=== PATIENT | female | born 1930 | race Caucasian/White ===

== ENCOUNTER → 2016-08-28 | Outpatient (CLI) | payer BC ==
[~2016-08-28] MED LIST: ALEN70TA2 PO; ASPI325T45 PO; CHOL100010 PO; EZET10TA47 PO; LINA1CAP2 PO; LISI-791 PO; METF-384 PO; NIAC500T11 PO; POLY335019 PO; RALO60TA30 PO; ROSU20TA PO; TRIA0.25 PO
--- NOTE | 2016-08-28 14:25 | MAMMOGRAPHY REPORT ---
BILATERAL DIGITAL SCREENING MAMMOGRAM WITH CAD: 08/28/2016 CLINICAL HISTORY: Routine screening. Patient has no complaints. TECHNIQUE: Current study was also evaluated with a Computer Aided Detection (CAD) system. Bilateral CC and MLO views were obtained. COMPARISON: Comparison is made to exams dated: 11/20/2013 mammogram, 11/17/2012 mammogram, 11/13/2011 m ammogram, 11/10/2010 mammogram, 09/06/2009 mammogram - [facility], and 09/05/2008. BREAST COMPOSITION: There are scattered areas of fibroglandular density in both breasts. FINDINGS: No suspicious masses, calcifications, or areas of architectural distortion are noted in ei ther breast. There has been no significant interval change compared to prior exams. Bilateral benign appearing calcifications, predominantly vascular calcifications, are again noted. IMPRESSION: ACR BI-RADS CATEGORY 2: BENIGN There is no mammographic evidence of malignancy. A 1 year screening mammogram is recommended. The pa tient will receive written notification of the results. Approximately 10% of breast cancers are not detected with mammography. A negative mammographic report should not delay biopsy if a clinically suggestive mass is present. Deepali Looney M.D. /:08/28/2016 12:33:21 Process Technician: Amanda RENAE(Abad)(M), [facility] letter sent: Normal 1/2 BI-RADS Code: ACR BI-RADS Category 2: Benign
== END | disposition home or self-care (01) ==
LOC: C.MAMM 10:01
PROVIDERS: ATTEND Family Medicine
DX: Z12.31 Encounter for screening mammogram for malignant neoplasm of breast (principal)

== ENCOUNTER 2019-11-26 12:20 | Inpatient (IN) ==
[2019-11-26] MEDS ORDERED: SODIUM CHLORIDE 0.9% 500 ML IV ONE (12:43)
[2019-11-26] MEDS ORDERED: OPTIRAY 320 125ml IV ONE (12:45)
--- NOTE | 2019-11-26 12:47 | Emergency Department Note ---
Impression & Plan Pneumonia due to COVID-19 virus, Constipation, Ileus, Elevated troponin, Hypoxia ED Provider Note NAME: SARAHY CARREON AGE: 89 SEX: F : 1930 ARRIVES VIA: Walk-In INFORMANT: Patient ED PROVIDER(S): Henrique Arias DO CHIEF COMPLAINT: Upper respiratory symptoms HPI: Patient is an 89-year-old female who presents the for upper respiratory symptoms. She notes that has been present for several days with cough congestion. It is been a nonproductive cough. She denies any reported fevers. She denies any chest pain. Admits to shortness of breath. No belly pain but admits to nausea and vomiting. No history of DVTs. No exposure to anyone with known COVID. 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 She does live with her daughter and the daughters boyfriend who is a contractor. She denies any dysuria urgency or frequency. ROS: See above HPI for pertinent positives & negatives. A total of 10 systems reviewed and were otherwise negative. PAST MEDICAL HISTORY:See Below PAST SURGICAL HISTORY:See Below FAMILY HISTORY:See Below SOCIAL HISTORY:See Below HOME MEDICATIONS:See Below ALLERGIES:See Below VITALS:See Below PHYSICAL EXAMINATION: GENERAL: Sitting up in bed, alert, slightly ill-appearing, disheveled EYE EXAM: normal conjunctiva. PERRL and EOM's grossly intact. OROPHARYNX: no exudate, no erythema, lips, buccal mucosa, and tongue normal and mucous membranes are moist NECK: supple, no nuchal rigidity, no adenopathy, non-tender LUNGS: Diminished at bilateral bases. Normal chest wall mechanics HEART: no murmurs, S1 normal and S2 normal ABDOMEN: abdomen soft, non-tender, normo-active bowel sounds, no masses, no rebound or guarding. BACK: Back is symmetrical on inspection and there is no deformity, no midline tenderness, no CVA tenderness. SKIN: no rashes and no bruising UPPER EXTREMITIES: upper extremities are grossly normal. LOWER EXTREMITIES: No pitting edema. Calves are equal bilateral NEURO EXAM: Normal sensorium, cranial nerves II-XII grossly intact, normal speech, no gross weakness of arms, no gross weakness of legs. MEDICAL DECISION MAKING: Patient is an 89-year-old female who presents the ER for cough, congestion and shortness of breath. Placed on antibiotics as an outpatient. Upon arrival she is hypoxic with a pulse ox of 60%. She was seen immediately in C7. She was placed on nonrebreather. Pulse ox came up to 99%. IVs were established blood work was attained. Sepsis alert was called. Labs showed no significant leukocytosis or anemia. INR unremarkable. With the significant hypoxia CT Jocy of the chest was performed. This was negative. Did show bilateral interstitial infiltrates. Cover test was sent and came back positive. BMP with slightly elevated BUN. She was given IV cefepime initially upon arrival with a COVID positive was given IV Decadron. Lactate was negative. Heart rate trended down. Bilirubin LFTs were unremarkable. Troponin was +0.183. Bio fire was otherwise negative. Patient remained on nonrebreather nwhile in the ER was fairly comfortable. She was updated and admitted to the hospital for hypoxia secondary to COVID-19. Triage Nursing notes reviewed. Prior medical records reviewed Vital Signs: reviewed and remarkable for hypoxic, tachycardic, febrile Differential diagnosis: Differential diagnosis includes etiologies such as sepsis, UTI, pneumonia, metabolic, electrolyte abnormalities, cardiac sources, intracerebral event, toxicologic, neurological, as well as others were entertained. ER treatment provided: See below Diagnostics interpreted by me: ECG: Sinus rhythm rate 84 T WI in inferior leads No PVCs Normal QTC Cardiac Monitoring: An order was placed for continuous cardiac monitoring. The monitor shows a rate of 85 with sinus rhythm. Laboratory studies: As stated above and show below. Imaging studies: CT Angio of the chest shows bilateral infiltrates CT abdomen pelvis shows no acute pathology with exception of large amount of c onstipation Consultation(s): Discussed with Dr. Scotty Krishnamurthy for admission ED COURSE: Procedures: none PDMP:reviewed and no issues Critical Care: I have personally spent 75 minutes of critical care time in the direct management of this patient. This includes bedside care, interpretation of d iagnostic studies, and testing, discussion with consultants, patient, and family members, and other required patient management activities. This 75 minutes is in excess of all separately billable procedures. Past Med/Surg History Social History Smoking Status: Never smoker Second Hand Exposure: No; Do You Dip or Chew Tobacco: No; Tobacco Cessation Education Requested by Patient: No Hx Alcohol Use: No Hx Substance Use: No Preferred Language: Lao Communication Ability: Effective Podiatrist Required: No Beliefs That Will Affect Care: None Current Living Situation: Family Current Living Situation Comment: With daughter and son in law, states she is planning 2 move 2 [address] Other Information That Helps Us Care for You: No Feels Safe at Home: Yes Safety Concerns: Feels Safe At This Time Allergies Allergies Allergy/AdvReac Type Severity Reaction Status Date / Time Cipro Allergy Mild RASH Verified 03/24/12 22:42 Home Meds Home Medications Medication Instructions Recorded Confirmed Unobtainable 11/26/19 11/26/19 Results & Data (ED) Vital Signs Vital Signs - 24 hr 11/26/19 12:25 11/26/19 12:39 11/26/19 12:40 Temperature 37.7 C H Temperature Source Oral Pulse Rate 100 H Pulse Rate [Apical] Respiratory Rate 20 Respiratory Effort / Characteristics Non-Labored Respiratory Depth Normal Blood Pressure 115/57 L Blood Pressure [Left Arm] Blood Pressure Mean 76 Blood Pressure Mean [Left Arm] Pulse Oximetry 89 L 55 L 97 Oxygen Delivery Method Room Air Room Air Non-rebreather Oxygen Flow Rate 15 Sepsis Recent Fever Within 48 Hours Yes Sepsis New/Unexplained Change in Mental Status N/A Sepsis Action Taken by Nursing No Action Required 11/26/19 13:36 11/26/19 13:38 11/26/19 14:11 Temperature Temperature Source Pulse Rate Pulse Rate [Apical] 77 Respiratory Rate 18 Respiratory Effort / Characteristics Non-Labored Respiratory Depth Blood Pressure Blood Pressure [Left Arm] 113/64 Blood Pressure Mean Blood Pressure Mean [Left Arm] 80 Pulse Oximetry 92 96 94 Oxygen Delivery Method Non-rebreather Non-rebreather Non-rebreather Oxygen Flow Rate Sepsis Recent Fever Within 48 Hours Sepsis New/Unexplained Change in Mental Status Sepsis Action Taken by Nursing 11/26/19 14:50 11/26/19 16:30 Temperature Temperature Source Pulse Rate Pulse Rate [Apical] 72 73 Respiratory Rate 26 H 20 Respiratory Effort / Characteristics Respiratory Depth Blood Pressure Blood Pressure [Left Arm] 100/59 L 132/70 Blood Pressure Mean Blood Pressure Mean [Left Arm] 72 90 Pulse Oximetry 95 94 Oxygen Delivery Method Non-rebreather Non-rebreather Oxygen Flow Rate Sepsis Recent Fever Within 48 Hours Sepsis New/Unexplained Change in Mental Status Sepsis Action Taken by Nursing Laboratory Data Result diagrams: 11/26/19 12:56 11/26/19 12:56 Lab Results 11/26/19 11/26/19 11/26/19 Range/Units 12:56 12:56 12:56 WBC 9.14 (4.8-10.8) K/uL RBC 4.40 (4.2-5.4) M/uL Hgb 13.3 (12.0-16.0) g/dL POC Hgb (12.0-16.0) g/dl Hct 40.0 (37-47) % POC Hct (37-47) % MCV 90.9 (80-100) fL MCH 30.2 (25-34) pg MCHC 33.3 (32-36) g/dL RDW Std Deviation 46.3 (36.4-46.3) fL RDW Coeff of Ange 13.9 (11.5-14.5) % Plt Count 385 (130-400) K/uL MPV 8.9 (7.4-10.4) fL Immature Gran % (Auto) 0.4 % Neut % (Auto) 83.8 % Lymph % (Auto) 5.8 % Jefferson % (Auto) 9.8 % Eos % (Auto) 0.0 % Baso % (Auto) 0.2 % Neut # (Auto) 7.65 H (1.4-6.5) K/uL Lymph # (Auto) 0.53 L (1.2-3.4) K/uL Jefferson # (Auto) 0.90 H (0.11-0.59) K/uL Eos # (Auto) 0.00 (0-0.5) K/uL Baso # (Auto) 0.02 (0-0.2) K/uL Immature Gran # (Auto) 0.04 H (0.00-0.02) K/uL PT 11.6 (9.0-12.0) Seconds INR 1.1 (0.9-1.1) APTT 31.4 H (21.0-31.0) Seconds PTT Ratio 1.1 POC Sodium (135-144) mmol/L Sodium 138 (136-145) mmol/L POC Potassium (3.3-5.0) mmol/L Potassium 3.7 (3.5-5.1) mmol/L POC Chloride (101-112) mmol/L Chloride 104 (98-107) mmol/L Carbon Dioxide 24 (21-32) mmol/L POC Total CO2 (24-31) mmol/L Anion Gap 10.0 (3-11) POC Anion Gap (16-25) mmol/L POC BUN (7-18) mg/dl BUN 32 H (7-18) mg/dl Creatinine 0.84 (0.6-1.2) mg/dl POC Creatinine (0.6-1.3) mg/dl Est Cr Clr Drug Dosing Not Reportable Est GFR ( Amer) 71.4 Est GFR (Non-Af Amer) 61.6 BUN/Creatinine Ratio 38.1 H (10-20) Glucose 149 H (70-99) mg/dl POC Glucose (other) (70-99) mg/dl Lactate (0.4-2.0) mmol/L Calcium 8.5 (8.5-10.1) mg/dl POC Ioniz Calcium Scarlett (1.12-1.32) mmol/l Magnesium 2.4 (1.8-2.4) mg/dl Total Bilirubin 0.5 (0.2-1) mg/dl AST 25 (15-37) U/L ALT 15 (12-78) U/L Alkaline Phosphatase 68 (45-117) U/L Troponin I 0.183 H* (0-0.045) ng/ml Total Protein 7.0 (6.4-8.2) gm/dl Albumin 3.1 L (3.4-5.0) gm/dl Globulin 3.9 (2.5-4.0) gm/dl Albumin/Globulin Ratio 0.8 L (0.9-2) Procalcitonin (0-0.5) ng/ml Adenovirus (PCR) (NotDetected) B. pertussis DNA (PCR) (NotDetected) B.parapertussis DNA PCR (NotDetected) C. pneumoniae DNA (PCR) (NotDetected) Coronavirus OC43 (PCR) (NotDetected) Coronavirus HKU1 (PCR) (NotDetected) Coronavirus 229E (PCR) (NotDetected) COVID-19 Eval Order COVID-19 PCR (Negative) Coronavirus NL63 (PCR) (NotDetected) Human Metapneumovir PCR (NotDetected) Influenza Type A (PCR) (NotDetected) Influenza Type B (PCR) (NotDetected) M. pneumoniae (PCR) (NotDetected) Parainfluenza 1 (PCR) (NotDetected) Parainfluenza 2 (PCR) (NotDetected) Parainfluenza 3 (PCR) (NotDetected) Parainfluenza 4 (PCR) (NotDetected) RSV (PCR) (NotDetected) Entero/Rhino (PCR) (NotDetected) Blood Type Antibody Screen 11/26/19 11/26/19 11/26/19 Range/Units 12:56 13:01 13:01 WBC (4.8-10.8) K/uL RBC (4.2-5.4) M/uL Hgb (12.0-16.0) g/dL POC Hgb (12.0-16.0) g/dl Hct (37-47) % POC Hct (37-47) % MCV (80-100) fL MCH (25-34) pg MCHC (32-36) g/dL RDW Std Deviation (36.4-46.3) fL RDW Coeff of Ange (11.5-14.5) % Plt Count (130-400) K/uL MPV (7.4-10.4) fL Immature Gran % (Auto) % Neut % (Auto) % Lymph % (Auto) % Jefferson % (Auto) % Eos % (Auto) % Baso % (Auto) % Neut # (Auto) (1.4-6.5) K/uL Lymph # (Auto) (1.2-3.4) K/uL Jefferson # (Auto) (0.11-0.59) K/uL Eos # (Auto) (0-0.5) K/uL Baso # (Auto) (0-0.2) K/uL Immature Gran # (Auto) (0.00-0.02) K/uL PT (9.0-12.0) Seconds INR (0.9-1.1) APTT (21.0-31.0) Seconds PTT Ratio POC Sodium (135-144) mmol/L Sodium (136-145) mmol/L POC Potassium (3.3-5.0) mmol/L Potassium (3.5-5.1) mmol/L POC Chloride (101-112) mmol/L Chloride (98-107) mmol/L Carbon Dioxide (21-32) mmol/L POC Total CO2 (24-31) mmol/L Anion Gap (3-11) POC Anion Gap (16-25) mmol/L POC BUN (7-18) mg/dl BUN (7-18) mg/dl Creatinine (0.6-1.2) mg/dl POC Creatinine (0.6-1.3) mg/dl Est Cr Clr Drug Dosing Est GFR ( Amer) Est GFR (Non-Af Amer) BUN/Creatinine Ratio (10-20) Glucose (70-99) mg/dl POC Glucose (other) (70-99) mg/dl Lactate (0.4-2.0) mmol/L Calcium (8.5-10.1) mg/dl POC Ioniz Calcium Scarlett (1.12-1.32) mmol/l Magnesium (1.8-2.4) mg/dl Total Bilirubin (0.2-1) mg/dl AST (15-37) U/L ALT (12-78) U/L Alkaline Phosphatase (45-117) U/L Troponin I (0-0.045) ng/ml Total Protein (6.4-8.2) gm/dl Albumin (3.4-5.0) gm/dl Globulin (2.5-4.0) gm/dl Albumin/Globulin Ratio (0.9-2) Procalcitonin 0.32 (0-0.5) ng/ml Adenovirus (PCR) Not Detected (NotDetected) B. pertussis DNA (PCR) Not Detected (NotDetected) B.parapertussis DNA PCR Not Detected (NotDetected) C. pneumoniae DNA (PCR) Not Detected (NotDetected) Coronavirus OC43 (PCR) Not Detected (NotDetected) Coronavirus HKU1 (PCR) Not Detected (NotDetected) Coronavirus 229E (PCR) Not Detected (NotDetected) COVID-19 Eval Order Covid19 Done at [facility] COVID-19 PCR (Negative) Coronavirus NL63 (PCR) Not Detected (NotDetected) Human Metapneumovir PCR Not Detected (NotDetected) Influenza Type A (PCR) Not Detected (NotDetected) Influenza Type B (PCR) Not Detected (NotDetected) M. pneumoniae (PCR) Not Detected (NotDetected) Parainfluenza 1 (PCR) Not Detected (NotDetected) Parainfluenza 2 (PCR) Not Detected (NotDetected) Parainfluenza 3 (PCR) Not Detected (NotDetected) Parainfluenza 4 (PCR) Not Detected (NotDetected) RSV (PCR) Not Detected (NotDetected) Entero/Rhino (PCR) Not Detected (NotDetected) Blood Type Antibody Screen 11/26/19 11/26/19 11/26/19 Range/Units 13:01 13:02 14:07 WBC (4.8-10.8) K/uL RBC (4.2-5.4) M/uL Hgb (12.0-16.0) g/dL POC Hgb 13.6 (12.0-16.0) g/dl Hct (37-47) % POC Hct 40 (37-47) % MCV (80-100) fL MCH (25-34) pg MCHC (32-36) g/dL RDW Std Deviation (36.4-46.3) fL RDW Coeff of Ange (11.5-14.5) % Plt Count (130-400) K/uL MPV (7.4-10.4) fL Immature Gran % (Auto) % Neut % (Auto) % Lymph % (Auto) % Jefferson % (Auto) % Eos % (Auto) % Baso % (Auto) % Neut # (Auto) (1.4-6.5) K/uL Lymph # (Auto) (1.2-3.4) K/uL Jefferson # (Auto) (0.11-0.59) K/uL Eos # (Auto) (0-0.5) K/uL Baso # (Auto) (0-0.2) K/uL Immature Gran # (Auto) (0.00-0.02) K/uL PT (9.0-12.0) Seconds INR (0.9-1.1) APTT (21.0-31.0) Seconds PTT Ratio POC Sodium 135 (135-144) mmol/L Sodium (136-145) mmol/L POC Potassium 4.0 (3.3-5.0) mmol/L Potassium (3.5-5.1) mmol/L POC Chloride 105 (101-112) mmol/L Chloride (98-107) mmol/L Carbon Dioxide (21-32) mmol/L POC Total CO2 22 L (24-31) mmol/L Anion Gap (3-11) POC Anion Gap 14.0 L (16-25) mmol/L POC BUN 36 H (7-18) mg/dl BUN (7-18) mg/dl Creatinine (0.6-1.2) mg/dl POC Creatinine 0.8 (0.6-1.3) mg/dl Est Cr Clr Drug Dosing Est GFR ( Amer) Est GFR (Non-Af Amer) BUN/Creatinine Ratio (10-20) Glucose (70-99) mg/dl POC Glucose (other) 155 H (70-99) mg/dl Lactate 1.3 (0.4-2.0) mmol/L Calcium (8.5-10.1) mg/dl POC Ioniz Calcium Scarlett 0.90 L (1.12-1.32) mmol/l Magnesium (1.8-2.4) mg/dl Total Bilirubin (0.2-1) mg/dl AST (15-37) U/L ALT (12-78) U/L Alkaline Phosphatase (45-117) U/L Troponin I (0-0.045) ng/ml Total Protein (6.4-8.2) gm/dl Albumin (3.4-5.0) gm/dl Globulin (2.5-4.0) gm/dl Albumin/Globulin Ratio (0.9-2) Procalcitonin (0-0.5) ng/ml Adenovirus (PCR) (NotDetected) B. pertussis DNA (PCR) (NotDetected) B.parapertussis DNA PCR (NotDetected) C. pneumoniae DNA (PCR) (NotDetected) Coronavirus OC43 (PCR) (NotDetected) Coronavirus HKU1 (PCR) (NotDetected) Coronavirus 229E (PCR) (NotDetected) COVID-19 Eval Order COVID-19 PCR POSITIVE A* (Negative) Coronavirus NL63 (PCR) (NotDetected) Human Metapneumovir PCR (NotDetected) Influenza Type A (PCR) (NotDetected) Influenza Type B (PCR) (NotDetected) M. pneumoniae (PCR) (NotDetected) Parainfluenza 1 (PCR) (NotDetected) Parainfluenza 2 (PCR) (NotDetected) Parainfluenza 3 (PCR) (NotDetected) Parainfluenza 4 (PCR) (NotDetected) RSV (PCR) (NotDetected) Entero/Rhino (PCR) (NotDetected) Blood Type Antibody Screen 11/26/19 Range/Units 15:45 WBC (4.8-10.8) K/uL RBC (4.2-5.4) M/uL Hgb (12.0-16.0) g/dL POC Hgb (12.0-16.0) g/dl Hct (37-47) % POC Hct (37-47) % MCV (80-100) fL MCH (25-34) pg MCHC (32-36) g/dL RDW Std Deviation (36.4-46.3) fL RDW Coeff of Ange (11.5-14.5) % Plt Count (130-400) K/uL MPV (7.4-10.4) fL Immature Gran % (Auto) % Neut % (Auto) % Lymph % (Auto) % Jefferson % (Auto) % Eos % (Auto) % Baso % (Auto) % Neut # (Auto) (1.4-6.5) K/uL Lymph # (Auto) (1.2-3.4) K/uL Jefferson # (Auto) (0.11-0.59) K/uL Eos # (Auto) (0-0.5) K/uL Baso # (Auto) (0-0.2) K/uL Immature Gran # (Auto) (0.00-0.02) K/uL PT (9.0-12.0) Seconds INR (0.9-1.1) APTT (21.0-31.0) Seconds PTT Ratio POC Sodium (135-144) mmol/L Sodium (136-145) mmol/L POC Potassium (3.3-5.0) mmol/L Potassium (3.5-5.1) mmol/L POC Chloride (101-112) mmol/L Chloride (98-107) mmol/L Carbon Dioxide (21-32) mmol/L POC Total CO2 (24-31) mmol/L Anion Gap (3-11) POC Anion Gap (16-25) mmol/L POC BUN (7-18) mg/dl BUN (7-18) mg/dl Creatinine (0.6-1.2) mg/dl POC Creatinine (0.6-1.3) mg/dl Est Cr Clr Drug Dosing Est GFR ( Amer) Est GFR (Non-Af Amer) BUN/Creatinine Ratio (10-20) Glucose (70-99) mg/dl POC Glucose (other) (70-99) mg/dl Lactate (0.4-2.0) mmol/L Calcium (8.5-10.1) mg/dl POC Ioniz Calcium Scarlett (1.12-1.32) mmol/l Magnesium (1.8-2.4) mg/dl Total Bilirubin (0.2-1) mg/dl AST (15-37) U/L ALT (12-78) U/L Alkaline Phosphatase (45-117) U/L Troponin I (0-0.045) ng/ml Total Protein (6.4-8.2) gm/dl Albumin (3.4-5.0) gm/dl Globulin (2.5-4.0) gm/dl Albumin/Globulin Ratio (0.9-2) Procalcitonin (0-0.5) ng/ml Adenovirus (PCR) (NotDetected) B. pertussis DNA (PCR) (NotDetected) B.parapertussis DNA PCR (NotDetected) C. pneumoniae DNA (PCR) (NotDetected) Coronavirus OC43 (PCR) (NotDetected) Coronavirus HKU1 (PCR) (NotDetected) Coronavirus 229E (PCR) (NotDetected) COVID-19 Eval Order COVID-19 PCR (Negative) Coronavirus NL63 (PCR) (NotDetected) Human Metapneumovir PCR (NotDetected) Influenza Type A (PCR) (NotDetected) Influenza Type B (PCR) (NotDetected) M. pneumoniae (PCR) (NotDetected) Parainfluenza 1 (PCR) (NotDetected) Parainfluenza 2 (PCR) (NotDetected) Parainfluenza 3 (PCR) (NotDetected) Parainfluenza 4 (PCR) (NotDetected) RSV (PCR) (NotDetected) Entero/Rhino (PCR) (NotDetected) Blood Type O Negative Antibody Screen NEGATIVE Administered Medications Discontinued Medications Dexamethasone (Dexamethasone Sod Inj 10 Mg/Ml Vial) 8 mg IV NOW ONE Stop: 11/26/19 15:09 Last Admin: 11/26/19 15:46 Dose: 8 mg Documented by: [id number] Sodium Chloride (Nss) 500 mls @ 999 mls/hr IV .Q31M ONE Stop: 11/26/19 13:13 Last Infusion: 11/26/19 13:42 Dose: 0 mls/hr Documented by: [id number] Admin: 11/26/19 13:06 Dose: 999 mls/hr Documented by: [id number] Cefepime HCl (Maxipime) 2,000 mg in 20 mls @ 5 mls/min IV NOW STA; Protocol Stop: 11/26/19 14:12 Last Admin: 11/26/19 15:02 Dose: 5 mls/min Documented by: [id number] Ioversol (Optiray 320 125ml) 118 ml IV ONCE ONE Stop: 11/26/19 12:46 Last Admin: 11/26/19 12:46 Dose: 118 ml Documented by: [id number] Discharge Plan Visit Data Chief Complaint: Vomiting Stated Complaint: VOMITING/STARTED MEDS FOR SINUS INFECTION ED Provider: Henrique Arias Discharge Problem: Pneumonia due to COVID-19 virus, Constipation, Ileus, Elevated troponin, Hypoxia Discharge Instructions Interventions: ED Discharge Assessment Last Done: 11/26/19 17:06 Discharge Problem: Constipation Qualifiers: Constipation type: unspecified constipation type Qualified Code(s): K59.00 - Constipation, unspecified
[2019-11-26 13:14] LABS: iSTAT Creatinine 0.8 mg/dl (0.6-1.3); iSTAT Hemoglobin 13.6 g/dl (12.0-16.0); iSTAT Ionized Calcium 0.9 mmol/l (1.12-1.32)
[2019-11-26 13:15] LABS: Basophils # (auto) 0.02 K/uL (0-0.2); Basophils % (auto) 0.2 %; Hemoglobin 13.3 g/dL (12.0-16.0); Immature Granulocytes # (auto) 0.04 K/uL (0.00-0.02); Immature Granulocytes % (auto) 0.4 %; Lymphocytes # (auto) 0.53 K/uL (1.2-3.4); Lymphocytes % (auto) 5.8 %; Mean Corpuscular Hemoglobin 30.2 pg (25-34); Mean Corpuscular Hgb Conc 33.3 g/dL (32-36); Mean Corpuscular Volume 90.9 fL (80-100); Mean Platelet Volume 8.9 fL (7.4-10.4); Monocytes % (auto) 9.8 %; Neutrophils # (auto) 7.65 K/uL (1.4-6.5); Neutrophils % (auto) 83.8 %; Platelet Count 385 K/uL (130-400); RDW Coefficient of Variation 13.9 % (11.5-14.5); RDW Standard Deviation 46.3 fL (36.4-46.3); White Blood Count 9.14 K/uL (4.8-10.8)
[2019-11-26 13:24] LABS: INR 1.1 (0.9-1.1); Partial Thromboplastin Ratio 1.1; Partial Thromboplastin Time 31.4 Seconds (21.0-31.0); Prothrombin Time 11.6 Seconds (9.0-12.0)
[2019-11-26 13:31] LABS: Alanine Aminotransferase 15 U/L (12-78); Albumin Level 3.1 gm/dl (3.4-5.0); Aspartate Aminotransferase 25 U/L (15-37); BUN Creatinine Ratio 38.1 (10-20); Blood Urea Nitrogen 32 mg/dl (7-18); Calcium 8.5 mg/dl (8.5-10.1); Carbon Dioxide 24 mmol/L (21-32); Chloride 104 mmol/L (98-107); Est GFR (African American) 71.4; Est GFR (Non-African American) 61.6; Glucose 149 mg/dl (70-99); Magnesium 2.4 mg/dl (1.8-2.4); Potassium 3.7 mmol/L (3.5-5.1); Sodium 138 mmol/L (136-145)
--- NOTE | 2019-11-26 13:40 | CT Scan Report ---
CT ANGIOGRAM OF THE CHEST CLINICAL HISTORY: Atypical chest pain. Shortness of breath. Possible pulmonary embolism. Sepsis. COMPARISON STUDY: No previous studies for comparison. TECHNIQUE: Following the IV administration of 118 mL of Optiray-320, CT angiogram of the thorax was p erformed from the thoracic inlet to the lung bases utilizing the pulmonary embolus protocol. Images a re reviewed in the axial, sagittal, and coronal planes. IV contrast was administered without complica tion. MIP imaging was performed. A dose lowering technique was utilized adhering to the principles o f ALARA. CT DOSE: 658.48 mGy.cm FINDINGS: There is mild hilar adenopathy, there are borderline enlarged mediastinal lymph nodes. The heart is enlarged. The ascending thoracic aorta measures 29 mm There were no pulmonary artery filling defects to indicate acute pulmonary embolism. No pleural effusions are visualized. There are multifocal groundglass opacities. These have an upper lobe predominance. The lower lobe, th ere is surgical bronchiectasis with associated groundglass opacity. Clinical correlation be necessary to differentiate chronic lung disease from an acute inflammatory process. IMPRESSION: 1. No evidence of acute pulmonary embolism 2. Mild hilar adenopathy. Borderline enlarged mediastinal lymph nodes 3. Multifocal groundglass opacities. Lower lobe bronchiectasis. Clinical correlation will be necessar y to differentiate an acute infectious/inflammatory processes from chronic lung disease. ACT 112: Negative or not required by law. Electronically signed by: Nico Grey M.D. 11/26/2019 1:39 PM
[2019-11-26 13:42] LABS: Albumin Globulin Ratio 0.8 (0.9-2); Alkaline Phosphatase 68 U/L (45-117); Bilirubin,Total 0.5 mg/dl (0.2-1); Globulin 3.9 gm/dl (2.5-4.0); Troponin I 0.183 ng/ml (0-0.045)
--- NOTE | 2019-11-26 13:46 | CT Scan Report ---
CT abd pelvis IV con only CLINICAL HISTORY: Generalized abdominal pain COMPARISON STUDY: February 2012 TECHNIQUE: Patient was scanned in a dynamic helical fashion during intravenous administration of 118 cc of Optiray 320 A dose lowering technique was utilized adhering to the principles of ALARA. CT DOSE: FINDINGS: Lower chest: There are multifocal groundglass opacities. There is lower lobe cylindrical bronchiectas is. The heart is enlarged. There are no significant pleural effusions. Liver: The contrast-enhanced liver is normal in size, contour, and attenuation. There is no intrahepa tic biliary ductal dilatation. The hepatic veins and portal veins are patent. Gallbladder: Unremarkable. Spleen: Normal in size and attenuation. Pancreas: Mildly atrophic. No focal masses identified Adrenal glands: Unremarkable. Kidneys: There is symmetric renal cortical enhancement. The kidneys are normal in size without hydron ephrosis. Bowel: There is borderline rectal wall thickening. There is gaseous distention of the colon down to t he level the sigmoid. No obstructing mass is visualized. There is borderline rectal wall thickening. There are no findings to indicate acute appendicitis. Peritoneum: There is no intraperitoneal free air or abdominal ascites. Vasculature: The abdominal aorta is normal in course and caliber. Adenopathy: None. Pelvic viscera: The uterus appears surgically absent. Skeletal structures: No destructive osseous lesions are seen. IMPRESSION: 1. Moderate right colonic stool, and moderate gaseous distention of the colon down to the level of th e sigmoid. No obstructing mass is visualized on CT scanning. 2. Borderline rectal wall thickening. Clinical correlation regards to a proctocolitis is recommended 3. No evidence of pneumatosis. No evidence of free intraperitoneal air. ACT 112: Negative or not required by law. Electronically signed by: Nico Grey M.D. 11/26/2019 1:44 PM
[2019-11-26 14:06] LABS: Adenovirus PCR Not Detected (NotDetected); Bordetella parapertussis PCR Not Detected (NotDetected); Bordetella pertussis PCR Not Detected (NotDetected); Chlamydia pneumoniae PCR Not Detected (NotDetected); Coronavirus 229E PCR Not Detected (NotDetected); Coronavirus HKU1 PCR Not Detected (NotDetected); Coronavirus NL63 PCR Not Detected (NotDetected); Coronavirus OC43PCR Not Detected (NotDetected); Human Metapneumovirus PCR Not Detected (NotDetected); Influenza A PCR Not Detected (NotDetected); Influenza B PCR Not Detected (NotDetected); Mycoplasma pneumoniae PCR Not Detected (NotDetected); Parainfluenza Virus 1 PCR Not Detected (NotDetected); Parainfluenza Virus 2 PCR Not Detected (NotDetected); Parainfluenza Virus 3 PCR Not Detected (NotDetected); Parainfluenza Virus 4 PCR Not Detected (NotDetected); Respiratory Syncytial VirusPCR Not Detected (NotDetected); Rhinovirus/Enterovirus PCR Not Detected (NotDetected)
[2019-11-26] MEDS ORDERED: CEFEPIME 2,000 MG/20 ML VIAL IV STA (14:09)
--- NOTE | 2019-11-26 14:16 | XRay Report ---
XR chest 1V portable CLINICAL HISTORY: SEPSIS COMPARISON STUDY: 09/20/2014 FINDINGS: The heart is enlarged. There is mild elevation left hemidiaphragm. There is radiographic co ngestive failure/fluid overload. There are basilar airspace opacities, edema versus atelectasis versu s pneumonia.[Right hilum is prominent suggesting underlying adenopathy IMPRESSION: 1. Cardiomegaly and radiographic evidence of congestive failure/fluid overload 2. Nonspecific basilar opacities. These could represent focal edema, pneumonia, or atelectasis. Clini mabel and radiographic follow-up is recommended. 3. Suspected mild right hilar adenopathy ACT 112: Negative or not required by law. Electronically signed by: Nico Grey M.D. 11/26/2019 2:14 PM
[2019-11-26] MEDS ORDERED: DEXAMETHASONE SOD INJ 10 MG/ML VIAL IV ONE (15:08)
--- NOTE | 2019-11-26 15:34 | History & Physical Report ---
Date of Service November 26, 2019 Assessment & Plan (1) Pneumonia due to COVID-19 virus: Patient has profound acute hypoxic respiratory failure clinical scenario consistent with COVID positive COVID testing. Patient was consented for convalescent plasma in the presence of her daughter. FDA fax sheet was given. Patient is typing screen in the emergency department and convalescent plasma will be ordered. Patient also continue 10 days of dexamethasone 6 mg once a day and zinc therapy. Patient is requiring high flow oxygen and is mear the maximum will have a prn bipap order and after conversation with pulmonary national sales trainer,Dr Early, will start REmdesivir theapy this pm patient does wish to be a full code and would permit progressions of ventilation if required Patient denies any ill contacts since there is a family Because consolidation cannot be ruled out by CT scan the patient also be given ceftriaxone and azithromycin for been acquired pneumonia. Should be given an antitussive Robitussin-AC (2) Diabetes: Attempts to reach her pharmacy which is [facility] were met with the pharmacy being closed. To this end we will place the patient on a sliding scale at this point in time without carb coverage until we can determine what her best insulin requirement would be she is on carbohydrate sensitive diet and A1c will be checked in the morning and W pharmacy oversight for her diabetic care (3) Hyperlipidemia: In the distant past patient has been on statins these will be held at this current time (4) Ileus: Senokot 2 in the morning and the declog suppository in the eveningPatient is marked gaseous distention seen on imaging studies. CT scan suggest possible right-sided constipation (5) Elevated troponin: Elevated troponin of unclear significance at this time there is no significant renal failure although she has chronic kidney disease stage II. Troponins will be checked in the morning there is no acute changes on her EKG this could be result of COVID carditis. Patient will be given a baby aspirin (6) DVT prophylaxis: Patient is placed on Lovenox 30 subcu every 12 Patient confirmed she is a full code her outlook is katina at this present time History of Present Illness Primary Care Provider: Marcio Lindsay MD 89-year-old female who presents the for upper respiratory symptoms. She notes that she has been fatigued and tired for a few days with a nonproductive cough. She denies any reported fevers. She denies any chest pain. She says she has felt more short of breath of late no belly pain nausea vomiting or diarrhea. No history of DVTs. No exposure to anyone with known COVID. 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 She does live with her daughter and the daughters boyfriend who is a contractor. She denies any dysuria urgency or frequency. In emergency department she is found be profoundly hypoxemic. She has bilateral groundglass densities seen on CT scan of her chest. She has positive COVID test negative bio fire she is not leukoropenic she is lymphopenic she is mild elevation of her troponin she is requiring nonrebreather oxygen I did discuss this case with Dr. Chandrakant Early Allergies Allergy/AdvReac Type Severity Reaction Status Date / Time Cipro Allergy Mild RASH Verified 03/24/12 22:42 Home Medications Home Medications Medication Instructions Recorded Confirmed Type Unobtainable 11/26/19 11/26/19 History Past Med/Surg History Social History Smoking Status: Never smoker Second Hand Exposure: No; Do You Dip or Chew Tobacco: No; Tobacco Cessation Education Requested by Patient: No Hx Alcohol Use: No Hx Substance Use: No Preferred Language: [place] Communication Ability: Effective Manager Rfid Required: No Beliefs That Will Affect Care: None Current Living Situation: Family Current Living Situation Comment: With daughter and son in law, states she is planning 2 move 2 [facility] [address] Other Information That Helps Us Care for You: No Feels Safe at Home: Yes Safety Concerns: Feels Safe At This Time Review of Systems Review of Systems: Moderate distress and moderate fatigue 2 to 3 days worth of headache, but no blurry or double vision no speech or swallowing issues no chest pain, pressure or palpitations She has felt short of breath specifically dyspneic with exertion has had a nonproductive cough no abdominal pain, nausea or vomiting, diarrhea or constipation no dysuria, hematuria or frequency no focal joint pain or swelling no back pain, CVA tenderness or radicular pain no bruising, bleeding or rashes no focal signs of weakness or numbness or altered sensation no complaints or anxiety or depression. Physical Exam Physical Exam: The patient appeared well nourished and normally developed. She breathes easily with nonrebreather but does not tolerate any lower amount of supplemental oxygen at this time Vital signs as documented. On oxygen mask at 15 L she desaturated to 85% on nonrebreather she remains above 90 Head exam is normocephalic atraumatic no scleral icterus Oropharynx is without erythema or exudates Neck is without JVD, thyromegaly, or carotid bruits. Lungs are coarse rales are heard in all lung cristobal Cardiac exam, Rhythm is regular.. No murmurs, rubs or gallops. Abdominal exam reveals normal bowel sounds, soft non tender, no masses Extremities are nonedematous and both pedal pulses are normal. Neurologic exam is alert and oriented, no focal loss of strength or sensation Skin is without bruises or rashes Results & Data Results & Data ([facility]) Vital Signs (Past 12 Hours) Vital Signs Temp Pulse Pulse Resp BP BP Pulse Ox 11/26/19 14:50 72 26 H 100/59 L 95 11/26/19 14:11 94 11/26/19 13:38 77 18 113/64 96 11/26/19 13:36 92 11/26/19 12:40 97 11/26/19 12:39 55 L 11/26/19 12:25 99.9 F H 100 H 20 115/57 L 89 L chest x-ray 11/26/2019 cardiomegaly evidence of failure bibasilar opacities infectious etiology is not ruled out right hilar adenopathy CT angiogram of the chest 11/26/2019no PE, hilar adenopathy, multifocal groundglass opacities lower lobe bronchiectasis CT abdomen pelvis 11/26/2019moderate colonic stool gaseous distention of the colon down to the level of the sigmoid no obstructing masses borderline rectal wall thickening no free intraperitoneal air EKG shows sinus mechanism no acute coronary syndrome suspected PG Care Time/CCT Total # of Minutes Spent Total Time Spent with Patient: Total time spent is greater than 50% in c oordination of care (as documented) at patient's floor/unit and/or counseling patient: Coding Level of Care Code 21624 Initial Inpt Care Lvl 3 Diagnoses Pneumonia due to COVID-19 virus U07.1; J12.89 Diabetes E11.9 Hyperlipidemia E78.5 Ileus K56.7 Elevated troponin R79.89 DVT prophylaxis Z29.9
[2019-11-26] MEDS ORDERED: bisacodyL 10 MG SUPP PR STA (18:04)
[2019-11-26] MEDS ORDERED: GUAIFENESIN/CODEINE 100MG/10MG 5ML UDC PO PRN (18:04)
[2019-11-26] MEDS ORDERED: AZITHROMYCIN 250 MG TAB PO ONE (18:04)
[2019-11-26] MEDS ORDERED: ONDANSETRON INJ 2 MG/ML 2 ML VIAL IV PRN (18:04)
[2019-11-26] MEDS ORDERED: GLUCOSE 40% GEL 15 GM TUBE PO PRN (18:04)
[2019-11-26] MEDS ORDERED: CARBOHYDRATES FOR HYPOGLYCEMIA PO PRN (18:04)
[2019-11-26] MEDS ORDERED: DEXTROSE 50% 50 ML SYRINGE IV PRN (18:04)
[2019-11-26] MEDS ORDERED: GLUCAGON FOR INJ 1 MG VIAL SQ PRN (18:04)
[2019-11-26] MEDS ORDERED: GLUCOSE 10 TABS/TUBE PO PRN (18:04)
[2019-11-26] MEDS ORDERED: ALUMINUM/MAGNESIUM SUSP 30 ML UDC PO PRN (18:04)
[2019-11-26] MEDS ORDERED: PHARMACY GLYCEMIC MGMT CONSULT PRN (18:39)
[2019-11-26 18:43] LABS: D Dimer 3940 ug/L FEU (0-500)
[2019-11-26] MEDS ORDERED: cefTRIAXone SODIUM 2,000 MG in DEXTROSE 5% 50 ML IV SCH (19:00)
--- NOTE | 2019-11-26 19:11 | Pharmacy Report ---
Pharmacy Glycemic Short Note 2 - Date of Service November 26, 2019 - Glycemic Short BSG Results (Last 24 hours): 11/26/19 11/26/19 12:56 13:02 Glucose 149 H POC Glucose (other) 155 H OUTPATIENT ANTIDIABETIC REGIMEN: * Patient's outpatient med history was unobtainable at admission. ASSESSMENT: * Admitted for pneumonia due to Covid-19 virus. Patient will be receiving Dexamethasone 6mg Daily. * Started on Remdesivir 200mg IV x1 tonight, followed by Remdesivir 100mg IV q24h Days 2-5. PLAN FOR INPATIENT GLYCEMIC CONTROL: * Hold outpatient oral diabetes medications * Basal insulin * Lantus 10 units x1 dose tonight * Bolus insulin * NovoLog per scale ACHS or Q6hrs while NPO * Goal Range: Low 110 mg/dL - High 140 mg/dL * Correction Factor: 35 mg/dL/unit * Nutritional / Prandial insulin per carb ratio of 1 unit per 12 grams CHO consumed PLAN FOR DISCHARGE: *
[2019-11-26] MEDS ORDERED: REMDESIVIR 200 mg: Day 1 IV ONE (19:15)
[2019-11-26] MEDS ORDERED: LANTUS PER UNIT CHARGE SQ SCH (20:00)
[2019-11-26] MEDS: ASPIRIN 81 MG ECTAB PO SCH (20:50)
[2019-11-26] MEDS: ACETAMINOPHEN 325 MG TAB PO SCH (20:50)
[2019-11-26] MEDS: cefTRIAXone SODIUM 2,000 MG in DEXTROSE 5% 50 ML IV SCH (20:51)
[2019-11-26] MEDS: ENOXAPARIN INJ 30 MG/0.3 ML SYR SQ SCH (20:52)
[2019-11-26] MEDS: INSULIN ASPART 100 UNITS/ML 3 ML PEN SC SCH (20:58)
[2019-11-26] MEDS: NSS 30mL Flush, Days 1-5 IV SCH (23:12)
[2019-11-27] MEDS: ACETAMINOPHEN 325 MG TAB PO SCH (00:18)
[2019-11-27 01:35] LABS: Appearance Urine Clear (Clear); Bacteria Urine Automated Negative (Negative); Bilirubin Urine Negative (Negative); Blood Urine Negative (Negative); Color Urine Yellow; Epithelial Cell Urine Auto >30 /lpf (0-5); Glucose Urine UA Negative (Negative); Ketones Urine 1+ (Negative); Leukocyte Esterase Urine Negative (Negative); Nitrite Urine Negative (Negative); Protein Urine 1+ (Negative); Specific Gravity Urine > 1.045 (1.000-1.030); Urobilinogen Urine Negative (Negative); pH Urine 5.5 (4.5-7.5)
[2019-11-27 01:47] LABS: RBC Urine Automated 0-4 /hpf (0-4)
[2019-11-27 08:50] LABS: Estimated Average Glucose 126 mg/dl
[2019-11-27] MEDS ORDERED: dexAMETHasone 6 MG in DEXTROSE 5% 25 ML IV SCH (09:00)
[2019-11-27] MEDS: ZINC SULFATE 220 MG CAPSULE PO SCH (09:02)
[2019-11-27] MEDS: ASPIRIN 81 MG ECTAB PO SCH (09:02)
[2019-11-27] MEDS: DEXAMETHASONE SOD PHOSPHATE 6 MG in SYRINGE 0 ML IV SCH (09:02)
[2019-11-27] MEDS: AZITHROMYCIN 250 MG TAB PO SCH (09:02)
[2019-11-27] MEDS: ENOXAPARIN INJ 30 MG/0.3 ML SYR SQ SCH ×2 (09:02→20:46)
[2019-11-27] MEDS: DOCUSATE SODIUM/SENNA 50/8.6MG TAB PO SCH (09:08)
[2019-11-27] MEDS: INSULIN ASPART 100 UNITS/ML 3 ML PEN SC SCH ×4 (09:22→20:48)
--- NOTE | 2019-11-27 09:33 | Hospitalist Progress Note ---
Date of Service November 27, 2019 Assessment & Plan (1) Acute respiratory failure with hypoxia: due to viral pneumonia with COVID 19 continue HFNC at 25L 100% FiO2, try to wean as tolerated no respiratory distress or labored breathing, hopeful that the high flow will be sufficient to see her through illness (2) Pneumonia due to COVID-19 virus: Patient has profound acute hypoxic respiratory failure clinical scenario consistent with COVID positive COVID testing still requiring 25L 100%FiO2 today, will wean as tolerated but anticipate it could take a few days to improve plan: dexamethasone 6mg IV daily x 10 days, today is day 2 Remdesivir daily x 5 days Rocephin, Zithromax and Zinc, cover for possible superimposed bacterial infection await convalescent plasma, patient signed consent supportive care with high flow nasal canula encouraged patient to stay well nourished and well hydrated, will be important to maintain strength try to take deep breaths every hour discussed that she might deteriorate instead of improving, if that happens she would want intubated check CBC, CMP and D dimer tomorrow (3) Diabetes: Novolog monitor sugars with dexamethasone use (4) Hyperlipidemia: In the distant past patient has been on statins these will be held at this current time (5) Ileus: Senokot 2 in the morning and the declog suppository in the eveningPatient is marked gaseous distention seen on imaging studies. CT scan suggest possible right-sided constipation monitor closely for bowel movement (6) Elevated troponin: Elevated troponin of unclear significance at this time there is no significant renal failure although she has chronic kidney disease stage II troponin down to 0.063 from 0.18 could be due to profound hypoxia at home, as troponin improved with supplemental oxygen no need to follow further, denies chest pain, no EKG changes (7) DVT prophylaxis: Patient is placed on Lovenox 30 subcu every 12 Patient confirmed she is a full code prognosis is guarded but patient remains determined and optimistic Admission and Anticipated Discharge Date Admission Date: November 26, 2019 Subjective patient feels the same as yesterday, just c/o fatigue and weakness denies any dyspnea, cough, fever, chills, sweats she is trying to eat and drink well she is requiring 25L 100% FiO2 on the HFNC which is the same as yesterday she is determined to "fight this" and agrees to intubation if needed spoke with her daughter over the phone, provided update of her clinical status will check into convalescent plasma situation as the patient signed consent and wants the treatment if it can be acquired no labs today, will check tomorrow spoke with RN, updated him about plan reviewed chart from admission yesterday Review of Systems Review of Systems: All systems reviewed & are unremarkable except as noted in Subjective Constitutional: + fatigue and + weakness; no fever Respiratory: no cough, no dyspnea, no dyspnea on exertion and no wheezing Cardiovascular: no chest pain and no edema Gastrointestinal: no abdominal pain, no nausea, no vomiting, no constipation and no diarrhea/loose stools Physical Exam Constitutional: well developed, well nourished and + ill appearing; no acute distress Eyes: PERRL, conjunctivae normal, anicteric sclerae ENMT: external ear and nose normal, oropharynx normal Neck: trachea midline, no thyromegaly Respiratory: normal respiratory effort; no respiratory distress and no cough Auscultation: + crackles (right > left); no rales, no rhonchi and no wheezes Cardiovascular: RRR, no murmur, no edema Gastrointestinal (Abdomen): normal bowel sounds, soft, nontender, no hepatosplenomegaly Musculoskeletal: no cyanosis or clubbing, extremities motor strength 5/5 Skin: no rashes, warm and dry Neurologic: patellar DTR's 2+ bilat, sensation intact and PERRL, EOMI, accommodation nl, no face palsy, no dysarthria Psychiatric: A+Ox3, euthymic affect Lymphatic: no cervical or axillary lymphadenopathy Results & Data Results & Data ([facility]) Vital Signs (Past 12 Hours) Vital Signs Temp Pulse Resp BP Pulse Ox 11/27/19 09:00 23 88 L 11/27/19 08:30 23 88 L 11/27/19 08:29 36.6 C 76 23 106/50 L 88 L 11/27/19 08:00 23 90 11/27/19 07:15 69 22 91 11/27/19 06:00 18 87 L 11/27/19 05:30 18 91 11/27/19 05:00 18 88 L 11/27/19 04:30 18 91 11/27/19 04:26 36.5 C 56 L 21 101/64 92 11/27/19 04:00 16 90 11/27/19 03:30 14 88 L 11/27/19 03:14 80 22 92 11/27/19 03:00 18 90 11/27/19 02:30 21 88 L 11/27/19 02:00 18 92 11/27/19 01:31 16 91 11/27/19 01:00 16 91 11/27/19 00:45 72 16 91 11/27/19 00:33 36.5 C 67 16 135/67 90 11/27/19 00:30 16 89 L 11/27/19 00:00 16 89 L 11/26/19 23:30 16 92 11/26/19 23:00 16 90 11/26/19 21:33 96 H 18 98 Laboratory Results Laboratory Results - last 24 hr 11/26/19 11/26/19 11/26/19 12:56 12:56 12:56 WBC 9.14 RBC 4.40 Hgb 13.3 POC Hgb Hct 40.0 POC Hct MCV 90.9 MCH 30.2 MCHC 33.3 RDW Std Deviation 46.3 RDW Coeff of Ange 13.9 Plt Count 385 MPV 8.9 Immature Gran % (Auto) 0.4 Neut % (Auto) 83.8 Lymph % (Auto) 5.8 Spencer % (Auto) 9.8 Eos % (Auto) 0.0 Baso % (Auto) 0.2 Neut # (Auto) 7.65 H Lymph # (Auto) 0.53 L Spencer # (Auto) 0.90 H Eos # (Auto) 0.00 Baso # (Auto) 0.02 Immature Gran # (Auto) 0.04 H PT 11.6 INR 1.1 APTT 31.4 H PTT Ratio 1.1 D-Dimer POC Sodium Sodium 138 POC Potassium Potassium 3.7 POC Chloride Chloride 104 Carbon Dioxide 24 POC Total CO2 Anion Gap 10.0 POC Anion Gap POC BUN BUN 32 H Creatinine 0.84 POC Creatinine Est Cr Clr Drug Dosing Not Reportable Est GFR ( Amer) 71.4 Est GFR (Non-Af Amer) 61.6 BUN/Creatinine Ratio 38.1 H Glucose 149 H POC Glucose POC Glucose (other) Estimat Average Glucose Hemoglobin A1c Lactate Calcium 8.5 POC Ioniz Calcium Scarlett Magnesium 2.4 Total Bilirubin 0.5 AST 25 ALT 15 Alkaline Phosphatase 68 Troponin I 0.183 H* Total Protein 7.0 Albumin 3.1 L Globulin 3.9 Albumin/Globulin Ratio 0.8 L Procalcitonin Urine Color Urine Appearance Urine pH Ur Specific [place] Urine Protein Urine Glucose (UA) Urine Ketones Urine Blood Urine Nitrite Urine Bilirubin Urine Urobilinogen Ur Leukocyte Esterase Urine WBC (Auto) Urine RBC (Auto) U Hyaline Cast (Auto) U Epithel Cells (Auto) Urine Bacteria (Auto) Urine Yeast Adenovirus (PCR) B. pertussis DNA (PCR) B.parapertussis DNA PCR C. pneumoniae DNA (PCR) Coronavirus OC43 (PCR) Coronavirus HKU1 (PCR) Coronavirus 229E (PCR) COVID-19 Eval Order COVID-19 PCR Coronavirus NL63 (PCR) Human Metapneumovir PCR Influenza Type A (PCR) Influenza Type B (PCR) M. pneumoniae (PCR) Parainfluenza 1 (PCR) Parainfluenza 2 (PCR) Parainfluenza 3 (PCR) Parainfluenza 4 (PCR) RSV (PCR) Entero/Rhino (PCR) Blood Type Antibody Screen 11/26/19 11/26/19 11/26/19 12:56 13:01 13:01 WBC RBC Hgb POC Hgb Hct POC Hct MCV MCH MCHC RDW Std Deviation RDW Coeff of Ange Plt Count MPV Immature Gran % (Auto) Neut % (Auto) Lymph % (Auto) Spencer % (Auto) Eos % (Auto) Baso % (Auto) Neut # (Auto) Lymph # (Auto) Spencer # (Auto) Eos # (Auto) Baso # (Auto) Immature Gran # (Auto) PT INR APTT PTT Ratio D-Dimer POC Sodium Sodium POC Potassium Potassium POC Chloride Chloride Carbon Dioxide POC Total CO2 Anion Gap POC Anion Gap POC BUN BUN Creatinine POC Creatinine Est Cr Clr Drug Dosing Est GFR ( Amer) Est GFR (Non-Af Amer) BUN/Creatinine Ratio Glucose POC Glucose POC Glucose (other) Estimat Average Glucose Hemoglobin A1c Lactate Calcium POC Ioniz Calcium Scarlett Magnesium Total Bilirubin AST ALT Alkaline Phosphatase Troponin I Total Protein Albumin Globulin Albumin/Globulin Ratio Procalcitonin 0.32 Urine Color Urine Appearance Urine pH Ur Specific [place] Urine Protein Urine Glucose (UA) Urine Ketones Urine Blood Urine Nitrite Urine Bilirubin Urine Urobilinogen Ur Leukocyte Esterase Urine WBC (Auto) Urine RBC (Auto) U Hyaline Cast (Auto) U Epithel Cells (Auto) Urine Bacteria (Auto) Urine Yeast Adenovirus (PCR) Not Detected B. pertussis DNA (PCR) Not Detected B.parapertussis DNA PCR Not Detected C. pneumoniae DNA (PCR) Not Detected Coronavirus OC43 (PCR) Not Detected Coronavirus HKU1 (PCR) Not Detected Coronavirus 229E (PCR) Not Detected COVID-19 Eval Order Covid19 Done at [facility] COVID-19 PCR Coronavirus NL63 (PCR) Not Detected Human Metapneumovir PCR Not Detected Influenza Type A (PCR) Not Detected Influenza Type B (PCR) Not Detected M. pneumoniae (PCR) Not Detected Parainfluenza 1 (PCR) Not Detected Parainfluenza 2 (PCR) Not Detected Parainfluenza 3 (PCR) Not Detected Parainfluenza 4 (PCR) Not Detected RSV (PCR) Not Detected Entero/Rhino (PCR) Not Detected Blood Type Antibody Screen 11/26/19 11/26/19 11/26/19 13:01 13:02 14:07 WBC RBC Hgb POC Hgb 13.6 Hct POC Hct 40 MCV MCH MCHC RDW Std Deviation RDW Coeff of Ange Plt Count MPV Immature Gran % (Auto) Neut % (Auto) Lymph % (Auto) Spencer % (Auto) Eos % (Auto) Baso % (Auto) Neut # (Auto) Lymph # (Auto) Spencer # (Auto) Eos # (Auto) Baso # (Auto) Immature Gran # (Auto) PT INR APTT PTT Ratio D-Dimer POC Sodium 135 Sodium POC Potassium 4.0 Potassium POC Chloride 105 Chloride Carbon Dioxide POC Total CO2 22 L Anion Gap POC Anion Gap 14.0 L POC BUN 36 H BUN Creatinine POC Creatinine 0.8 Est Cr Clr Drug Dosing Est GFR ( Amer) Est GFR (Non-Af Amer) BUN/Creatinine Ratio Glucose POC Glucose POC Glucose (other) 155 H Estimat Average Glucose Hemoglobin A1c Lactate 1.3 Calcium POC Ioniz Calcium Scarlett 0.90 L Magnesium Total Bilirubin AST ALT Alkaline Phosphatase Troponin I Total Protein Albumin Globulin Albumin/Globulin Ratio Procalcitonin Urine Color Urine Appearance Urine pH Ur Specific [place] Urine Protein Urine Glucose (UA) Urine Ketones Urine Blood Urine Nitrite Urine Bilirubin Urine Urobilinogen Ur Leukocyte Esterase Urine WBC (Auto) Urine RBC (Auto) U Hyaline Cast (Auto) U Epithel Cells (Auto) Urine Bacteria (Auto) Urine Yeast Adenovirus (PCR) B. pertussis DNA (PCR) B.parapertussis DNA PCR C. pneumoniae DNA (PCR) Coronavirus OC43 (PCR) Coronavirus HKU1 (PCR) Coronavirus 229E (PCR) COVID-19 Eval Order COVID-19 PCR POSITIVE A* Coronavirus NL63 (PCR) Human Metapneumovir PCR Influenza Type A (PCR) Influenza Type B (PCR) M. pneumoniae (PCR) Parainfluenza 1 (PCR) Parainfluenza 2 (PCR) Parainfluenza 3 (PCR) Parainfluenza 4 (PCR) RSV (PCR) Entero/Rhino (PCR) Blood Type Antibody Screen 11/26/19 11/26/19 11/26/19 15:45 18:22 20:56 WBC RBC Hgb POC Hgb Hct POC Hct MCV MCH MCHC RDW Std Deviation RDW Coeff of Ange Plt Count MPV Immature Gran % (Auto) Neut % (Auto) Lymph % (Auto) Spencer % (Auto) Eos % (Auto) Baso % (Auto) Neut # (Auto) Lymph # (Auto) Spencer # (Auto) Eos # (Auto) Baso # (Auto) Immature Gran # (Auto) PT INR APTT PTT Ratio D-Dimer 3940 H* POC Sodium Sodium POC Potassium Potassium POC Chloride Chloride Carbon Dioxide POC Total CO2 Anion Gap POC Anion Gap POC BUN BUN Creatinine POC Creatinine Est Cr Clr Drug Dosing Est GFR ( Amer) Est GFR (Non-Af Amer) BUN/Creatinine Ratio Glucose POC Glucose 153 H POC Glucose (other) Estimat Average Glucose Hemoglobin A1c Lactate Calcium POC Ioniz Calcium Scarlett Magnesium Total Bilirubin AST ALT Alkaline Phosphatase Troponin I Total Protein Albumin Globulin Albumin/Globulin Ratio Procalcitonin Urine Color Urine Appearance Urine pH Ur Specific [place] Urine Protein Urine Glucose (UA) Urine Ketones Urine Blood Urine Nitrite Urine Bilirubin Urine Urobilinogen Ur Leukocyte Esterase Urine WBC (Auto) Urine RBC (Auto) U Hyaline Cast (Auto) U Epithel Cells (Auto) Urine Bacteria (Auto) Urine Yeast Adenovirus (PCR) B. pertussis DNA (PCR) B.parapertussis DNA PCR C. pneumoniae DNA (PCR) Coronavirus OC43 (PCR) Coronavirus HKU1 (PCR) Coronavirus 229E (PCR) COVID-19 Eval Order COVID-19 PCR Coronavirus NL63 (PCR) Human Metapneumovir PCR Influenza Type A (PCR) Influenza Type B (PCR) M. pneumoniae (PCR) Parainfluenza 1 (PCR) Parainfluenza 2 (PCR) Parainfluenza 3 (PCR) Parainfluenza 4 (PCR) RSV (PCR) Entero/Rhino (PCR) Blood Type O Negative Antibody Screen NEGATIVE 11/27/19 11/27/19 11/27/19 06:54 06:54 08:27 WBC RBC Hgb POC Hgb Hct POC Hct MCV MCH MCHC RDW Std Deviation RDW Coeff of Ange Plt Count MPV Immature Gran % (Auto) Neut % (Auto) Lymph % (Auto) Spencer % (Auto) Eos % (Auto) Baso % (Auto) Neut # (Auto) Lymph # (Auto) Spencer # (Auto) Eos # (Auto) Baso # (Auto) Immature Gran # (Auto) PT INR APTT PTT Ratio D-Dimer POC Sodium Sodium POC Potassium Potassium POC Chloride Chloride Carbon Dioxide POC Total CO2 Anion Gap POC Anion Gap POC BUN BUN Creatinine POC Creatinine Est Cr Clr Drug Dosing Est GFR ( Amer) Est GFR (Non-Af Amer) BUN/Creatinine Ratio Glucose POC Glucose 123 H POC Glucose (other) Estimat Average Glucose 126 Hemoglobin A1c 6.0 H Lactate Calcium POC Ioniz Calcium Scarlett Magnesium Total Bilirubin AST ALT Alkaline Phosphatase Troponin I 0.063 H* Total Protein Albumin Globulin Albumin/Globulin Ratio Procalcitonin Urine Color Urine Appearance Urine pH Ur Specific [place] Urine Protein Urine Glucose (UA) Urine Ketones Urine Blood Urine Nitrite Urine Bilirubin Urine Urobilinogen Ur Leukocyte Esterase Urine WBC (Auto) Urine RBC (Auto) U Hyaline Cast (Auto) U Epithel Cells (Auto) Urine Bacteria (Auto) Urine Yeast Adenovirus (PCR) B. pertussis DNA (PCR) B.parapertussis DNA PCR C. pneumoniae DNA (PCR) Coronavirus OC43 (PCR) Coronavirus HKU1 (PCR) Coronavirus 229E (PCR) COVID-19 Eval Order COVID-19 PCR Coronavirus NL63 (PCR) Human Metapneumovir PCR Influenza Type A (PCR) Influenza Type B (PCR) M. pneumoniae (PCR) Parainfluenza 1 (PCR) Parainfluenza 2 (PCR) Parainfluenza 3 (PCR) Parainfluenza 4 (PCR) RSV (PCR) Entero/Rhino (PCR) Blood Type Antibody Screen 11/27/19 Unknown WBC RBC Hgb POC Hgb Hct POC Hct MCV MCH MCHC RDW Std Deviation RDW Coeff of Ange Plt Count MPV Immature Gran % (Auto) Neut % (Auto) Lymph % (Auto) Spencer % (Auto) Eos % (Auto) Baso % (Auto) Neut # (Auto) Lymph # (Auto) Spencer # (Auto) Eos # (Auto) Baso # (Auto) Immature Gran # (Auto) PT INR APTT PTT Ratio D-Dimer POC Sodium Sodium POC Potassium Potassium POC Chloride Chloride Carbon Dioxide POC Total CO2 Anion Gap POC Anion Gap POC BUN BUN Creatinine POC Creatinine Est Cr Clr Drug Dosing Est GFR ( Amer) Est GFR (Non-Af Amer) BUN/Creatinine Ratio Glucose POC Glucose POC Glucose (other) Estimat Average Glucose Hemoglobin A1c Lactate Calcium POC Ioniz Calcium Scarlett Magnesium Total Bilirubin AST ALT Alkaline Phosphatase Troponin I Total Protein Albumin Globulin Albumin/Globulin Ratio Procalcitonin Urine Color Yellow Urine Appearance Clear Urine pH 5.5 Ur Specific [place] > 1.045 H Urine Protein 1+ H Urine Glucose (UA) Negative Urine Ketones 1+ H Urine Blood Negative Urine Nitrite Negative Urine Bilirubin Negative Urine Urobilinogen Negative Ur Leukocyte Esterase Negative Urine WBC (Auto) 1-5 Urine RBC (Auto) 0-4 U Hyaline Cast (Auto) 1-5 U Epithel Cells (Auto) >30 H Urine Bacteria (Auto) Negative Urine Yeast Not Reportable Adenovirus (PCR) B. pertussis DNA (PCR) B.parapertussis DNA PCR C. pneumoniae DNA (PCR) Coronavirus OC43 (PCR) Coronavirus HKU1 (PCR) Coronavirus 229E (PCR) COVID-19 Eval Order COVID-19 PCR Coronavirus NL63 (PCR) Human Metapneumovir PCR Influenza Type A (PCR) Influenza Type B (PCR) M. pneumoniae (PCR) Parainfluenza 1 (PCR) Parainfluenza 2 (PCR) Parainfluenza 3 (PCR) Parainfluenza 4 (PCR) RSV (PCR) Entero/Rhino (PCR) Blood Type Antibody Screen Medications Administered Current Inpatient Medications Acetaminophen (Acetaminophen 325 Mg Tab) 650 mg PO Q4H PRN PRN Reason: Pain or Fever Stop: 12/26/19 18:03 Acetaminophen (Acetaminophen 325 Mg Tab) 650 mg PO PRE-TREAT DARNELL Stop: 11/27/19 18:03 Last Admin: 11/27/19 00:18 Dose: Not Given Documented by: Al Hydrox/Mg Hydrox/Simethicone (Aluminum/Magnesium Susp 30 Ml Udc) 15 ml PO Q4H PRN PRN Reason: Dyspepsia Stop: 12/26/19 18:03 Aspirin (Aspirin 81 Mg Ectab) 81 mg PO DAILY DARNELL Stop: 12/26/19 18:03 Last Admin: 11/27/19 09:02 Dose: 81 mg Documented by: Azithromycin (Azithromycin 250 Mg Tab) 250 mg PO QAM DARNELL Stop: 12/04/19 08:59 Last Admin: 11/27/19 09:02 Dose: 250 mg Documented by: Dextrose (Dextrose 50% 50 Ml Syringe) 25 - 50 ml IV UD PRN; Protocol PRN Reason: Hypoglycemia Protocol Stop: 12/26/19 18:03 Diphenhydramine HCl (Diphenhydramine Hcl 25 Mg Cap) 25 mg PO PRE-TREAT DARNELL Stop: 11/27/19 18:03 Last Admin: 11/27/19 00:18 Dose: Not Given Documented by: Enoxaparin Sodium (Enoxaparin Inj 30 Mg/0.3 Ml Syr) 30 mg SQ Q12H DARNELL Stop: 12/26/19 19:59 Last Admin: 11/27/19 09:02 Dose: 30 mg Documented by: Glucagon (Glucagon For Inj 1 Mg Vial) 1 mg SQ UD PRN; Protocol PRN Reason: Hypoglycemia Protocol Stop: 12/26/19 18:03 Glucose (Glucose 10 Tabs/Tube) 4 - 8 tabs PO UD PRN; Protocol PRN Reason: Hypoglycemia Protocol Stop: 12/26/19 18:03 Glucose (Glucose 40% Gel 15 Gm Tube) 15 - 30 gm PO UD PRN; Protocol PRN Reason: Hypoglycemia Protocol Stop: 12/26/19 18:03 Guaifenesin/Codeine Phosphate (Guaifenesin/Codeine 100mg/10mg 5ml Udc) 5 ml PO Q6H PRN PRN Reason: Cough Stop: 12/26/19 18:03 Ceftriaxone Sodium 2,000 mg/ (Dextrose) 70 mls @ 100 mls/hr IV Q24H DARNELL; Protocol Stop: 12/03/19 18:59 Last Infusion: 11/26/19 21:38 Dose: Infused Documented by: Dexamethasone Sodium Phosphate (6 mg/ Syringe) 1.5 mls @ 1 mls/min IV DAILY COUNTS INCLUDE 234 BEDS AT THE [facility] Stop: 12/06/19 09:02 Last Admin: 11/27/19 09:02 Dose: 1 mls/min Documented by: Remdesivir 100 mg/ Sodium (Chloride) 250 mls @ 250 mls/hr IV Q24H COUNTS INCLUDE 234 BEDS AT THE [facility]; Protocol Stop: 11/30/19 19:59 Insulin Aspart (Insulin Aspart 100 Units/Ml 3 Ml Pen) 0 units SC ACHS DARNELL Stop: 12/26/19 20:59 Last Admin: 11/27/19 09:22 Dose: Not Given Documented by: Miscellaneous (Carbohydrates For Hypoglycemia ) 15 - 30 gm PO UD PRN PRN Reason: Hypoglycemia Protocol Stop: 12/26/19 18:03 Miscellaneous Information (Pharmacy Glycemic Mgmt Consult) 1 ea N/A UD PRN; Protocol PRN Reason: Consult Stop: 12/26/19 18:38 Ondansetron HCl (Ondansetron Inj 2 Mg/Ml 2 Ml Vial) 4 mg IV Q6H PRN PRN Reason: Nausea Stop: 12/26/19 18:03 Senna/Docusate Sodium (Docusate Sodium/Senna 50/8.6mg Tab) 2 tab PO QAM COUNTS INCLUDE 234 BEDS AT THE [facility] Stop: 12/27/19 08:59 Last Admin: 11/27/19 09:08 Dose: 2 tab Documented by: Sodium Chloride (Nss 30ml Flush, Days 1-5) 30 ml IV Q24H COUNTS INCLUDE 234 BEDS AT THE [facility] Stop: 11/30/19 18:46 Last Admin: 11/26/19 23:12 Dose: Not Given Documented by: Zinc Sulfate (Zinc Sulfate 220 Mg Capsule) 220 mg PO QAM COUNTS INCLUDE 234 BEDS AT THE [facility] Stop: 12/27/19 08:59 Last Admin: 11/27/19 09:02 Dose: 220 mg Documented by: PG Care Time/CCT Total # of Minutes Spent Total Time Spent: 32 Total Time Spent with Patient: Total time spent is greater than 50% in coordination of care (as documented) at patient's floor/unit and/or counseling patient: Coding Level of Care Code 67271 Subseq Hosp Care Lvl 3 Diagnoses Acute respiratory failure with hypoxia J96.01 Pneumonia due to COVID-19 virus U07.1; J12.89 Diabetes E11.9 Hyperlipidemia E78.5 Ileus K56.7 Elevated troponin R79.89 DVT prophylaxis Z29.9
--- NOTE | 2019-11-27 14:38 | Pharmacy Report ---
Pharmacy Glycemic Short Note 2 - Date of Service November 27, 2019 - Glycemic Short BSG Results (Last 24 hours): 11/26/19 11/27/19 11/27/19 20:56 08:27 11:02 POC Glucose 153 H 123 H 118 H OUTPATIENT ANTIDIABETIC REGIMEN: * Per outpatient pharmacy, no diabetic agents on record * RN confirmed with patient that she is diet controlled only ASSESSMENT: 11/26: * Patient has been well controlled over the past 24 hours with only 10 units of lantus and 1 unit of novolog on board. * Will withhold additional basal insulin for now given diet controlled A1C of 6% * I did loosen novolog scale as well given excellent BSGs. * Patient has received 2 doses of dexamethasone thus far. Will need to monitor this closely and tighten novolog if postprandial BSG starts to uptrend with increased PO intake 11/25 * Admitted for pneumonia due to Covid-19 virus. Patient will be receiving Dexamethasone 6mg Daily. * Started on Remdesivir 200mg IV x1 tonight, followed by Remdesivir 100mg IV q24h Days 2-5. PLAN FOR INPATIENT GLYCEMIC CONTROL: * Hold outpatient oral diabetes medications * Basal insulin * no additional basal ordered today * Bolus insulin * NovoLog per scale ACHS or Q6hrs while NPO * Goal Range: Low 110 mg/dL - High 140 mg/dL * Correction Factor: 35 mg/dL/unit * Nutritional / Prandial insulin per carb ratio of 1 unit per 20 grams CHO consumed
[2019-11-27] MEDS: cefTRIAXone SODIUM 2,000 MG in DEXTROSE 5% 50 ML IV SCH (18:21)
[2019-11-27] MEDS: REMDESIVIR 100mg: Days 2-5 IV SCH (18:21)
[2019-11-27] MEDS: NSS 30mL Flush, Days 1-5 IV SCH (18:22)
[2019-11-27] MEDS ORDERED: ACETAMINOPHEN 325 MG TAB PO ONE (21:28)
[2019-11-27] MEDS ORDERED: LANTUS PER UNIT CHARGE SQ SCH (21:30)
--- NOTE | 2019-11-28 06:21 | Electrocardiogram Report ---
Test Reason : Blood Pressure : / mmHG Vent. Rate : 084 BPM Atrial Rate : 084 BPM P-R Int : 124 ms QRS Dur : 076 ms QT Int : 378 ms P-R-T Axes : 051 -13 -17 degrees QTc Int : 446 ms Normal sinus rhythm Minimal voltage criteria for LVH, may be normal variant Inferior infarct , age undetermined Abnormal ECG No previous ECGs available Confirmed by Jesus Julien ([id number]) on 11/28/2019 6:21:14 AM Referred By: REFERRED SELF Confirmed By:Jesus Julien
[2019-11-28 07:13] LABS: Hematocrit (blood only) 37.9 % (37-47); Hemoglobin 12.7 g/dL (12.0-16.0); Mean Corpuscular Hgb Conc 33.5 g/dL (32-36); Mean Corpuscular Volume 89.6 fL (80-100); Mean Platelet Volume 9.1 fL (7.4-10.4); Platelet Count 376 K/uL (130-400); RDW Coefficient of Variation 13.6 % (11.5-14.5); RDW Standard Deviation 45.2 fL (36.4-46.3); Red Blood Count 4.23 M/uL (4.2-5.4); White Blood Count 12.97 K/uL (4.8-10.8)
[2019-11-28 07:47] LABS: BUN Creatinine Ratio 64.6 (10-20); Calcium 8.4 mg/dl (8.5-10.1); Creatinine Clr Calc Pharmacy 49.4 ml/min; Est GFR (African American) 94.7; Est GFR (Non-African American) 81.7; Potassium 3.8 mmol/L (3.5-5.1)
[2019-11-28 07:54] LABS: D Dimer 20000 ug/L FEU (0-500)
[2019-11-28] MEDS: ZINC SULFATE 220 MG CAPSULE PO SCH (08:32)
[2019-11-28] MEDS: ASPIRIN 81 MG ECTAB PO SCH (08:32)
[2019-11-28] MEDS: AZITHROMYCIN 250 MG TAB PO SCH (08:32)
[2019-11-28] MEDS: ENOXAPARIN INJ 30 MG/0.3 ML SYR SQ SCH ×2 (08:32→20:25)
[2019-11-28] MEDS: DEXAMETHASONE SOD PHOSPHATE 6 MG in SYRINGE 0 ML IV SCH (08:33)
[2019-11-28] MEDS: INSULIN ASPART 100 UNITS/ML 3 ML PEN SC SCH ×4 (09:38→21:30)
[2019-11-28] MEDS: DOCUSATE SODIUM/SENNA 50/8.6MG TAB PO SCH (12:32)
[2019-11-28] MEDS: cefTRIAXone SODIUM 2,000 MG in DEXTROSE 5% 50 ML IV SCH (18:43)
[2019-11-28] MEDS: REMDESIVIR 100mg: Days 2-5 IV SCH (20:20)
[2019-11-28] MEDS: NSS 30mL Flush, Days 1-5 IV SCH (20:26)
[2019-11-28] MEDS ORDERED: LANTUS PER UNIT CHARGE SQ SCH (21:00)
--- NOTE | 2019-11-28 21:43 | Hospitalist Progress Note ---
Date of Service November 28, 2019 Assessment & Plan (1) Acute respiratory failure with hypoxia: due to viral pneumonia with COVID 19 much improvement today after plasma treatment last night down to 25L at 75% FiO2, continue to wean as tolerated encourage to stay upright, sleep prone if she can tolerate no respiratory distress or labored breathing, hopeful that the high flow will be sufficient to see her through illness (2) Pneumonia due to COVID-19 virus: Patient has profound acute hypoxic respiratory failure clinical scenario consistent with COVID positive COVID testing less oxygen required today which is good sign plan: dexamethasone 6mg IV daily x 10 days, today is day 3 Remdesivir daily x 5 days, today is day 3 Rocephin, Zithromax and Zinc, cover for possible superimposed bacterial infection convalescent plasma given evening of 11/26 supportive care with high flow nasal canula encouraged patient to stay well nourished and well hydrated, will be important to maintain strength try to take deep breaths every hour discussed that she might deteriorate instead of improving, if that happens she would want intubated check CBC, CMP and D dimer every other day (3) Diabetes: Novolog SS monitor sugars with dexamethasone use no hypoglycemia (4) Hyperlipidemia: In the distant past patient has been on statins these will be held at this current time (5) Ileus: Senokot 2 in the morning and the declog suppository in the eveningPatient is marked gaseous distention seen on imaging studies. CT scan suggest possible right-sided constipation monitor closely for bowel movement (6) Elevated troponin: Elevated troponin of unclear significance at this time there is no significant renal failure although she has chronic kidney disease stage II troponin down to 0.063 from 0.18 could be due to profound hypoxia at home, as troponin improved with supplemental oxygen no need to follow further, denies chest pain, no EKG changes (7) DVT prophylaxis: Patient is placed on Lovenox 30 subcu every 12 Patient confirmed she is a full code prognosis is guarded but patient remains determined and optimistic Admission and Anticipated Discharge Date Admission Date: November 26, 2019 Subjective patient doing quite well today, she received convalescent plasma last evening her oxygen requirements are going down, she is down to 25L HF at 75% FiO2, last evening she was 30L at 100% FiO2 she sat up in a chair most of the day, now tired she is trying to eat but admits that food does not taste good, she thinks she can get Boost chocolate down three times a day reviewed labs, D dimer very high at 20k, BMP shows stable renal function and electrolytes she is feeling better overall, she is very optimistic about her recovery Review of Systems Review of Systems: All systems reviewed & are unremarkable except as noted in Subjective Constitutional: + fatigue and + weakness; no fever, no chills and no sweats Respiratory: + dyspnea and + dyspnea on exertion; no cough and no wheezing Cardiovascular: no chest pain and no edema Gastrointestinal: no abdominal pain, no nausea, no vomiting, no constipation and no diarrhea/loose stools Musculoskeletal: + muscle weakness Physical Exam Constitutional: well developed, well nourished and + ill appearing; no acute distress Eyes: PERRL, conjunctivae normal, anicteric sclerae ENMT: external ear and nose normal, oropharynx normal Neck: trachea midline, no thyromegaly Respiratory: normal respiratory effort; no respiratory distress and no cough Auscultation: + crackles (right > left); no rales, no rhonchi and no wheezes Cardiovascular: RRR, no murmur, no edema Gastrointestinal (Abdomen): normal bowel sounds, soft, nontender, no hepatosplenomegaly Musculoskeletal: no cyanosis or clubbing, extremities motor strength 5/5 Skin: no rashes, warm and dry Neurologic: patellar DTR's 2+ bilat, sensation intact and PERRL, EOMI, accommodation nl, no face palsy, no dysarthria Psychiatric: A+Ox3, euthymic affect Lymphatic: no cervical or axillary lymphadenopathy Results & Data Results & Data ([facility]) Vital Signs (Past 12 Hours) Vital Signs Temp Pulse Pulse Resp BP Pulse Ox Pulse Ox 11/28/19 20:00 67 20 92 11/28/19 19:15 73 24 94 11/28/19 18:30 92 11/28/19 18:00 91 11/28/19 17:30 91 11/28/19 17:16 92 11/28/19 16:48 90 11/28/19 16:00 74 94 11/28/19 15:45 94 11/28/19 15:30 20 98 11/28/19 15:24 20 98 11/28/19 15:16 36.6 C 69 20 132/84 96 11/28/19 15:00 94 11/28/19 14:46 77 11/28/19 14:00 94 11/28/19 13:00 94 11/28/19 12:34 96 11/28/19 12:30 95 11/28/19 12:01 36.6 C 79 28 H 144/72 H 11/28/19 12:00 28 H 91 11/28/19 11:24 78 18 91 Laboratory Results Laboratory Results - last 24 hr 11/26/19 11/28/19 11/28/19 15:45 06:36 06:36 WBC 12.97 H RBC 4.23 Hgb 12.7 Hct 37.9 MCV 89.6 MCH 30.0 MCHC 33.5 RDW Std Deviation 45.2 RDW Coeff of Aneg 13.6 Plt Count 376 MPV 9.1 D-Dimer Sodium 143 Potassium 3.8 Chloride 109 H Carbon Dioxide 26 Anion Gap 8.0 BUN 38 H Creatinine 0.58 L Est Cr Clr Drug Dosing 49.4 Est GFR ( Amer) 94.7 Est GFR (Non-Af Amer) 81.7 BUN/Creatinine Ratio 64.6 H Glucose 114 H POC Glucose Calcium 8.4 L Blood Type O Negative Antibody Screen NEGATIVE 11/28/19 11/28/19 11/28/19 06:36 11:59 16:48 WBC RBC Hgb Hct MCV MCH MCHC RDW Std Deviation RDW Coeff of Ange Plt Count MPV D-Dimer 63910 H* Sodium Potassium Chloride Carbon Dioxide Anion Gap BUN Creatinine Est Cr Clr Drug Dosing Est GFR ( Amer) Est GFR (Non-Af Amer) BUN/Creatinine Ratio Glucose POC Glucose 160 H 158 H Calcium Blood Type Antibody Screen 11/28/19 20:18 WBC RBC Hgb Hct MCV MCH MCHC RDW Std Deviation RDW Coeff of Ange Plt Count MPV D-Dimer Sodium Potassium Chloride Carbon Dioxide Anion Gap BUN Creatinine Est Cr Clr Drug Dosing Est GFR ( Amer) Est GFR (Non-Af Amer) BUN/Creatinine Ratio Glucose POC Glucose 231 H Calcium Blood Type Antibody Screen Medications Administered Current Inpatient Medications Acetaminophen (Acetaminophen 325 Mg Tab) 650 mg PO Q4H PRN PRN Reason: Pain or Fever Stop: 12/26/19 18:03 Al Hydrox/Mg Hydrox/Simethicone (Aluminum/Magnesium Susp 30 Ml Udc) 15 ml PO Q4H PRN PRN Reason: Dyspepsia Stop: 12/26/19 18:03 Aspirin (Aspirin 81 Mg Ectab) 81 mg PO DAILY [facility] Stop: 12/26/19 18:03 Last Admin: 11/28/19 08:32 Dose: 81 mg Documented by: Azithromycin (Azithromycin 250 Mg Tab) 250 mg PO QAM [facility] Stop: 12/04/19 08:59 Last Admin: 11/28/19 08:32 Dose: 250 mg Documented by: Dextrose (Dextrose 50% 50 Ml Syringe) 25 - 50 ml IV UD PRN; Protocol PRN Reason: Hypoglycemia Protocol Stop: 12/26/19 18:03 Enoxaparin Sodium (Enoxaparin Inj 30 Mg/0.3 Ml Syr) 30 mg SQ Q12H [facility] Stop: 12/26/19 19:59 Last Admin: 11/28/19 20:25 Dose: 30 mg Documented by: Glucagon (Glucagon For Inj 1 Mg Vial) 1 mg SQ UD PRN; Protocol PRN Reason: Hypoglycemia Protocol Stop: 12/26/19 18:03 Glucose (Glucose 10 Tabs/Tube) 4 - 8 tabs PO UD PRN; Protocol PRN Reason: Hypoglycemia Protocol Stop: 12/26/19 18:03 Glucose (Glucose 40% Gel 15 Gm Tube) 15 - 30 gm PO UD PRN; Protocol PRN Reason: Hypoglycemia Protocol Stop: 12/26/19 18:03 Guaifenesin/Codeine Phosphate (Guaifenesin/Codeine 100mg/10mg 5ml Udc) 5 ml PO Q6H PRN PRN Reason: Cough Stop: 12/26/19 18:03 Ceftriaxone Sodium 2,000 mg/ (Dextrose) 70 mls @ 100 mls/hr IV Q24H [facility]; Protocol Stop: 12/03/19 18:59 Last Infusion: 11/28/19 21:02 Dose: Infused Documented by: Dexamethasone Sodium Phosphate (6 mg/ Syringe) 1.5 mls @ 1 mls/min IV DAILY [facility] Stop: 12/06/19 09:02 Last Admin: 11/28/19 08:33 Dose: 1 mls/min Documented by: Remdesivir 100 mg/ Sodium (Chloride) 250 mls @ 250 mls/hr IV Q24H [facility]; Protocol Stop: 11/30/19 19:59 Last Infusion: 11/28/19 21:31 Dose: Infused Documented by: Insulin Aspart (Insulin Aspart 100 Units/Ml 3 Ml Pen) 0 units SC ACHS [facility] Stop: 12/26/19 20:59 Last Admin: 11/28/19 21:30 Dose: 3 units Documented by: Miscellaneous (Carbohydrates For Hypoglycemia ) 15 - 30 gm PO UD PRN PRN Reason: Hypoglycemia Protocol Stop: 12/26/19 18:03 Miscellaneous Information (Pharmacy Glycemic Mgmt Consult) 1 ea N/A UD PRN; Protocol PRN Reason: Consult Stop: 12/26/19 18:38 Ondansetron HCl (Ondansetron Inj 2 Mg/Ml 2 Ml Vial) 4 mg IV Q6H PRN PRN Reason: Nausea Stop: 12/26/19 18:03 Senna/Docusate Sodium (Docusate Sodium/Senna 50/8.6mg Tab) 2 tab PO QAM [facility] Stop: 12/27/19 08:59 Last Admin: 11/28/19 12:32 Dose: 2 tab Documented by: Sodium Chloride (Nss 30ml Flush, Days 1-5) 30 ml IV Q24H [facility] Stop: 11/30/19 18:46 Last Admin: 11/28/19 20:26 Dose: 30 ml Documented by: Zinc Sulfate (Zinc Sulfate 220 Mg Capsule) 220 mg PO QAM [facility] Stop: 12/27/19 08:59 Last Admin: 11/28/19 08:32 Dose: 220 mg Documented by: PG Care Time/CCT Total # of Minutes Spent Total Time Spent: 36 Total Time Spent with Patient: Total time spent is greater than 50% in coordination of care (as documented) at patient's floor/unit and/or counseling patient: Coding Level of Care Code 14304 Subseq Hosp Care Lvl 3 Diagnoses Acute respiratory failure with hypoxia J96.01 Pneumonia due to COVID-19 virus U07.1; J12.89 Diabetes E11.9 Hyperlipidemia E78.5 Ileus K56.7 Elevated troponin R79.89 DVT prophylaxis Z29.9
[2019-11-29] MEDS: ACETAMINOPHEN 325 MG TAB PO PRN (08:24)
[2019-11-29] MEDS: DOCUSATE SODIUM/SENNA 50/8.6MG TAB PO SCH (08:31)
[2019-11-29] MEDS: ASPIRIN 81 MG ECTAB PO SCH (08:31)
[2019-11-29] MEDS: DEXAMETHASONE SOD PHOSPHATE 6 MG in SYRINGE 0 ML IV SCH (08:31)
[2019-11-29] MEDS: ZINC SULFATE 220 MG CAPSULE PO SCH (08:31)
[2019-11-29] MEDS: AZITHROMYCIN 250 MG TAB PO SCH (08:31)
[2019-11-29] MEDS: ENOXAPARIN INJ 30 MG/0.3 ML SYR SQ SCH ×2 (08:32→21:39)
[2019-11-29] MEDS: INSULIN ASPART 100 UNITS/ML 3 ML PEN SC SCH ×4 (09:00→22:19)
--- NOTE | 2019-11-29 13:24 | Pharmacy Report ---
Pharmacy Glycemic Short Note 2 - Date of Service November 29, 2019 - Glycemic Short BSG Results (Last 24 hours): 11/28/19 11/28/19 11/29/19 16:48 20:18 08:28 POC Glucose 158 H 231 H 87 11/29/19 11:30 POC Glucose 114 H OUTPATIENT ANTIDIABETIC REGIMEN: * Per outpatient pharmacy, no diabetic agents on record * RN confirmed with patient that she is diet controlled only ASSESSMENT: 11/28: * Patient received 18 units of insulin yesterday (10 basal, 8 bolus) * BSGs have been well controlled over the past 24 hours with the exception of HS reading. This was likely do to increased PO intake with dinner and subsequent post prandial, steroid induced hyperglycemia. Novolog scale was tightened accordingly. * Fasting BSG this morning adequate but down trending. Will hold off on basal insulin today and re-assess with AM dosing if needed 11/26: * Patient has been well controlled over the past 24 hours with only 10 units of lantus and 1 unit of novolog on board. * Will withhold additional basal insulin for now given diet controlled A1C of 6% * I did loosen novolog scale as well given excellent BSGs. * Patient has received 2 doses of dexamethasone thus far. Will need to monitor this closely and tighten novolog if postprandial BSG starts to uptrend with increased PO intake 11/25 * Admitted for pneumonia due to Covid-19 virus. Patient will be receiving Dexamethasone 6mg Daily. * Started on Remdesivir 200mg IV x1 tonight, followed by Remdesivir 100mg IV q24h Days 2-5. PLAN FOR INPATIENT GLYCEMIC CONTROL: * Hold outpatient oral diabetes medications * Basal insulin * no basal ordered today * Bolus insulin * NovoLog per scale ACHS or Q6hrs while NPO * Goal Range: Low 110 mg/dL - High 140 mg/dL * Correction Factor: 35 mg/dL/unit * Nutritional / Prandial insulin per carb ratio of 1 unit per 12 grams CHO consumed
[2019-11-29] MEDS: REMDESIVIR 100mg: Days 2-5 IV SCH (18:24)
--- NOTE | 2019-11-29 20:14 | Hospitalist Progress Note ---
Date of Service November 29, 2019 Assessment & Plan (1) Acute respiratory failure with hypoxia: due to viral pneumonia with COVID 19 improving steadily after plasma given evening of 11/26 down to 25L at 55% FiO2, continue to wean as tolerated encourage to stay upright, sleep prone if she can tolerate she may require some increased oxygen at night but that is expected no respiratory distress or labored breathing, hopeful that the high flow will be sufficient to see her through illness she is a little more fatigued today, hoping that she can get better rest tonight (2) Pneumonia due to COVID-19 virus: Patient has profound acute hypoxic respiratory failure clinical scenario consistent with COVID positive COVID testing less oxygen required past two days which is good sign plan: dexamethasone 6mg IV daily x 10 days, today is day 4 Remdesivir daily x 5 days, today is day 4 Rocephin, Zithromax and Zinc, cover for possible superimposed bacterial infection day 4 of each antibiotic, complete 5 days of Zithromax, 7 days of Rocephin convalescent plasma given evening of 11/26 supportive care with high flow nasal canula encouraged patient to stay well nourished and well hydrated, will be important to maintain strength try to take deep breaths every hour discussed that she might deteriorate instead of improving, if that happens she would want intubated check CBC, CMP and D dimer tomorrow morning (3) Diabetes: Novolog SS monitor sugars with dexamethasone use no hypoglycemia, no severe hyperglycemia either (4) Hyperlipidemia: In the distant past patient has been on statins these will be held at this current time (5) Ileus: Senokot 2 in the morning and the declog suppository in the eveningPatient is marked gaseous distention seen on imaging studies. CT scan suggest possible right-sided constipation monitor closely for bowel movement (6) Elevated troponin: Elevated troponin of unclear significance at this time there is no significant renal failure although she has chronic kidney disease stage II troponin down to 0.063 from 0.18 could be due to profound hypoxia at home, as troponin improved with supplemental oxygen no need to follow further, denies chest pain, no EKG changes (7) DVT prophylaxis: Patient is placed on Lovenox 30 subcu every 12 Patient confirmed she is a full code prognosis is guarded but patient remains determined and optimistic, she continues to improve slowly (8) Insomnia: will give Ativan 0.5mg PO x 1 this evening to help her get to sleep Admission and Anticipated Discharge Date Admission Date: November 26, 2019 Subjective patient continues to improve today, oxygen titrated down to 25L and 55% FiO2 at one point in the afternoon last night they did have to increase her oxygen supply she has been sitting up in the chair today but she is very fatigued she said she could not sleep last night, she is asking for a sleep aide this evening no labs today her appetite is poor but she is forcing herself to eat, she is drinking her Boost to keep protein intake up no fever she has a cough and some white phlegm, no blood no chest pain, no nausea Review of Systems Review of Systems: All systems reviewed & are unremarkable except as noted in Subjective Physical Exam Constitutional: well developed and well nourished; no acute distress Eyes: PERRL, conjunctivae normal, anicteric sclerae ENMT: external ear and nose normal, oropharynx normal Neck: trachea midline, no thyromegaly Respiratory: normal respiratory effort; no respiratory distress and no cough Auscultation: no crackles, no rales, no rhonchi and no wheezes Cardiovascular: RRR, no murmur, no edema Gastrointestinal (Abdomen): normal bowel sounds, soft, nontender, no he patosplenomegaly Musculoskeletal: no cyanosis or clubbing, extremities motor strength 5/5 Skin: no rashes, warm and dry Neurologic: patellar DTR's 2+ bilat, sensation intact and PERRL, EOMI, accommodation nl, no face palsy, no dysarthria Psychiatric: A+Ox3, euthymic affect Lymphatic: no cervical or axillary lymphadenopathy Results & Data Results & Data ([facility]) Vital Signs (Past 12 Hours) Vital Signs Temp Pulse Pulse Resp BP BP Pulse Ox 11/29/19 19:25 77 18 91 11/29/19 18:50 92 11/29/19 18:33 28 H 93 11/29/19 18:22 90 11/29/19 17:30 90 11/29/19 17:00 91 11/29/19 16:31 36.6 C 77 24 113/61 91 11/29/19 16:15 87 L 11/29/19 16:00 91 11/29/19 15:30 90 11/29/19 15:00 93 11/29/19 14:49 78 16 93 09/02/20 14:42 73 11/29/19 14:30 94 11/29/19 14:00 94 11/29/19 13:00 92 11/29/19 12:14 124/65 94 11/29/19 11:32 36.3 C L 77 28 H 98/59 L 94/59 L 95 11/29/19 11:00 95 11/29/19 10:52 80 18 97 11/29/19 10:30 97 11/29/19 10:00 96 11/29/19 08:30 94 11/29/19 08:15 36.5 C 88 24 109/64 92 Laboratory Results Laboratory Results - last 24 hr 11/28/19 11/29/19 11/29/19 20:18 08:28 11:30 POC Glucose 231 H 87 114 H 11/29/19 16:36 POC Glucose 215 H Medications Administered Current Inpatient Medications Acetaminophen (Acetaminophen 325 Mg Tab) 650 mg PO Q4H PRN PRN Reason: Pain or Fever Stop: 12/26/19 18:03 Last Admin: 11/29/19 08:24 Dose: 650 mg Documented by: Al Hydrox/Mg Hydrox/Simethicone (Aluminum/Magnesium Susp 30 Ml Udc) 15 ml PO Q4H PRN PRN Reason: Dyspepsia Stop: 12/26/19 18:03 Aspirin (Aspirin 81 Mg Ectab) 81 mg PO DAILY ADRNELL Stop: 12/26/19 18:03 Last Admin: 11/29/19 08:31 Dose: 81 mg Documented by: Azithromycin (Azithromycin 250 Mg Tab) 250 mg PO QAM [facility] Stop: 12/04/19 08:59 Last Admin: 11/29/19 08:31 Dose: 250 mg Documented by: Dextrose (Dextrose 50% 50 Ml Syringe) 25 - 50 ml IV UD PRN; Protocol PRN Reason: Hypoglycemia Protocol Stop: 12/26/19 18:03 Enoxaparin Sodium (Enoxaparin Inj 30 Mg/0.3 Ml Syr) 30 mg SQ Q12H [facility] Stop: 12/26/19 19:59 Last Admin: 11/29/19 08:32 Dose: 30 mg Documented by: Glucagon (Glucagon For Inj 1 Mg Vial) 1 mg SQ UD PRN; Protocol PRN Reason: Hypoglycemia Protocol Stop: 12/26/19 18:03 Glucose (Glucose 10 Tabs/Tube) 4 - 8 tabs PO UD PRN; Protocol PRN Reason: Hypoglycemia Protocol Stop: 12/26/19 18:03 Glucose (Glucose 40% Gel 15 Gm Tube) 15 - 30 gm PO UD PRN; Protocol PRN Reason: Hypoglycemia Protocol Stop: 12/26/19 18:03 Guaifenesin/Codeine Phosphate (Guaifenesin/Codeine 100mg/10mg 5ml Udc) 5 ml PO Q6H PRN PRN Reason: Cough Stop: 12/26/19 18:03 Ceftriaxone Sodium 2,000 mg/ (Dextrose) 70 mls @ 100 mls/hr IV Q24H [facility]; Protocol Stop: 12/03/19 18:59 Last Infusion: 11/28/19 21:02 Dose: Infused Documented by: Dexamethasone Sodium Phosphate (6 mg/ Syringe) 1.5 mls @ 1 mls/min IV DAILY [facility] Stop: 12/06/19 09:02 Last Admin: 11/29/19 08:31 Dose: 1 mls/min Documented by: Remdesivir 100 mg/ Sodium (Chloride) 250 mls @ 250 mls/hr IV Q24H [facility]; Protocol Stop: 11/30/19 19:59 Last Infusion: 11/29/19 19:42 Dose: Infused Documented by: Insulin Aspart (Insulin Aspart 100 Units/Ml 3 Ml Pen) 0 units SC ACHS [facility] Stop: 12/26/19 20:59 Last Admin: 11/29/19 17:30 Dose: 7 units Documented by: Lorazepam (Lorazepam 0.5 Mg Tab) 0.5 mg PO HS PRN PRN Reason: Insomnia Stop: 12/29/19 16:59 Miscellaneous (Carbohydrates For Hypoglycemia ) 15 - 30 gm PO UD PRN PRN Reason: Hypoglycemia Protocol Stop: 12/26/19 18:03 Miscellaneous Information (Pharmacy Glycemic Mgmt Consult) 1 ea N/A UD PRN; Protocol PRN Reason: Consult Stop: 12/26/19 18:38 Ondansetron HCl (Ondansetron Inj 2 Mg/Ml 2 Ml Vial) 4 mg IV Q6H PRN PRN Reason: Nausea Stop: 12/26/19 18:03 Senna/Docusate Sodium (Docusate Sodium/Senna 50/8.6mg Tab) 2 tab PO QAM [facility] Stop: 12/27/19 08:59 Last Admin: 11/29/19 08:31 Dose: Not Given Documented by: Sodium Chloride (Nss 30ml Flush, Days 1-5) 30 ml IV Q24H [facility] Stop: 11/30/19 18:46 Last Admin: 11/28/19 20:26 Dose: 30 ml Documented by: Zinc Sulfate (Zinc Sulfate 220 Mg Capsule) 220 mg PO QAM [facility] Stop: 12/27/19 08:59 Last Admin: 11/29/19 08:31 Dose: 220 mg Documented by: PG Care Time/CCT Total # of Minutes Spent Total Time Spent with Patient: Total time spent is greater than 50% in coordina tion of care (as documented) at patient's floor/unit and/or counseling patient: Coding Level of Care Code 42405 Subseq Hosp Care Lvl 3 Diagnoses Acute respiratory failure with hypoxia J96.01 Pneumonia due to COVID-19 virus U07.1; J12.89 Diabetes E11.9 Hyperlipidemia E78.5 Ileus K56.7 Elevated troponin R79.89 DVT prophylaxis Z29.9 Insomnia G47.00
[2019-11-29] MEDS: cefTRIAXone SODIUM 2,000 MG in DEXTROSE 5% 50 ML IV SCH (21:39)
[2019-11-29] MEDS: NSS 30mL Flush, Days 1-5 IV SCH (22:19)
[2019-11-30] MEDS: LORazepam 0.5 MG TAB PO PRN ×2 (00:23→20:49)
[2019-11-30 06:55] LABS: Hematocrit (blood only) 39.9 % (37-47); Hemoglobin 12.7 g/dL (12.0-16.0); Mean Corpuscular Hemoglobin 29.1 pg (25-34); Mean Corpuscular Hgb Conc 31.8 g/dL (32-36); Mean Corpuscular Volume 91.3 fL (80-100); Mean Platelet Volume 9.1 fL (7.4-10.4); Platelet Count 370 K/uL (130-400); RDW Coefficient of Variation 13.7 % (11.5-14.5); Red Blood Count 4.37 M/uL (4.2-5.4); White Blood Count 13.65 K/uL (4.8-10.8)
[2019-11-30 07:21] LABS: D Dimer 20710 ug/L FEU (0-500)
[2019-11-30 07:32] LABS: BUN Creatinine Ratio 47.6 (10-20); Creatinine Clr Calc Pharmacy 56.1 ml/min; Est GFR (African American) 98.8; Est GFR (Non-African American) 85.3; Potassium 3.1 mmol/L (3.5-5.1)
[2019-11-30] MEDS ORDERED: POTASSIUM CHLORIDE 10 MEQ TABCR PO SCH (09:00)
[2019-11-30] MEDS: INSULIN ASPART 100 UNITS/ML 3 ML PEN SC SCH ×4 (09:38→23:42)
[2019-11-30] MEDS: ASPIRIN 81 MG ECTAB PO SCH (09:44)
[2019-11-30] MEDS: ZINC SULFATE 220 MG CAPSULE PO SCH ×2 (09:44→09:47)
[2019-11-30] MEDS: ENOXAPARIN INJ 30 MG/0.3 ML SYR SQ SCH ×2 (09:46→21:20)
[2019-11-30] MEDS: AZITHROMYCIN 250 MG TAB PO SCH (09:48)
[2019-11-30] MEDS: DEXAMETHASONE SOD PHOSPHATE 6 MG in SYRINGE 0 ML IV SCH (12:58)
[2019-11-30] MEDS: DOCUSATE SODIUM/SENNA 50/8.6MG TAB PO SCH (12:59)
--- NOTE | 2019-11-30 13:56 | Pharmacy Report ---
Pharmacy Glycemic Short Note 2 - Date of Service November 30, 2019 - Glycemic Short BSG Results (Last 24 hours): 11/29/19 11/29/19 11/30/19 16:36 21:31 06:34 Glucose 77 POC Glucose 215 H 214 H 11/30/19 11/30/19 08:48 13:17 Glucose POC Glucose 99 188 H OUTPATIENT ANTIDIABETIC REGIMEN: * Per outpatient pharmacy, no diabetic agents on record * RN confirmed with patient that she is diet controlled only ASSESSMENT: 11/29 * Patient received 13 units of insulin yesterday * Fasting this AM below goal range but not hypoglycemic, will continue to hold basal * Prandial BSGs trended up yesterday into the 200s, will tighten carb ratio this morning * Last day of remdesivir and continues on 6 mg dexamethasone IV 11/28: * Patient received 18 units of insulin yesterday (10 basal, 8 bolus) * BSGs have been well controlled over the past 24 hours with the exception of HS reading. This was likely do to increased PO intake with dinner and subsequent post prandial, steroid induced hyperglycemia. Novolog scale was tightened accordingly. * Fasting BSG this morning adequate but down trending. Will hold off on basal insulin today and re-assess with AM dosing if needed 11/26: * Patient has been well controlled over the past 24 hours with only 10 units of lantus and 1 unit of novolog on board. * Will withhold additional basal insulin for now given diet controlled A1C of 6% * I did loosen novolog scale as well given excellent BSGs. * Patient has received 2 doses of dexamethasone thus far. Will need to monitor this closely and tighten novolog if postprandial BSG starts to uptrend with increased PO intake 11/25 * Admitted for pneumonia due to Covid-19 virus. Patient will be receiving Dexamethasone 6mg Daily. * Started on Remdesivir 200mg IV x1 tonight, followed by Remdesivir 100mg IV q24h Days 2-5. PLAN FOR INPATIENT GLYCEMIC CONTROL: * Hold outpatient oral diabetes medications * Basal insulin * no basal ordered today * Bolus insulin * NovoLog per scale ACHS or Q6hrs while NPO * Goal Range: Low 110 mg/dL - High 140 mg/dL * Correction Factor: 35 mg/dL/unit * Nutritional / Prandial insulin per carb ratio of 1 unit per 10 grams CHO consumed
--- NOTE | 2019-11-30 14:15 | Hospitalist Progress Note ---
Date of Service November 30, 2019 Assessment & Plan (1) Acute respiratory failure with hypoxia: due to viral pneumonia with COVID 19 improved initially after plasma given evening of 11/26 was down to 25L at 55% FiO2 yesterday, now up to 40L and 80% FiO2 today patient is growing fatigued, K is low at 3.1 which is not helping muscle contractions encourage to stay upright, sleep prone if she can tolerate more labored breathing today, hopeful that the high flow will be sufficient to see her through illness she would want intubated if needed as long as she can maintain saturations in the mid to high 80's we can avoid intubation (2) Pneumonia due to COVID-19 virus: Patient has profound acute hypoxic respiratory failure clinical scenario consistent with COVID positive COVID testing now requiring more oxygen after she initially improved plan: dexamethasone 6mg IV daily x 10 days, today is day 5 Remdesivir daily x 5 days, today is day 5 Rocephin, Zithromax and Zinc, cover for possible superimposed bacterial infection day 5 of each antibiotic, complete 5 days of Zithromax, 7 days of Rocephin convalescent plasma given evening of 11/26 supportive care with high flow nasal canula encouraged patient to stay well nourished and well hydrated, will be important to maintain strength try to take deep breaths every hour discussed that she might deteriorate instead of improving, if that happens she still insists she would want intubated check CBC, CMP and D dimer in two days, labs today stable (3) Diabetes: Novolog monitor sugars with dexamethasone use no hypoglycemia, no severe hyperglycemia either not eating great (4) Hyperlipidemia: In the distant past patient has been on statins these will be held at this current time (5) Ileus: Senokot 2 in the morning and the declog suppository in the eveningPatient is marked gaseous distention seen on imaging studies. CT scan suggest possible right-sided constipation monitor closely for bowel movement, none today (6) Elevated troponin: Elevated troponin of unclear significance at this time there is no sign ificant renal failure although she has chronic kidney disease stage II troponin down to 0.063 from 0.18 could be due to profound hypoxia at home, as troponin improved with supplemental oxygen no need to follow further, denies chest pain, no EKG changes (7) DVT prophylaxis: Patient is placed on Lovenox 30 subcu every 12 Patient confirmed she is a full code prognosis is guarded but patient remains determined and optimistic, she is growing more fatigued today updated her daughter over the phone about guarded prognosis (8) Insomnia: will give Ativan 0.5mg PO x 1 this evening to help her get to sleep Admission and Anticipated Discharge Date Admission Date: November 26, 2019 Subjective patient profoundly fatigued today, she has not been sleeping well she is trying to get naps in her chair she feels a little more short of breath today respiratory had to increase her oxygen up to 100% FiO2 and 40L, saturations in the 90's checked labs today, D dimer up at 20k again, WBC 13k, Hb 12, K 3.1, BUN 24 and Cr 0.5 called her daughter with update her daughter says that she is a fighter, give her every chance to pull through this we discussed that intubation is a real possibility since she is requiring more oxygen but as long as her saturations are in the high 80's I would not see a need to intubate Review of Systems Review of Systems: All systems reviewed & are unremarkable except as noted in Subjective Constitutional: + fatigue and + weakness; no fever Respiratory: + cough, + dyspnea, + dyspnea on exertion and + sputum production; no wheezing Cardiovascular: no chest pain and no edema Gastrointestinal: + early satiety; no abdominal pain, no nausea, no vomiting, no constipation and no diarrhea/loose stools Musculoskeletal: + muscle weakness Physical Exam Constitutional: well developed and well nourished; no acute distress Eyes: PERRL, conjunctivae normal, anicteric sclerae ENMT: external ear and nose normal, oropharynx normal Neck: trachea midline, no thyromegaly Respiratory: + labored breathing; no respiratory distress and no cough Auscultation: no crackles, no rales, no rhonchi and no wheezes Cardiovascular: RRR, no murmur, no edema Gastrointestinal (Abdomen): normal bowel sounds, soft, nontender, no hepatosplenomegaly Musculoskeletal: no cyanosis or clubbing, extremities motor strength 5/5 Skin: no rashes, warm and dry Neurologic: patellar DTR's 2+ bilat, sensation intact and PERRL, EOMI, accommodation nl, no face palsy, no dysarthria Psychiatric: A+Ox3, euthymic affect Lymphatic: no cervical or axillary lymphadenopathy Results & Data Results & Data ([facility]) Vital Signs (Past 12 Hours) Vital Signs Temp Pulse Resp BP Pulse Ox 11/30/19 11:14 86 18 97 11/30/19 08:54 36.6 C 87 20 134/63 95 11/30/19 07:41 115 H 22 90 11/30/19 03:41 36.6 C 79 19 107/53 L 90 11/30/19 02:54 81 24 91 Laboratory Results Laboratory Results - last 24 hr 11/29/19 11/29/19 11/30/19 16:36 21:31 06:34 WBC RBC Hgb Hct MCV MCH MCHC RDW Std Deviation RDW Coeff of Ange Plt Count MPV D-Dimer [id number] H* Sodium Potassium Chloride Carbon Dioxide Anion Gap BUN Creatinine Est Cr Clr Drug Dosing Est GFR ( Amer) Est GFR (Non-Af Amer) BUN/Creatinine Ratio Glucose POC Glucose 215 H 214 H Calcium 11/30/19 11/30/19 11/30/19 06:34 06:34 08:48 WBC 13.65 H RBC 4.37 Hgb 12.7 Hct 39.9 MCV 91.3 MCH 29.1 MCHC 31.8 L RDW Std Deviation 46.0 RDW Coeff of Ange 13.7 Plt Count 370 MPV 9.1 D-Dimer Sodium 142 Potassium 3.1 L D Chloride 109 H Carbon Dioxide 27 Anion Gap 6.0 BUN 24 H Creatinine 0.51 L Est Cr Clr Drug Dosing 56.1 Est GFR ( Amer) 98.8 Est GFR (Non-Af Amer) 85.3 BUN/Creatinine Ratio 47.6 H Glucose 77 POC Glucose 99 Calcium 8.0 L 11/30/19 13:17 WBC RBC Hgb Hct MCV MCH MCHC RDW Std Deviation RDW Coeff of Ange Plt Count MPV D-Dimer Sodium Potassium Chloride Carbon Dioxide Anion Gap BUN Creatinine Est Cr Clr Drug Dosing Est GFR ( Amer) Est GFR (Non-Af Amer) BUN/Creatinine Ratio Glucose POC Glucose 188 H Calcium Medications Administered Current Inpatient Medications Acetaminophen (Acetaminophen 325 Mg Tab) 650 mg PO Q4H PRN PRN Reason: Pain or Fever Stop: 12/26/19 18:03 Last Admin: 11/29/19 08:24 Dose: 650 mg Documented by: Al Hydrox/Mg Hydrox/Simethicone (Aluminum/Magnesium Susp 30 Ml Udc) 15 ml PO Q4H PRN PRN Reason: Dyspepsia Stop: 12/26/19 18:03 Aspirin (Aspirin 81 Mg Ectab) 81 mg PO DAILY [facility] Stop: 12/26/19 18:03 Last Admin: 11/30/19 09:44 Dose: 81 mg Documented by: Azithromycin (Azithromycin 250 Mg Tab) 250 mg PO QAM [facility] Stop: 12/04/19 08:59 Last Admin: 11/30/19 09:48 Dose: 250 mg Documented by: Dextrose (Dextrose 50% 50 Ml Syringe) 25 - 50 ml IV UD PRN; Protocol PRN Reason: Hypoglycemia Protocol Stop: 12/26/19 18:03 Enoxaparin Sodium (Enoxaparin Inj 30 Mg/0.3 Ml Syr) 30 mg SQ Q12H [facility] Stop: 12/26/19 19:59 Last Admin: 11/30/19 09:46 Dose: 30 mg Documented by: Glucagon (Glucagon For Inj 1 Mg Vial) 1 mg SQ UD PRN; Protocol PRN Reason: Hypoglycemia Protocol Stop: 12/26/19 18:03 Glucose (Glucose 10 Tabs/Tube) 4 - 8 tabs PO UD PRN; Protocol PRN Reason: Hypoglycemia Protocol Stop: 12/26/19 18:03 Glucose (Glucose 40% Gel 15 Gm Tube) 15 - 30 gm PO UD PRN; Protocol PRN Reason: Hypoglycemia Protocol Stop: 12/26/19 18:03 Guaifenesin/Codeine Phosphate (Guaifenesin/Codeine 100mg/10mg 5ml Udc) 5 ml PO Q6H PRN PRN Reason: Cough Stop: 12/26/19 18:03 Ceftriaxone Sodium 2,000 mg/ (Dextrose) 70 mls @ 100 mls/hr IV Q24H [facility]; Protocol Stop: 12/03/19 18:59 Last Infusion: 11/29/19 22:35 Dose: Infused Documented by: Dexamethasone Sodium Phosphate (6 mg/ Syringe) 1.5 mls @ 1 mls/min IV DAILY [facility] Stop: 12/06/19 09:02 Last Admin: 11/30/19 12:58 Dose: 1 mls/min Documented by: Remdesivir 100 mg/ Sodium (Chloride) 250 mls @ 250 mls/hr IV Q24H [facility]; Protocol Stop: 11/30/19 19:59 Last Infusion: 11/29/19 19:42 Dose: Infused Documented by: Insulin Aspart (Insulin Aspart 100 Units/Ml 3 Ml Pen) 0 units SC ACHS [facility] Stop: 12/26/19 20:59 Last Admin: 11/30/19 13:18 Dose: 6 units Documented by: Lorazepam (Lorazepam 0.5 Mg Tab) 0.5 mg PO HS PRN PRN Reason: Insomnia Stop: 12/29/19 16:59 Last Admin: 11/30/19 00:23 Dose: 0.5 mg Documented by: Miscellaneous (Carbohydrates For Hypoglycemia ) 15 - 30 gm PO UD PRN PRN Reason: Hypoglycemia Protocol Stop: 12/26/19 18:03 Miscellaneous Information (Pharmacy Glycemic Mgmt Consult) 1 ea N/A UD PRN; Protocol PRN Reason: Consult Stop: 12/26/19 18:38 Ondansetron HCl (Ondansetron Inj 2 Mg/Ml 2 Ml Vial) 4 mg IV Q6H PRN PRN Reason: Nausea Stop: 12/26/19 18:03 Potassium Chloride (Potassium Chloride 10 Meq Tabcr) 10 meq PO BID [facility] Stop: 12/30/19 08:59 Last Admin: 11/30/19 12:58 Dose: 10 meq Documented by: Senna/Docusate Sodium (Docusate Sodium/Senna 50/8.6mg Tab) 2 tab PO QAM [facility] Stop: 12/27/19 08:59 Last Admin: 11/30/19 12:59 Dose: 2 tab Documented by: Sodium Chloride (Nss 30ml Flush, Days 1-5) 30 ml IV Q24H [facility] Stop: 11/30/19 18:46 Last Admin: 11/29/19 22:19 Dose: 30 ml Documented by: Zinc Sulfate (Zinc Sulfate 220 Mg Capsule) 220 mg PO QAM [facility] Stop: 12/27/19 08:59 Last Admin: 11/30/19 09:47 Dose: 220 mg Documented by: PG Care Time/CCT Total # of Minutes Spent Total Time Spent with Patient: Total time spent is greater than 50% in coordination of care (as documented) at patient's floor/unit and/or counseling patient: Coding Level of Care Code 43770 Subseq Hosp Care Lvl 3 Diagnoses Acute respiratory failure with hypoxia J96.01 Pneumonia due to COVID-19 virus U07.1; J12.89 Diabetes E11.9 Hyperlipidemia E78.5 Ileus K56.7 Elevated troponin R79.89 DVT prophylaxis Z29.9 Insomnia G47.00
[2019-11-30] MEDS: NSS 30mL Flush, Days 1-5 IV SCH (18:43)
[2019-11-30] MEDS: POTASSIUM CHLORIDE 20 MEQ TABCR PO SCH (21:18)
[2019-11-30] MEDS: cefTRIAXone SODIUM 2,000 MG in DEXTROSE 5% 50 ML IV SCH (21:18)
[2019-11-30] MEDS: REMDESIVIR 100mg: Days 2-5 IV SCH (21:19)
[2019-12-01] MEDS: POTASSIUM CHLORIDE 20 MEQ TABCR PO SCH ×2 (08:22→21:36)
[2019-12-01] MEDS: ASPIRIN 81 MG ECTAB PO SCH (08:22)
[2019-12-01] MEDS: AZITHROMYCIN 250 MG TAB PO SCH (08:22)
[2019-12-01] MEDS: ENOXAPARIN INJ 30 MG/0.3 ML SYR SQ SCH ×2 (08:23→21:35)
[2019-12-01] MEDS: INSULIN ASPART 100 UNITS/ML 3 ML PEN SC SCH ×4 (08:25→22:43)
[2019-12-01] MEDS: DOCUSATE SODIUM/SENNA 50/8.6MG TAB PO SCH (08:35)
[2019-12-01] MEDS: DEXAMETHASONE SOD PHOSPHATE 6 MG in SYRINGE 0 ML IV SCH (08:35)
--- NOTE | 2019-12-01 14:27 | Hospitalist Progress Note ---
Date of Service December 01, 2019 Assessment & Plan (1) Acute respiratory failure with hypoxia: due to viral pneumonia with COVID 19 improved initially after plasma given evening of 11/26 had a difficult day on 11/29 due to fatigue and poor sleep, feeling weak doing better today, FiO2 titrated down to 65% in the evening she is breathing easier encourage to stay upright, sleep prone if she can tolerate she would want intubated if needed as long as she can maintain saturations in the mid to high 80's we can avoid intubation (2) Pneumonia due to COVID-19 virus: Patient has profound acute hypoxic respiratory failure clinical scenario consistent with COVID positive status bilateral infiltrates on CT chest oxygen requirements improving today plan: dexamethasone 6mg IV daily x 10 days, today is day 6 Remdesivir daily x 5 days, completed Rocephin, Zithromax and Zinc, cover for possible superimposed bacterial infection completed 5 days of Zithromax, 6 days of Rocephin today, last day tomorrow convalescent plasma given evening of 11/26 supportive care with high flow nasal canula, down to 65% FiO2, requiring 40L per minute for PEEP encouraged patient to stay well nourished and well hydrated, will be important to maintain strength try to take deep breaths every hour discussed that she might deteriorate instead of improving, if that happens she still insists she would want intubated check CBC, CMP and D dimer tomorrow, if D dimer going down it would be a good prognostic sign (3) Diabetes: Novolog monitor sugars with dexamethasone use no hypoglycemia, no severe hyperglycemia either not eating great (4) Hyperlipidemia: In the distant past patient has been on statins these will be held at this current time (5) Ileus: Senokot 2 in the morning and the declog suppository in the eveningPatient is marked gaseous distention seen on imaging studies. CT scan suggest possible right-sided constipation monitor closely for bowel movement, she had a formed BM today (6) Elevated troponin: Elevated troponin of unclear significance at this time there is no s ignificant renal failure although she has chronic kidney disease stage II troponin down to 0.063 from 0.18 could be due to profound hypoxia at home, as troponin improved with supplemental oxygen no need to follow further, denies chest pain, no EKG changes (7) DVT prophylaxis: Patient is placed on Lovenox 30 subcu every 12 Patient confirmed she is a full code prognosis is guarded but patient remains determined and optimistic, she is growing more fatigued today updated her daughter over the phone about guarded prognosis (8) Insomnia: will give Ativan 0.5mg PO HS PRN (9) Hypokalemia: 3.1 on 11/29 placed on PO replacement check labs tomorrow Admission and Anticipated Discharge Date Admission Date: November 26, 2019 Subjective patient doing a lot better today, she is happy, smiling says she has a lot more energy she is eating and drinking, making urine, she had a BM her FiO2 requirements steadily improved, still on 40L per minute but 65% FiO2 I encouraged her to keep getting OOB, ambulating to the toilet I called her daughter to update her that she is doing better will plan for labs tomorrow Review of Systems Review of Systems: All systems reviewed & are unremarkable except as noted in Subjective Constitutional: + fatigue and + weakness; no fever, no chills and no sweats Respiratory: + cough, + dyspnea, + dyspnea on exertion and + sputum production; no pain on inspiration and no wheezing Cardiovascular: no chest pain and no edema Gastrointestinal: no abdominal pain, no nausea, no vomiting, no constipation and no diarrhea/loose stools Musculoskeletal: + muscle weakness Physical Exam Constitutional: well developed and well nourished; no acute distress Eyes: PERRL, conjunctivae normal, anicteric sclerae ENMT: external ear and nose normal, oropharynx normal Neck: trachea midline, no thyromegaly Respiratory: normal respiratory effort and + tachypneic; no respiratory distress and no cough Auscultation: no crackles, no rales, no rhonchi and no wheezes Cardiovascular: RRR, no murmur, no edema Gastrointestinal (Abdomen): normal bowel sounds, soft, nontender, no hepatosplenomegaly Musculoskeletal: no cyanosis or clubbing, extremities motor strength 5/5 Skin: no rashes, warm and dry Neurologic: patellar DTR's 2+ bilat, sensation intact and PERRL, EOMI, accommodation nl, no face palsy, no dysarthria Psychiatric: A+Ox3, euthymic affect Lymphatic: no cervical or axillary lymphadenopathy Results & Data Results & Data ([facility]) Vital Signs (Past 12 Hours) Vital Signs Temp Pulse Pulse Resp BP BP Pulse Ox 12/01/19 12:08 36.5 C 82 19 119/61 97 12/01/19 11:11 77 32 H 96 12/01/19 09:20 74 12/01/19 08:18 36.7 C 88 18 135/76 97 12/01/19 07:10 83 24 93 12/01/19 04:00 36.2 C L 62 16 109/59 L 92 12/01/19 03:26 69 20 88 L Medications Administered Current Inpatient Medications Acetaminophen (Acetaminophen 325 Mg Tab) 650 mg PO Q4H PRN PRN Reason: Pain or Fever Stop: 12/26/19 18:03 Last Admin: 11/29/19 08:24 Dose: 650 mg Documented by: Al Hydrox/Mg Hydrox/Simethicone (Aluminum/Magnesium Susp 30 Ml Udc) 15 ml PO Q4H PRN PRN Reason: Dyspepsia Stop: 12/26/19 18:03 Aspirin (Aspirin 81 Mg Ectab) 81 mg PO DAILY [facility] Stop: 12/26/19 18:03 Last Admin: 12/01/19 08:22 Dose: 81 mg Documented by: Azithromycin (Azithromycin 250 Mg Tab) 250 mg PO QAM [facility] Stop: 12/04/19 08:59 Last Admin: 12/01/19 08:22 Dose: 250 mg Documented by: Dextrose (Dextrose 50% 50 Ml Syringe) 25 - 50 ml IV UD PRN; Protocol PRN Reason: Hypoglycemia Protocol Stop: 12/26/19 18:03 Enoxaparin Sodium (Enoxaparin Inj 30 Mg/0.3 Ml Syr) 30 mg SQ Q12H [facility] Stop: 12/26/19 19:59 Last Admin: 12/01/19 21:35 Dose: 30 mg Documented by: Glucagon (Glucagon For Inj 1 Mg Vial) 1 mg SQ UD PRN; Protocol PRN Reason: Hypoglycemia Protocol Stop: 12/26/19 18:03 Glucose (Glucose 10 Tabs/Tube) 4 - 8 tabs PO UD PRN; Protocol PRN Reason: Hypoglycemia Protocol Stop: 12/26/19 18:03 Glucose (Glucose 40% Gel 15 Gm Tube) 15 - 30 gm PO UD PRN; Protocol PRN Reason: Hypoglycemia Protocol Stop: 12/26/19 18:03 Guaifenesin/Codeine Phosphate (Guaifenesin/Codeine 100mg/10mg 5ml Udc) 5 ml PO Q6H PRN PRN Reason: Cough Stop: 12/26/19 18:03 Ceftriaxone Sodium 2,000 mg/ (Dextrose) 70 mls @ 100 mls/hr IV Q24H [facility]; Protocol Stop: 12/03/19 18:59 Last Infusion: 12/01/19 22:42 Dose: Infused Documented by: Dexamethasone Sodium Phosphate (6 mg/ Syringe) 1.5 mls @ 1 mls/min IV DAILY [facility] Stop: 12/06/19 09:02 Last Admin: 12/01/19 08:35 Dose: 1 mls/min Documented by: Insulin Aspart (Insulin Aspart 100 Units/Ml 3 Ml Pen) 0 units SC ACHS [facility] Stop: 12/26/19 20:59 Last Admin: 12/01/19 22:43 Dose: 4 units Documented by: Lorazepam (Lorazepam 0.5 Mg Tab) 0.5 mg PO HS PRN PRN Reason: Insomnia Stop: 12/29/19 16:59 Last Admin: 11/30/19 20:49 Dose: 0.5 mg Documented by: Miscellaneous (Carbohydrates For Hypoglycemia ) 15 - 30 gm PO UD PRN PRN Reason: Hypoglycemia Protocol Stop: 12/26/19 18:03 Miscellaneous Information (Pharmacy Glycemic Mgmt Consult) 1 ea N/A UD PRN; Protocol PRN Reason: Consult Stop: 12/26/19 18:38 Ondansetron HCl (Ondansetron Inj 2 Mg/Ml 2 Ml Vial) 4 mg IV Q6H PRN PRN Reason: Nausea Stop: 12/26/19 18:03 Potassium Chloride (Potassium Chloride 20 Meq Tabcr) 20 meq PO BID [facility] Stop: 12/30/19 20:59 Last Admin: 12/01/19 21:36 Dose: 20 meq Documented by: Senna/Docusate Sodium (Docusate Sodium/Senna 50/8.6mg Tab) 2 tab PO QAM [facility] Stop: 12/27/19 08:59 Last Admin: 12/01/19 08:35 Dose: Not Given Documented by: Zinc Sulfate (Zinc Sulfate 220 Mg Capsule) 220 mg PO QAM [facility] Stop: 12/27/19 08:59 Last Admin: 11/30/19 09:47 Dose: 220 mg Documented by: PG Care Time/CCT Total # of Minutes Spent Total Time Spent with Patient: Total time spent is greater than 50% in coordination of care (as documented) at patient's floor/unit and/or counseling patient: Coding Level of Care Code 30701 Subseq Hosp Care Lvl 3 Diagnoses Acute respiratory failure with hypoxia J96.01 Pneumonia due to COVID-19 virus U07.1; J12.89 Diabetes E11.9 Hyperlipidemia E78.5 Ileus K56.7 Elevated troponin R79.89 DVT prophylaxis Z29.9 Insomnia G47.00 Hypokalemia E87.6
[2019-12-01] MEDS: cefTRIAXone SODIUM 2,000 MG in DEXTROSE 5% 50 ML IV SCH (21:35)
[2019-12-02] MEDS: LORazepam 0.5 MG TAB PO PRN ×2 (04:07→21:20)
[2019-12-02 07:22] LABS: Hematocrit (blood only) 38.4 % (37-47); Hemoglobin 12.6 g/dL (12.0-16.0); Mean Corpuscular Hemoglobin 30.1 pg (25-34); Mean Corpuscular Hgb Conc 32.8 g/dL (32-36); Mean Corpuscular Volume 91.6 fL (80-100); Mean Platelet Volume 9.5 fL (7.4-10.4); Platelet Count 369 K/uL (130-400); RDW Standard Deviation 46.8 fL (36.4-46.3); Red Blood Count 4.19 M/uL (4.2-5.4); White Blood Count 19.53 K/uL (4.8-10.8)
[2019-12-02 07:57] LABS: BUN Creatinine Ratio 58.2 (10-20); Calcium 8.4 mg/dl (8.5-10.1); Est GFR (African American) 98.8; Est GFR (Non-African American) 85.3; Potassium 4.5 mmol/L (3.5-5.1)
[2019-12-02] MEDS: DEXAMETHASONE SOD PHOSPHATE 6 MG in SYRINGE 0 ML IV SCH (08:17)
[2019-12-02] MEDS: ENOXAPARIN INJ 30 MG/0.3 ML SYR SQ SCH ×2 (08:18→20:30)
[2019-12-02] MEDS: ASPIRIN 81 MG ECTAB PO SCH (08:21)
[2019-12-02] MEDS: AZITHROMYCIN 250 MG TAB PO SCH (08:22)
[2019-12-02] MEDS: ZINC SULFATE 220 MG CAPSULE PO SCH (08:22)
[2019-12-02] MEDS: DOCUSATE SODIUM/SENNA 50/8.6MG TAB PO SCH (08:22)
[2019-12-02] MEDS: POTASSIUM CHLORIDE 20 MEQ TABCR PO SCH (08:22)
[2019-12-02 08:49] LABS: D Dimer > 35200 ug/L FEU (0-500)
[2019-12-02] MEDS ORDERED: NovoLIN-N (NPH) PER UNIT CHARGE SQ SCH (09:00)
[2019-12-02] MEDS: INSULIN ASPART 100 UNITS/ML 3 ML PEN SC SCH ×4 (09:16→20:31)
--- NOTE | 2019-12-02 09:32 | Pharmacy Report ---
Pharmacy Glycemic Short Note 2 - Date of Service December 02, 2019 - Glycemic Short BSG Results (Last 24 hours): 12/01/19 12/01/19 12/01/19 12:07 16:43 20:31 Glucose POC Glucose 167 H 264 H 245 H 12/02/19 12/02/19 07:08 08:09 Glucose 166 H POC Glucose 151 H OUTPATIENT ANTIDIABETIC REGIMEN: * Per outpatient pharmacy, no diabetic agents on record * RN confirmed with patient that she is diet controlled only ASSESSMENT: 12/01 * Patient received 18 units of insulin yesterday, blood sugars rising throughout the day, remains on 6mg IV Dexamethasone daily (day 09/05 today) * Add NPH daily to cover steroid effects 11/29 * Patient received 13 units of insulin yesterday * Fasting this AM below goal range but not hypoglycemic, will continue to hold basal * Prandial BSGs trended up yesterday into the 200s, will tighten carb ratio this morning * Last day of remdesivir and continues on 6 mg dexamethasone IV 11/28: * Patient received 18 units of insulin yesterday (10 basal, 8 bolus) * BSGs have been well controlled over the past 24 hours with the exception of HS reading. This was likely do to increased PO intake with dinner and subsequent post prandial, steroid induced hyperglycemia. Novolog scale was tightened accordingly. * Fasting BSG this morning adequate but down trending. Will hold off on basal insulin today and re-assess with AM dosing if needed 11/26: * Patient has been well controlled over the past 24 hours with only 10 units of lantus and 1 unit of novolog on board. * Will withhold additional basal insulin for now given diet controlled A1C of 6% * I did loosen novolog scale as well given excellent BSGs. * Patient has received 2 doses of dexamethasone thus far. Will need to monitor this closely and tighten novolog if postprandial BSG starts to uptrend with increased PO intake 11/25 * Admitted for pneumonia due to Covid-19 virus. Patient will be receiving Dexamethasone 6mg Daily. * Started on Remdesivir 200mg IV x1 tonight, followed by Remdesivir 100mg IV q24h Days 2-5. PLAN FOR INPATIENT GLYCEMIC CONTROL: * Basal insulin * NPH 10 units SQ Daily with IV Dexamethasone * Bolus insulin * NovoLog per scale ACHS or Q6hrs while NPO * Goal Range: Low 110 mg/dL - High 140 mg/dL * Correction Factor: 30 mg/dL/unit * Nutritional / Prandial insulin per carb ratio of 1 unit per 10 grams CHO consumed
--- NOTE | 2019-12-02 13:33 | Hospitalist Progress Note ---
Date of Service December 02, 2019 Assessment & Plan (1) Acute respiratory failure with hypoxia: due to viral pneumonia with COVID 19 improved initially after plasma given evening of 11/26 had a difficult day on 11/29 due to fatigue and poor sleep, feeling weak doing better today, FiO2 titrated down to 75% she is breathing easier, feels stronger encourage to stay upright, sleep prone if she can tolerate she would want intubated if needed as long as she can maintain saturations in the mid to high 80's we can avoid intubation (2) Pneumonia due to COVID-19 virus: Patient has profound acute hypoxic respiratory failure clinical scenario consistent with COVID positive status bilateral infiltrates on CT chest oxygen requirements stable today at 75% plan: dexamethasone 6mg IV daily x 10 days, today is day 7 Remdesivir daily x 5 days, completed Rocephin, Zithromax and Zinc, cover for possible superimposed bacterial infection completed 5 days of Zithromax, 7 days of Rocephin today convalescent plasma given evening of 11/26 supportive care with high flow nasal canula, stable at 75% FiO2, requiring 40L per minute for PEEP encouraged patient to stay well nourished and well hydrated, will be important to maintain strength try to take deep breaths every hour discussed that she might deteriorate instead of improving, if that happens she still insists she would want intubated she says "I still have a lot of living to do" D dimer going up today at 35k, it was 20k two days ago CTA chest on admission negative for PE, she has been on Lovenox 30 q12 since admission feel that D dimer is still due to acute inflammation, does not represent thrombosis (3) Diabetes: Novolog monitor sugars with dexamethasone use no hypoglycemia, no severe hyperglycemia either eating better today (4) Hyperlipidemia: In the distant past patient has been on statins these will be held at this current time (5) Ileus: Senokot 2 in the morning and the declog suppository in the eveningPatient is marked gaseous distention seen on imaging studies. CT scan suggest possible right-sided constipation having formed BM (6) Elevated troponin: Elevated troponin of unclear significance at this time there is no significant renal failure although she has chronic kidney disease stage II troponin down to 0.063 from 0.18 could be due to profound hypoxia at home, as troponin improved with supplemental oxygen no need to follow further, denies chest pain, no EKG changes (7) DVT prophylaxis: Patient is placed on Lovenox 30 subcu every 12 Patient confirmed she is a full code prognosis is guarded but patient remains determined and optimistic, she is alert and stronger today updated her daughter over the phone about guarded prognosis (8) Insomnia: will give Ativan 0.5mg PO HS PRN she got it at 4am last night, should not get so late in the shift, made her feel like "a zombie" today (9) Hypokalemia: 3.1 on 11/29 placed on PO replacement K is 4.5 today, hold PO replacement Admission and Anticipated Discharge Date Admission Date: November 26, 2019 Subjective patient tired today, "feels like a zombie" after having Ativan at 4am she says she wants to take it at 10-11pm instead she is eating well, appetite is intact she is urinating, moving her bowels, no nausea reviewed labs, D dimer is up even higher at 35,000 Cr and electrolytes stable, WBC up at 19k (due to dexamethasone) told patient to stay strong, she is holding her own she said "I still have a lot of living to do" called daughter to provide update Review of Systems Review of Systems: All systems reviewed & are unremarkable except as noted in Subjective Constitutional: + fatigue and + weakness; no fever Respiratory: + cough, + dyspnea and + dyspnea on exertion; no pain on inspiration and no wheezing Cardiovascular: no chest pain, no radiating jaw, neck or arm pain and no edema Gastrointestinal: no abdominal pain, no nausea, no vomiting, no constipation and no diarrhea/loose stools Physical Exam Constitutional: well developed and well nourished; no acute distress Eyes: PERRL, conjunctivae normal, anicteric sclerae ENMT: external ear and nose normal, oropharynx normal Neck: trachea midline, no thyromegaly Respiratory: normal respiratory effort and + tachypneic; no respiratory distress and no cough Auscultation: no crackles, no rales, no rhonchi and no wheezes Cardiovascular: RRR, no murmur, no edema Gastrointestinal (Abdomen): normal bowel sounds, soft, nontender, no hepatosplenomegaly Musculoskeletal: no cyanosis or clubbing, extremities motor strength 5/5 Skin: no rashes, warm and dry Neurologic: patellar DTR's 2+ bilat, sensation intact and PERRL, EOMI, accommodation nl, no face palsy, no dysarthria Psychiatric: A+Ox3, euthymic affect Lymphatic: no cervical or axillary lymphadenopathy Results & Data Results & Data ([facility]) Vital Signs (Past 12 Hours) Vital Signs Temp Pulse Resp BP BP Pulse Ox 12/02/19 11:56 36.5 C 92 H 20 132/66 91 12/02/19 11:13 71 20 91 12/02/19 08:00 36.6 C 74 20 117/65 90 12/02/19 07:20 68 22 89 L 12/02/19 04:00 36.6 C 89 20 130/63 90 12/02/19 03:51 79 24 84 L Laboratory Results Laboratory Results - last 24 hr 12/01/19 12/01/19 12/02/19 16:43 20:31 07:08 WBC RBC Hgb Hct MCV MCH MCHC RDW Std Deviation RDW Coeff of Ange Plt Count MPV D-Dimer > 56265 H* Sodium Potassium Chloride Carbon Dioxide Anion Gap BUN Creatinine Est Cr Clr Drug Dosing Est GFR ( Amer) Est GFR (Non-Af Amer) BUN/Creatinine Ratio Glucose POC Glucose 264 H 245 H Calcium 12/02/19 12/02/19 12/02/19 07:08 07:08 08:09 WBC 19.53 H RBC 4.19 L Hgb 12.6 Hct 38.4 MCV 91.6 MCH 30.1 MCHC 32.8 RDW Std Deviation 46.8 H RDW Coeff of Ange 14.0 Plt Count 369 MPV 9.5 D-Dimer Sodium 142 Potassium 4.5 Chloride 110 H Carbon Dioxide 27 Anion Gap 5.0 BUN 30 H Creatinine 0.51 L Est Cr Clr Drug Dosing 56.0 Est GFR ( Amer) 98.8 Est GFR (Non-Af Amer) 85.3 BUN/Creatinine Ratio 58.2 H Glucose 166 H POC Glucose 151 H Calcium 8.4 L 12/02/19 11:33 WBC RBC Hgb Hct MCV MCH MCHC RDW Std Deviation RDW Coeff of Ange Plt Count MPV D-Dimer Sodium Potassium Chloride Carbon Dioxide Anion Gap BUN Creatinine Est Cr Clr Drug Dosing Est GFR ( Amer) Est GFR (Non-Af Amer) BUN/Creatinine Ratio Glucose POC Glucose 183 H Calcium Medications Administered Current Inpatient Medications Acetaminophen (Acetaminophen 325 Mg Tab) 650 mg PO Q4H PRN PRN Reason: Pain or Fever Stop: 12/26/19 18:03 Last Admin: 11/29/19 08:24 Dose: 650 mg Documented by: Al Hydrox/Mg Hydrox/Simethicone (Aluminum/Magnesium Susp 30 Ml Udc) 15 ml PO Q4H PRN PRN Reason: Dyspepsia Stop: 12/26/19 18:03 Aspirin (Aspirin 81 Mg Ectab) 81 mg PO DAILY DARNELL Stop: 12/26/19 18:03 Last Admin: 12/02/19 08:21 Dose: 81 mg Documented by: Azithromycin (Azithromycin 250 Mg Tab) 250 mg PO QAM DARNELL Stop: 12/04/19 08:59 Last Admin: 12/02/19 08:22 Dose: 250 mg Documented by: Dextrose (Dextrose 50% 50 Ml Syringe) 25 - 50 ml IV UD PRN; Protocol PRN Reason: Hypoglycemia Protocol Stop: 12/26/19 18:03 Enoxaparin Sodium (Enoxaparin Inj 30 Mg/0.3 Ml Syr) 30 mg SQ Q12H DARNELL Stop: 12/26/19 19:59 Last Admin: 12/02/19 08:18 Dose: 30 mg Documented by: Glucagon (Glucagon For Inj 1 Mg Vial) 1 mg SQ UD PRN; Protocol PRN Reason: Hypoglycemia Protocol Stop: 12/26/19 18:03 Glucose (Glucose 10 Tabs/Tube) 4 - 8 tabs PO UD PRN; Protocol PRN Reason: Hypoglycemia Protocol Stop: 12/26/19 18:03 Glucose (Glucose 40% Gel 15 Gm Tube) 15 - 30 gm PO UD PRN; Protocol PRN Reason: Hypoglycemia Protocol Stop: 12/26/19 18:03 Guaifenesin/Codeine Phosphate (Guaifenesin/Codeine 100mg/10mg 5ml Udc) 5 ml PO Q6H PRN PRN Reason: Cough Stop: 12/26/19 18:03 Ceftriaxone Sodium 2,000 mg/ (Dextrose) 70 mls @ 100 mls/hr IV Q24H DARNELL; Protocol Stop: 12/03/19 18:59 Last Infusion: 12/01/19 22:42 Dose: Infused Documented by: Dexamethasone Sodium Phosphate (6 mg/ Syringe) 1.5 mls @ 1 mls/min IV DAILY DARNELL Stop: 12/06/19 09:02 Last Admin: 12/02/19 08:17 Dose: 1 mls/min Documented by: Insulin Aspart (Insulin Aspart 100 Units/Ml 3 Ml Pen) 0 units SC ACHS DARNELL Stop: 12/26/19 20:59 Last Admin: 12/02/19 12:03 Dose: 7 units Documented by: Insulin Human NPH (Novolin-N (Nph) Per Unit Charge) 10 units SQ DAILY DARNELL; Protocol Stop: 12/06/19 09:01 Last Admin: 12/02/19 09:16 Dose: 10 units Documented by: Lorazepam (Lorazepam 0.5 Mg Tab) 0.5 mg PO HS PRN PRN Reason: Insomnia Stop: 12/29/19 16:59 Last Admin: 12/02/19 04:07 Dose: 0.5 mg Documented by: Miscellaneous (Carbohydrates For Hypoglycemia ) 15 - 30 gm PO UD PRN PRN Reason: Hypoglycemia Protocol Stop: 12/26/19 18:03 Miscellaneous Information (Pharmacy Glycemic Mgmt Consult) 1 ea N/A UD PRN; Protocol PRN Reason: Consult Stop: 12/26/19 18:38 Ondansetron HCl (Ondansetron Inj 2 Mg/Ml 2 Ml Vial) 4 mg IV Q6H PRN PRN Reason: Nausea Stop: 12/26/19 18:03 Potassium Chloride (Potassium Chloride 20 Meq Tabcr) 20 meq PO BID [facility] Stop: 12/30/19 20:59 Last Admin: 12/02/19 08:22 Dose: 20 meq Documented by: Senna/Docusate Sodium (Docusate Sodium/Senna 50/8.6mg Tab) 2 tab PO QAM DARNELL Stop: 12/27/19 08:59 Last Admin: 12/02/19 08:22 Dose: Not Given Documented by: Zinc Sulfate (Zinc Sulfate 220 Mg Capsule) 220 mg PO QAM [facility] Stop: 12/27/19 08:59 Last Admin: 12/02/19 08:22 Dose: 220 mg Documented by: PG Care Time/CCT Total # of Minutes Spent Total Time Spent with Patient: Total time spent is greater than 50% in coordination of care (as documented) at patient's floor/unit and/or counseling patient: Coding Level of Care Code 06441 Subseq Hosp Care Lvl 3 Diagnoses Acute respiratory failure with hypoxia J96.01 Pneumonia due to COVID-19 virus U07.1; J12.89 Diabetes E11.9 Hyperlipidemia E78.5 Ileus K56.7 Elevated troponin R79.89 DVT prophylaxis Z29.9 Insomnia G47.00 Hypokalemia E87.6
[2019-12-02] MEDS: cefTRIAXone SODIUM 2,000 MG in DEXTROSE 5% 50 ML IV SCH (20:30)
[2019-12-03] MEDS: DEXAMETHASONE SOD PHOSPHATE 6 MG in SYRINGE 0 ML IV SCH (08:17)
[2019-12-03] MEDS: ZINC SULFATE 220 MG CAPSULE PO SCH (08:18)
[2019-12-03] MEDS: ASPIRIN 81 MG ECTAB PO SCH (08:18)
[2019-12-03] MEDS: ENOXAPARIN INJ 30 MG/0.3 ML SYR SQ SCH ×2 (08:19→20:21)
[2019-12-03] MEDS: DOCUSATE SODIUM/SENNA 50/8.6MG TAB PO SCH (08:20)
[2019-12-03 08:32] LABS: D Dimer 22710 ug/L FEU (0-500)
[2019-12-03 08:34] LABS: BUN Creatinine Ratio 56.1 (10-20); Calcium 8.7 mg/dl (8.5-10.1); Creatinine Clr Calc Pharmacy 49.7 ml/min; Est GFR (African American) 94.7; Est GFR (Non-African American) 81.7; Magnesium 2.3 mg/dl (1.8-2.4); Phosphorus 3.7 mg/dl (2.5-4.9); Potassium 4.5 mmol/L (3.5-5.1)
[2019-12-03] MEDS: INSULIN ASPART 100 UNITS/ML 3 ML PEN SC SCH ×4 (08:56→20:56)
[2019-12-03] MEDS ORDERED: NovoLIN-N (NPH) PER UNIT CHARGE SQ SCH (09:00)
--- NOTE | 2019-12-03 09:11 | Pharmacy Report ---
Pharmacy Glycemic Short Note 2 - Date of Service December 03, 2019 - Glycemic Short BSG Results (Last 24 hours): 12/02/19 12/02/19 12/02/19 11:33 16:15 20:27 Glucose POC Glucose 183 H 200 H 189 H 12/03/19 12/03/19 07:59 08:06 Glucose 113 H POC Glucose 124 H OUTPATIENT ANTIDIABETIC REGIMEN: * Per outpatient pharmacy, no diabetic agents on record * RN confirmed with patient that she is diet controlled only ASSESSMENT: 12/02 * Patient received 26 units of insulin yesterday, blood sugars improved with adding NPH with IV Dexamethasone. Increase NPH slightly and tighten CF/CR slightly for better glycemic control. * D dimer up to 35k from 20k, likely still due to acute inflammation, does not represent thrombosis, on lovenox. WBC up d/t IV steroids. 12/01 * Patient received 18 units of insulin yesterday, blood sugars rising throughout the day, remains on 6mg IV Dexamethasone daily (day 09/05 today) * Add NPH daily to cover steroid effects 11/29 * Patient received 13 units of insulin yesterday * Fasting this AM below goal range but not hypoglycemic, will continue to hold basal * Prandial BSGs trended up yesterday into the 200s, will tighten carb ratio this morning * Last day of remdesivir and continues on 6 mg dexamethasone IV 11/28: * Patient received 18 units of insulin yesterday (10 basal, 8 bolus) * BSGs have been well controlled over the past 24 hours with the exception of HS reading. This was likely do to increased PO intake with dinner and subsequent post prandial, steroid induced hyperglycemia. Novolog scale was tightened accordingly. * Fasting BSG this morning adequate but down trending. Will hold off on basal insulin today and re-assess with AM dosing if needed 11/26: * Patient has been well controlled over the past 24 hours with only 10 units of lantus and 1 unit of novolog on board. * Will withhold additional basal insulin for now given diet controlled A1C of 6% * I did loosen novolog scale as well given excellent BSGs. * Patient has received 2 doses of dexamethasone thus far. Will need to monitor this closely and tighten novolog if postprandial BSG starts to uptrend with increased PO intake 11/25 * Admitted for pneumonia due to Covid-19 virus. Patient will be receiving Dexamethasone 6mg Daily. * Started on Remdesivir 200mg IV x1 tonight, followed by Remdesivir 100mg IV q24h Days 2-5. PLAN FOR INPATIENT GLYCEMIC CONTROL: * Basal insulin - increase * NPH 12 units SQ Daily with IV Dexamethasone * Bolus insulin * NovoLog per scale ACHS or Q6hrs while NPO * Goal Range: Low 110 mg/dL - High 140 mg/dL * tighten: Correction Factor: 25 mg/dL/unit * tighten: Nutritional / Prandial insulin per carb ratio of 1 unit per 9 grams CHO consumed
--- NOTE | 2019-12-03 09:31 | XRay Report ---
XR chest 1V portable HISTORY: 89 years-old Female COVID19, hypoxia acute hypoxia COMPARISON: Chest radiograph 11/26/2019, CTA chest 11/26/2019 TECHNIQUE: Portable AP view of the chest FINDINGS: Cardiomegaly with pulmonary vascular congestion and right greater than left interstitial coarsening. Unchanged right hilar fullness. No pneumothorax. Unchanged mild blunting of the costophrenic angles. Generally unchanged bibasilar and diffuse right lung patchy alveolar opacities. Slightly improved aer ation of the right lung base. Degenerative changes of the shoulders and spine. IMPRESSION: 1. Cardiomegaly with unchanged pulmonary vascular congestion. 2. Generally unchanged bibasilar and diffuse right lung patchy opacities suggestive of atypical pneum onia. Asymmetric pulmonary edema could appear similarly. ACT 112: Negative or not required by law. The above report was generated using voice recognition software. It may contain grammatical, syntax o r spelling errors. Electronically signed by: Bill Doyle M.D. 12/03/2019 9:29 AM
--- NOTE | 2019-12-03 15:48 | Hospitalist Progress Note ---
Date of Service December 03, 2019 Assessment & Plan (1) Acute respiratory failure with hypoxia: due to viral pneumonia with COVID 19 improved initially after plasma given evening of 11/26 had a difficult day on 11/29 due to fatigue and poor sleep, feeling weak she has been more stable the past three days she is breathing easier, feels stronger she never appears to be in distress, it is pure hypoxia today she is HFNC 40L and 85% FiO2, could probably decrease further as she is 96% saturations she keeps desaturating when sleeping at night, requiring them to increase back to 100% FiO2 encourage to stay upright, sleep prone if she can tolerate she would want intubated if needed as long as she can maintain saturations in the mid to high 80's we can avoid intubation she is determined to fight through this, overall she has maintained her strength all week anticipate at least another week in the hospital (2) Pneumonia due to COVID-19 virus: Patient has profound acute hypoxic respiratory failure clinical scenario consistent with COVID positive status bilateral infiltrates on CT chest oxygen requirements stable today at 85% FiO2 plan: dexamethasone 6mg IV daily x 10 days, today is day 8 Remdesivir daily x 5 days, completed Rocephin, Zithromax and Zinc, cover for possible superimposed bacterial infection completed 5 days of Zithromax, 7 days of Rocephin today convalescent plasma given evening of 11/26 supportive care with high flow nasal canula, stable at 85% FiO2, requiring 40L per minute for PEEP she is eating and drinking well, moving her bowels, making urine, trying to spend good amount of time in her chair discussed that she might deteriorate instead of improving, if that happens she still insists she would want intubated she says "I still have a lot of living to do" D dimer is going down today for the first [place] [id number], it was > 47590 yesterday CTA chest on admission negative for PE, she has been on Lovenox 30 q12 since admission feel that D dimer is still due to acute inflammation, does not represent thrombosis cautiously optimistic that she will improve over the next week will check BMP and D dimer in the morning (3) Diabetes: Novolog monitor sugars with dexamethasone use no hypoglycemia, no severe hyperglycemia either eating well (4) Hyperlipidemia: In the distant past patient has been on statins these will be held at this current time (5) Ileus: Senokot 2 in the morning and the declog suppository in the eveningPatient is marked gaseous distention seen on imaging studies. CT scan suggest possible right-sided constipation having formed BM, no issues at all with nausea (6) Elevated troponin: Elevated troponin of unclear significance at this time there is no significant renal failure although she has chronic kidney disease stage II troponin down to 0.063 from 0.18 could be due to profound hypoxia at home, as troponin improved with supplemental oxygen no need to follow further, denies chest pain, no EKG changes (7) DVT prophylaxis: Patient is placed on Lovenox 30 subcu every 12 Patient confirmed she is a full code prognosis is guarded but patient remains determined and optimistic, she is alert and stronger each day updated her daughter over the phone each day, her name is Layla (8) Insomnia: will give Ativan 0.5mg PO HS PRN (9) Hypokalemia: 3.1 on 11/29 placed on PO replacement K is 4.5 again today, hold PO replacement Admission and Anticipated Discharge Date Admission Date: November 26, 2019 Subjective patient continues to feel well, no distress her only complaint is that she has been cold all day she doesn't feel like she has fever/chills, no sweats, just says she is cold it is a little chilly in her room her appetite is good, she says it is better today than yesterday reviewed labs, BMP shows stable electrolytes [place] [address] [place] [id number] yesterday, hopeful that this is a good prognostic sign she is on 40L and 85% FiO2 but she could probably be on less she keeps desaturating at night so the gains that she makes during the day are lost and in the morning she is back up to 100% FiO2 called her daughter Layla to provide an update Review of Systems Review of Systems: All systems reviewed & are unremarkable except as noted in Subjective Constitutional: + fatigue, + weakness and + problem reported (feels cold); no fever, no chills and no sweats Respiratory: + dyspnea on exertion; no cough and no dyspnea Cardiovascular: no chest pain and no edema Gastrointestinal: no abdominal pain, no nausea, no vomiting, no constipation and no diarrhea/loose stools Physical Exam Constitutional: well developed and well nourished; no acute distress Eyes: PERRL, conjunctivae normal, anicteric sclerae ENMT: external ear and nose normal, oropharynx normal Neck: trachea midline, no thyromegaly Respiratory: normal respiratory effort; no respiratory distress and no cough Auscultation: no crackles, no rales, no rhonchi and no wheezes Cardiovascular: RRR, no murmur, no edema Gastrointestinal (Abdomen): normal bowel sounds, soft, nontender, no hepatosplenomegaly Musculoskeletal: no cyanosis or clubbing, extremities motor strength 5/5 Skin: no rashes, warm and dry Neurologic: patellar DTR's 2+ bilat, sensation intact and PERRL, EOMI, accommodation nl, no face palsy, no dysarthria Psychiatric: A+Ox3, euthymic affect Lymphatic: no cervical or axillary lymphadenopathy Results & Data Results & Data ([facility]) Vital Signs (Past 12 Hours) Vital Signs Temp Pulse Resp BP BP Pulse Ox 12/03/19 15:25 74 22 98 12/03/19 12:00 36.6 C 77 20 107/62 96 12/03/19 08:08 36.6 C 77 20 128/67 94 12/03/19 07:27 75 16 92 12/03/19 03:56 36.5 C 76 16 130/71 95 Laboratory Results Laboratory Results - last 24 hr 12/02/19 12/02/19 12/03/19 16:15 20:27 07:59 D-Dimer 87145 H* Sodium Potassium Chloride Carbon Dioxide Anion Gap BUN Creatinine Est Cr Clr Drug Dosing Est GFR ( Amer) Est GFR (Non-Af Amer) BUN/Creatinine Ratio Glucose POC Glucose 200 H 189 H Calcium Phosphorus Magnesium 12/03/19 12/03/19 12/03/19 07:59 08:06 11:56 D-Dimer Sodium 142 Potassium 4.5 Chloride 108 H Carbon Dioxide 27 Anion Gap 7.0 BUN 33 H Creatinine 0.58 L Est Cr Clr Drug Dosing 49.7 Est GFR ( Amer) 94.7 Est GFR (Non-Af Amer) 81.7 BUN/Creatinine Ratio 56.1 H Glucose 113 H POC Glucose 124 H 152 H Calcium 8.7 Phosphorus 3.7 Magnesium 2.3 Medications Administered Current Inpatient Medications Acetaminophen (Acetaminophen 325 Mg Tab) 650 mg PO Q4H PRN PRN Reason: Pain or Fever Stop: 12/26/19 18:03 Last Admin: 11/29/19 08:24 Dose: 650 mg Documented by: Al Hydrox/Mg Hydrox/Simethicone (Aluminum/Magnesium Susp 30 Ml Udc) 15 ml PO Q4H PRN PRN Reason: Dyspepsia Stop: 12/26/19 18:03 Aspirin (Aspirin 81 Mg Ectab) 81 mg PO DAILY DARNELL Stop: 12/26/19 18:03 Last Admin: 12/03/19 08:18 Dose: 81 mg Documented by: Dextrose (Dextrose 50% 50 Ml Syringe) 25 - 50 ml IV UD PRN; Protocol PRN Reason: Hypoglycemia Protocol Stop: 12/26/19 18:03 Enoxaparin Sodium (Enoxaparin Inj 30 Mg/0.3 Ml Syr) 30 mg SQ Q12H DARNELL Stop: 12/26/19 19:59 Last Admin: 12/03/19 08:19 Dose: 30 mg Documented by: Glucagon (Glucagon For Inj 1 Mg Vial) 1 mg SQ UD PRN; Protocol PRN Reason: Hypoglycemia Protocol Stop: 12/26/19 18:03 Glucose (Glucose 10 Tabs/Tube) 4 - 8 tabs PO UD PRN; Protocol PRN Reason: Hypoglycemia Protocol Stop: 12/26/19 18:03 Glucose (Glucose 40% Gel 15 Gm Tube) 15 - 30 gm PO UD PRN; Protocol PRN Reason: Hypoglycemia Protocol Stop: 12/26/19 18:03 Guaifenesin/Codeine Phosphate (Guaifenesin/Codeine 100mg/10mg 5ml Udc) 5 ml PO Q6H PRN PRN Reason: Cough Stop: 12/26/19 18:03 Dexamethasone Sodium Phosphate (6 mg/ Syringe) 1.5 mls @ 1 mls/min IV DAILY DARNELL Stop: 12/06/19 09:02 Last Admin: 12/03/19 08:17 Dose: 1 mls/min Documented by: Insulin Aspart (Insulin Aspart 100 Units/Ml 3 Ml Pen) 0 units SC ACHS DARNELL Stop: 12/26/19 20:59 Last Admin: 12/03/19 12:14 Dose: 7 units Documented by: Insulin Human NPH (Novolin-N (Nph) Per Unit Charge) 12 units SQ DAILY DARNELL; Protocol Stop: 12/06/19 09:01 Last Admin: 12/03/19 08:57 Dose: 12 units Documented by: Lorazepam (Lorazepam 0.5 Mg Tab) 0.5 mg PO HS PRN PRN Reason: Insomnia Stop: 12/29/19 16:59 Last Admin: 12/02/19 21:20 Dose: 0.5 mg Documented by: Miscellaneous (Carbohydrates For Hypoglycemia ) 15 - 30 gm PO UD PRN PRN Reason: Hypoglycemia Protocol Stop: 12/26/19 18:03 Miscellaneous Information (Pharmacy Glycemic Mgmt Consult) 1 ea N/A UD PRN; Protocol PRN Reason: Consult Stop: 12/26/19 18:38 Ondansetron HCl (Ondansetron Inj 2 Mg/Ml 2 Ml Vial) 4 mg IV Q6H PRN PRN Reason: Nausea Stop: 12/26/19 18:03 Senna/Docusate Sodium (Docusate Sodium/Senna 50/8.6mg Tab) 2 tab PO QAM DARNELL Stop: 12/27/19 08:59 Last Admin: 12/03/19 08:20 Dose: Not Given Documented by: Zinc Sulfate (Zinc Sulfate 220 Mg Capsule) 220 mg PO QAM DARNELL Stop: 12/27/19 08:59 Last Admin: 12/03/19 08:18 Dose: 220 mg Documented by: PG Care Time/CCT Total # of Minutes Spent Total Time Spent: 33 Total Time Spent with Patient: Total time spent is greater than 50% in coordination of care (as documented) at patient's floor/unit and/or counseling patient: Coding Level of Care Code 69234 Subseq Hosp Care Lvl 3 Diagnoses Acute respiratory failure with hypoxia J96.01 Pneumonia due to COVID-19 virus U07.1; J12.89 Diabetes E11.9 Hyperlipidemia E78.5 Ileus K56.7 Elevated troponin R79.89 DVT prophylaxis Z29.9 Insomnia G47.00 Hypokalemia E87.6
[2019-12-03] MEDS: LORazepam 0.5 MG TAB PO PRN (22:26)
[2019-12-04 07:28] LABS: D Dimer 14160 ug/L FEU (0-500)
[2019-12-04 07:39] LABS: BUN Creatinine Ratio 58.7 (10-20); Calcium 8.3 mg/dl (8.5-10.1); Creatinine Clr Calc Pharmacy 57.7 ml/min; Est GFR (African American) 99.5; Est GFR (Non-African American) 85.8
--- NOTE | 2019-12-04 07:48 | Hospitalist Progress Note ---
Date of Service December 04, 2019 Assessment & Plan (1) Acute respiratory failure with hypoxia: due to viral pneumonia with COVID 19 improved initially after plasma given evening of 11/26 No real clinical respiratory distress, seth with significant hypoxia today she is HFNC 40L and 85% FiO2, could probably decrease further as she is 96% saturations encourage to stay upright, sleep prone if she can tolerate consider incentive spirometry of breathing she would want intubated if needed as long as she can maintain saturations in the mid to high 80's we can avoid intubation she is determined to fight through this, overall she has maintained her strength all week Likely a persistent long hospital stay in the future (2) Pneumonia due to COVID-19 virus: Patient has profound acute hypoxic respiratory failure clinical scenario consistent with COVID positive status bilateral infiltrates on CT chest oxygen requirements 40 L 85% FiO2 high flow oxygen plan: Complete dexamethasone 6mg IV daily x 10 days Remdesivir daily x 5 days, completed Rocephin, Zithromax and Zinc, cover for possible superimposed bacterial infection completed 5 days of Zithromax, 7 days of Rocephin today convalescent plasma given evening of 11/26 supportive care with high flow nasal canula, stable at 85% FiO2, requiring 40L per minute for PEEP she is eating and drinking well, moving her bowels, making urine, trying to spend good amount of time in her chair Dr. Zhao discussed that she might deteriorate instead of improving, if that happens she still insists she would want intubated she says "I still have a lot of living to do" D dimer is going down today in the 14,000 range CTA chest on admission negative for PE, she has been on Lovenox 30 q12 since admission feel that D dimer is still due to acute inflammation, does not represent thrombosis (3) Diabetes: Novolog monitor sugars with dexamethasone use no hypoglycemia, no severe hyperglycemia either eating well (4) Hyperlipidemia: In the distant past patient has been on statins these will be held at this current time (5) Ileus: Senokot 2 in the morning and the Dulcolax suppository in the evening. Patient is marked gaseous distention seen on imaging studies. CT scan suggest possible right-sided constipation having formed BM, no issues at all with nausea (6) Elevated troponin: Elevated troponin of unclear significance at this time there is no significant renal failure although she has chronic kidney disease stage II troponin down to 0.063 from 0.18 could be due to profound hypoxia at home, as troponin improved with supplemental oxygen no need to follow further, denies chest pain, no EKG changes (7) DVT prophylaxis: Patient is placed on Lovenox 30 subcu every 12 Patient confirmed she is a full code prognosis is guarded but patient remains determined and optimistic, she is alert and stronger each day updated her daughter over the phone each day, her name is Layla (8) Insomnia: will give Ativan 0.5mg PO HS PRN (9) Hypokalemia: Replete Admission and Anticipated Discharge Date Admission Date: November 26, 2019 Subjective Patient is no complaints or problems she is tolerant of her high flow oxygen. He is down to 40 L 85% her d-dimer is also responded favorably however she still is markedly elevated 14,000 she continues to have the drive and desire to improve she is been up to a chair for most of the morning turning to bed after lunch Review of Systems Review of Systems: Mild distress and fatigue no headache, blurry or double vision no speech or swallowing issues no chest pain, pressure or palpitations Exertional shortness of breath, no cough or wheezes no abdominal pain, nausea or vomiting, diarrhea or constipation no dysuria, hematuria or frequency no focal joint pain or swelling no back pain, CVA tenderness or radicular pain no bruising, bleeding or rashes no focal signs of weakness or numbness or altered sensation no complaints or anxiety or depression. Physical Exam Physical Exam: The patient appeared well nourished and normally developed. Vital signs as documented. Head exam is normocephalic atraumatic no scleral icterus Neck is without JVD, thyromegaly, or carotid bruits. Lungs continue to be fairly remarkable with coarse crackles bilaterally worse at the bases improving towards the apex Cardiac exam, Rhythm is regular.. No murmurs, rubs or gallops. Abdominal exam reveals normal bowel sounds, soft non tender, no masses Extremities are nonedematous and both pedal pulses are normal. Neurologic exam is alert and oriented, no focal loss of strength or sensation Skin is without bruises or rashes Psychologically is without concerns for anxiety or depression. Results & Data Results & Data ([facility]) Vital Signs (Past 12 Hours) Vital Signs Temp Pulse Resp BP Pulse Ox Pulse Ox 12/04/19 07:10 94 H 20 89 L 12/04/19 04:00 97.3 F L 71 26 H 118/64 92 12/04/19 03:18 75 20 89 L 12/03/19 23:54 97.9 F 68 24 123/81 91 12/03/19 23:32 66 20 86 L 12/03/19 20:00 97.9 F 88 16 135/78 95 90 PG Care Time/CCT Total # of Minutes Spent Total Time Spent with Patient: Total time spent is greater than 50% in coordination of care (as documented) at patient's floor/unit and/or counseling patient: Coding Level of Care Code 09747 Subseq Hosp Care Lvl 3 Diagnoses Acute respiratory failure with hypoxia J96.01 Pneumonia due to COVID-19 virus U07.1; J12.89 Diabetes E11.9 Hyperlipidemia E78.5 Ileus K56.7 Elevated troponin R79.89 DVT prophylaxis Z29.9 Insomnia G47.00 Hypokalemia E87.6
[2019-12-04] MEDS: DEXAMETHASONE SOD PHOSPHATE 6 MG in SYRINGE 0 ML IV SCH (08:37)
[2019-12-04] MEDS: ZINC SULFATE 220 MG CAPSULE PO SCH (08:38)
[2019-12-04] MEDS: ASPIRIN 81 MG ECTAB PO SCH (08:38)
[2019-12-04] MEDS: DOCUSATE SODIUM/SENNA 50/8.6MG TAB PO SCH (08:38)
[2019-12-04] MEDS: ENOXAPARIN INJ 30 MG/0.3 ML SYR SQ SCH ×2 (08:38→20:46)
[2019-12-04] MEDS ORDERED: NovoLIN-N (NPH) PER UNIT CHARGE SQ SCH (09:00)
[2019-12-04] MEDS: INSULIN ASPART 100 UNITS/ML 3 ML PEN SC SCH ×4 (09:13→20:40)
[2019-12-04] MEDS: LORazepam 0.5 MG TAB PO PRN (20:52)
[2019-12-05 07:30] LABS: D Dimer 11370 ug/L FEU (0-500)
[2019-12-05 07:32] LABS: BUN Creatinine Ratio 62.8 (10-20); Calcium 8.2 mg/dl (8.5-10.1); Creatinine Clr Calc Pharmacy 57.7 ml/min; Est GFR (African American) 99.5; Est GFR (Non-African American) 85.8; Potassium 4.4 mmol/L (3.5-5.1)
[2019-12-05] MEDS ORDERED: NovoLIN-N (NPH) PER UNIT CHARGE SQ SCH (09:00)
[2019-12-05] MEDS: ENOXAPARIN INJ 30 MG/0.3 ML SYR SQ SCH ×2 (09:09→20:41)
[2019-12-05] MEDS: ASPIRIN 81 MG ECTAB PO SCH (09:10)
[2019-12-05] MEDS: DEXAMETHASONE SOD PHOSPHATE 6 MG in SYRINGE 0 ML IV SCH (09:10)
[2019-12-05] MEDS: ZINC SULFATE 220 MG CAPSULE PO SCH (09:11)
[2019-12-05] MEDS: INSULIN ASPART 100 UNITS/ML 3 ML PEN SC SCH ×4 (09:59→21:02)
[2019-12-05] MEDS: DOCUSATE SODIUM/SENNA 50/8.6MG TAB PO SCH (10:15)
--- NOTE | 2019-12-05 11:24 | Pharmacy Report ---
Pharmacy Glycemic Short Note 2 - Date of Service December 05, 2019 - Glycemic Short BSG Results (Last 24 hours): 12/04/19 12/04/19 12/04/19 11:40 16:52 20:13 Glucose POC Glucose 121 H 166 H 206 H 12/05/19 12/05/19 06:39 07:45 Glucose 75 POC Glucose 73 OUTPATIENT ANTIDIABETIC REGIMEN: * Per outpatient pharmacy, no diabetic agents on record * RN confirmed with patient that she is diet controlled only ASSESSMENT: 12/04 * Fasting BSG down to 73 this AM. This is following 10 units NPH yesterday AM + 3 units of correctional insulin last evening. * Current BSG trend shows fasting and lunch-time BSGs well controlled with climbing BSGs the 2nd half of the day. * Plan to increase NPH dose with AM dexamethasone as well as carb coverage with meals to address rising BSGs at these times. Will not cover BSG elevations at HS given precipitous fall in BSGs overnight. PLAN FOR INPATIENT GLYCEMIC CONTROL: * Basal insulin - increase * NPH 12 units SQ Daily with IV Dexamethasone * Bolus insulin - change in prandial doses * NovoLog per scale AC only and NOT at bedtime (will still check BSG at HS) * Goal Range: Low 110 mg/dL - High 140 mg/dL * tighten: Correction Factor: 25 mg/dL/unit * tighten: Nutritional / Prandial insulin per carb ratio of 1 unit per 7 grams CHO consumed
--- NOTE | 2019-12-05 18:06 | Hospitalist Progress Note ---
Date of Service December 05, 2019 Assessment & Plan (1) Acute respiratory failure with hypoxia: due to viral pneumonia with COVID 19 improved initially after plasma given evening of 11/26 No real clinical respiratory distress, seth with significant hypoxia today she is HFNC 40L and 80% FiO2, continue to titrate down as able, clinically she has persistent ausculation changes encourage to stay upright, sleep prone if she can tolerate consider incentive spirometry of breathing she would want intubated if needed as long as she can maintain saturations in the mid to high 80's we can avoid intubation she is determined to fight through this, overall she has maintained her strength all week Likely a persistent long hospital stay in the future (2) Pneumonia due to COVID-19 virus: Patient has profound acute hypoxic respiratory failure clinical scenario consistent with COVID positive status bilateral infiltrates on CT chest oxygen requirements 40 L 80% FiO2 high flow oxygen plan: Complete dexamethasone 6mg IV daily x 10 days Remdesivir daily x 5 days, completed Rocephin, Zithromax and Zinc, cover for possible superimposed bacterial infection completed 5 days of Zithromax, 7 days of Rocephin today convalescent plasma given evening of 11/26 supportive care with high flow nasal canula, stable at 85% FiO2, requiring 40L per minute for PEEP she is eating and drinking well, moving her bowels, making urine, trying to spend good amount of time in her chair Dr. Zhao discussed that she might deteriorate instead of improving, if that happens she still insists she would want intubated she says "I still have a lot of living to do" D dimer is going down today in the 11,000 range CTA chest on admission negative for PE, she has been on Lovenox 30 q12 since admission feel that D dimer is still due to acute inflammation, does not represent thrombosis (3) Diabetes: Novolog SS monitor sugars with dexamethasone use no hypoglycemia, no severe hyperglycemia either eating well (4) Hyperlipidemia: In the distant past patient has been on statins these will be held at this current time (5) Ileus: resolved Senokot 2 in the morning and the Dulcolax suppository in the evening. Patient is marked gaseous distention seen on imaging studies. CT scan suggest possible right-sided constipation having formed BM, no issues at all with nausea (6) Elevated troponin: Elevated troponin of unclear significance at this time there is no signi ficant renal failure although she has chronic kidney disease stage II there is also a myocarditis associated with covid troponin down to 0.063 from 0.18 could be due to profound hypoxia at home, as troponin improved with supplemental oxygen no need to follow further, denies chest pain, no EKG changes (7) Insomnia: will give Ativan 0.5mg PO HS PRN (8) Hypokalemia: Replete (9) DVT prophylaxis: Patient is placed on Lovenox 30 subcu every 12 Patient confirmed she is a full code prognosis is guarded but patient remains determined and optimistic, she is alert and stronger each day updated her daughter over the phone each day, her name is Layla Admission and Anticipated Discharge Date Admission Date: November 26, 2019 Subjective Patient remains without complaints or problems. she is tolerant of her high flow oxygen. He is down to 40 L 80% so some slight improvement. her d-dimer continues to respond favorably will encourage ISB Review of Systems Review of Systems: Mild distress and fatigue no headache, blurry or double vision no speech or swallowing issues no chest pain, pressure or palpitations Exertional shortness of breath, no cough or wheezes no abdominal pain, nausea or vomiting, diarrhea or constipation no dysuria, hematuria or frequency no focal joint pain or swelling no back pain, CVA tenderness or radicular pain no bruising, bleeding or rashes no focal signs of weakness or numbness or altered sensation no complaints or anxiety or depression. Constitutional: + problem reported (feels cold) Physical Exam Physical Exam: The patient appeared well nourished and normally developed. Vital signs as documented. Head exam is normocephalic atraumatic no scleral icterus Neck is without JVD, thyromegaly, or carotid bruits. Lungs continue with coarse crackles bilaterally worse at the bases improving towards the apex Cardiac exam, Rhythm is regular.. No murmurs, rubs or gallops. Abdominal exam reveals normal bowel sounds, soft non tender, no masses Extremities are nonedematous and both pedal pulses are normal. Neurologic exam is alert and oriented, no focal loss of strength or sensation Skin is without bruises or rashes Psychologically is without concerns for anxiety or depression. Results & Data Results & Data ([facility]) Vital Signs (Past 12 Hours) Vital Signs Temp Pulse Pulse Resp BP Pulse Ox 12/05/19 17:00 97.9 F 79 19 149/66 H 93 12/05/19 16:00 78 12/05/19 15:08 78 76 18 96 12/05/19 11:47 97.5 F L 82 22 100/55 L 95 12/05/19 11:35 70 20 92 12/05/19 10:55 68 12/05/19 08:00 68 12/05/19 07:47 98.1 F 74 20 120/70 91 12/05/19 07:30 73 20 89 L PG Care Time/CCT Total # of Minutes Spent Total Time Spent with Patient: Total time spent is greater than 50% in coordination of care (as documented) at patient's floor/unit and/or counseling patient: Coding Level of Care Code 69924 Subseq Hosp Care Lvl 3 Diagnoses Acute respiratory failure with hypoxia J96.01 Pneumonia due to COVID-19 virus U07.1; J12.89 Diabetes E11.9 Hyperlipidemia E78.5 Ileus K56.7 Elevated troponin R79.89 Insomnia G47.00 Hypokalemia E87.6 DVT prophylaxis Z29.9
[2019-12-05] MEDS: LORazepam 0.5 MG TAB PO PRN (21:24)
[2019-12-06] MEDS: ZINC SULFATE 220 MG CAPSULE PO SCH (08:34)
[2019-12-06] MEDS: ASPIRIN 81 MG ECTAB PO SCH (08:34)
[2019-12-06] MEDS: ENOXAPARIN INJ 30 MG/0.3 ML SYR SQ SCH ×2 (08:34→20:52)
[2019-12-06] MEDS: DEXAMETHASONE SOD PHOSPHATE 6 MG in SYRINGE 0 ML IV SCH (08:35)
[2019-12-06] MEDS: DOCUSATE SODIUM/SENNA 50/8.6MG TAB PO SCH (08:40)
[2019-12-06] MEDS: INSULIN ASPART 100 UNITS/ML 3 ML PEN SC SCH ×4 (09:43→20:50)
--- NOTE | 2019-12-06 10:52 | Pharmacy Report ---
Pharmacy Glycemic Short Note 2 - Date of Service December 06, 2019 - Glycemic Short BSG Results (Last 24 hours): 12/05/19 12/05/19 12/05/19 11:45 16:53 20:38 POC Glucose 170 H 112 H 126 H 12/06/19 07:48 POC Glucose 81 OUTPATIENT ANTIDIABETIC REGIMEN: * Per outpatient pharmacy, no diabetic agents on record * RN confirmed with patient that she is diet controlled only ASSESSMENT: 12/05 * BSGs well controlled over last 24 hrs * Fasting BSG 81 this AM. Received 12 units NPH yesterday AM and 0 units Novolog last HS. - will repeat same NPH dose today however will d/c after today as dexamethasone will d/c after today's dose * Post-prandial BSGs well controlled yesterday - no changes. Will reduce Novolog doses tomorrow 12/04 * Fasting BSG down to 73 this AM. This is following 10 units NPH yesterday AM + 3 units of correctional insulin last evening. * Current BSG trend shows fasting and lunch-time BSGs well controlled with climbing BSGs the 2nd half of the day. * Plan to increase NPH dose with AM dexamethasone as well as carb coverage with meals to address rising BSGs at these times. Will not cover BSG elevations at HS given precipitous fall in BSGs overnight. PLAN FOR INPATIENT GLYCEMIC CONTROL: * Basal insulin - no change * NPH 12 units SQ this AM x 1 with IV Dexamethasone - then DC * Bolus insulin - no change * NovoLog per scale AC only and NOT at bedtime (will still check BSG at HS) * Goal Range: Low 110 mg/dL - High 140 mg/dL * tighten: Correction Factor: 25 mg/dL/unit * tighten: Nutritional / Prandial insulin per carb ratio of 1 unit per 7 grams CHO consumed * Reduce Novolog doses tomorrow AM due to discontinuation of dexamethasone
[2019-12-06] MEDS ORDERED: NovoLIN-N (NPH) PER UNIT CHARGE SQ ONE (11:00)
--- NOTE | 2019-12-06 13:13 | Hospitalist Progress Note ---
Date of Service December 06, 2019 Assessment & Plan (1) Acute respiratory failure with hypoxia: due to viral pneumonia with COVID 19 improved initially after plasma given evening of 11/26 No real clinical respiratory distress, seth with significant hypoxia today she is HFNC 35L and 65% FiO2, continue to titrate down as able, clinically she has improving ausculation of her lungs today 12/05 encourage oob to chair and incentive sprionetry she would want intubated if needed as long as she can maintain saturations in the mid to high 80's we can avoid intubation she is determined to fight through this, overall she has maintained her strength all week Likely a persistent long hospital stay in the future (2) Pneumonia due to COVID-19 virus: Patient has profound acute hypoxic respiratory failure clinical scenario consistent with COVID positive status bilateral infiltrates on CT chest oxygen requirements 40 L 80% FiO2 high flow oxygen plan: Complete dexamethasone 6mg IV daily x 10 days Remdesivir daily x 5 days, completed Rocephin, Zithromax and Zinc, cover for possible superimposed bacterial infection completed 5 days of Zithromax, 7 days of Rocephin today convalescent plasma given evening of 11/26 supportive care with high flow nasal canula, stable at 85% FiO2, requiring 40L per minute for PEEP she is eating and drinking well, moving her bowels, making urine, trying to spend good amount of time in her chair Dr. Zhao discussed that she might deteriorate instead of improving, if that happens she still insists she would want intubated she says "I still have a lot of living to do" D dimer has trended downward over the last week CTA chest on admission negative for PE, she has been on Lovenox 30 q12 since admission feel that D dimer is still due to acute inflammation, does not represent thrombosis (3) Diabetes: Novolog monitor sugars with dexamethasone use no hypoglycemia, no severe hyperglycemia either eating well (4) Hyperlipidemia: In the distant past patient has been on statins these will be held at this current time (5) Ileus: resolved Senokot 2 in the morning and the Dulcolax suppository in the evening. Patient is marked gaseous distention seen on imaging studies. CT scan suggest possible right-sided constipation having formed BM, no issues at all with nausea (6) Elevated troponin: Elevated troponin of unclear significance at this time there is no significant renal failure although she has chronic kidney disease stage II there is also a myocarditis associated with covid troponin down to 0.063 from 0.18 could be due to profound hypoxia at home, as troponin improved with supplemental oxygen no need to follow further, continues to deny chest pain, no EKG changes (7) Insomnia: will give Ativan 0.5mg PO HS PRN (8) Hypokalemia: Replete (9) DVT prophylaxis: Patient is placed on Lovenox 30 subcu every 12 Patient confirmed she is a full code prognosis is guarded but patient remains determined and optimistic, she is alert and stronger each day updated her daughter over the phone 12/05, her name is Layla Admission and Anticipated Discharge Date Admission Date: November 26, 2019 Subjective Patient remains without complaints or problems. she is tolerant of her high flow oxygen. He is down to 35 L 65% so some slight improvement. her d-dimer continues to respond favorably will encourage ISB Review of Systems Review of Systems: Mild distress and fatigue no headache, blurry or double vision no speech or swallowing issues no chest pain, pressure or palpitations Exertional shortness of breath, no cough or wheezes no abdominal pain, nausea or vomiting, diarrhea or constipation no dysuria, hematuria or frequency no focal joint pain or swelling no back pain, CVA tenderness or radicular pain no bruising, bleeding or rashes no focal signs of weakness or numbness or altered sensation no complaints or anxiety or depression. Physical Exam Physical Exam: The patient appeared well nourished and normally developed. Vital signs as documented. Head exam is normocephalic atraumatic no scleral icterus Neck is without JVD, thyromegaly, or carotid bruits. Lungs continue with clearing of lungs sounds now only abnormal at the bases Cardiac exam, Rhythm is regular.. No murmurs, rubs or gallops. Abdominal exam reveals normal bowel sounds, soft non tender, no masses Extremities are nonedematous and both pedal pulses are normal. Neurologic exam is alert and oriented, no focal loss of strength or sensation Skin is without bruises or rashes Psychologically is without concerns for anxiety or depression. Results & Data Results & Data ([facility]) Vital Signs (Past 12 Hours) Vital Signs Temp Pulse Pulse Pulse Resp BP Pulse Ox 12/06/19 12:00 98.2 F 91 H 32 H 104/64 93 12/06/19 11:07 88 16 94 12/06/19 11:00 12/06/19 10:47 67 12/06/19 07:46 98.1 F 77 20 115/57 L 97 12/06/19 07:06 77 18 90 12/06/19 04:00 97.9 F 74 20 109/67 91 12/06/19 02:41 66 18 89 L Pulse Ox 12/06/19 12:00 12/06/19 11:07 12/06/19 11:00 95 12/06/19 10:47 12/06/19 07:46 12/06/19 07:06 12/06/19 04:00 12/06/19 02:41 PG Care Time/CCT Total # of Minutes Spent Total Time Spent with Patient: Total time spent is greater than 50% in coordination of care (as documented) at patient's floor/unit and/or counseling patient: Coding Level of Care Code 24489 Subseq Hosp Care Lvl 2 Diagnoses Acute respiratory failure with hypoxia J96.01 Pneumonia due to COVID-19 virus U07.1; J12.89 Diabetes E11.9 Hyperlipidemia E78.5 Ileus K56.7 Elevated troponin R79.89 Insomnia G47.00 Hypokalemia E87.6 DVT prophylaxis Z29.9
[2019-12-07] MEDS: DOCUSATE SODIUM/SENNA 50/8.6MG TAB PO SCH (08:45)
[2019-12-07] MEDS: ENOXAPARIN INJ 30 MG/0.3 ML SYR SQ SCH ×2 (08:45→21:13)
[2019-12-07] MEDS: ASPIRIN 81 MG ECTAB PO SCH (08:45)
[2019-12-07] MEDS: ZINC SULFATE 220 MG CAPSULE PO SCH (08:46)
[2019-12-07] MEDS: INSULIN ASPART 100 UNITS/ML 3 ML PEN SC SCH ×4 (10:03→22:30)
--- NOTE | 2019-12-07 12:28 | Pharmacy Report ---
Pharmacy Glycemic Short Note 2 - Date of Service December 07, 2019 - Glycemic Short BSG Results (Last 24 hours): 12/06/19 12/06/19 12/07/19 16:42 21:00 07:57 POC Glucose 215 H 169 H 71 12/07/19 11:44 POC Glucose 117 H OUTPATIENT ANTIDIABETIC REGIMEN: * Per outpatient pharmacy, no diabetic agents on record * RN confirmed with patient that she is diet controlled only ASSESSMENT: 12/06 * BSGs again well controlled * Fasting BSG 71 this AM. Received 12 units NPH yesterday, but mid-day rather than AM. 1 unit Novolog given at bedtime as well. * Dexamethasone has been d/c'd. Will stop NPH administration today. Novolog doses will be titrated down. Suspect patient may not need prandial insulin in the near future, but given low physiologic half-life of dexamethasone will continue a reduced prandial dose today before d/c completely. 12/05 * BSGs well controlled over last 24 hrs * Fasting BSG 81 this AM. Received 12 units NPH yesterday AM and 0 units Novolog last HS. - will repeat same NPH dose today however will d/c after today as dexamethasone will d/c after today's dose * Post-prandial BSGs well controlled yesterday - no changes. Will reduce Novolog doses tomorrow 12/04 * Fasting BSG down to 73 this AM. This is following 10 units NPH yesterday AM + 3 units of correctional insulin last evening. * Current BSG trend shows fasting and lunch-time BSGs well controlled with climbing BSGs the 2nd half of the day. * Plan to increase NPH dose with AM dexamethasone as well as carb coverage with meals to address rising BSGs at these times. Will not cover BSG elevations at HS given precipitous fall in BSGs overnight. PLAN FOR INPATIENT GLYCEMIC CONTROL: * Basal insulin - decrease * None * Bolus insulin - decrease * NovoLog per scale AC only and NOT at bedtime (will still check BSG at HS) * Goal Range: Low 110 mg/dL - High 160 mg/dL * tighten: Correction Factor: 35 mg/dL/unit * tighten: Nutritional / Prandial insulin per carb ratio of 1 unit per 15 grams CHO consumed
--- NOTE | 2019-12-07 17:44 | Hospitalist Progress Note ---
Date of Service December 07, 2019 Assessment & Plan (1) Acute respiratory failure with hypoxia: due to viral pneumonia with COVID 19 improved initially after plasma given evening of 11/26 No real clinical respiratory distress, seth with significant hypoxia today she is HFNC 30L and 60% FiO2, continue to titrate down as able, clinically she has improving she has improving lung sounds daily encourage oob to chair and incentive spirometry (2) Pneumonia due to COVID-19 virus: Patient has profound acute hypoxic respiratory failure clinical scenario consistent with COVID positive status bilateral infiltrates on CT chest oxygen requirements continue to decrease daily with not 30L 60% FiO2 high flow oxygen plan: Complete dexamethasone 6mg IV daily x 10 days Remdesivir daily x 5 days, completed Rocephin, Zithromax and Zinc, cover for possible superimposed bacterial infection completed 5 days of Zithromax, 7 days of Rocephin today convalescent plasma given evening of 11/26 supportive care with high flow nasal canula, she is eating and drinking well, moving her bowels, making urine, trying to spend good amount of time in her chair Dr. Zhao discussed that she might deteriorate instead of improving, if that happens she still insists she would want intubated she says "I still have a lot of living to do" D dimer has trended downward over the last week CTA chest on admission negative for PE, she has been on Lovenox 30 q12 since admission feel that D dimer is still due to acute inflammation, does not represent thrombosis (3) Diabetes: Novolog SS monitor sugars with dexamethasone use no hypoglycemia, no severe hyperglycemia either eating well (4) Hyperlipidemia: In the distant past patient has been on statins these will be held at this current time (5) Ileus: resolved (6) Elevated troponin: Elevated troponin of unclear significance at this time there is also a myocarditis associated with covid troponin down to 0.063 from 0.18 could be due to profound hypoxia at home, as troponin improved with supplemental oxygen no need to follow further, continues to deny chest pain, no EKG changes (7) Insomnia: will give Ativan 0.5mg PO HS PRN (8) Hypokalemia: Replete (9) DVT prophylaxis: Patient is placed on Lovenox 30 subcu every 12 Patient confirmed she is a full code prognosis is guarded but patient remains determined and optimistic, she is alert and stronger each day updated her daughter over the phone 12/06 by leaving message, her name is Layla Admission and Anticipated Discharge Date Admission Date: November 26, 2019 Subjective Patient remains without complaints or problems. she is tolerant of her high flow oxygen. He is down to 30 L 60% so some slight improvement. her d-dimer continues to respond favorably will encourage ISB Review of Systems Review of Systems: Mild distress and fatigue no headache, blurry or double vision no speech or swallowing issues no chest pain, pressure or palpitations Exertional shortness of breath, no cough or wheezes no abdominal pain, nausea or vomiting, diarrhea or constipation no dysuria, hematuria or frequency no focal joint pain or swelling no back pain, CVA tenderness or radicular pain no bruising, bleeding or rashes no focal signs of weakness or numbness or altered sensation no complaints or anxiety or depression. Physical Exam Physical Exam: The patient appeared well nourished and normally developed. Vital signs as documented. Head exam is normocephalic atraumatic no scleral icterus Neck is without JVD, thyromegaly, or carotid bruits. Lungs continue with clearing of lungs sounds now only abnormal at the bases Cardiac exam, Rhythm is regular.. No murmurs, rubs or gallops. Abdominal exam reveals normal bowel sounds, soft non tender, no masses Extremities are nonedematous and both pedal pulses are normal. Neurologic exam is alert and oriented, no focal loss of strength or sensation Skin is without bruises or rashes Psychologically is without concerns for anxiety or depression. Results & Data Results & Data ([facility]) Vital Signs (Past 12 Hours) Vital Signs Temp Pulse Pulse Resp BP Pulse Ox 12/07/19 05:07 73 18 92/52 L 92 12/07/19 04:00 97.9 F 73 20 89/58 L 92 12/07/19 03:36 75 18 92 12/07/19 00:00 97.7 F 73 18 100/46 L 92 12/06/19 23:50 73 18 91 12/06/19 19:36 82 18 92 PG Care Time/CCT Total # of Minutes Spent Total Time Spent with Patient: Total time spent is greater than 50% in coordination of care (as documented) at patient's floor/unit and/or counseling patient: Coding Level of Care Code 67263 Subseq Hosp Care Lvl 2 Diagnoses Acute respiratory failure with hypoxia J96.01 Pneumonia due to COVID-19 virus U07.1; J12.89 Diabetes E11.9 Hyperlipidemia E78.5 Ileus K56.7 Elevated troponin R79.89 Insomnia G47.00 Hypokalemia E87.6 DVT prophylaxis Z29.9
[2019-12-07] MEDS: LORazepam 0.5 MG TAB PO PRN (21:29)
[2019-12-08] MEDS: ENOXAPARIN INJ 30 MG/0.3 ML SYR SQ SCH ×2 (09:06→20:40)
[2019-12-08] MEDS: ZINC SULFATE 220 MG CAPSULE PO SCH (09:07)
[2019-12-08] MEDS: DOCUSATE SODIUM/SENNA 50/8.6MG TAB PO SCH (09:07)
[2019-12-08] MEDS: ASPIRIN 81 MG ECTAB PO SCH (09:07)
[2019-12-08] MEDS: INSULIN ASPART 100 UNITS/ML 3 ML PEN SC SCH ×4 (11:14→20:58)
--- NOTE | 2019-12-08 11:55 | Pharmacy Report ---
Pharmacy Glycemic Short Note 2 - Date of Service December 08, 2019 - Glycemic Short BSG Results (Last 24 hours): 12/07/19 12/07/19 12/08/19 16:01 21:08 07:54 POC Glucose 135 H 150 H 92 OUTPATIENT ANTIDIABETIC REGIMEN: * Per outpatient pharmacy, no diabetic agents on record * RN confirmed with patient that she is diet controlled only ASSESSMENT: 12/07 * BSGs at goal * Fasting BSG 92 this AM with no basal insulin on board * Post-prandial BSGs well controlled yesterday using reduced Novolog doses. Will trial removal of prandial insulin at this time, given pt's A1c 6% and no steroid administration in last 48 hrs. 12/06 * BSGs again well controlled * Fasting BSG 71 this AM. Received 12 units NPH yesterday, but mid-day rather than AM. 1 unit Novolog given at bedtime as well. * Dexamethasone has been d/c'd. Will stop NPH administration today. Novolog doses will be titrated down. Suspect patient may not need prandial insulin in the near future, but given low physiologic half-life of dexamethasone will continue a reduced prandial dose today before d/c completely. 12/05 * BSGs well controlled over last 24 hrs * Fasting BSG 81 this AM. Received 12 units NPH yesterday AM and 0 units Novolog last HS. - will repeat same NPH dose today however will d/c after today as dexamethasone will d/c after today's dose * Post-prandial BSGs well controlled yesterday - no changes. Will reduce Novolog doses tomorrow 12/04 * Fasting BSG down to 73 this AM. This is following 10 units NPH yesterday AM + 3 units of correctional insulin last evening. * Current BSG trend shows fasting and lunch-time BSGs well controlled with climbing BSGs the 2nd half of the day. * Plan to increase NPH dose with AM dexamethasone as well as carb coverage with meals to address rising BSGs at these times. Will not cover BSG elevations at HS given precipitous fall in BSGs overnight. PLAN FOR INPATIENT GLYCEMIC CONTROL: * Basal insulin - * None * Bolus insulin - decrease * NovoLog per scale AC only and NOT at bedtime (will still check BSG at HS) * Goal Range: Low 110 mg/dL - High 140 mg/dL * Correction Factor: 35 mg/dL/unit * Nutritional / Prandial insulin: none at this time
--- NOTE | 2019-12-08 15:47 | Hospitalist Progress Note ---
Date of Service December 08, 2019 Assessment & Plan (1) Acute respiratory failure with hypoxia: due to viral pneumonia with COVID 19 improved initially after plasma given evening of 11/26 No real clinical respiratory distress, seth with significant hypoxia today she is HFNC 30L and 50% FiO2, continue to titrate down as able, clinically she has improving she has improving lung sounds daily encourage oob to chair and incentive spirometry hopeful if she gets to [place] we will be able to discharge, however will need to understand if the covid testing negative prior to discharge rules from the personal retirement she will go to, unless she needs further support and will need to go to a snf will consider PT once she is on less oxygen (2) Pneumonia due to COVID-19 virus: Patient has profound acute hypoxic respiratory failure clinical scenario consistent with COVID positive status bilateral infiltrates on CT chest oxygen requirements continue to decrease daily with not 30L 50% FiO2 high flow oxygen plan: Complete dexamethasone 6mg IV daily x 10 days Remdesivir daily x 5 days, completed Rocephin, Zithromax and Zinc, cover for possible superimposed bacterial infection completed 5 days of Zithromax, 7 days of Rocephin today convalescent plasma given evening of 11/26 supportive care with high flow nasal canula, D dimer has trended downward over the last week CTA chest on admission negative for PE, she has been on Lovenox 30 q12 since admission feel that D dimer is still due to acute inflammation, does not represent thrombosis (3) Diabetes: Novolog monitor sugars with dexamethasone use no hypoglycemia, no severe hyperglycemia either eating well (4) Hyperlipidemia: In the distant past patient has been on statins these will be held at this current time (5) Ileus: resolved (6) Elevated troponin: Elevated troponin of unclear significance at this time there is also a myocarditis associated with covid troponin down to 0.063 from 0.18 could be due to profound hypoxia at home, as troponin improved with supplemental oxygen no need to follow further, continues to deny chest pain, no EKG changes (7) Insomnia: will give Ativan 0.5mg PO HS PRN (8) Hypokalemia: Replete (9) DVT prophylaxis: Patient is placed on Lovenox 30 subcu every 12 Patient confirmed she is a full code prognosis is guarded but patient remains determined and optimistic, she is alert and stronger each day updated her daughter over the phone 12/06 by leaving message, her name is Layla Admission and Anticipated Discharge Date Admission Date: November 26, 2019 Subjective Patient remains without complaints or problems. she is tolerant of her high flow oxygen. He is down to 30 L 50% so some slight improvement. she is in good spirits and continues to say shes going to beat this Review of Systems Review of Systems: Mild respiratory distress and fatigue no headache, blurry or double vision no speech or swallowing issues no chest pain, pressure or palpitations Exertional shortness of breath, no cough or wheezes no abdominal pain, nausea or vomiting, diarrhea or constipation no dysuria, hematuria or frequency no focal joint pain or swelling no back pain, CVA tenderness or radicular pain no bruising, bleeding or rashes no focal signs of weakness or numbness or altered sensation no complaints or anxiety or depression. Physical Exam Physical Exam: The patient appeared well nourished and normally developed. Vital signs as documented. Head exam is normocephalic atraumatic no scleral icterus Neck is without JVD, thyromegaly, or carotid bruits. Lungs continue with clearing of lungs sounds now only abnormal at the bases Cardiac exam, Rhythm is regular.. No murmurs, rubs or gallops. Abdominal exam reveals normal bowel sounds, soft non tender, no masses Extremities are nonedematous and both pedal pulses are normal. Neurologic exam is alert and oriented, no focal loss of strength or sensation Skin is without bruises or rashes Psychologically is without concerns for anxiety or depression. Results & Data Results & Data ([facility]) Vital Signs (Past 12 Hours) Vital Signs Temp Pulse Resp BP Pulse Ox Pulse Ox 12/08/19 15:23 77 18 94 12/08/19 13:38 91 12/08/19 12:08 98.1 F 90 19 116/58 L 94 12/08/19 11:35 90 18 94 12/08/19 09:59 95 12/08/19 09:58 28 H 95 12/08/19 09:48 95 12/08/19 09:46 96 12/08/19 09:02 95 12/08/19 07:55 98.2 F 80 19 100/49 L 91 12/08/19 07:30 86 18 88 L 12/08/19 04:00 98.4 F 83 18 109/51 L PG Care Time/CCT Total # of Minutes Spent Total Time Spent with Patient: Total time spent is greater than 50% in coordination of care (as documented) at patient's floor/unit and/or counseling patient: Coding Level of Care Code 53935 Subseq Hosp Care Lvl 3 Diagnoses Acute respiratory failure with hypoxia J96.01 Pneumonia due to COVID-19 virus U07.1; J12.89 Diabetes E11.9 Hyperlipidemia E78.5 Ileus K56.7 Elevated troponin R79.89 Insomnia G47.00 Hypokalemia E87.6 DVT prophylaxis Z29.9
[2019-12-08 17:06] LABS: D Dimer 1790 ug/L FEU (0-500)
[2019-12-08] MEDS: LORazepam 0.5 MG TAB PO PRN (20:42)
[2019-12-09 07:08] LABS: BUN Creatinine Ratio 52.3 (10-20); Calcium 8.1 mg/dl (8.5-10.1); Est GFR (Non-African American) 88.8; Potassium 3.3 mmol/L (3.5-5.1)
--- NOTE | 2019-12-09 08:11 | Hospitalist Progress Note ---
Date of Service December 09, 2019 Assessment & Plan (1) Acute respiratory failure with hypoxia: due to viral pneumonia with COVID 19 improved initially after plasma given evening of 11/26 No real clinical respiratory distress, seth with significant hypoxia today she is HFNC has gone up to 40 L and 75% FiO2, continue to titrate down as able, clinically she has improving she has improving lung sounds daily We will restart dexamethasone on 12/09/2019 give 1 dose of Lasix 10 mg and if she continues to have increased oxygen requirements repeat imaging of her chest encourage oob to chair and incentive spirometry hopeful if she gets to [place] we will be able to discharge, however will need to understand if the covid testing negative prior to discharge rules from the personal shelter she will go to, unless she needs further support and will need to go to a snf will consider PT once she is on less oxygen (2) Pneumonia due to COVID-19 virus: Patient has profound acute hypoxic respiratory failure clinical scenario consistent with COVID positive status bilateral infiltrates on CT chest oxygen requirements 40 L 75% FiO2 high flow oxygen plan: Complete dexamethasone 6mg IV daily x 10 days Remdesivir daily x 5 days, completed Rocephin, Zithromax and Zinc, cover for possible superimposed bacterial infection completed 5 days of Zithromax, 7 days of Rocephin today convalescent plasma given evening of 11/26 supportive care with high flow nasal canula, D dimer has trended downward over the last week CTA chest on admission negative for PE, she has been on Lovenox 30 q12 since admission feel that D dimer is still due to acute inflammation, does not represent thrombosis (3) Diabetes: Novolog monitor sugars with dexamethasone use no hypoglycemia, no severe hyperglycemia either eating well (4) Hyperlipidemia: In the distant past patient has been on statins these will be held at this current time (5) Ileus: resolved (6) Elevated troponin: Elevated troponin of unclear significance at this time there is also a myocarditis associated with covid troponin down to 0.063 from 0.18 could be due to profound hypoxia at home, as troponin improved with supplemental oxygen no need to follow further, continues to deny chest pain, no EKG changes (7) Insomnia: will give Ativan 0.5mg PO HS PRN (8) Hypokalemia: Replete (9) DVT prophylaxis: Patient is placed on Lovenox 30 subcu every 12 Patient confirmed she is a full code prognosis is guarded but patient remains determined and optimistic, she is alert and stronger each day updated her daughter over the phone 12/08 Admission and Anticipated Discharge Date Admission Date: November 26, 2019 Subjective Patient does not feel like her sounds she feels little more weak she is increased oxygen needs today she is becomes hypoxic with minimal exertion at this point time Review of Systems Review of Systems: Mild respiratory distress and fatigue no headache, blurry or double vision no speech or swallowing issues no chest pain, pressure or palpitations Exertional shortness of breath, no cough or wheezes no abdominal pain, nausea or vomiting, diarrhea or constipation no dysuria, hematuria or frequency no focal joint pain or swelling no back pain, CVA tenderness or radicular pain no bruising, bleeding or rashes no focal signs of weakness or numbness or altered sensation no complaints or anxiety or depression. Physical Exam Physical Exam: The patient appeared well nourished and normally developed. Vital signs as documented. Head exam is normocephalic atraumatic no scleral icterus Neck is without JVD, thyromegaly, or carotid bruits. Lungs continue with clearing of lungs sounds now only abnormal at the bases Cardiac exam, Rhythm is regular.. No murmurs, rubs or gallops. Abdominal exam reveals normal bowel sounds, soft non tender, no masses Extremities are nonedematous and both pedal pulses are normal. Neurologic exam is alert and oriented, no focal loss of strength or sensation Skin is without bruises or rashes Psychologically is without concerns for anxiety or depression. Results & Data Results & Data ([facility]) Vital Signs (Past 12 Hours) Vital Signs Temp Pulse Pulse Pulse Resp BP Pulse Ox 12/09/19 07:54 98.5 F 88 88 24 104/56 L 88 L 12/09/19 07:20 90 90 12/09/19 04:00 99.3 F 83 18 99/53 L 90 12/09/19 03:25 88 20 86 L 12/09/19 00:00 99.1 F 81 18 104/66 88 L 12/08/19 23:47 81 12/08/19 22:43 86 16 91 PG Care Time/CCT Total # of Minutes Spent Total Time Spent with Patient: Total time spent is greater than 50% in coordination of care (as documented) at patient's floor/unit and/or counseling patient: Coding Level of Care Code 27683 Subseq Hosp Care Lvl 2 Diagnoses Acute respiratory failure with hypoxia J96.01 Pneumonia due to COVID-19 virus U07.1; J12.89 Diabetes E11.9 Hyperlipidemia E78.5 Ileus K56.7 Elevated troponin R79.89 Insomnia G47.00 Hypokalemia E87.6 DVT prophylaxis Z29.9
[2019-12-09] MEDS: ENOXAPARIN INJ 30 MG/0.3 ML SYR SQ SCH ×2 (08:17→20:15)
[2019-12-09] MEDS: ZINC SULFATE 220 MG CAPSULE PO SCH (08:18)
[2019-12-09] MEDS: DOCUSATE SODIUM/SENNA 50/8.6MG TAB PO SCH (08:19)
[2019-12-09] MEDS: ASPIRIN 81 MG ECTAB PO SCH (08:19)
[2019-12-09 08:51] LABS: Hematocrit (blood only) 38.1 % (37-47); Hemoglobin 12.5 g/dL (12.0-16.0); Mean Corpuscular Hemoglobin 30.6 pg (25-34); Mean Corpuscular Volume 93.2 fL (80-100); Mean Platelet Volume 9.8 fL (7.4-10.4); Platelet Count 256 K/uL (130-400); RDW Coefficient of Variation 14.4 % (11.5-14.5); RDW Standard Deviation 48.7 fL (36.4-46.3); Red Blood Count 4.09 M/uL (4.2-5.4); White Blood Count 16.63 K/uL (4.8-10.8)
[2019-12-09] MEDS: INSULIN ASPART 100 UNITS/ML 3 ML PEN SC SCH ×4 (08:52→20:35)
[2019-12-09 10:04] LABS: Mean Corpuscular Hgb Conc 32.8 g/dL (32-36)
[2019-12-09] MEDS: POTASSIUM CHLORIDE 20 MEQ TABCR PO SCH ×2 (11:45→20:15)
[2019-12-09] MEDS: ACETAMINOPHEN 325 MG TAB PO PRN (11:55)
[2019-12-09] MEDS ORDERED: FUROSEMIDE 10 MG in SYRINGE 0 ML IV ONE (16:45)
[2019-12-09] MEDS: LORazepam 0.5 MG TAB PO PRN (20:15)
--- NOTE | 2019-12-10 08:15 | XRay Report ---
XR chest 1V portable CLINICAL HISTORY: covid decline in status COMPARISON STUDY: Chest CT November 26, 2019. Chest radiograph December 03, 2019. FINDINGS: Lung volumes are diminished. There are small bilateral pleural effusions. Bilateral multifo mabel airspace opacities have progressed. Cardiomegaly is again noted. There is no pneumothorax. IMPRESSION: 1. Progression of extensive bilateral airspace opacities which favor an infectious process such as pn eumonia. Pulmonary edema could appear similar but is considered less likely. 2. Small bilateral pleural fusions. No pneumothorax. 3. Low lung volumes. ACT 112: Negative or not required by law. Electronically signed by: Carlos Lee M.D. 12/10/2019 8:14 AM
[2019-12-10] MEDS: ZINC SULFATE 220 MG CAPSULE PO SCH (08:29)
[2019-12-10] MEDS: ASPIRIN 81 MG ECTAB PO SCH (08:30)
[2019-12-10] MEDS: ENOXAPARIN INJ 30 MG/0.3 ML SYR SQ SCH ×2 (08:31→21:34)
[2019-12-10] MEDS: DEXAMETHASONE SOD PHOSPHATE 6 MG in SYRINGE 0 ML IV SCH (08:38)
[2019-12-10] MEDS: DOCUSATE SODIUM/SENNA 50/8.6MG TAB PO SCH (08:38)
[2019-12-10] MEDS: POTASSIUM CHLORIDE 20 MEQ TABCR PO SCH (08:38)
[2019-12-10] MEDS ORDERED: ACETAMINOPHEN 325 MG TAB PO ONE (09:09)
[2019-12-10] MEDS: INSULIN ASPART 100 UNITS/ML 3 ML PEN SC SCH ×2 (09:20→13:17)
[2019-12-10] MEDS ORDERED: FUROSEMIDE 20 MG in SYRINGE 0 ML IV ONE (09:30)
[2019-12-10 09:48] LABS: Basophils # (auto) 0.01 K/uL (0-0.2); Basophils % (auto) 0.1 %; Eosinophils # (auto) 0.24 K/uL (0-0.5); Eosinophils % (auto) 1.3 %; Hematocrit (blood only) 39.3 % (37-47); Hemoglobin 12.6 g/dL (12.0-16.0); Immature Granulocytes % (auto) 0.6 %; Lymphocytes # (auto) 1.23 K/uL (1.2-3.4); Lymphocytes % (auto) 6.8 %; Mean Corpuscular Hemoglobin 30.3 pg (25-34); Mean Corpuscular Hgb Conc 32.1 g/dL (32-36); Mean Corpuscular Volume 94.5 fL (80-100); Monocytes # (auto) 0.83 K/uL (0.11-0.59); Monocytes % (auto) 4.6 %; Neutrophils % (auto) 86.6 %; Platelet Count 289 K/uL (130-400); RDW Coefficient of Variation 14.5 % (11.5-14.5); RDW Standard Deviation 49.8 fL (36.4-46.3); Red Blood Count 4.16 M/uL (4.2-5.4); White Blood Count 18.11 K/uL (4.8-10.8)
[2019-12-10 09:59] LABS: D Dimer 1980 ug/L FEU (0-500)
[2019-12-10 10:18] LABS: BUN Creatinine Ratio 47.2 (10-20); Calcium 8.4 mg/dl (8.5-10.1); Est GFR (African American) 99.5; Est GFR (Non-African American) 85.8; Magnesium 2.3 mg/dl (1.8-2.4); Potassium 3.9 mmol/L (3.5-5.1)
[2019-12-10] MEDS ORDERED: NovoLIN-N (NPH) PER UNIT CHARGE SQ ONE (13:30)
--- NOTE | 2019-12-10 13:32 | Hospitalist Progress Note ---
Date of Service December 10, 2019 Assessment & Plan (1) Acute respiratory failure with hypoxia: due to viral pneumonia with COVID 19 improved initially after plasma given evening of 11/26 12/08 has increasing oxygen requirement, cxr looks slightly worse, procalciton is negative, restarted decadron, re ordered convalescent plasma, iv lasix given, support oxygen No real clinical respiratory distress, seth with significant hypoxia will consider PT once she is on less oxygen (2) Pneumonia due to COVID-19 virus: Patient has profound acute hypoxic respiratory failure clinical scenario consistent with COVID positive status bilateral infiltrates on CT chest oxygen requirements slightly increased remains on high flow oxygen restarted decadron 12/09/19 after completing dexamethasone 6mg IV daily x 10 days Remdesivir daily x 5 days, completed convalescent plasma given evening of 11/26. ordered additional unit 12/09 supportive care with high flow nasal canula, D dimer has trended downward over the last week, recheck remains about the same procalcitonin 12/09 also low CTA chest on admission negative for PE, she has been on Lovenox 30 q12 since admission feel that D dimer is still due to acute inflammation, does not represent thrombosis may consider CTA if not improved over the next 24 hours (3) Diabetes: Novolog SS monitor sugars with dexamethasone use no hypoglycemia, no severe hyperglycemia either eating well (4) Hyperlipidemia: In the distant past patient has been on statins these will be held at this current time (5) Ileus: resolved (6) Elevated troponin: Elevated troponin of unclear significance at this time there is also a myocarditis associated with covid troponin down to 0.063 from 0.18 could be due to profound hypoxia at home, as troponin improved with supplemental oxygen no need to follow further, continues to deny chest pain, no EKG changes (7) Insomnia: will give Ativan 0.5mg PO HS PRN (8) Hypokalemia: Replete (9) DVT prophylaxis: Patient is placed on Lovenox 30 subcu every 12 Patient confirmed she is a full code prognosis is guarded but patient remains determined and optimistic, she is alert and stronger each day updated her daughter over the phone 12/08 Admission and Anticipated Discharge Date Admission Date: November 26, 2019 Subjective The pt has a functional decline and requires additional oxygen supplementation, cxr looks to have progressed, still negative procalcitonin and not significant increase in d dimer Review of Systems Review of Systems: Mild respiratory distress and worsened fatigue no headache, blurry or double vision no speech or swallowing issues no chest pain, pressure or palpitations continues with shortness of breath, no cough or wheezes no abdominal pain, nausea or vomiting, diarrhea or constipation no dysuria, hematuria or frequency no focal joint pain or swelling no back pain, CVA tenderness or radicular pain no bruising, bleeding or rashes no focal signs of weakness or numbness or altered sensation no complaints or anxiety or depression. Physical Exam Physical Exam: The patient appeared well nourished and normally developed. Vital signs as documented. Head exam is normocephalic atraumatic no scleral icterus Neck is without JVD, thyromegaly, or carotid bruits. Lungs continue with coarse rhonchi at bases, clear at apex Cardiac exam, Rhythm is regular.. No murmurs, rubs or gallops. Abdominal exam reveals normal bowel sounds, soft non tender, no masses Extremities are nonedematous and both pedal pulses are normal. Neurologic exam is alert and oriented, no focal loss of strength or sensation Skin is without bruises or rashes Psychologically is without concerns for anxiety or depression. Results & Data Results & Data ([facility]) Vital Signs (Past 12 Hours) Vital Signs Temp Pulse Resp BP BP Pulse Ox 12/10/19 12:00 97.7 F 99 H 20 133/79 96 12/10/19 11:13 83 22 94 12/10/19 08:00 97.7 F 105 H 20 116/64 94 12/10/19 06:15 84 28 H 86 L 12/10/19 04:00 98.6 F 87 20 102/53 L 89 L 12/10/19 03:17 81 24 90 PG Care Time/CCT Total # of Minutes Spent Total Time Spent with Patient: Total time spent is greater than 50% in coordination of care (as documented) at patient's floor/unit and/or counseling patient: Coding Level of Care Code 32461 Subseq Hosp Care Lvl 3 Diagnoses Acute respiratory failure with hypoxia J96.01 Pneumonia due to COVID-19 virus U07.1; J12.89 Diabetes E11.9 Hyperlipidemia E78.5 Ileus K56.7 Elevated troponin R79.89 Insomnia G47.00 Hypokalemia E87.6 DVT prophylaxis Z29.9
--- NOTE | 2019-12-10 13:36 | Pharmacy Report ---
Pharmacy Glycemic Short Note 2 - Date of Service December 10, 2019 - Glycemic Short BSG Results (Last 24 hours): 12/09/19 12/09/19 12/10/19 16:41 20:12 09:29 Glucose 142 H POC Glucose 124 H 158 H OUTPATIENT ANTIDIABETIC REGIMEN: * Per outpatient pharmacy, no diabetic agents on record * RN confirmed with patient that she is diet controlled only ASSESSMENT: 12/08: * Excellent BSG control yesterday with only 1 unit of Novolog administered * Dexamethasone 6 mg IV has been restarted due to decline in clinical status. I will resume the previous doses of NPH and Novolog that patient required while on IV steroids. 12/07 * BSGs at goal * Fasting BSG 92 this AM with no basal insulin on board * Post-prandial BSGs well controlled yesterday using reduced Novolog doses. Will trial removal of prandial insulin at this time, given pt's A1c 6% and no steroid administration in last 48 hrs. 12/06 * BSGs again well controlled * Fasting BSG 71 this AM. Received 12 units NPH yesterday, but mid-day rather than AM. 1 unit Novolog given at bedtime as well. * Dexamethasone has been d/c'd. Will stop NPH administration today. Novolog doses will be titrated down. Suspect patient may not need prandial insulin in the near future, but given low physiologic half-life of dexamethasone will continue a reduced prandial dose today before d/c completely. 12/05 * BSGs well controlled over last 24 hrs * Fasting BSG 81 this AM. Received 12 units NPH yesterday AM and 0 units Novolog last HS. - will repeat same NPH dose today however will d/c after today as dexamethasone will d/c after today's dose * Post-prandial BSGs well controlled yesterday - no changes. Will reduce Novolog doses tomorrow 12/04 * Fasting BSG down to 73 this AM. This is following 10 units NPH yesterday AM + 3 units of correctional insulin last evening. * Current BSG trend shows fasting and lunch-time BSGs well controlled with climbing BSGs the 2nd half of the day. * Plan to increase NPH dose with AM dexamethasone as well as carb coverage with meals to address rising BSGs at these times. Will not cover BSG elevations at HS given precipitous fall in BSGs overnight. PLAN FOR INPATIENT GLYCEMIC CONTROL: * Basal insulin -resume * NPH 12 units SQ qAM (to be given with dexamethasone) * Bolus insulin - tighten * NovoLog per scale AC only and NOT at bedtime * Goal Range: Low 110 mg/dL - High 140 mg/dL * Correction Factor: 25 mg/dL/unit * Nutritional / Prandial insulin: 7
[2019-12-10] MEDS ORDERED: INSULIN ASPART 100 UNITS/ML 3 ML PEN SC SCH ×2 (21:00)
[2019-12-10] MEDS: LORazepam 0.5 MG TAB PO PRN (21:37)
[2019-12-11] MEDS ORDERED: NovoLIN-N (NPH) PER UNIT CHARGE SQ SCH (07:30)
[2019-12-11] MEDS: DOCUSATE SODIUM/SENNA 50/8.6MG TAB PO SCH (08:51)
[2019-12-11] MEDS: DEXAMETHASONE SOD PHOSPHATE 6 MG in SYRINGE 0 ML IV SCH (08:51)
[2019-12-11] MEDS: ENOXAPARIN INJ 30 MG/0.3 ML SYR SQ SCH ×2 (08:52→21:50)
[2019-12-11] MEDS: ZINC SULFATE 220 MG CAPSULE PO SCH (08:53)
[2019-12-11] MEDS: ASPIRIN 81 MG ECTAB PO SCH (08:53)
[2019-12-11] MEDS: INSULIN ASPART 100 UNITS/ML 3 ML PEN SC SCH ×4 (09:16→22:26)
[2019-12-11] MEDS: NovoLIN-N (NPH) PER UNIT CHARGE SQ SCH (09:18)
--- NOTE | 2019-12-11 09:31 | Hospitalist Progress Note ---
Date of Service December 11, 2019 Assessment & Plan (1) Acute respiratory failure with hypoxia: due to viral pneumonia with COVID 19 improved initially after plasma given evening of 11/26 12/08 has increasing oxygen requirement, cxr looked slightly worse, procalcitonin was negative, restarted decadron, re ordered convalescent plasma, iv lasix given, support oxygen No real clinical respiratory distress, seth with significant hypoxia at this point she is requiring 30L and 75% FiO2, will try to titrate down as tolerated will keep on Decadron until she is off High Flow study supporting Decadron recommended 10 days but she got a little worse after it was stopped, improved when it was resumed keep potassium > 3.5, it was 3.9 yesterday, will give 20mEq daily, check level in the morning (2) Pneumonia due to COVID-19 virus: Patient has profound acute hypoxic respiratory failure clinical scenario consistent with COVID positive status bilateral infiltrates on CT chest remains on High Flow nasal canula, hopeful to titrate off by the end of this week restarted decadron 12/09/19 after completing dexamethasone 6mg IV daily x 10 days Remdesivir daily x 5 days, completed convalescent plasma given evening of 11/26. ordered additional unit 12/09 supportive care with high flow nasal canula, D dimer has trended downward over the last week, recheck remains about the same procalcitonin 12/09 also low CTA chest on admission negative for PE, she has been on Lovenox 30 q12 since admission feel that D dimer is still due to acute inflammation, does not represent thrombosis will check CBC, CMP, BNP, D dimer in the morning (3) Diabetes: Novolog monitor sugars with dexamethasone use no hypoglycemia, no severe hyperglycemia either eating well continue basal dosing with the decadron (4) Hyperlipidemia: In the distant past patient has been on statins these will be held at this current time (5) Ileus: resolved (6) Elevated troponin: Elevated troponin of unclear significance at this time there is also a myocarditis associated with covid troponin down to 0.063 from 0.18 could be due to profound hypoxia at home, as troponin improved with supplemental oxygen no need to follow further, continues to deny chest pain, no EKG changes (7) Insomnia: will give Ativan 0.5mg PO HS PRN (8) Hypokalemia: Repleted, 3.[address] on 20mEq daily (9) DVT prophylaxis: Patient is placed on Lovenox 30 subcu every 12 Patient confirmed she is a full code prognosis is guarded but patient remains determined and optimistic, she is alert and stronger each day updated her daughter over the phone 12/10 for 5 minute conversation Admission and Anticipated Discharge Date Admission Date: November 26, 2019 Subjective patient sitting up in her chair, she is happy, breathing is slightly labored but no distress at all she said she did not sleep great last night but plans on taking a nap today she ate her entire breakfast, her appetite is intact reviewed the chart from the last week, appears that she got a little worse after decadron stopped, now better with it back on discussed with her that we will continue decadron until she can be tapered off the high flow nasal canula she asked about a flu shot, I told her that we can worry about that once she is recovered from COVID I updated her daughter over the phone this morning no labs this morning, will check tomorrow Review of Systems Review of Systems: All systems reviewed & are unremarkable except as noted in Subjective Respiratory: + cough, + dyspnea and + dyspnea on exertion; no hemoptysis and no wheezing Cardiovascular: no chest pain and no edema Gastrointestinal: no abdominal pain, no nausea, no vomiting, no constipation and no diarrhea/loose stools Physical Exam Constitutional: well developed and well nourished; no acute distress Eyes: PERRL, conjunctivae normal, anicteric sclerae ENMT: external ear and nose normal, oropharynx normal Neck: trachea midline, no thyromegaly Respiratory: normal respiratory effort; no respiratory distress and no cough Auscultation: no crackles, no rales, no rhonchi and no wheezes Cardiovascular: RRR, no murmur, no edema Gastrointestinal (Abdomen): normal bowel sounds, soft, nontender, no hepatosplenomegaly Musculoskeletal: no cyanosis or clubbing, extremities motor strength 5/5 Skin: no rashes, warm and dry Neurologic: patellar DTR's 2+ bilat, sensation intact and PERRL, EOMI, accommodation nl, no face palsy, no dysarthria Psychiatric: A+Ox3, euthymic affect Lymphatic: no cervical or axillary lymphadenopathy Results & Data Results & Data ([facility]) Vital Signs (Past 12 Hours) Vital Signs Temp Pulse Pulse Resp BP Pulse Ox 12/11/19 08:05 36.7 C 81 18 103/55 L 90 12/11/19 07:05 71 28 H 92 12/11/19 03:56 36.6 C 67 18 114/52 L 91 12/11/19 03:10 71 26 H 91 12/11/19 00:00 36.5 C 72 18 88/53 L 92 12/10/19 23:53 70 18 92 12/10/19 23:50 80 Laboratory Results Laboratory Results - last 24 hr 12/10/19 12/10/19 12/10/19 08:24 09:29 09:29 WBC 18.11 H RBC 4.16 L Hgb 12.6 Hct 39.3 MCV 94.5 MCH 30.3 MCHC 32.1 RDW Std Deviation 49.8 H RDW Coeff of Ange 14.5 Plt Count 289 MPV 10.0 Immature Gran % (Auto) 0.6 Neut % (Auto) 86.6 Lymph % (Auto) 6.8 [place] % (Auto) 4.6 Eos % (Auto) 1.3 Baso % (Auto) 0.1 Neut # (Auto) 15.70 H Lymph # (Auto) 1.23 [place] # (Auto) 0.83 H Eos # (Auto) 0.24 Baso # (Auto) 0.01 Immature Gran # (Auto) 0.10 H D-Dimer 1980 H* Sodium Potassium Chloride Carbon Dioxide Anion Gap BUN Creatinine Est Cr Clr Drug Dosing Est GFR ( Amer) Est GFR (Non-Af Amer) BUN/Creatinine Ratio Glucose POC Glucose 97 Calcium Magnesium Procalcitonin Blood Type Antibody Screen 12/10/19 12/10/19 12/10/19 09:29 09:29 09:29 WBC RBC Hgb Hct MCV MCH MCHC RDW Std Deviation RDW Coeff of Ange Plt Count MPV Immature Gran % (Auto) Neut % (Auto) Lymph % (Auto) [place] % (Auto) Eos % (Auto) Baso % (Auto) Neut # (Auto) Lymph # (Auto) [place] # (Auto) Eos # (Auto) Baso # (Auto) Immature Gran # (Auto) D-Dimer Sodium 142 Potassium 3.9 D Chloride 106 Carbon Dioxide 30 Anion Gap 6.0 BUN 23 H Creatinine 0.50 L Est Cr Clr Drug Dosing 58.0 Est GFR ( Amer) 99.5 Est GFR (Non-Af Amer) 85.8 BUN/Creatinine Ratio 47.2 H Glucose 142 H POC Glucose Calcium 8.4 L Magnesium 2.3 Procalcitonin 0.12 Blood Type O Negative Antibody Screen NEGATIVE 12/10/19 21:33 WBC RBC Hgb Hct MCV MCH MCHC RDW Std Deviation RDW Coeff of Ange Plt Count MPV Immature Gran % (Auto) Neut % (Auto) Lymph % (Auto) [place] % (Auto) Eos % (Auto) Baso % (Auto) Neut # (Auto) Lymph # (Auto) [place] # (Auto) Eos # (Auto) Baso # (Auto) Immature Gran # (Auto) D-Dimer Sodium Potassium Chloride Carbon Dioxide Anion Gap BUN Creatinine Est Cr Clr Drug Dosing Est GFR ( Amer) Est GFR (Non-Af Amer) BUN/Creatinine Ratio Glucose POC Glucose 221 H Calcium Magnesium Procalcitonin Blood Type Antibody Screen Medications Administered Current Inpatient Medications Acetaminophen (Acetaminophen 325 Mg Tab) 650 mg PO Q4H PRN PRN Reason: Pain or Fever Stop: 12/26/19 18:03 Last Admin: 12/09/19 11:55 Dose: 650 mg Documented by: Al Hydrox/Mg Hydrox/Simethicone (Aluminum/Magnesium Susp 30 Ml Udc) 15 ml PO Q4H PRN PRN Reason: Dyspepsia Stop: 12/26/19 18:03 Aspirin (Aspirin 81 Mg Ectab) 81 mg PO DAILY DARNELL Stop: 12/26/19 18:03 Last Admin: 12/11/19 08:53 Dose: 81 mg Documented by: Dextrose (Dextrose 50% 50 Ml Syringe) 25 - 50 ml IV UD PRN; Protocol PRN Reason: Hypoglycemia Protocol Stop: 12/26/19 18:03 Enoxaparin Sodium (Enoxaparin Inj 30 Mg/0.3 Ml Syr) 30 mg SQ Q12H DARNELL Stop: 12/26/19 19:59 Last Admin: 12/11/19 08:52 Dose: 30 mg Documented by: Glucagon (Glucagon For Inj 1 Mg Vial) 1 mg SQ UD PRN; Protocol PRN Reason: Hypoglycemia Protocol Stop: 12/26/19 18:03 Glucose (Glucose 10 Tabs/Tube) 4 - 8 tabs PO UD PRN; Protocol PRN Reason: Hypoglycemia Protocol Stop: 12/26/19 18:03 Glucose (Glucose 40% Gel 15 Gm Tube) 15 - 30 gm PO UD PRN; Protocol PRN Reason: Hypoglycemia Protocol Stop: 12/26/19 18:03 Guaifenesin/Codeine Phosphate (Guaifenesin/Codeine 100mg/10mg 5ml Udc) 5 ml PO Q6H PRN PRN Reason: Cough Stop: 12/26/19 18:03 Dexamethasone Sodium Phosphate (6 mg/ Syringe) 1.5 mls @ 1 mls/min IV DAILY@0900 [facility] Stop: 01/09/20 08:59 Last Admin: 12/11/19 08:51 Dose: 1 mls/min Documented by: Insulin Aspart (Insulin Aspart 100 Units/Ml 3 Ml Pen) 0 units SC AC [facility] Stop: 01/10/20 07:29 Last Admin: 12/11/19 09:16 Dose: 9 units Documented by: Insulin Aspart (Insulin Aspart 100 Units/Ml 3 Ml Pen) 0 units SC HS [facility] Stop: 01/10/20 20:59 Insulin Human NPH (Novolin-N (Nph) Per Unit Charge) 12 units SQ QDB [facility]; Protocol Stop: 01/10/20 07:29 Last Admin: 12/11/19 09:16 Dose: 12 units Documented by: Insulin Human NPH (Novolin-N (Nph) Per Unit Charge) 12 units SQ DAILY@0900 [facility]; Protocol Stop: 01/10/20 08:59 Last Admin: 12/11/19 09:18 Dose: Not Given Documented by: Lorazepam (Lorazepam 0.5 Mg Tab) 0.5 mg PO HS PRN PRN Reason: Insomnia Stop: 12/29/19 16:59 Last Admin: 12/10/19 21:37 Dose: 0.5 mg Documented by: Miscellaneous (Carbohydrates For Hypoglycemia ) 15 - 30 gm PO UD PRN PRN Reason: Hypoglycemia Protocol Stop: 12/26/19 18:03 Miscellaneous Information (Pharmacy Glycemic Mgmt Consult) 1 ea N/A UD PRN; Protocol PRN Reason: Consult Stop: 12/26/19 18:38 Ondansetron HCl (Ondansetron Inj 2 Mg/Ml 2 Ml Vial) 4 mg IV Q6H PRN PRN Reason: Nausea Stop: 12/26/19 18:03 Potassium Chloride (Potassium Chloride 20 Meq/15 Ml Udc) 20 meq PO QAM DARNELL Stop: 01/10/20 08:59 Senna/Docusate Sodium (Docusate Sodium/Senna 50/8.6mg Tab) 2 tab PO QAM DARNELL Stop: 12/27/19 08:59 Last Admin: 12/11/19 08:51 Dose: 2 tab Documented by: Zinc Sulfate (Zinc Sulfate 220 Mg Capsule) 220 mg PO QAM DARNELL Stop: 12/27/19 08:59 Last Admin: 12/11/19 08:53 Dose: 220 mg Documented by: PG Care Time/CCT Total # of Minutes Spent Total Time Spent: 32 Total Time Spent with Patient: Total time spent is greater than 50% in coordination of care (as documented) at patient's floor/unit and/or counseling patient: Coding Level of Care Code 01194 Subseq Hosp Care Lvl 3 Diagnoses Acute respiratory failure with hypoxia J96.01 Pneumonia due to COVID-19 virus U07.1; J12.89 Diabetes E11.9 Hyperlipidemia E78.5 Ileus K56.7 Elevated troponin R79.89 Insomnia G47.00 Hypokalemia E87.6 DVT prophylaxis Z29.9
[2019-12-11] MEDS: POTASSIUM CHLORIDE 20 MEQ/15 ML UDC PO SCH (10:42)
--- NOTE | 2019-12-11 12:26 | Pharmacy Report ---
Pharmacy Glycemic Short Note 2 - Date of Service December 11, 2019 - Glycemic Short BSG Results (Last 24 hours): 12/10/19 12/10/19 12/11/19 08:24 21:33 11:52 POC Glucose 97 221 H 106 H OUTPATIENT ANTIDIABETIC REGIMEN: * Per outpatient pharmacy, no diabetic agents on record * RN confirmed with patient that she is diet controlled only ASSESSMENT: 12/09 * Fasting BSG 100 this AM with 12 units NPH given yesterday AM and 4 units correctional insulin at HS - will continue the same as this dose of NPH has performed well in the recent past * Post-prandial BSGs well controlled on current Novolog doses when on same steroid dose in the past - continue the same for now. 12/08 * Excellent BSG control yesterday with only 1 unit of Novolog administered * Dexamethasone 6 mg IV has been restarted due to decline in clinical status. I will resume the previous doses of NPH and Novolog that patient required while on IV steroids. 12/07 * BSGs at goal * Fasting BSG 92 this AM with no basal insulin on board * Post-prandial BSGs well controlled yesterday using reduced Novolog doses. Will trial removal of prandial insulin at this time, given pt's A1c 6% and no steroid administration in last 48 hrs. 12/06 * BSGs again well controlled * Fasting BSG 71 this AM. Received 12 units NPH yesterday, but mid-day rather than AM. 1 unit Novolog given at bedtime as well. * Dexamethasone has been d/c'd. Will stop NPH administration today. Novolog doses will be titrated down. Suspect patient may not need prandial insulin in the near future, but given low physiologic half-life of dexamethasone will continue a reduced prandial dose today before d/c completely. PLAN FOR INPATIENT GLYCEMIC CONTROL: * Basal insulin -continue * NPH 12 units SQ qAM (to be given with dexamethasone) - hold if dexamethasone dose held * Bolus insulin - no change * NovoLog per scale AC only and NOT at bedtime * Goal Range: Low 110 mg/dL - High 140 mg/dL * Correction Factor: 25 mg/dL/unit AC, however 100mg/dL/unit at HS to prevent overnight drop in BSGs observed in past * Nutritional / Prandial insulin: 1 unit per 7gm CHO consumed w/ meals
[2019-12-11] MEDS: ACETAMINOPHEN 325 MG TAB PO PRN (19:00)
[2019-12-11] MEDS ORDERED: ACETAMINOPHEN 325 MG TAB PO SCH (21:30)
[2019-12-12 06:34] LABS: Hematocrit (blood only) 31.6 % (37-47); Hemoglobin 10.1 g/dL (12.0-16.0); Mean Corpuscular Hemoglobin 30.1 pg (25-34); Mean Corpuscular Volume 94.3 fL (80-100); Platelet Count 275 K/uL (130-400); RDW Coefficient of Variation 14.4 % (11.5-14.5); Red Blood Count 3.35 M/uL (4.2-5.4); White Blood Count 14.67 K/uL (4.8-10.8)
[2019-12-12 07:07] LABS: Albumin Level 2.1 gm/dl (3.4-5.0); Calcium 8.6 mg/dl (8.5-10.1); Creatinine Clr Calc Pharmacy 49.1 ml/min; Est GFR (African American) 97.6; Est GFR (Non-African American) 84.2; Potassium 4.3 mmol/L (3.5-5.1)
[2019-12-12 07:11] LABS: Albumin Globulin Ratio 0.6 (0.9-2); Bilirubin,Total 0.4 mg/dl (0.2-1); Globulin 3.5 gm/dl (2.5-4.0); Total Protein 5.6 gm/dl (6.4-8.2)
[2019-12-12 07:21] LABS: D Dimer 1560 ug/L FEU (0-500)
[2019-12-12] MEDS: DEXAMETHASONE SOD PHOSPHATE 6 MG in SYRINGE 0 ML IV SCH (09:16)
[2019-12-12] MEDS: ENOXAPARIN INJ 30 MG/0.3 ML SYR SQ SCH ×2 (09:16→21:42)
[2019-12-12] MEDS: ZINC SULFATE 220 MG CAPSULE PO SCH (09:17)
[2019-12-12] MEDS: ASPIRIN 81 MG ECTAB PO SCH (09:17)
[2019-12-12] MEDS: POTASSIUM CHLORIDE 20 MEQ/15 ML UDC PO SCH (09:26)
[2019-12-12] MEDS: NovoLIN-N (NPH) PER UNIT CHARGE SQ SCH (09:40)
[2019-12-12] MEDS: INSULIN ASPART 100 UNITS/ML 3 ML PEN SC SCH ×4 (09:40→22:24)
[2019-12-12] MEDS: DOCUSATE SODIUM/SENNA 50/8.6MG TAB PO SCH (09:41)
--- NOTE | 2019-12-12 14:20 | Hospitalist Progress Note ---
Date of Service December 12, 2019 Assessment & Plan (1) Acute respiratory failure with hypoxia: due to viral pneumonia with COVID 19 improved initially after plasma given evening of 11/26 12/08 has increasing oxygen requirement, cxr looked slightly worse, procalcitonin was negative, restarted decadron, re ordered convalescent plasma for 12/10 continues to have no respiratory distress, just has hypoxia at this point she is requiring 30L and 80% FiO2, will try to titrate down as tolerated will keep on Decadron until she is off High Flow study supporting Decadron recommended 10 days but she got a little worse after it was stopped, improved when it was resumed keep potassium > 3.5, it is 4.3 today (2) Pneumonia due to COVID-19 virus: Patient has profound acute hypoxic respiratory failure clinical scenario consistent with COVID positive status bilateral infiltrates on CT chest remains on High Flow nasal canula, hopeful to titrate off by the end of this week restarted decadron 12/09/19 after completing dexamethasone 6mg IV daily x 10 days Remdesivir daily x 5 days, completed convalescent plasma given evening of 11/26. ordered additional unit 12/09, given 12/10 supportive care with high flow nasal canula, D dimer has trended downward over the last week, today is is even lower at 1500 procalcitonin 12/09 also low CTA chest on admission negative for PE, she has been on Lovenox 30 q12 since admission feel that D dimer is still due to acute inflammation, does not represent thrombosis BNP is normal today (3) Diabetes: Novolog monitor sugars with dexamethasone use no hypoglycemia, no severe hyperglycemia either eating well continue basal dosing with the decadron (4) Hyperlipidemia: In the distant past patient has been on statins these will be held at this current time (5) Ileus: resolved (6) Elevated troponin: Elevated troponin of unclear significance at this time there is also a myocarditis associated with covid troponin down to 0.063 from 0.18 could be due to profound hypoxia at home, as troponin improved with supplemental oxygen no need to follow further, continues to deny chest pain, no EKG changes (7) Insomnia: will give Ativan 0.5mg PO HS PRN (8) Hypokalemia: 4.3 today (9) DVT prophylaxis: Patient is placed on Lovenox 30 subcu every 12 Patient confirmed she is a full code prognosis is guarded but patient remains determined and optimistic, she is alert and stronger each day updated her daughter over the phone 12/11 Admission and Anticipated Discharge Date Admission Date: November 26, 2019 Subjective patient doing well, sitting up in her chair all morning eating well, grilled cheese and tomato soup for lunch still on 30L and 80% FiO2 but no distress at all BNP normal, D dimer down slightly at 1500 today BMP shows stable electrolytes Review of Systems Review of Systems: All systems reviewed & are unremarkable except as noted in Subjective Respiratory: + dyspnea on exertion; no cough and no dyspnea Cardiovascular: no chest pain and no edema Physical Exam Constitutional: well developed and well nourished; no acute distress Eyes: PERRL, conjunctivae normal, anicteric sclerae ENMT: external ear and nose normal, oropharynx normal Neck: trachea midline, no thyromegaly Respiratory: normal respiratory effort; no respiratory distress and no cough Auscultation: no crackles, no rales, no rhonchi and no wheezes Cardiovascular: RRR, no murmur, no edema Gastrointestinal (Abdomen): normal bowel sounds, soft, nontender, no hepatosplenomegaly Musculoskeletal: no cyanosis or clubbing, extremities motor strength 5/5 Skin: no rashes, warm and dry Neurologic: patellar DTR's 2+ bilat, sensation intact and PERRL, EOMI, accommodation nl, no face palsy, no dysarthria Psychiatric: A+Ox3, euthymic affect Lymphatic: no cervical or axillary lymphadenopathy Results & Data Results & Data ([facility]) Vital Signs (Past 12 Hours) Vital Signs Temp Pulse Pulse Resp BP Pulse Ox 12/12/19 11:42 77 22 96 12/12/19 10:30 36.6 C 91 H 20 109/58 L 93 12/12/19 07:53 70 12/12/19 07:49 36.8 C 75 19 101/57 L 92 12/12/19 06:57 20 94 12/12/19 03:35 20 12/12/19 03:20 36.5 C 70 16 103/52 L 97 12/12/19 02:26 69 18 85 L Laboratory Results Laboratory Results - last 24 hr 12/10/19 12/11/19 12/11/19 09:29 17:23 21:46 WBC RBC Hgb Hct MCV MCH MCHC RDW Std Deviation RDW Coeff of Ange Plt Count MPV D-Dimer Sodium Potassium Chloride Carbon Dioxide Anion Gap BUN Creatinine Est Cr Clr Drug Dosing Est GFR ( Amer) Est GFR (Non-Af Amer) BUN/Creatinine Ratio Glucose POC Glucose 247 H 148 H Calcium Total Bilirubin AST ALT Alkaline Phosphatase NT-Pro-B Natriuret Pep Total Protein Albumin Globulin Albumin/Globulin Ratio Blood Type O Negative Antibody Screen NEGATIVE 12/12/19 12/12/19 12/12/19 05:52 05:52 05:52 WBC 14.67 H RBC 3.35 L Hgb 10.1 L Hct 31.6 L MCV 94.3 MCH 30.1 MCHC 32.0 RDW Std Deviation 49.0 H RDW Coeff of Ange 14.4 Plt Count 275 MPV 10.0 D-Dimer 1560 H* Sodium 142 Potassium 4.3 Chloride 107 Carbon Dioxide 30 Anion Gap 5.0 BUN 34 H Creatinine 0.53 L Est Cr Clr Drug Dosing 49.1 Est GFR ( Amer) 97.6 Est GFR (Non-Af Amer) 84.2 BUN/Creatinine Ratio 64.0 H Glucose 85 POC Glucose Calcium 8.6 Total Bilirubin 0.4 AST 26 ALT 36 Alkaline Phosphatase 64 NT-Pro-B Natriuret Pep 314 Total Protein 5.6 L Albumin 2.1 L Globulin 3.5 Albumin/Globulin Ratio 0.6 L Blood Type Antibody Screen 12/12/19 12/12/19 07:49 11:58 WBC RBC Hgb Hct MCV MCH MCHC RDW Std Deviation RDW Coeff of Ange Plt Count MPV D-Dimer Sodium Potassium Chloride Carbon Dioxide Anion Gap BUN Creatinine Est Cr Clr Drug Dosing Est GFR ( Amer) Est GFR (Non-Af Amer) BUN/Creatinine Ratio Glucose POC Glucose 97 124 H Calcium Total Bilirubin AST ALT Alkaline Phosphatase NT-Pro-B Natriuret Pep Total Protein Albumin Globulin Albumin/Globulin Ratio Blood Type Antibody Screen Medications Administered Current Inpatient Medications Acetaminophen (Acetaminophen 325 Mg Tab) 650 mg PO Q4H PRN PRN Reason: Pain or Fever Stop: 12/26/19 18:03 Last Admin: 12/11/19 19:00 Dose: 650 mg Documented by: Al Hydrox/Mg Hydrox/Simethicone (Aluminum/Magnesium Susp 30 Ml Udc) 15 ml PO Q4H PRN PRN Reason: Dyspepsia Stop: 12/26/19 18:03 Aspirin (Aspirin 81 Mg Ectab) 81 mg PO DAILY [facility] Stop: 12/26/19 18:03 Last Admin: 12/12/19 09:17 Dose: 81 mg Documented by: Dextrose (Dextrose 50% 50 Ml Syringe) 25 - 50 ml IV UD PRN; Protocol PRN Reason: Hypoglycemia Protocol Stop: 12/26/19 18:03 Enoxaparin Sodium (Enoxaparin Inj 30 Mg/0.3 Ml Syr) 30 mg SQ Q12H [facility] Stop: 12/26/19 19:59 Last Admin: 12/12/19 09:16 Dose: 30 mg Documented by: Glucagon (Glucagon For Inj 1 Mg Vial) 1 mg SQ UD PRN; Protocol PRN Reason: Hypoglycemia Protocol Stop: 12/26/19 18:03 Glucose (Glucose 10 Tabs/Tube) 4 - 8 tabs PO UD PRN; Protocol PRN Reason: Hypoglycemia Protocol Stop: 12/26/19 18:03 Glucose (Glucose 40% Gel 15 Gm Tube) 15 - 30 gm PO UD PRN; Protocol PRN Reason: Hypoglycemia Protocol Stop: 12/26/19 18:03 Guaifenesin/Codeine Phosphate (Guaifenesin/Codeine 100mg/10mg 5ml Udc) 5 ml PO Q6H PRN PRN Reason: Cough Stop: 12/26/19 18:03 Dexamethasone Sodium Phosphate (6 mg/ Syringe) 1.5 mls @ 1 mls/min IV DAILY@0900 [facility] Stop: 01/09/20 08:59 Last Admin: 12/12/19 09:16 Dose: 1 mls/min Documented by: Insulin Aspart (Insulin Aspart 100 Units/Ml 3 Ml Pen) 0 units SC AC [facility] Stop: 01/10/20 07:29 Last Admin: 12/12/19 12:55 Dose: 9 units Documented by: Insulin Aspart (Insulin Aspart 100 Units/Ml 3 Ml Pen) 0 units SC [facility] Stop: 01/10/20 20:59 Last Admin: 12/11/19 22:26 Dose: Not Given Documented by: Insulin Human NPH (Novolin-N (Nph) Per Unit Charge) 12 units SQ DAILY@0900 [facility]; Protocol Stop: 01/10/20 08:59 Last Admin: 12/12/19 09:40 Dose: 12 units Documented by: Lorazepam (Lorazepam 0.5 Mg Tab) 0.5 mg PO HS PRN PRN Reason: Insomnia Stop: 12/29/19 16:59 Last Admin: 12/10/19 21:37 Dose: 0.5 mg Documented by: Miscellaneous (Carbohydrates For Hypoglycemia ) 15 - 30 gm PO UD PRN PRN Reason: Hypoglycemia Protocol Stop: 12/26/19 18:03 Miscellaneous Information (Pharmacy Glycemic Mgmt Consult) 1 ea N/A UD PRN; Protocol PRN Reason: Consult Stop: 12/26/19 18:38 Ondansetron HCl (Ondansetron Inj 2 Mg/Ml 2 Ml Vial) 4 mg IV Q6H PRN PRN Reason: Nausea Stop: 12/26/19 18:03 Potassium Chloride (Potassium Chloride 20 Meq/15 Ml Udc) 20 meq PO QAM [facility] Stop: 01/10/20 08:59 Last Admin: 12/12/19 09:26 Dose: 20 meq Documented by: Senna/Docusate Sodium (Docusate Sodium/Senna 50/8.6mg Tab) 2 tab PO QAM [facility] Stop: 12/27/19 08:59 Last Admin: 12/12/19 09:41 Dose: Not Given Documented by: Zinc Sulfate (Zinc Sulfate 220 Mg Capsule) 220 mg PO QAM [facility] Stop: 12/27/19 08:59 Last Admin: 12/12/19 09:17 Dose: 220 mg Documented by: PG Care Time/CCT Total # of Minutes Spent Total Time Spent with Patient: Total time spent is greater than 50% in coordination of care (as documented) at patient's floor/unit and/or counseling patient: Coding Level of Care Code 95828 Subseq Hosp Care Lvl 2 Diagnoses Acute respiratory failure with hypoxia J96.01 Pneumonia due to COVID-19 virus U07.1; J12.89 Diabetes E11.9 Hyperlipidemia E78.5 Ileus K56.7 Elevated troponin R79.89 Insomnia G47.00 Hypokalemia E87.6 DVT prophylaxis Z29.9
[2019-12-12] MEDS: LORazepam 0.5 MG TAB PO PRN (22:01)
[2019-12-13] MEDS: ASPIRIN 81 MG ECTAB PO SCH (08:54)
[2019-12-13] MEDS: ENOXAPARIN INJ 30 MG/0.3 ML SYR SQ SCH ×2 (08:54→21:42)
[2019-12-13] MEDS: DEXAMETHASONE SOD PHOSPHATE 6 MG in SYRINGE 0 ML IV SCH (08:54)
[2019-12-13] MEDS: ZINC SULFATE 220 MG CAPSULE PO SCH (08:55)
[2019-12-13] MEDS: DOCUSATE SODIUM/SENNA 50/8.6MG TAB PO SCH (08:55)
[2019-12-13] MEDS: INSULIN ASPART 100 UNITS/ML 3 ML PEN SC SCH ×4 (09:18→22:02)
[2019-12-13] MEDS: NovoLIN-N (NPH) PER UNIT CHARGE SQ SCH (09:19)
--- NOTE | 2019-12-13 10:43 | Hospitalist Progress Note ---
Date of Service December 13, 2019 Assessment & Plan (1) Acute respiratory failure with hypoxia: due to viral pneumonia with COVID 19 improved initially after plasma given evening of 11/26 12/08 has increasing oxygen requirement, cxr looked slightly worse, procalcitonin was negative, restarted decadron, re ordered convalescent plasma for 12/10 continues to have no respiratory distress, just has hypoxia at this point she is requiring 30L and 60% FiO2, improvement from yesterday, slowly getting better will keep on Decadron until she is off High Flow study supporting Decadron recommended 10 days but she got a little worse after it was stopped, improved when it was resumed keep potassium > 3.5, it was 4.3 on 12/11 (2) Pneumonia due to COVID-19 virus: Patient has profound acute hypoxic respiratory failure clinical scenario consistent with COVID positive status bilateral infiltrates on CT chest remains on High Flow nasal canula, hopeful to titrate off by the end of this week, down to 30L and 60% FiO2 restarted decadron 12/09/19 after completing dexamethasone 6mg IV daily x 10 days Remdesivir daily x 5 days, completed convalescent plasma given evening of 11/26. ordered additional unit 12/09, given 12/10 supportive care with high flow nasal canula, D dimer has trended downward over the last week, 12/11 is is even lower at 1500 procalcitonin 12/09 also low CTA chest on admission negative for PE, she has been on Lovenox 30 q12 since admission feel that D dimer is still due to acute inflammation, does not represent thrombosis BNP is normal when checked (3) Diabetes: Novolog monitor sugars with dexamethasone use no hypoglycemia, no severe hyperglycemia either eating well continue basal dosing with the decadron (4) Hyperlipidemia: In the distant past patient has been on statins these will be held at this current time (5) Ileus: resolved (6) Elevated troponin: Elevated troponin of unclear significance at this time there is also a myocarditis associated with covid troponin down to 0.063 from 0.18 could be due to profound hypoxia at home, as troponin improved with supplemental oxygen no need to follow further, continues to deny chest pain, no EKG changes (7) Insomnia: will give Ativan 0.5mg PO HS PRN (8) Hypokalemia: 4.3 today (9) DVT prophylaxis: Patient is placed on Lovenox 30 subcu every 12 Patient confirmed she is a full code prognosis is guarded but patient remains determined and optimistic, she is alert and stronger each day updated her daughter over the phone 12/11 Admission and Anticipated Discharge Date Admission Date: November 26, 2019 Subjective patient happy today, no complaints except she is feeling tired she is breathing comfortably titrated down to 30L and 60% FiO2 she is eating well, spending time up in her chair all morning, doing some exercises she is making urine, moving her bowels consistently Review of Systems Review of Systems: All systems reviewed & are unremarkable except as noted in Subjective Respiratory: + dyspnea on exertion; no cough and no dyspnea Physical Exam Constitutional: well developed and well nourished; no acute distress Eyes: PERRL, conjunctivae normal, anicteric sclerae ENMT: external ear and nose normal, oropharynx normal Neck: trachea midline, no thyromegaly Respiratory: normal respiratory effort; no respiratory distress and no cough Auscultation: no crackles, no rales, no rhonchi and no wheezes Cardiovascular: RRR, no murmur, no edema Gastrointestinal (Abdomen): normal bowel sounds, soft, nontender, no hepatosplenomegaly Musculoskeletal: no cyanosis or clubbing, extremities motor strength 5/5 Skin: no rashes, warm and dry Neurologic: patellar DTR's 2+ bilat, sensation intact and PERRL, EOMI, accommodation nl, no face palsy, no dysarthria Psychiatric: A+Ox3, euthymic affect Lymphatic: no cervical or axillary lymphadenopathy Results & Data Results & Data ([facility]) Vital Signs (Past 12 Hours) Vital Signs Temp Pulse Pulse Resp BP Pulse Ox 12/13/19 07:41 36.8 C 82 20 94/59 L 90 12/13/19 07:23 83 20 94 12/13/19 03:49 36.8 C 95 H 22 101/50 L 88 L 12/13/19 03:12 74 20 89 L 12/13/19 01:19 74 20 90 12/13/19 00:00 75 12/12/19 23:13 73 22 90 Laboratory Results Laboratory Results - last 24 hr 12/12/19 12/12/19 12/13/19 17:03 21:40 07:39 POC Glucose 173 H 90 76 12/13/19 11:53 POC Glucose 115 H Medications Administered Current Inpatient Medications Acetaminophen (Acetaminophen 325 Mg Tab) 650 mg PO Q4H PRN PRN Reason: Pain or Fever Stop: 12/26/19 18:03 Last Admin: 12/11/19 19:00 Dose: 650 mg Documented by: Al Hydrox/Mg Hydrox/Simethicone (Aluminum/Magnesium Susp 30 Ml Udc) 15 ml PO Q4H PRN PRN Reason: Dyspepsia Stop: 12/26/19 18:03 Aspirin (Aspirin 81 Mg Ectab) 81 mg PO DAILY [facility] Stop: 12/26/19 18:03 Last Admin: 12/13/19 08:54 Dose: 81 mg Documented by: Dextrose (Dextrose 50% 50 Ml Syringe) 25 - 50 ml IV UD PRN; Protocol PRN Reason: Hypoglycemia Protocol Stop: 12/26/19 18:03 Enoxaparin Sodium (Enoxaparin Inj 30 Mg/0.3 Ml Syr) 30 mg SQ Q12H [facility] Stop: 12/26/19 19:59 Last Admin: 12/13/19 08:54 Dose: 30 mg Documented by: Glucagon (Glucagon For Inj 1 Mg Vial) 1 mg SQ UD PRN; Protocol PRN Reason: Hypoglycemia Protocol Stop: 12/26/19 18:03 Glucose (Glucose 10 Tabs/Tube) 4 - 8 tabs PO UD PRN; Protocol PRN Reason: Hypoglycemia Protocol Stop: 12/26/19 18:03 Glucose (Glucose 40% Gel 15 Gm Tube) 15 - 30 gm PO UD PRN; Protocol PRN Reason: Hypoglycemia Protocol Stop: 12/26/19 18:03 Guaifenesin/Codeine Phosphate (Guaifenesin/Codeine 100mg/10mg 5ml Udc) 5 ml PO Q6H PRN PRN Reason: Cough Stop: 12/26/19 18:03 Dexamethasone Sodium Phosphate (6 mg/ Syringe) 1.5 mls @ 1 mls/min IV DAILY@09 00 [facility] Stop: 01/09/20 08:59 Last Admin: 12/13/19 08:54 Dose: 1 mls/min Documented by: Insulin Aspart (Insulin Aspart 100 Units/Ml 3 Ml Pen) 0 units SC AC [facility] Stop: 01/10/20 07:29 Last Admin: 12/13/19 12:10 Dose: 6 units Documented by: Insulin Aspart (Insulin Aspart 100 Units/Ml 3 Ml Pen) 0 units SC HS [facility] Stop: 01/10/20 20:59 Last Admin: 12/12/19 22:24 Dose: Not Given Documented by: Insulin Human NPH (Novolin-N (Nph) Per Unit Charge) 12 units SQ DAILY@0900 [facility]; Protocol Stop: 01/10/20 08:59 Last Admin: 12/13/19 09:19 Dose: 12 units Documented by: Lorazepam (Lorazepam 0.5 Mg Tab) 0.5 mg PO HS PRN PRN Reason: Insomnia Stop: 12/29/19 16:59 Last Admin: 12/12/19 22:01 Dose: 0.5 mg Documented by: Miscellaneous (Carbohydrates For Hypoglycemia ) 15 - 30 gm PO UD PRN PRN Reason: Hypoglycemia Protocol Stop: 12/26/19 18:03 Miscellaneous Information (Pharmacy Glycemic Mgmt Consult) 1 ea N/A UD PRN; Protocol PRN Reason: Consult Stop: 12/26/19 18:38 Ondansetron HCl (Ondansetron Inj 2 Mg/Ml 2 Ml Vial) 4 mg IV Q6H PRN PRN Reason: Nausea Stop: 12/26/19 18:03 Senna/Docusate Sodium (Docusate Sodium/Senna 50/8.6mg Tab) 2 tab PO QAM [facility] Stop: 12/27/19 08:59 Last Admin: 12/13/19 08:55 Dose: Not Given Documented by: Zinc Sulfate (Zinc Sulfate 220 Mg Capsule) 220 mg PO QAM [facility] Stop: 12/27/19 08:59 Last Admin: 12/13/19 08:55 Dose: 220 mg Documented by: PG Care Time/CCT Total # of Minutes Spent Total Time Spent with Patient: Total time spent is greater than 50% in coordination of care (as documented) at patient's floor/unit and/or counseling patient: Coding Level of Care Code 85465 Subseq Hosp Care Lvl 2 Diagnoses Acute respiratory failure with hypoxia J96.01 Pneumonia due to COVID-19 virus U07.1; J12.89 Diabetes E11.9 Hyperlipidemia E78.5 Ileus K56.7 Elevated troponin R79.89 Insomnia G47.00 Hypokalemia E87.6 DVT prophylaxis Z29.9
[2019-12-13] MEDS: LORazepam 0.5 MG TAB PO PRN (21:43)
[2019-12-14] MEDS: ENOXAPARIN INJ 30 MG/0.3 ML SYR SQ SCH ×2 (08:21→23:13)
[2019-12-14] MEDS: DEXAMETHASONE SOD PHOSPHATE 6 MG in SYRINGE 0 ML IV SCH (08:21)
[2019-12-14] MEDS: DOCUSATE SODIUM/SENNA 50/8.6MG TAB PO SCH (08:21)
[2019-12-14 08:22] LABS: Hematocrit (blood only) 34.2 % (37-47); Mean Corpuscular Hemoglobin 30.1 pg (25-34); Mean Corpuscular Hgb Conc 32.2 g/dL (32-36); Mean Corpuscular Volume 93.7 fL (80-100); Mean Platelet Volume 10.1 fL (7.4-10.4); Platelet Count 293 K/uL (130-400); RDW Coefficient of Variation 14.4 % (11.5-14.5); RDW Standard Deviation 49.2 fL (36.4-46.3); Red Blood Count 3.65 M/uL (4.2-5.4); White Blood Count 13.98 K/uL (4.8-10.8)
[2019-12-14] MEDS: ASPIRIN 81 MG ECTAB PO SCH (08:22)
[2019-12-14] MEDS: ZINC SULFATE 220 MG CAPSULE PO SCH (08:22)
[2019-12-14] MEDS: INSULIN ASPART 100 UNITS/ML 3 ML PEN SC SCH ×4 (08:36→23:57)
[2019-12-14] MEDS: NovoLIN-N (NPH) PER UNIT CHARGE SQ SCH (08:36)
[2019-12-14 08:44] LABS: D Dimer 2930 ug/L FEU (0-500)
[2019-12-14 09:31] LABS: BUN Creatinine Ratio 59.2 (10-20); Calcium 8.4 mg/dl (8.5-10.1); Creatinine Clr Calc Pharmacy 57.8 ml/min; Est GFR (Non-African American) 88.8
--- NOTE | 2019-12-14 10:46 | Pharmacy Report ---
Pharmacy Glycemic Short Note 2 - Date of Service December 14, 2019 - Glycemic Short BSG Results (Last 24 hours): 12/13/19 12/13/19 12/13/19 11:53 16:45 21:41 Glucose POC Glucose 115 H 186 H 89 12/14/19 12/14/19 07:40 07:54 Glucose 67 L POC Glucose 85 OUTPATIENT ANTIDIABETIC REGIMEN: * Per outpatient pharmacy, no diabetic agents on record * RN confirmed with patient that she is diet controlled only ASSESSMENT: 12/13 * Mild hypoglycemia noted on PRP (GLU 67) whereas accuchek 85. This was after receiving 12 units NPH yesterday - will decrease dose slightly * Post-prandial BSGs mostly well controlled w/ current Novolog/NPH regimen. PO intake appears good. * Dexamethasone 6mg IV daily continues 12/09 * Fasting BSG 100 this AM with 12 units NPH given yesterday AM and 4 units corre ctional insulin at HS - will continue the same as this dose of NPH has performed well in the recent past * Post-prandial BSGs well controlled on current Novolog doses when on same steroid dose in the past - continue the same for now. 12/08 * Excellent BSG control yesterday with only 1 unit of Novolog administered * Dexamethasone 6 mg IV has been restarted due to decline in clinical status. I will resume the previous doses of NPH and Novolog that patient required while on IV steroids. 12/07 * BSGs at goal * Fasting BSG 92 this AM with no basal insulin on board * Post-prandial BSGs well controlled yesterday using reduced Novolog doses. Will trial removal of prandial insulin at this time, given pt's A1c 6% and no steroid administration in last 48 hrs. 12/06 * BSGs again well controlled * Fasting BSG 71 this AM. Received 12 units NPH yesterday, but mid-day rather than AM. 1 unit Novolog given at bedtime as well. * Dexamethasone has been d/c'd. Will stop NPH administration today. Novolog doses will be titrated down. Suspect patient may not need prandial insulin in the near future, but given low physiologic half-life of dexamethasone will continue a reduced prandial dose today before d/c completely. PLAN FOR INPATIENT GLYCEMIC CONTROL: * Basal insulin -slight decrease * NPH 11 units SQ qAM (to be given with dexamethasone) - hold if dexamethasone dose held * Bolus insulin - no change * NovoLog per scale AC only and NOT at bedtime * Goal Range: Low 110 mg/dL - High 140 mg/dL * Correction Factor: 25 mg/dL/unit AC, however 100mg/dL/unit at HS to prevent overnight drop in BSGs observed in past * Nutritional / Prandial insulin: 1 unit per 7gm CHO consumed w/ meals
--- NOTE | 2019-12-14 14:27 | Hospitalist Progress Note ---
Date of Service December 14, 2019 Assessment & Plan (1) Acute respiratory failure with hypoxia: due to viral pneumonia with COVID 19 improved initially after plasma given evening of 11/26 12/08 has increasing oxygen requirement, cxr looked slightly worse, procalcitonin was negative, restarted decadron, re ordered convalescent plasma for 12/10 continues to have no respiratory distress, just has hypoxia titrated down to oxymask today! hoping to keep off high flow overnight will keep on Decadron for now study supporting Decadron recommended 10 days but she got a little worse after it was stopped, improved when it was resumed keep potassium > 3.5 (2) Pneumonia due to COVID-19 virus: Patient has profound acute hypoxic respiratory failure clinical scenario consistent with COVID positive status bilateral infiltrates on CT chest down to oxymask today, first time in 2 weeks she has not required HFNC restarted decadron 12/09/19 after completing dexamethasone 6mg IV daily x 10 days Remdesivir daily x 5 days, completed convalescent plasma given evening of 11/26. ordered additional unit 12/09, given 12/10 supportive care with high flow nasal canula, D dimer has trended downward over the last week procalcitonin 12/09 also low CTA chest on admission negative for PE, she has been on Lovenox 30 q12 since admission feel that D dimer is still due to acute inflammation, does not represent thrombosis BNP is normal when checked (3) Diabetes: Novolog SS monitor sugars with dexamethasone use no hypoglycemia, no severe hyperglycemia either eating well continue basal dosing with the decadron (4) Hyperlipidemia: In the distant past patient has been on statins these will be held at this current time (5) Ileus: resolved (6) Elevated troponin: Elevated troponin of unclear significance at this time there is also a myocarditis associated with covid troponin down to 0.063 from 0.18 could be due to profound hypoxia at home, as troponin improved with supplemental oxygen no need to follow further, continues to deny chest pain, no EKG changes (7) Insomnia: will give Ativan 0.5mg PO HS PRN (8) Hypokalemia: 4.3 today (9) DVT prophylaxis: Patient is placed on Lovenox 30 subcu every 12 Patient confirmed she is a full code prognosis is guarded but patient remains determined and optimistic, she is alert and stronger each day updated her daughter over the phone 12/11 Admission and Anticipated Discharge Date Admission Date: November 26, 2019 Subjective patient remains happy and optimistic she was titrated down to 13L oxymask, will see how she does this evening he continues to eat well, had a hot dog for lunch reviewed labs, D dimer up a little in the , will stop checking BUN and CBC stable bNP 400's Review of Systems Review of Systems: All systems reviewed & are unremarkable except as noted in Subjective Eyes: + spots in vision Physical Exam Constitutional: well developed and well nourished; no acute distress Eyes: PERRL, conjunctivae normal, anicteric sclerae ENMT: external ear and nose normal, oropharynx normal Neck: trachea midline, no thyromegaly Respiratory: normal respiratory effort; no respiratory distress and no cough Auscultation: no crackles, no rales, no rhonchi and no wheezes Cardiovascular: RRR, no murmur, no edema Gastrointestinal (Abdomen): normal bowel sounds, soft, nontender, no hepatosplenomegaly Musculoskeletal: no cyanosis or clubbing, extremities motor strength 5/5 Skin: no rashes, warm and dry Neurologic: patellar DTR's 2+ bilat, sensation intact and PERRL, EOMI, accommodation nl, no face palsy, no dysarthria Psychiatric: A+Ox3, euthymic affect Lymphatic: no cervical or axillary lymphadenopathy Results & Data Results & Data ([facility]) Vital Signs (Past 12 Hours) Vital Signs Temp Pulse Pulse Resp BP Pulse Ox Pulse Ox 12/14/19 12:02 36.7 C 91 H 18 102/60 96 12/14/19 08:00 90 91 12/14/19 07:57 37.1 C 90 20 118/62 91 12/14/19 07:23 18 91 12/14/19 03:51 36.8 C 95 H 20 123/50 L 88 L 12/14/19 03:10 71 18 90 Laboratory Results Laboratory Results - last 24 hr 12/13/19 12/13/19 12/14/19 16:45 21:41 07:40 WBC 13.98 H RBC 3.65 L Hgb 11.0 L Hct 34.2 L MCV 93.7 MCH 30.1 MCHC 32.2 RDW Std Deviation 49.2 H RDW Coeff of Ange 14.4 Plt Count 293 MPV 10.1 D-Dimer Sodium Potassium Chloride Carbon Dioxide Anion Gap BUN Creatinine Est Cr Clr Drug Dosing Est GFR ( Amer) Est GFR (Non-Af Amer) BUN/Creatinine Ratio Glucose POC Glucose 186 H 89 Calcium NT-Pro-B Natriuret Pep 12/14/19 12/14/19 12/14/19 07:40 07:40 07:54 WBC RBC Hgb Hct MCV MCH MCHC RDW Std Deviation RDW Coeff of Ange Plt Count MPV D-Dimer 2930 H* Sodium 142 Potassium 4.0 Chloride 107 Carbon Dioxide 32 Anion Gap 3.0 BUN 27 H Creatinine 0.45 L Est Cr Clr Drug Dosing 57.8 Est GFR ( Amer) 103.0 Est GFR (Non-Af Amer) 88.8 BUN/Creatinine Ratio 59.2 H Glucose 67 L POC Glucose 85 Calcium 8.4 L NT-Pro-B Natriuret Pep 472 12/14/19 12:01 WBC RBC Hgb Hct MCV MCH MCHC RDW Std Deviation RDW Coeff of Ange Plt Count MPV D-Dimer Sodium Potassium Chloride Carbon Dioxide Anion Gap BUN Creatinine Est Cr Clr Drug Dosing Est GFR ( Amer) Est GFR (Non-Af Amer) BUN/Creatinine Ratio Glucose POC Glucose 129 H Calcium NT-Pro-B Natriuret Pep Medications Administered Current Inpatient Medications Acetaminophen (Acetaminophen 325 Mg Tab) 650 mg PO Q4H PRN PRN Reason: Pain or Fever Stop: 12/26/19 18:03 Last Admin: 12/11/19 19:00 Dose: 650 mg Documented by: Al Hydrox/Mg Hydrox/Simethicone (Aluminum/Magnesium Susp 30 Ml Udc) 15 ml PO Q4H PRN PRN Reason: Dyspepsia Stop: 12/26/19 18:03 Aspirin (Aspirin 81 Mg Ectab) 81 mg PO DAILY [facility] Stop: 12/26/19 18:03 Last Admin: 12/14/19 08:22 Dose: 81 mg Documented by: Dextrose (Dextrose 50% 50 Ml Syringe) 25 - 50 ml IV UD PRN; Protocol PRN Reason: Hypoglycemia Protocol Stop: 12/26/19 18:03 Enoxaparin Sodium (Enoxaparin Inj 30 Mg/0.3 Ml Syr) 30 mg SQ Q12H [facility] Stop: 12/26/19 19:59 Last Admin: 12/14/19 08:21 Dose: 30 mg Documented by: Glucagon (Glucagon For Inj 1 Mg Vial) 1 mg SQ UD PRN; Protocol PRN Reason: Hypoglycemia Protocol Stop: 12/26/19 18:03 Glucose (Glucose 10 Tabs/Tube) 4 - 8 tabs PO UD PRN; Protocol PRN Reason: Hypoglycemia Protocol Stop: 12/26/19 18:03 Glucose (Glucose 40% Gel 15 Gm Tube) 15 - 30 gm PO UD PRN; Protocol PRN Reason: Hypoglycemia Protocol Stop: 12/26/19 18:03 Guaifenesin/Codeine Phosphate (Guaifenesin/Codeine 100mg/10mg 5ml Udc) 5 ml PO Q6H PRN PRN Reason: Cough Stop: 12/26/19 18:03 Dexamethasone Sodium Phosphate (6 mg/ Syringe) 1.5 mls @ 1 mls/min IV DAILY@0900 [facility] Stop: 01/09/20 08:59 Last Admin: 12/14/19 08:21 Dose: 1 mls/min Documented by: Insulin Aspart (Insulin Aspart 100 Units/Ml 3 Ml Pen) 0 units SC AC [facility] Stop: 01/10/20 07:29 Last Admin: 12/14/19 12:59 Dose: 8 units Documented by: Insulin Aspart (Insulin Aspart 100 Units/Ml 3 Ml Pen) 0 units SC [facility] Stop: 01/10/20 20:59 Last Admin: 12/13/19 22:02 Dose: Not Given Documented by: Insulin Human NPH (Novolin-N (Nph) Per Unit Charge) 11 units SQ DAILY@0900 [facility]; Protocol Stop: 01/14/20 08:59 Lorazepam (Lorazepam 0.5 Mg Tab) 0.5 mg PO HS PRN PRN Reason: Insomnia Stop: 12/29/19 16:59 Last Admin: 12/13/19 21:43 Dose: 0.5 mg Documented by: Miscellaneous (Carbohydrates For Hypoglycemia ) 15 - 30 gm PO UD PRN PRN Reason: Hypoglycemia Protocol Stop: 12/26/19 18:03 Miscellaneous Information (Pharmacy Glycemic Mgmt Consult) 1 ea N/A UD PRN; Protocol PRN Reason: Consult Stop: 12/26/19 18:38 Ondansetron HCl (Ondansetron Inj 2 Mg/Ml 2 Ml Vial) 4 mg IV Q6H PRN PRN Reason: Nausea Stop: 12/26/19 18:03 Senna/Docusate Sodium (Docusate Sodium/Senna 50/8.6mg Tab) 2 tab PO QAM [facility] Stop: 12/27/19 08:59 Last Admin: 12/14/19 08:21 Dose: 2 tab Documented by: Zinc Sulfate (Zinc Sulfate 220 Mg Capsule) 220 mg PO QAM [facility] Stop: 12/27/19 08:59 Last Admin: 12/14/19 08:22 Dose: 220 mg Documented by: PG Care Time/CCT Total # of Minutes Spent Total Time Spent with Patient: Total time spent is greater than 50% in coordination of care (as documented) at patient's floor/unit and/or counseling patient: Coding Level of Care Code 78191 Subseq Hosp Care Lvl 2 Diagnoses Acute respiratory failure with hypoxia J96.01 Pneumonia due to COVID-19 virus U07.1; J12.89 Diabetes E11.9 Hyperlipidemia E78.5 Ileus K56.7 Elevated troponin R79.89 Insomnia G47.00 Hypokalemia E87.6 DVT prophylaxis Z29.9
[2019-12-14] MEDS: LORazepam 0.5 MG TAB PO PRN (21:47)
[2019-12-15] MEDS ORDERED: NovoLIN-N (NPH) PER UNIT CHARGE SQ SCH (09:00)
[2019-12-15] MEDS: INSULIN ASPART 100 UNITS/ML 3 ML PEN SC SCH ×4 (09:01→22:00)
[2019-12-15] MEDS: ENOXAPARIN INJ 30 MG/0.3 ML SYR SQ SCH (09:02)
[2019-12-15] MEDS: DEXAMETHASONE SOD PHOSPHATE 6 MG in SYRINGE 0 ML IV SCH (09:02)
[2019-12-15] MEDS: ASPIRIN 81 MG ECTAB PO SCH (09:04)
[2019-12-15] MEDS: ZINC SULFATE 220 MG CAPSULE PO SCH (09:04)
[2019-12-15] MEDS: DOCUSATE SODIUM/SENNA 50/8.6MG TAB PO SCH (09:20)
[2019-12-15] MEDS ORDERED: METOPROLOL TARTRATE 25 MG TAB PO SCH (09:45)
[2019-12-15] MEDS ORDERED: KETOROLAC TROMETHAMINE 15 MG/ML VIAL IV PRN (10:02)
--- NOTE | 2019-12-15 12:06 | Electrocardiogram Report ---
Test Reason : Blood Pressure : / mmHG Vent. Rate : 122 BPM Atrial Rate : 108 BPM P-R Int : 000 ms QRS Dur : 074 ms QT Int : 318 ms P-R-T Axes : 000 -08 -36 degrees QTc Int : 453 ms Multifocal atrial tachycardia Minimal voltage criteria for LVH, may be normal variant Diffuse Minor Nonspecific T wave abnormality Abnormal ECG When compared with ECG of 26-NOV-2019 12:44, Multifocal atrial tachycardia has replaced Sinus rhythm Criteria for Inferior infarct are no longer Present Confirmed by Sesar Abdi ([id number]) on 12/15/2019 12:06:07 PM Referred By: REFERRED SELF Confirmed By:Sesar Abdi
--- NOTE | 2019-12-15 16:07 | Hospitalist Progress Note ---
Date of Service December 15, 2019 Assessment & Plan (1) Acute respiratory failure with hypoxia: due to viral pneumonia with COVID 19 improved initially after plasma given evening of 11/26 12/08 has increasing oxygen requirement, cxr looked slightly worse, procalcitonin was negative, restarted decadron, re ordered convalescent plasma for 12/10 some increased distress, tachypnea on 12/14 after being on Oxymask for 12 hours RR in the 30-40 range, saturations holding but working a lot more to breathe asked respiratory therapy to place back on high flow, tolerated 40L at 40% FiO2 gradually improved her respiratory rate, more comfortable will keep on Decadron for now study supporting Decadron recommended 10 days but she got a little worse after it was stopped, improved when it was resumed keep potassium > 3.5 (2) Pneumonia due to COVID-19 virus: Patient has profound acute hypoxic respiratory failure clinical scenario consistent with COVID positive status bilateral infiltrates on CT chest down to oxymask on 12/13, had increased work of breathing on 12/14 placed back on HFNC but at 40L, only 40% FiO2, seemed to feel better will continue to work towards titrating off High flow restarted decadron 12/09/19 after completing dexamethasone 6mg IV daily x 10 days Remdesivir daily x 5 days, completed convalescent plasma given evening of 11/26. ordered additional unit 12/09, given 12/10 supportive care with high flow nasal canula, D dimer has trended downward over the last week procalcitonin 12/09 also low CTA chest on admission negative for PE, she has been on Lovenox 30 q12 since admission feel that D dimer is still due to acute inflammation, does not represent thrombosis BNP is normal when checked (3) Paroxysmal atrial fibrillation: went into afib on 12/14, intermittent likely the increased stress from working to breathe contributed went back to sinus tachycardia with PAC's will increase Lovenox to 50mg q12 for therapeutic dosing good response to Lopressor 12.5mg x 1 in the afternoon will make Lopressor 12.5mg BID monitor on tele (4) Diabetes: Novolog monitor sugars with dexamethasone use no hypoglycemia, no severe hyperglycemia either eating well continue basal dosing with the decadron (5) Hyperlipidemia: In the distant past patient has been on statins these will be held at this current time (6) Ileus: resolved (7) Elevated troponin: Elevated troponin of unclear significance at this time there is also a myocarditis associated with covid troponin down to 0.063 from 0.18 could be due to profound hypoxia at home, as troponin improved with supplemental oxygen no need to follow further, continues to deny chest pain, no EKG changes (8) Insomnia: will give Ativan 0.5mg PO HS PRN (9) Hypokalemia: resolved check BMP tomorrow (10) DVT prophylaxis: Patient is placed on Lovenox 30 subcu every 12 Patient confirmed she is a full code prognosis is guarded but patient remains determined and optimistic, she is alert and stronger each day updated her daughter over the phone 12/11 Admission and Anticipated Discharge Date Admission Date: November 26, 2019 Subjective patient feels worse this morning, she has a central chest pain, it is tender to touch she noticed it hurt when she was coughing HR was up this morning in 110-120 range, it was irregular EKG showed atrial fibrillation she was on the oxymask but working harder to breath than when she was on high flow nasal canula asked respiratory therapy to place her back on high flow, she tolerated 40L and 40 FiO2, less distress for afib will increase Lovenox to 50 q12 starting this evening will give a dose of metoprolol 12.5mg now patient more comfortable this evening, perhaps titrating down to oxymask put too much strain on her Review of Systems Review of Systems: All systems reviewed & are unremarkable except as noted in Subjective Constitutional: + fatigue and + weakness; no fever Respiratory: + cough, + dyspnea, + dyspnea on exertion and + pain on inspiration Cardiovascular: + chest pain (sternal, tender to palpation, hurts to cough) Physical Exam Constitutional: well developed and well nourished; no acute distress Eyes: PERRL, conjunctivae normal, anicteric sclerae ENMT: external ear and nose normal, oropharynx normal Neck: trachea midline, no thyromegaly Respiratory: + labored breathing, + cough and + tachypneic Auscultation: no crackles, no rales, no rhonchi and no wheezes Cardiovascular: Rate/Rhythm: regular rhythm and + tachycardic Heart Sounds: normal S1 and normal S2; no murmur Vessels: no JVD Extremities: normal capillary refill; no edema Gastrointestinal (Abdomen): normal bowel sounds, soft, nontender, no hepatosplenomegaly Musculoskeletal: no cyanosis or clubbing, extremities motor strength 5/5 Skin: no rashes, warm and dry Neurologic: patellar DTR's 2+ bilat, sensation intact and PERRL, EOMI, accommodation nl, no face palsy, no dysarthria Psychiatric: A+Ox3, euthymic affect Lymphatic: no cervical or axillary lymphadenopathy Results & Data Results & Data ([facility]) Vital Signs (Past 12 Hours) Vital Signs Temp Pulse Resp BP Pulse Ox 12/15/19 15:29 102 H 32 H 94 12/15/19 10:28 36.7 C 107 H 22 128/52 L 89 L 12/15/19 10:12 103 H 20 94 12/15/19 07:48 36.7 C 95 H 20 110/64 91 12/15/19 07:11 20 91 Laboratory Results Laboratory Results - last 24 hr 12/14/19 12/14/19 12/15/19 16:45 21:05 07:46 POC Glucose 120 H 108 H 77 12/15/19 11:51 POC Glucose 72 Medications Administered Current Inpatient Medications Acetaminophen (Acetaminophen 325 Mg Tab) 650 mg PO Q4H PRN PRN Reason: Pain or Fever Stop: 12/26/19 18:03 Last Admin: 12/11/19 19:00 Dose: 650 mg Documented by: Al Hydrox/Mg Hydrox/Simethicone (Aluminum/Magnesium Susp 30 Ml Udc) 15 ml PO Q4H PRN PRN Reason: Dyspepsia Stop: 12/26/19 18:03 Aspirin (Aspirin 81 Mg Ectab) 81 mg PO DAILY [facility]NELL Stop: 12/26/19 18:03 Last Admin: 12/15/19 09:04 Dose: 81 mg Documented by: Dextrose (Dextrose 50% 50 Ml Syringe) 25 - 50 ml IV UD PRN; Protocol PRN Reason: Hypoglycemia Protocol Stop: 12/26/19 18:03 Enoxaparin Sodium (Enoxaparin 1 Mg/Kg) 50 mg 1 mg/kg (50 mg) SC Q12H [facility] Stop: 01/14/20 19:59 Glucagon (Glucagon For Inj 1 Mg Vial) 1 mg SQ UD PRN; Protocol PRN Reason: Hypoglycemia Protocol Stop: 12/26/19 18:03 Glucose (Glucose 10 Tabs/Tube) 4 - 8 tabs PO UD PRN; Protocol PRN Reason: Hypoglycemia Protocol Stop: 12/26/19 18:03 Glucose (Glucose 40% Gel 15 Gm Tube) 15 - 30 gm PO UD PRN; Protocol PRN Reason: Hypoglycemia Protocol Stop: 12/26/19 18:03 Guaifenesin/Codeine Phosphate (Guaifenesin/Codeine 100mg/10mg 5ml Udc) 5 ml PO Q6H PRN PRN Reason: Cough Stop: 12/26/19 18:03 Dexamethasone Sodium Phosphate (6 mg/ Syringe) 1.5 mls @ 1 mls/min IV DAILY@0900 [facility] Stop: 01/09/20 08:59 Last Admin: 12/15/19 09:02 Dose: 1 mls/min Documented by: Insulin Aspart (Insulin Aspart 100 Units/Ml 3 Ml Pen) 0 units SC AC [facility] Stop: 01/10/20 07:29 Last Admin: 12/15/19 12:39 Dose: Not Given Documented by: Insulin Aspart (Insulin Aspart 100 Units/Ml 3 Ml Pen) 0 units SC HS [facility] Stop: 01/10/20 20:59 Last Admin: 12/14/19 23:57 Dose: Not Given Documented by: Insulin Human NPH (Novolin-N (Nph) Per Unit Charge) 11 units SQ DAILY@0900 [facility]; Protocol Stop: 12/15/19 23:59 Last Admin: 12/15/19 09:15 Dose: 11 units Documented by: Insulin Human NPH (Insulin Human Nph) 11 units SQ DAILY@0900 [facility]; Protocol Stop: 01/15/20 08:59 Ketorolac Tromethamine (Ketorolac Tromethamine 15 Mg/Ml Vial) 15 mg IV Q6H PRN PRN Reason: Pain Stop: 12/20/19 10:01 Lorazepam (Lorazepam 0.5 Mg Tab) 0.5 mg PO HS PRN PRN Reason: Insomnia Stop: 12/29/19 16:59 Last Admin: 12/14/19 21:47 Dose: 0.5 mg Documented by: Metoprolol Tartrate (Metoprolol Tartrate 25 Mg Tab) 12.5 mg PO NOW STA Stop: 12/15/19 16:04 Miscellaneous (Carbohydrates For Hypoglycemia ) 15 - 30 gm PO UD PRN PRN Reason: Hypoglycemia Protocol Stop: 12/26/19 18:03 Miscellaneous Information (Pharmacy Glycemic Mgmt Consult) 1 ea N/A UD PRN; Protocol PRN Reason: Consult Stop: 12/26/19 18:38 Ondansetron HCl (Ondansetron Inj 2 Mg/Ml 2 Ml Vial) 4 mg IV Q6H PRN PRN Reason: Nausea Stop: 12/26/19 18:03 Senna/Docusate Sodium (Docusate Sodium/Senna 50/8.6mg Tab) 2 tab PO QAM [facility] Stop: 12/27/19 08:59 Last Admin: 12/15/19 09:20 Dose: 2 tab Documented by: Zinc Sulfate (Zinc Sulfate 220 Mg Capsule) 220 mg PO QAM [facility] Stop: 12/27/19 08:59 Last Admin: 12/15/19 09:04 Dose: 220 mg Documented by: PG Care Time/CCT Total # of Minutes Spent Total Time Spent with Patient: Total time spent is greater than 50% in coordination of care (as documented) at patient's floor/unit and/or counseling patient: Coding Level of Care Code 73939 Subseq Hosp Care Lvl 3 Diagnoses Acute respiratory failure with hypoxia J96.01 Pneumonia due to COVID-19 virus U07.1; J12.89 Paroxysmal atrial fibrillation I48.0 Diabetes E11.9 Hyperlipidemia E78.5 Ileus K56.7 Elevated troponin R79.89 Insomnia G47.00 Hypokalemia E87.6 DVT prophylaxis Z29.9
[2019-12-15] MEDS ORDERED: METOPROLOL TARTRATE 25 MG TAB PO ONE (16:15)
[2019-12-15] MEDS ORDERED: ENOXAPARIN 1 MG/KG SC SCH (20:00)
[2019-12-15] MEDS: ENOXAPARIN INJ 60 MG/0.6 ML SYR SQ SCH (21:31)
[2019-12-15] MEDS: LORazepam 0.5 MG TAB PO PRN (21:33)
[2019-12-16 06:02] LABS: Hematocrit (blood only) 36.8 % (37-47); Hemoglobin 11.6 g/dL (12.0-16.0); Mean Corpuscular Hemoglobin 29.9 pg (25-34); Mean Corpuscular Hgb Conc 31.5 g/dL (32-36); Mean Corpuscular Volume 94.8 fL (80-100); Mean Platelet Volume 9.6 fL (7.4-10.4); Platelet Count 300 K/uL (130-400); RDW Standard Deviation 50.9 fL (36.4-46.3); Red Blood Count 3.88 M/uL (4.2-5.4); White Blood Count 12.53 K/uL (4.8-10.8)
[2019-12-16 06:39] LABS: BUN Creatinine Ratio 61.2 (10-20); Calcium 8.4 mg/dl (8.5-10.1); Creatinine Clr Calc Pharmacy 57.6 ml/min; Est GFR (African American) 100.1; Est GFR (Non-African American) 86.4; Magnesium 2.4 mg/dl (1.8-2.4); Potassium 3.8 mmol/L (3.5-5.1)
[2019-12-16] MEDS: DEXAMETHASONE SOD PHOSPHATE 6 MG in SYRINGE 0 ML IV SCH (08:59)
[2019-12-16] MEDS: ZINC SULFATE 220 MG CAPSULE PO SCH (08:59)
[2019-12-16] MEDS: ASPIRIN 81 MG ECTAB PO SCH (08:59)
[2019-12-16] MEDS: ENOXAPARIN INJ 60 MG/0.6 ML SYR SQ SCH ×2 (09:00→21:40)
[2019-12-16] MEDS ORDERED: INSULIN HUMAN NPH SQ SCH ×2 (09:00)
[2019-12-16] MEDS: METOPROLOL TARTRATE 25 MG TAB PO SCH ×2 (09:01→21:41)
[2019-12-16] MEDS: CEROVITE ADV FORMULA TAB PO SCH (09:02)
[2019-12-16] MEDS: DOCUSATE SODIUM/SENNA 50/8.6MG TAB PO SCH (09:21)
[2019-12-16] MEDS: INSULIN ASPART 100 UNITS/ML 3 ML PEN SC SCH ×4 (09:30→22:56)
--- NOTE | 2019-12-16 10:41 | Pharmacy Report ---
Pharmacy Glycemic Short Note 2 - Date of Service December 16, 2019 - Glycemic Short BSG Results (Last 24 hours): 12/10/19 12/10/19 12/11/19 12:19 17:01 08:03 Glucose POC Glucose 181 H 229 H 100 H 12/15/19 12/16/19 11:51 05:47 Glucose 80 POC Glucose 72 OUTPATIENT ANTIDIABETIC REGIMEN: * Per outpatient pharmacy, no diabetic agents on record * RN confirmed with patient that she is diet controlled only ASSESSMENT: 12/15: * Pt has received 20 units of insulin over the past 24hrs * 11 units of basal with Lantus * 9 units of prandial/correctional with NovoLog (low CHO intake at breakfast and lunch) * BSGs [id number] mg/dl * AM fasting BSG is below goal range for inpatient targets. Will decrease NPH dosing. * Post-prandial BSGs were all in or below goal range with the exception of dinner. Will lower "low" end of goal range to prevent CHO coverage from being subtracted off when BSG is normal but below goal range. 12/13 * Mild hypoglycemia noted on PRP (GLU 67) whereas accuchek 85. This was after receiving 12 units NPH yesterday - will decrease dose slightly * Post-prandial BSGs mostly well controlled w/ current Novolog/NPH regimen. PO intake appears good. * Dexamethasone 6mg IV daily continues 12/09 * Fasting BSG 100 this AM with 12 units NPH given yesterday AM and 4 units correctional insulin at HS - will continue the same as this dose of NPH has performed well in the recent past * Post-prandial BSGs well controlled on current Novolog doses when on same steroid dose in the past - continue the same for now. 12/08 * Excellent BSG control yesterday with only 1 unit of Novolog administered * Dexamethasone 6 mg IV has been restarted due to decline in clinical status. I will resume the previous doses of NPH and Novolog that patient required while on IV steroids. 12/07 * BSGs at goal * Fasting BSG 92 this AM with no basal insulin on board * Post-prandial BSGs well controlled yesterday using reduced Novolog doses. Will trial removal of prandial insulin at this time, given pt's A1c 6% and no steroid administration in last 48 hrs. 9/10 * BSGs again well controlled * Fasting BSG 71 this AM. Received 12 units NPH yesterday, but mid-day rather than AM. 1 unit Novolog given at bedtime as well. * Dexamethasone has been d/c'd. Will stop NPH administration today. Novolog doses will be titrated down. Suspect patient may not need prandial insulin in the near future, but given low physiologic half-life of dexamethasone will continue a reduced prandial dose today before d/c completely. PLAN FOR INPATIENT GLYCEMIC CONTROL: * Basal insulin -slight decrease * NPH 10 units SQ qAM (to be given with dexamethasone) - hold if dexamethasone dose held * Bolus insulin - lower "low" end of goal range from 110 to 100mg/dl * NovoLog per scale AC only and NOT at bedtime * Goal Range: Low 100 mg/dL - High 140 mg/dL * Correction Factor: 25 mg/dL/unit AC, however 100mg/dL/unit at HS to prevent overnight drop in BSGs observed in past * Nutritional / Prandial insulin: 1 unit per 7gm CHO consumed w/ meals
--- NOTE | 2019-12-16 19:21 | Hospitalist Progress Note ---
Date of Service December 16, 2019 Assessment & Plan (1) Acute respiratory failure with hypoxia: due to viral pneumonia with COVID 19 improved initially after plasma given evening of 11/26 12/08 has increasing oxygen requirement, cxr looked slightly worse, procalcitonin was negative, restarted decadron, re ordered convalescent plasma for 12/10 some increased distress, tachypnea on 12/14 after being on Oxymask for 12 hours RR in the 30-40 range, saturations holding but working a lot more to breathe continue hi-flow NC, wean as possible question if nocturnal desaturations might related to undiagnosed JAIME continue decadron (was doing better on decadron, then when initial course was stopped she started to worsen again, resumed) keep potassium > 3.5 (2) Pneumonia due to COVID-19 virus: Patient has profound acute hypoxic respiratory failure clinical scenario consistent with COVID positive status bilateral infiltrates on CT chest down to oxymask on 12/13, had increased work of breathing on 12/14 thus far does better on hiflow than mask, hopefully can wean over coming days to regular NC restarted decadron 12/09/19 after completing dexamethasone 6mg IV daily x 10 days Remdesivir daily x 5 days, completed convalescent plasma given evening of 11/26. ordered additional unit 12/09, given 12/10 supportive care with high flow nasal canula, D dimer has trended downward over the last week procalcitonin 12/09 also low does not appear c/w bacterial overgrowth pneumonia CTA chest on admission negative for PE, she has been on Lovenox 30 q12 since admission feel that D dimer is still due to acute inflammation, does not represent thrombosis BNP is normal when checked (3) Paroxysmal atrial fibrillation: went into afib on 12/14, intermittent likely the increased stress from working to breathe contributed went back to sinus tachycardia with PAC's rate controlled on lopressor anticoagulated w lovenox (4) Diabetes: Novolog SS sugars overall showing acceptable control w insulin in spite of steroids. (5) Hyperlipidemia: In the distant past patient has been on statins these will be held at this current time (6) Ileus: resolved (7) Elevated troponin: Elevated troponin of unclear significance at this time there is also a myocarditis associated with covid troponin down to 0.063 from 0.18 could be due to profound hypoxia at home, as troponin improved with supplemental oxygen no need to follow further, continues to deny chest pain, no EKG changes (8) Insomnia: continue Ativan 0.5mg PO HS PRN (9) Hypokalemia: resolved follow periodic BMP (10) DVT prophylaxis: anticoagulation w lovenox Patient confirmed she is a full code prognosis is guarded but patient remains determined and optimistic, she is alert and stronger each day updated her daughter over the phone 12/11 Admission and Anticipated Discharge Date Admission Date: November 26, 2019 Subjective feeling fairly well today! spent hours out of bed and in the chair breathing feeling better overall no cough no sob on hi flow noted to desat at night prior to covid - doesn't know of JAIME but does note that if she was to watch a TV show it would be highly likely she would fall asleep Review of Systems Review of Systems: All systems reviewed & are unremarkable except as noted in HPI & below Physical Exam Physical Exam: gen aao pleasant nad heent nc at mmm breathing unlabored no accessory muscles good effort on 35L hi flow skin no rashes no palllor or icterus neuro no focal deficits Results & Data Results & Data ([facility]) Vital Signs (Past 12 Hours) Vital Signs Temp Pulse Pulse Resp BP BP Pulse Ox 12/16/19 16:40 98.2 F 91 H 20 91/53 L 12/16/19 15:36 81 30 H 94 12/16/19 11:13 81 20 97 12/16/19 10:45 97.7 F 88 22 119/57 L 94 12/16/19 08:06 98.4 F 86 20 121/58 L 90 12/16/19 08:00 89 12/16/19 07:17 92 H 18 92 PG Care Time/CCT Total # of Minutes Spent Total Time Spent with Patient: Total time spent is greater than 50% in coordination of care (as documented) at patient's floor/unit and/or counseling patient: Coding Level of Care Code 42581 Subseq Hosp Care Lvl 2 Diagnoses Acute respiratory failure with hypoxia J96.01 Pneumonia due to COVID-19 virus U07.1; J12.89 Paroxysmal atrial fibrillation I48.0 Diabetes E11.9 Hyperlipidemia E78.5 Ileus K56.7 Elevated troponin R79.89 Insomnia G47.00 Hypokalemia E87.6 DVT prophylaxis Z29.9
[2019-12-16] MEDS: LORazepam 0.5 MG TAB PO PRN (21:51)
[2019-12-17] MEDS: DEXAMETHASONE SOD PHOSPHATE 6 MG in SYRINGE 0 ML IV SCH (08:45)
[2019-12-17] MEDS: ENOXAPARIN INJ 60 MG/0.6 ML SYR SQ SCH (08:46)
[2019-12-17] MEDS: ZINC SULFATE 220 MG CAPSULE PO SCH (08:48)
[2019-12-17] MEDS: CEROVITE ADV FORMULA TAB PO SCH (08:49)
[2019-12-17] MEDS: DOCUSATE SODIUM/SENNA 50/8.6MG TAB PO SCH (08:57)
[2019-12-17] MEDS ORDERED: INSULIN HUMAN NPH SQ SCH (09:00)
[2019-12-17] MEDS: INSULIN ASPART 100 UNITS/ML 3 ML PEN SC SCH ×4 (09:07→21:13)
[2019-12-17] MEDS: ASPIRIN 81 MG ECTAB PO SCH (09:54)
[2019-12-17] MEDS: METOPROLOL TARTRATE 25 MG TAB PO SCH ×2 (09:54→20:22)
--- NOTE | 2019-12-17 10:33 | Pharmacy Report ---
Pharmacy Glycemic Short Note 2 - Date of Service December 17, 2019 - Glycemic Short BSG Results (Last 24 hours): 12/15/19 12/15/19 12/16/19 17:00 20:36 08:05 POC Glucose 201 H 101 H 82 12/16/19 12/16/19 12/16/19 11:50 16:40 21:37 POC Glucose 93 177 H 144 H 12/17/19 07:50 POC Glucose 88 OUTPATIENT ANTIDIABETIC REGIMEN: * Per outpatient pharmacy, no diabetic agents on record * RN confirmed with patient that she is diet controlled only ASSESSMENT: 12/16: * Pt has received 28 units of insulin over the past 24hrs * 10 units of basal with Lantus * 18 units of prandial/correctional with NovoLog (low CHO intake at breakfast and lunch) * BSGs 59-45-889-144-88 mg/dl * AM fasting BSG is below goal range for inpatient targets. Will decrease NPH dosing. * Post-prandial BSGs are in goal range. No changes needed to CF/CR. Orders adjusted yesterday. 12/15: * Pt has received 20 units of insulin over the past 24hrs * 11 units of basal with Lantus * 9 units of prandial/correctional with NovoLog (low CHO intake at breakfast and lunch) * BSGs 72-80-291-101 mg/dl * AM fasting BSG is below goal range for inpatient targets. Will decrease NPH dosing. * Post-prandial BSGs were all in or below goal range with the exception of dinner. Will lower "low" end of goal range to prevent CHO coverage from being subtracted off when BSG is normal but below goal range. 12/13 * Mild hypoglycemia noted on PRP (GLU 67) whereas accuchek 85. This was after receiving 12 units NPH yesterday - will decrease dose slightly * Post-prandial BSGs mostly well controlled w/ current Novolog/NPH regimen. PO intake appears good. * Dexamethasone 6mg IV daily continues 12/09 * Fasting BSG 100 this AM with 12 units NPH given yesterday AM and 4 units correctional insulin at HS - will continue the same as this dose of NPH has performed well in the recent past * Post-prandial BSGs well controlled on current Novolog doses when on same steroid dose in the past - continue the same for now. 12/08 * Excellent BSG control yesterday with only 1 unit of Novolog administered * Dexamethasone 6 mg IV has been restarted due to decline in clinical status. I will resume the previous doses of NPH and Novolog that patient required while on IV steroids. 12/07 * BSGs at goal * Fasting BSG 92 this AM with no basal insulin on board * Post-prandial BSGs well controlled yesterday using reduced Novolog doses. Will trial removal of prandial insulin at this time, given pt's A1c 6% and no steroid administration in last 48 hrs. 12/06 * BSGs again well controlled * Fasting BSG 71 this AM. Received 12 units NPH yesterday, but mid-day rather than AM. 1 unit Novolog given at bedtime as well. * Dexamethasone has been d/c'd. Will stop NPH administration today. Novolog doses will be titrated down. Suspect patient may not need prandial insulin in the near future, but given low physiologic half-life of dexamethasone will continue a reduced prandial dose today before d/c completely. PLAN FOR INPATIENT GLYCEMIC CONTROL: * Basal insulin -slight decrease * NPH 9 units SQ qAM (to be given with dexamethasone) - hold if dexamethasone dose held * Bolus insulin - no change * NovoLog per scale AC only and NOT at bedtime * Goal Range: Low 100 mg/dL - High 140 mg/dL * Correction Factor: 25 mg/dL/unit AC, however 100mg/dL/unit at HS to p revent overnight drop in BSGs observed in past * Nutritional / Prandial insulin: 1 unit per 8 gm CHO consumed w/ meals
--- NOTE | 2019-12-17 17:18 | Hospitalist Progress Note ---
Date of Service December 17, 2019 Assessment & Plan (1) Acute respiratory failure with hypoxia: due to viral pneumonia with COVID 19 improved initially after plasma given evening of 11/26 12/08 has increasing oxygen requirement, cxr looked slightly worse, procalcitonin was negative, restarted decadron, re ordered convalescent plasma for 12/10 today she is breathing well on HFNC, only 25L at 55% FiO2 will re-try oxymask and see if she tolerates do not want her working too hard to breathe, she knows this is a marathon, not a sprint need to conserve her energy keep potassium > 3.5 (2) Pneumonia due to COVID-19 virus: Patient has profound acute hypoxic respiratory failure clinical scenario consistent with COVID positive status bilateral infiltrates on CT chest down to oxymask on 12/13, had increased work of breathing on 12/14 thus far does better on hiflow than mask today is down to 25L and 55% FiO2, will re-try oxymask today, see how she tolerates restarted decadron 12/09/19 after completing dexamethasone 6mg IV daily x 10 days Remdesivir daily x 5 days, completed convalescent plasma given evening of 11/26. ordered additional unit 12/09, given 12/10 supportive care with high flow nasal canula, D dimer has trended downward over the last week procalcitonin 12/09 also low does not appear c/w bacterial overgrowth pneumonia CTA chest on admission negative for PE, she has been on Lovenox 30 q12 since admission feel that D dimer is still due to acute inflammation, does not represent thrombosis BNP is normal when checked if she can tolerate oxymask the next step would be to titrate off Decadron will order repeat COVID test today to see if we can start process of removing isolation, try to get her more active (3) Paroxysmal atrial fibrillation: went into afib on 12/14, intermittent, appeared to be irregular in the s today likely the increased stress from working to breathe contributed rate controlled on lopressor, only 12.5mg BID anticoagulated w lovenox, change to Eliquis 2.5mg BID so we can stop injecting her (4) Diabetes: Novolog SS sugars overall showing acceptable control w insulin in spite of steroids. no hypoglycemia (5) Hyperlipidemia: In the distant past patient has been on statins these will be held at this current time (6) Ileus: resolved (7) Insomnia: continue Ativan 0.5mg PO HS PRN (8) Hypokalemia: resolved follow periodic BMP (9) DVT prophylaxis: anticoagulation with Eliquis 2.5mg BID, this is for atrial fibrillation anticipate her being here another week to slowly wean off oxygen repeat COVID test ordered today to try to see if we can move off isolation Admission and Anticipated Discharge Date Admission Date: November 26, 2019 Subjective patient doing well, was OOB in her chair for several hours ate entire breakfast and lunch, tolerating HFNC at 25L and 55% FiO2 discussed with respiratory therapy, will try oxymask again discussed with RN, if she has too much work of breathing then we can try HFNC again no labs today HR is stable in 90's on monitor, appears irregular with the afib will change her to Eliquis to stop giving Lovenox injections patient remains strong and determined to beat COVID, very up beat Review of Systems Review of Systems: All systems reviewed & are unremarkable except as noted in Subjective Physical Exam Constitutional: well developed and well nourished; no acute distress Eyes: PERRL, conjunctivae normal, anicteric sclerae ENMT: external ear and nose normal, oropharynx normal Neck: trachea midline, no thyromegaly Respiratory: normal respiratory effort and + cough; no respiratory distress Auscultation: no crackles, no rales, no rhonchi and no wheezes Cardiovascular: Rate/Rhythm: regular rate and + irregularly irregular Heart Sounds: normal S1 and normal S2; no murmur Vessels: no JVD Extremities: normal capillary refill; no edema Gastrointestinal (Abdomen): normal bowel sounds, soft, nontender, no hepato splenomegaly Musculoskeletal: no cyanosis or clubbing, extremities motor strength 5/5 Skin: no rashes, warm and dry Neurologic: patellar DTR's 2+ bilat, sensation intact and PERRL, EOMI, accommodation nl, no face palsy, no dysarthria Psychiatric: A+Ox3, euthymic affect Lymphatic: no cervical or axillary lymphadenopathy Results & Data Results & Data ([facility]) Vital Signs (Past 12 Hours) Vital Signs Temp Pulse Resp BP BP Pulse Ox 12/17/19 15:57 36.8 C 89 25 H 108/60 90 12/17/19 15:19 85 30 H 93 12/17/19 11:47 36.8 C 79 22 93/69 L 89 L 12/17/19 10:58 80 30 H 93 12/17/19 08:00 36.7 C 12/17/19 07:52 83 28 H 117/57 L 89 L 12/17/19 07:23 84 18 92 Medications Administered Current Inpatient Medications Acetaminophen (Acetaminophen 325 Mg Tab) 650 mg PO Q4H PRN PRN Reason: Pain or Fever Stop: 12/26/19 18:03 Last Admin: 12/11/19 19:00 Dose: 650 mg Documented by: Al Hydrox/Mg Hydrox/Simethicone (Aluminum/Magnesium Susp 30 Ml Udc) 15 ml PO Q4H PRN PRN Reason: Dyspepsia Stop: 12/26/19 18:03 Apixaban (Apixaban 2.5 Mg Tab) 5 mg PO BID [facility] Stop: 01/16/20 20:59 Aspirin (Aspirin 81 Mg Ectab) 81 mg PO DAILY DARNELL Stop: 12/26/19 18:03 Last Admin: 12/17/19 09:54 Dose: 81 mg Documented by: Dextrose (Dextrose 50% 50 Ml Syringe) 25 - 50 ml IV UD PRN; Protocol PRN Reason: Hypoglycemia Protocol Stop: 12/26/19 18:03 Glucagon (Glucagon For Inj 1 Mg Vial) 1 mg SQ UD PRN; Protocol PRN Reason: Hypoglycemia Protocol Stop: 12/26/19 18:03 Glucose (Glucose 10 Tabs/Tube) 4 - 8 tabs PO UD PRN; Protocol PRN Reason: Hypoglycemia Protocol Stop: 12/26/19 18:03 Glucose (Glucose 40% Gel 15 Gm Tube) 15 - 30 gm PO UD PRN; Protocol PRN Reason: Hypoglycemia Protocol Stop: 12/26/19 18:03 Guaifenesin/Codeine Phosphate (Guaifenesin/Codeine 100mg/10mg 5ml Udc) 5 ml PO Q6H PRN PRN Reason: Cough Stop: 12/26/19 18:03 Dexamethasone Sodium Phosphate (6 mg/ Syringe) 1.5 mls @ 1 mls/min IV DAILY@0900 DARNELL Stop: 01/09/20 08:59 Last Admin: 12/17/19 08:45 Dose: 1 mls/min Documented by: Insulin Aspart (Insulin Aspart 100 Units/Ml 3 Ml Pen) 0 units SC AC [facility] Stop: 01/10/20 07:29 Last Admin: 12/17/19 11:57 Dose: Not Given Documented by: Insulin Aspart (Insulin Aspart 100 Units/Ml 3 Ml Pen) 0 units SC HS [facility] Stop: 01/10/20 20:59 Last Admin: 12/16/19 22:56 Dose: Not Given Documented by: Insulin Human NPH (Insulin Human Nph) 9 units SQ DAILY@0900 [facility]; Protocol Stop: 01/16/20 08:59 Last Admin: 12/17/19 09:08 Dose: 9 units Documented by: Ketorolac Tromethamine (Ketorolac Tromethamine 15 Mg/Ml Vial) 15 mg IV Q6H PRN PRN Reason: Pain Stop: 12/20/19 10:01 Lorazepam (Lorazepam 0.5 Mg Tab) 0.5 mg PO HS PRN PRN Reason: Insomnia Stop: 12/29/19 16:59 Last Admin: 12/16/19 21:51 Dose: 0.5 mg Documented by: Metoprolol Tartrate (Metoprolol Tartrate 25 Mg Tab) 12.5 mg PO BID [facility] Stop: 01/15/20 08:59 Last Admin: 12/17/19 09:54 Dose: 12.5 mg Documented by: Miscellaneous (Carbohydrates For Hypoglycemia ) 15 - 30 gm PO UD PRN PRN Reason: Hypoglycemia Protocol Stop: 12/26/19 18:03 Miscellaneous Information (Pharmacy Glycemic Mgmt Consult) 1 ea N/A UD PRN; Protocol PRN Reason: Consult Stop: 12/26/19 18:38 Multivitamins/Minerals (Cerovite Adv Formula Tab) 1 tab PO QAM [facility] Stop: 01/15/20 08:59 Last Admin: 12/17/19 08:49 Dose: 1 tab Documented by: Ondansetron HCl (Ondansetron Inj 2 Mg/Ml 2 Ml Vial) 4 mg IV Q6H PRN PRN Reason: Nausea Stop: 12/26/19 18:03 Senna/Docusate Sodium (Docusate Sodium/Senna 50/8.6mg Tab) 2 tab PO QAM [facility] Stop: 12/27/19 08:59 Last Admin: 12/17/19 08:57 Dose: Not Given Documented by: Zinc Sulfate (Zinc Sulfate 220 Mg Capsule) 220 mg PO QAM [facility] Stop: 12/27/19 08:59 Last Admin: 12/17/19 08:48 Dose: 220 mg Documented by: PG Care Time/CCT Total # of Minutes Spent Total Time Spent with Patient: Total time spent is greater than 50% in coordination of care (as documented) at patient's floor/unit and/or counseling patient: Coding Level of Care Code 21429 Subseq Hosp Care Lvl 3 Diagnoses Acute respiratory failure with hypoxia J96.01 Pneumonia due to COVID-19 virus U07.1; J12.89 Paroxysmal atrial fibrillation I48.0 Diabetes E11.9 Hyperlipidemia E78.5 Ileus K56.7 Insomnia G47.00 Hypokalemia E87.6 DVT prophylaxis Z29.9
[2019-12-17] MEDS: APIXABAN 2.5 MG TAB PO SCH (20:22)
[2019-12-17] MEDS: LORazepam 0.5 MG TAB PO PRN (22:06)
[2019-12-18 05:53] LABS: Hematocrit (blood only) 34.8 % (37-47); Hemoglobin 11.2 g/dL (12.0-16.0); Mean Corpuscular Hemoglobin 30.9 pg (25-34); Mean Corpuscular Hgb Conc 32.2 g/dL (32-36); Mean Corpuscular Volume 95.9 fL (80-100); Mean Platelet Volume 9.4 fL (7.4-10.4); Platelet Count 316 K/uL (130-400); RDW Coefficient of Variation 15.3 % (11.5-14.5); RDW Standard Deviation 52.9 fL (36.4-46.3); Red Blood Count 3.63 M/uL (4.2-5.4); White Blood Count 11.37 K/uL (4.8-10.8)
[2019-12-18 06:31] LABS: BUN Creatinine Ratio 62.9 (10-20); Calcium 8.3 mg/dl (8.5-10.1); Creatinine Clr Calc Pharmacy 61.6 ml/min; Est GFR (African American) 102.2; Est GFR (Non-African American) 88.2; Magnesium 2.5 mg/dl (1.8-2.4); Potassium 4.3 mmol/L (3.5-5.1)
--- NOTE | 2019-12-18 08:12 | Hospitalist Progress Note ---
Date of Service December 18, 2019 Assessment & Plan (1) Acute respiratory failure with hypoxia: due to viral pneumonia with COVID 19 improved initially after plasma given evening of 11/26 12/08 has increasing oxygen requirement, cxr looked slightly worse, procalcitonin was negative, restarted decadron, re ordered convalescent plasma for 12/1012/18/2019 she is breathing well on 14 L oxygen mask (2) Pneumonia due to COVID-19 virus: Patient has profound acute hypoxic respiratory failure clinical scenario consistent with COVID positive status bilateral infiltrates on CT chest down to oxymask on 12/13, had increased work of breathing on 12/14 thus far does better on hiflow than mask today is down to 25L and 55% FiO2, will re-try oxymask today, see how she tolerates restarted decadron 12/09/19 after completing dexamethasone 6mg IV daily x 10 days Remdesivir daily x 5 days, completed convalescent plasma given evening of 11/26. ordered additional unit 12/09, given 12/10 D dimer has trended downward procalcitonin 12/09 also low does not appear c/w bacterial overgrowth pneumonia CTA chest on admission negative for PE, she has been on thromboembolic prevention anticoagulation since admission transition to Eliquis for atrial fibrillation thromboembolic prevention Elevated D dimer is still due to acute inflammation, does not represent thrombosis Repeat Covid testing on 12/17/2019 is still positive (3) Paroxysmal atrial fibrillation: went into afib on 12/14, intermittent, appeared to be irregular in the 90's today likely the increased stress from working to breathe contributed rate controlled on lopressor, only 12.5mg BID anticoagulated Eliquis 2.5mg BID (4) Diabetes: Novolog SS sugars overall showing acceptable control w insulin in spite of steroids. no hypoglycemia (5) Hyperlipidemia: In the distant past patient has been on statins these will be held at this current time (6) Ileus: resolved told mild distention and tympany will increase cathartic agents (7) Insomnia: continue Ativan 0.5mg PO HS PRN (8) Hypokalemia: resolved follow periodic BMP (9) DVT prophylaxis: anticoagulation with Eliquis 2.5mg BID, this is for atrial fibrillation anticipate her being here another week to slowly wean off oxygen repeat COVID test remains positive Admission and Anticipated Discharge Date Admission Date: November 26, 2019 Subjective in Patient is slightly fatigued had poor sleep last night is on oxygen mask patient doing well, was OOB in her chair for several hours HR is stable in 90's on monitor, appears irregular with the afib Started Eliquis for A. fib and now able to stop giving Lovenox injections patient remains strong and determined to beat COVID, very up beat Review of Systems Review of Systems: Mild respiratory distress and persistent fatigue no headache, blurry or double vision no speech or swallowing issues no chest pain, pressure or palpitations continues with shortness of breath, no cough or wheezes no abdominal pain, nausea or vomiting, diarrhea or constipation no dysuria, hematuria or frequency no focal joint pain or swelling no back pain, CVA tenderness or radicular pain no bruising, bleeding or rashes no focal signs of weakness or numbness or altered sensation no complaints or anxiety or depression. Physical Exam Physical Exam: The patient appeared well nourished and normally developed. Vital signs as documented. Head exam is normocephalic atraumatic no scleral icterus Neck is without JVD, thyromegaly, or carotid bruits. Lungs continue with coarse rhonchi at bases bilaterally, clear at apex Cardiac exam, Rhythm is regular.. No murmurs, rubs or gallops. Abdominal exam reveals normal bowel sounds, soft non tender, no masses Extremities are nonedematous and both pedal pulses are normal. Neurologic exam is alert and oriented, no focal loss of strength or sensation Skin is without bruises or rashes Psychologically is without concerns for anxiety or depression. Results & Data Results & Data ([facility]) Vital Signs (Past 12 Hours) Vital Signs Temp Pulse Pulse Pulse Resp BP Pulse Ox 12/18/19 07:53 97.7 F 74 33 H 119/60 92 12/18/19 07:21 72 12/18/19 04:00 97.9 F 83 137/67 93 12/18/19 03:29 77 18 93 12/18/19 00:00 97.7 F 75 18 107/84 95 12/17/19 23:30 80 18 93 PG Care Time/CCT Total # of Minutes Spent Total Time Spent with Patient: Total time spent is greater than 50% in coord ination of care (as documented) at patient's floor/unit and/or counseling patient: Coding Level of Care Code 93248 Subseq Hosp Care Lvl 3 Diagnoses Acute respiratory failure with hypoxia J96.01 Pneumonia due to COVID-19 virus U07.1; J12.89 Paroxysmal atrial fibrillation I48.0 Diabetes E11.9 Hyperlipidemia E78.5 Ileus K56.7 Insomnia G47.00 Hypokalemia E87.6 DVT prophylaxis Z29.9
[2019-12-18] MEDS: APIXABAN 2.5 MG TAB PO SCH ×2 (08:44→20:10)
[2019-12-18] MEDS: METOPROLOL TARTRATE 25 MG TAB PO SCH ×2 (08:44→20:10)
[2019-12-18] MEDS: DOCUSATE SODIUM/SENNA 50/8.6MG TAB PO SCH (08:46)
[2019-12-18] MEDS: CEROVITE ADV FORMULA TAB PO SCH (08:46)
[2019-12-18] MEDS: ASPIRIN 81 MG ECTAB PO SCH (08:46)
[2019-12-18] MEDS: ZINC SULFATE 220 MG CAPSULE PO SCH (08:46)
[2019-12-18] MEDS: INSULIN ASPART 100 UNITS/ML 3 ML PEN SC SCH ×4 (09:14→20:44)
--- NOTE | 2019-12-18 10:53 | Pharmacy Report ---
Pharmacy Glycemic Short Note 2 - Date of Service December 18, 2019 - Glycemic Short BSG Results (Last 24 hours): 12/17/19 12/17/19 12/17/19 11:45 15:50 20:12 Glucose POC Glucose 88 199 H 97 12/18/19 12/18/19 05:34 07:51 Glucose 76 POC Glucose 93 OUTPATIENT ANTIDIABETIC REGIMEN: * Per outpatient pharmacy, no diabetic agents on record * RN confirmed with patient that she is diet controlled only ASSESSMENT: 12/17: * Patient received 24 units of insulin over the last 24 hours, 9 of which were basal insulin. * AM fasting BSG again below goal (but not hypoglycemic) despite reduction in basal insulin yesterday. Will reduce further and add scale for BSG. * Dinner BSG yesterday >180 mg/dL and is consistently the highest BSG of the day, likely 2nd effects of dexamethasone administered in AM. Will tighten CHO ratio at lunch * Day 9 of *resumed* dexamethasone therapy. Per provider progress note, plan is to titrate off if/when she can tolerate oxymask 12/16: * Pt has received 28 units of insulin over the past 24hrs * 10 units of basal with Lantus * 18 units of prandial/correctional with NovoLog (low CHO intake at breakfast and lunch) * BSGs 40-45-554-144-88 mg/dl * AM fasting BSG is below goal range for inpatient targets. Will decrease NPH dosing. * Post-prandial BSGs are in goal range. No changes needed to CF/CR. Orders adjusted yesterday. 12/15: * Pt has received 20 units of insulin over the past 24hrs * 11 units of basal with Lantus * 9 units of prandial/correctional with NovoLog (low CHO intake at breakfast and lunch) * BSGs 33-06-672-101 mg/dl * AM fasting BSG is below goal range for inpatient targets. Will decrease NPH dosing. * Post-prandial BSGs were all in or below goal range with the exception of dinner. Will lower "low" end of goal range to prevent CHO coverage from being subtracted off when BSG is normal but below goal range. 12/13 * Mild hypoglycemia noted on PRP (GLU 67) whereas accuchek 85. This was after receiving 12 units NPH yesterday - will decrease dose slightly * Post-prandial BSGs mostly well controlled w/ current Novolog/NPH regimen. PO intake appears good. * Dexamethasone 6mg IV daily continues 12/09 * Fasting BSG 100 this AM with 12 units NPH given yesterday AM and 4 units correctional insulin at HS - will continue the same as this dose of NPH has performed well in the recent past * Post-prandial BSGs well controlled on current Novolog doses when on same steroid dose in the past - continue the same for now. 12/08 * Excellent BSG control yesterday with only 1 unit of Novolog administered * Dexamethasone 6 mg IV has been restarted due to decline in clinical status. I will resume the previous doses of NPH and Novolog that patient required while on IV steroids. 12/07 * BSGs at goal * Fasting BSG 92 this AM with no basal insulin on board * Post-prandial BSGs well controlled yesterday using reduced Novolog doses. Will trial removal of prandial insulin at this time, given pt's A1c 6% and no steroid administration in last 48 hrs. 12/06 * BSGs again well controlled * Fasting BSG 71 this AM. Received 12 units NPH yesterday, but mid-day rather than AM. 1 unit Novolog given at bedtime as well. * Dexamethasone has been d/c'd. Will stop NPH administration today. Novolog doses will be titrated down. Suspect patient may not need prandial insulin in the near future, but given low physiologic half-life of dexamethasone will continue a reduced prandial dose today before d/c completely. PLAN FOR INPATIENT GLYCEMIC CONTROL: * Basal insulin -slight decrease * NPH 5-9 units SQ qAM based on BSG, to be given with dexamethasone - hold if dexamethasone dose held * Bolus insulin - tighten lunch parameters * NovoLog per scale ACHS * Goal Range: Low 100 mg/dL - High 140 mg/dL * Correction Factor: 25 mg/dL/unit AC, however 100mg/dL/unit at HS to prevent overnight drop in BSGs observed in past * Nutritional / Prandial insulin: 8 g CHO/unit w/ breakfast and dinner. 7 g CHO/unit with lunch
[2019-12-18] MEDS: DEXAMETHASONE SOD PHOSPHATE 6 MG in SYRINGE 0 ML IV SCH (12:31)
[2019-12-18] MEDS: INSULIN HUMAN NPH SQ SCH (12:53)
[2019-12-18] MEDS: POLYETHYLENE (MIRALAX) 17 GM PACK PO SCH (20:11)
[2019-12-18] MEDS: LORazepam 0.5 MG TAB PO PRN (22:04)
[2019-12-19] MEDS: DEXAMETHASONE SOD PHOSPHATE 6 MG in SYRINGE 0 ML IV SCH (08:28)
[2019-12-19] MEDS: DOCUSATE SODIUM/SENNA 50/8.6MG TAB PO SCH (08:31)
[2019-12-19] MEDS: ASPIRIN 81 MG ECTAB PO SCH (08:31)
[2019-12-19] MEDS: CEROVITE ADV FORMULA TAB PO SCH (08:31)
[2019-12-19] MEDS: ZINC SULFATE 220 MG CAPSULE PO SCH (08:32)
[2019-12-19] MEDS: METOPROLOL TARTRATE 25 MG TAB PO SCH ×2 (08:32→20:40)
[2019-12-19] MEDS: APIXABAN 2.5 MG TAB PO SCH ×2 (08:32→20:40)
[2019-12-19] MEDS: INSULIN ASPART 100 UNITS/ML 3 ML PEN SC SCH ×4 (08:59→20:25)
[2019-12-19] MEDS: INSULIN HUMAN NPH SQ SCH (10:38)
--- NOTE | 2019-12-19 12:29 | Pharmacy Report ---
Pharmacy Glycemic Short Note 2 - Date of Service December 19, 2019 - Glycemic Short BSG Results (Last 24 hours): 12/18/19 12/18/19 12/18/19 11:56 16:41 20:07 POC Glucose 96 104 H 169 H 12/19/19 12/19/19 08:25 11:35 POC Glucose 84 191 H OUTPATIENT ANTIDIABETIC REGIMEN: * Per outpatient pharmacy, no diabetic agents on record * RN confirmed with patient that she is diet controlled only ASSESSMENT: 12/18: * BSG's ranged 84-169 mg/dL over the last 24 hours, with the exception of a BSG of 191 mg/dL prior to lunch today. However, this may be due to the patient consuming 25% of breakfast but no insulin administered. Uncertain how much CHO was consumed. * Due to steroids tapering from dexamethasone 6 mg IV to prednisone 30 mg po qAM starting tomorrow, will hold ongoing NPH as the doses have been low and the AM fasting BSG's have been persistently below goal despite reduction in NPH doses * Will loosen Novolog parameters starting tomorrow due to steroid taper * Steroid taper plan discussed w Dr. Krishnamurthy - will trial a slight reduction in steroid dose starting tomorrow and see if the patient tolerates clinically. At that point, if the patient tolerates the taper clinically, the taper can proceed. 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 Thus, this patient will require a minimum of 3 weeks of additional steroids, as prednisone 30 mg po daily x7 days, 20 mg po daily x7 days, then 10 mg po daily x7 days. Although a faster taper could be reasonable from a *disease improvement* standpoint, it should not be attempted for this patient due to likely HPA axis suppression and therefore increased risk of glucocorticoid withdrawal/adrenal insufficiency with a more rapid taper. If at any point concern for adrenal insufficiency arises or if disease worsens from the taper, a slower taper should be considered. 12/17: * Patient received 24 units of insulin over the last 24 hours, 9 of which were basal insulin. * AM fasting BSG again below goal (but not hypoglycemic) despite reduction in basal insulin yesterday. Will reduce further and add scale for BSG. * Dinner BSG yesterday >180 mg/dL and is consistently the highest BSG of the day, likely 2nd effects of dexamethasone administered in AM. Will tighten CHO ratio at lunch * Day 9 of *resumed* dexamethasone therapy. Per provider progress note, plan is to titrate off if/when she can tolerate oxymask 12/16: * Pt has received 28 units of insulin over the past 24hrs * 10 units of basal with Lantus * 18 units of prandial/correctional with NovoLog (low CHO intake at breakfast and lunch) * BSGs 52-59-554-144-88 mg/dl * AM fasting BSG is below goal range for inpatient targets. Will decrease NPH dosing. * Post-prandial BSGs are in goal range. No changes needed to CF/CR. Orders adjusted yesterday. 12/15: * Pt has received 20 units of insulin over the past 24hrs * 11 units of basal with Lantus * 9 units of prandial/correctional with NovoLog (low CHO intake at breakfast and lunch) * BSGs 46-24-131-101 mg/dl * AM fasting BSG is below goal range for inpatient targets. Will decrease NPH dosing. * Post-prandial BSGs were all in or below goal range with the exception of dinner. Will lower "low" end of goal range to prevent CHO coverage from being subtracted off when BSG is normal but below goal range. 12/13 * Mild hypoglycemia noted on PRP (GLU 67) whereas accuchek 85. This was after receiving 12 units NPH yesterday - will decrease dose slightly * Post-prandial BSGs mostly well controlled w/ current Novolog/NPH regimen. PO intake appears good. * Dexamethasone 6mg IV daily continues 12/09 * Fasting BSG 100 this AM with 12 units NPH given yesterday AM and 4 units correctional insulin at HS - will continue the same as this dose of NPH has performed well in the recent past * Post-prandial BSGs well controlled on current Novolog doses when on same steroid dose in the past - continue the same for now. 12/08 * Excellent BSG control yesterday with only 1 unit of Novolog administered * Dexamethasone 6 mg IV has been restarted due to decline in clinical status. I will resume the previous doses of NPH and Novolog that patient required while on IV steroids. 12/07 * BSGs at goal * Fasting BSG 92 this AM with no basal insulin on board * Post-prandial BSGs well controlled yesterday using reduced Novolog doses. Will trial removal of prandial insulin at this time, given pt's A1c 6% and no steroid administration in last 48 hrs. 12/06 * BSGs again well controlled * Fasting BSG 71 this AM. Received 12 units NPH yesterday, but mid-day rather than AM. 1 unit Novolog given at bedtime as well. * Dexamethasone has been d/c'd. Will stop NPH administration today. Novolog doses will be titrated down. Suspect patient may not need prandial insulin in the near future, but given low physiologic half-life of dexamethasone will continue a reduced prandial dose today before d/c completely. PLAN FOR INPATIENT GLYCEMIC CONTROL: * Basal insulin - on hold starting tomorrow * Bolus insulin - loosen starting tomorrow, at the start of the steroid taper * NovoLog per scale ACHS * Goal Range: Low 100 mg/dL - High 140 mg/dL On 12/18 * Correction Factor: 25 mg/dL/unit AC, however 100mg/dL/unit at HS to prevent overnight drop in BSGs observed in past * Nutritional / Prandial insulin: 8 g CHO/unit w/ breakfast and dinner. 7 g CHO/unit with lunch Starting 12/19 * Correction Factor: 30 mg/dL/unit AC, however 100mg/dL/unit at HS to prevent overnight drop in BSGs observed in past * Nutritional / Prandial insulin: 9 g CHO/unit AC
--- NOTE | 2019-12-19 17:26 | Hospitalist Progress Note ---
Date of Service December 19, 2019 Assessment & Plan (1) Acute respiratory failure with hypoxia: due to viral pneumonia with COVID 19 improved initially after plasma given evening of 11/26 12/08 had increasing oxygen requirement, cxr looked slightly worse, procalcitonin was negative, restarted decadron, re ordered convalescent plasma for 12/1012/19/2019 she is breathing well on 10 L oxygen mask (2) Pneumonia due to COVID-19 virus: Patient has profound acute hypoxic respiratory failure clinical scenario consistent with COVID positive status bilateral infiltrates on CT chest down to oxymask on 12/13, had increased work of breathing on 12/14 thus far does better on hiflow than mask today is down to 25L and 55% FiO2, will re-try oxymask today, see how she tolerates restarted decadron 12/09/19 after completing dexamethasone 6mg IV daily x 10 days Remdesivir daily x 5 days, completed convalescent plasma given evening of 11/26. ordered additional unit 12/09, given 12/10 D dimer has trended downward procalcitonin 12/09 also low does not appear c/w bacterial overgrowth pneumonia CTA chest on admission negative for PE, she has been on thromboembolic prevention anticoagulation since admission transition to Eliquis for atrial fibrillation thromboembolic prevention Elevated D dimer is still due to acute inflammation, does not represent thrombosis Repeat Covid testing on 12/17/2019 is still positive (3) Paroxysmal atrial fibrillation: went into afib on 12/14, intermittent, appeared to be irregular in the 90's today likely the increased stress from working to breathe contributed rate controlled on lopressor, only 12.5mg BID anticoagulated Eliquis 2.5mg BID (4) Diabetes: Novolog SS sugars overall showing acceptable control w insulin in spite of steroids. no hypoglycemia (5) Hyperlipidemia: In the distant past patient has been on statins these will be held at this current time (6) Ileus: resolved told mild distention and tympany will increase cathartic agents (7) Insomnia: continue Ativan 0.5mg PO HS PRN (8) Hypokalemia: resolved follow periodic BMP (9) DVT prophylaxis: anticoagulation with Eliquis 2.5mg BID, this is for atrial fibrillation anticipate her being here another week to slowly wean off oxygen repeat COVID test remains positive Admission and Anticipated Discharge Date Admission Date: November 26, 2019 Subjective Patient is doing well, was OOB in her chair for several hours able to tolerate lowering oxygen levels HR is stable in 90's on monitor, appears irregular with the afib Started Eliquis for A. fib and now able to stop giving Lovenox injections patient remains strong and determined to beat COVID Review of Systems Review of Systems: Mild respiratory distress and persistent fatigue no headache, blurry or double vision no speech or swallowing issues no chest pain, pressure or palpitations continues with shortness of breath, no cough or wheezes no abdominal pain, nausea or vomiting, diarrhea or constipation no dysuria, hematuria or frequency no focal joint pain or swelling no back pain, CVA tenderness or radicular pain no bruising, bleeding or rashes no focal signs of weakness or numbness or altered sensation no complaints or anxiety or depression. Physical Exam Physical Exam: The patient appeared well nourished and normally developed. Vital signs as documented. Head exam is normocephalic atraumatic no scleral icterus Neck is without JVD, thyromegaly, or carotid bruits. Lungs continue with coarse rhonchi at bases bilaterally, clear at apex Cardiac exam, Rhythm is regular.. No murmurs, rubs or gallops. Abdominal exam reveals normal bowel sounds, soft non tender, no masses Extremities are nonedematous and both pedal pulses are normal. Neurologic exam is alert and oriented, no focal loss of strength or sensation Skin is without bruises or rashes Psychologically is without concerns for anxiety or depression. Results & Data Results & Data ([facility]) Vital Signs (Past 12 Hours) Vital Signs Temp Pulse Pulse Resp BP BP Pulse Ox 12/19/19 16:05 97.9 F 102 H 23 109/68 97 12/19/19 12:00 97.7 F 82 18 124/68 94 12/19/19 07:54 97.5 F L 76 18 122/63 96 PG Care Time/CCT Total # of Minutes Spent Total Time Spent with Patient: Total time spent is greater than 50% in coordination of care (as documented) at patient's floor/unit and/or counseling patient: Coding Level of Care Code 48819 Subseq Hosp Care Lvl 2 Diagnoses Acute respiratory failure with hypoxia J96.01 Pneumonia due to COVID-19 virus U07.1; J12.89 Paroxysmal atrial fibrillation I48.0 Diabetes E11.9 Hyperlipidemia E78.5 Ileus K56.7 Insomnia G47.00 Hypokalemia E87.6 DVT prophylaxis Z29.9
[2019-12-19] MEDS: POLYETHYLENE (MIRALAX) 17 GM PACK PO SCH (20:35)
[2019-12-19] MEDS: LORazepam 0.5 MG TAB PO PRN (21:34)
[2019-12-20] MEDS: CEROVITE ADV FORMULA TAB PO SCH (09:15)
[2019-12-20] MEDS: DOCUSATE SODIUM/SENNA 50/8.6MG TAB PO SCH (09:15)
[2019-12-20] MEDS: predniSONE 10 MG TABLET PO SCH (09:15)
[2019-12-20] MEDS: ZINC SULFATE 220 MG CAPSULE PO SCH (09:15)
[2019-12-20] MEDS: ASPIRIN 81 MG ECTAB PO SCH (09:15)
[2019-12-20] MEDS: METOPROLOL TARTRATE 25 MG TAB PO SCH ×2 (09:15→21:08)
[2019-12-20] MEDS: APIXABAN 2.5 MG TAB PO SCH ×2 (09:16→21:07)
[2019-12-20] MEDS: INSULIN ASPART 100 UNITS/ML 3 ML PEN SC SCH ×4 (09:32→21:31)
--- NOTE | 2019-12-20 16:50 | Hospitalist Progress Note ---
Date of Service December 20, 2019 Assessment & Plan (1) Acute respiratory failure with hypoxia: due to viral pneumonia with COVID 19 improved initially after plasma given evening of 11/26 12/08 had increasing oxygen requirement, cxr looked slightly worse, procalcitonin was negative, restarted decadron, re ordered convalescent plasma for 12/1012/20/2019 she is breathing well on 9 L oxygen mask (2) Pneumonia due to COVID-19 virus: Patient has profound acute hypoxic respiratory failure clinical scenario consistent with COVID positive status bilateral infiltrates on CT chest down to oxymask on 12/13, had increased work of breathing on 12/14 thus far does better on hiflow than mask today is down to 25L and 55% FiO2, will re-try oxymask today, see how she tolerates restarted decadron 12/09/19 completed 10 days, 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 ordered additional unit 12/09, given 12/10 D dimer has trended downward procalcitonin 12/09 also low does not appear c/w bacterial overgrowth pneumonia CTA chest on admission negative for PE, she has been on thromboembolic prevention anticoagulation since admission transition to Eliquis for atrial fibrillation thromboembolic prevention Elevated D dimer is still due to acute inflammation, does not represent thrombosis Repeat Covid testing on 12/17/2019 is still positive (3) Paroxysmal atrial fibrillation: went into afib on 12/14, intermittent, appeared to be irregular in the 90's today likely the increased stress from working to breathe contributed rate controlled on lopressor, only 12.5mg BID anticoagulated Eliquis 2.5mg BID (4) Diabetes: Novolog SS sugars overall showing acceptable control w insulin in spite of steroids. no hypoglycemia (5) Hyperlipidemia: In the distant past patient has been on statins these will be held at this current time (6) Ileus: resolved told mild distention and tympany will increase cathartic agents (7) Insomnia: continue Ativan 0.5mg PO HS PRN (8) Hypokalemia: resolved follow periodic BMP (9) DVT prophylaxis: anticoagulation with Eliquis 2.5mg BID, this is for atrial fibrillation anticipate her being here another week to slowly wean off oxygen repeat COVID test remains positive Admission and Anticipated Discharge Date Admission Date: November 26, 2019 Subjective Patient continues to do well, was OOB in her chair for several hours able to tolerate lowering oxygen levels HR is stable in 90's on monitor, appears irregular with the afib Started Eliquis for A. fib and now able to stop giving Lovenox injections patient remains strong and determined to beat COVID Review of Systems Review of Systems: Mild respiratory distress and persistent fatigue no headache, blurry or double vision no speech or swallowing issues no chest pain, pressure or palpitations continues with shortness of breath, no cough or wheezes no abdominal pain, nausea or vomiting, diarrhea or constipation no dysuria, hematuria or frequency no focal joint pain or swelling no back pain, CVA tenderness or radicular pain no bruising, bleeding or rashes no focal signs of weakness or numbness or altered sensation no complaints or anxiety or depression. Constitutional: + fatigue and + weakness; no fever Eyes: + spots in vision Respiratory: + cough, + dyspnea, + dyspnea on exertion and + pain on inspiration Cardiovascular: + chest pain (sternal, tender to palpation, hurts to cough) Musculoskeletal: + muscle weakness Physical Exam Physical Exam: The patient appeared well nourished and normally developed. Vital signs as documented. Head exam is normocephalic atraumatic no scleral icterus Neck is without JVD, thyromegaly, or carotid bruits. Lungs continue with coarse rhonchi at bases bilaterally, clear at apex Cardiac exam, Rhythm is regular.. No murmurs, rubs or gallops. Abdominal exam reveals normal bowel sounds, soft non tender, no masses Extremities are nonedematous and both pedal pulses are normal. Neurologic exam is alert and oriented, no focal loss of strength or sensation Skin is without bruises or rashes Psychologically is without concerns for anxiety or depression. Results & Data Results & Data ([facility]) Vital Signs (Past 12 Hours) Vital Signs Temp Pulse Pulse Resp BP Pulse Ox 12/20/19 16:00 83 12/20/19 12:00 97.7 F 86 16 114/48 L 90 12/20/19 08:00 97.7 F 103 H 18 106/49 L 91 12/20/19 07:19 74 PG Care Time/CCT Total # of Minutes Spent Total Time Spent with Patient: Total time spent is greater than 50% in coordination of care (as documented) at patient's floor/unit and/or counseling patient: Coding Level of Care Code 60621 Subseq Hosp Care Lvl 2 Diagnoses Acute respiratory failure with hypoxia J96.01 Pneumonia due to COVID-19 virus U07.1; J12.89 Paroxysmal atrial fibrillation I48.0 Diabetes E11.9 Hyperlipidemia E78.5 Ileus K56.7 Insomnia G47.00 Hypokalemia E87.6 DVT prophylaxis Z29.9
[2019-12-20] MEDS: LORazepam 0.5 MG TAB PO PRN (21:08)
[2019-12-20] MEDS: POLYETHYLENE (MIRALAX) 17 GM PACK PO SCH (21:09)
[2019-12-21 06:30] LABS: Hematocrit (blood only) 35.2 % (37-47); Hemoglobin 11.1 g/dL (12.0-16.0); Mean Corpuscular Hemoglobin 30.1 pg (25-34); Mean Corpuscular Hgb Conc 31.5 g/dL (32-36); Mean Corpuscular Volume 95.4 fL (80-100); Mean Platelet Volume 9.4 fL (7.4-10.4); Platelet Count 391 K/uL (130-400); RDW Coefficient of Variation 15.3 % (11.5-14.5); RDW Standard Deviation 52.7 fL (36.4-46.3); Red Blood Count 3.69 M/uL (4.2-5.4); White Blood Count 12.52 K/uL (4.8-10.8)
[2019-12-21 07:07] LABS: Creatinine Clr Calc Pharmacy 67.1 ml/min; Est GFR (African American) 105.3; Est GFR (Non-African American) 90.9
[2019-12-21] MEDS: APIXABAN 2.5 MG TAB PO SCH ×2 (08:51→21:29)
[2019-12-21] MEDS: METOPROLOL TARTRATE 25 MG TAB PO SCH ×2 (08:51→21:29)
[2019-12-21] MEDS: predniSONE 10 MG TABLET PO SCH (08:52)
[2019-12-21] MEDS: ZINC SULFATE 220 MG CAPSULE PO SCH (08:52)
[2019-12-21] MEDS: DOCUSATE SODIUM/SENNA 50/8.6MG TAB PO SCH (08:52)
[2019-12-21] MEDS: ASPIRIN 81 MG ECTAB PO SCH (08:52)
[2019-12-21] MEDS: CEROVITE ADV FORMULA TAB PO SCH (08:52)
[2019-12-21] MEDS ORDERED: INSULIN HUMAN NPH SQ SCH (09:00)
[2019-12-21] MEDS: INSULIN ASPART 100 UNITS/ML 3 ML PEN SC SCH ×3 (09:30→22:39)
[2019-12-21] MEDS ORDERED: INSULIN ASPART 100 UNITS/ML 3 ML PEN SC SCH (11:30)
--- NOTE | 2019-12-21 12:40 | Pharmacy Report ---
Pharmacy Glycemic Short Note 2 - Date of Service December 21, 2019 - Glycemic Short BSG Results (Last 24 hours): 12/20/19 12/20/19 12/20/19 12:12 17:09 21:05 POC Glucose 230 H 230 H 127 H 12/21/19 12/21/19 08:03 12:06 POC Glucose 93 155 H OUTPATIENT ANTIDIABETIC REGIMEN: * Per outpatient pharmacy, no diabetic agents on record * RN confirmed with patient that she is diet controlled only ASSESSMENT: 12/20 * Prednisone 30 mg day 2 of anticipated 7. * Two BSG's >180 mg/dL yesterday - lunch elevation likely due to patient consumption of some CHO with breakfast (per RN) but no insulin admin. Dinner elevation likely 2nd insufficient CHO coverage at lunch when prednisone effect is most prominent. Will tighten lunch parameters today * AM fasting below goal range today, even with no basal insulin administered yesterday. Will continue to hold. 12/18: * BSG's ranged 84-169 mg/dL over the last 24 hours, with the exception of a BSG of 191 mg/dL prior to lunch today. However, this may be due to the patient consuming 25% of breakfast but no insulin administered. Uncertain how much CHO was consumed. * Due to steroids tapering from dexamethasone 6 mg IV to prednisone 30 mg po qAM starting tomorrow, will hold ongoing NPH as the doses have been low and the AM fasting BSG's have been persistently below goal despite reduction in NPH doses * Will loosen Novolog parameters starting tomorrow due to steroid taper * Steroid taper plan discussed w Dr. Krishnamurthy - will trial a slight reduction in steroid dose starting tomorrow and see if the patient tolerates clinically. At that point, if the patient tolerates the taper clinically, the taper can proceed. 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 Thus, this patient will require a minimum of 3 weeks of additional steroids, as prednisone 30 mg po daily x7 days, 20 mg po daily x7 days, then 10 mg po daily x7 days. Although a faster taper could be reasonable from a *disease improvement* standpoint, it should not be attempted for this patient due to likely HPA axis suppression and therefore increased risk of glucocorticoid withdrawal/adrenal insufficiency with a more rapid taper. If at any point concern for adrenal insufficiency arises or if disease worsens from the taper, a slower taper should be considered. 12/17: * Patient received 24 units of insulin over the last 24 hours, 9 of which were basal insulin. * AM fasting BSG again below goal (but not hypoglycemic) despite reduction in basal insulin yesterday. Will reduce further and add scale for BSG. * Dinner BSG yesterday >180 mg/dL and is consistently the highest BSG of the day, likely 2nd effects of dexamethasone administered in AM. Will tighten CHO ratio at lunch * Day 9 of *resumed* dexamethasone therapy. Per provider progress note, plan is to titrate off if/when she can tolerate oxymask 12/16: * Pt has received 28 units of insulin over the past 24hrs * 10 units of basal with Lantus * 18 units of prandial/correctional with NovoLog (low CHO intake at breakfast and lunch) * BSGs 93-40-293-144-88 mg/dl * AM fasting BSG is below goal range for inpatient targets. Will decrease NPH do sing. * Post-prandial BSGs are in goal range. No changes needed to CF/CR. Orders adjusted yesterday. 12/15: * Pt has received 20 units of insulin over the past 24hrs * 11 units of basal with Lantus * 9 units of prandial/correctional with NovoLog (low CHO intake at breakfast and lunch) * BSGs 22-25-027-101 mg/dl * AM fasting BSG is below goal range for inpatient targets. Will decrease NPH dosing. * Post-prandial BSGs were all in or below goal range with the exception of dinner. Will lower "low" end of goal range to prevent CHO coverage from being subtracted off when BSG is normal but below goal range. 12/13 * Mild hypoglycemia noted on PRP (GLU 67) whereas accuchek 85. This was after receiving 12 units NPH yesterday - will decrease dose slightly * Post-prandial BSGs mostly well controlled w/ current Novolog/NPH regimen. PO intake appears good. * Dexamethasone 6mg IV daily continues 12/09 * Fasting BSG 100 this AM with 12 units NPH given yesterday AM and 4 units correctional insulin at HS - will continue the same as this dose of NPH has performed well in the recent past * Post-prandial BSGs well controlled on current Novolog doses when on same steroid dose in the past - continue the same for now. 12/08 * Excellent BSG control yesterday with only 1 unit of Novolog administered * Dexamethasone 6 mg IV has been restarted due to decline in clinical status. I will resume the previous doses of NPH and Novolog that patient required while on IV steroids. 12/07 * BSGs at goal * Fasting BSG 92 this AM with no basal insulin on board * Post-prandial BSGs well controlled yesterday using reduced Novolog doses. Will trial removal of prandial insulin at this time, given pt's A1c 6% and no steroid administration in last 48 hrs. 12/06 * BSGs again well controlled * Fasting BSG 71 this AM. Received 12 units NPH yesterday, but mid-day rather than AM. 1 unit Novolog given at bedtime as well. * Dexamethasone has been d/c'd. Will stop NPH administration today. Novolog doses will be titrated down. Suspect patient may not need prandial insulin in the near future, but given low physiologic half-life of dexamethasone will continue a reduced prandial dose today before d/c completely. PLAN FOR INPATIENT GLYCEMIC CONTROL: * Basal insulin - none * Bolus insulin - tigthen lunch parameters * NovoLog per scale ACHS * Goal Range: Low 100 mg/dL - High 140 mg/dL Breakfast and dinner * Correction Factor: 30 mg/dL/unit * Nutritional / Prandial insulin: 8 g CHO/unit Lunch * Correction Factor: 25 mg/dL/unit * Nutritional / Prandial insulin: 7 g CHO/unit Bedtime * Correction Factor: 100 mg/dL/unit to prevent overnight drop in BSGs observed in past * Nutritional / Prandial insulin: none
--- NOTE | 2019-12-21 16:45 | Hospitalist Progress Note ---
Date of Service December 21, 2019 Assessment & Plan (1) Acute respiratory failure with hypoxia: due to viral pneumonia with COVID 19 improved initially after plasma given evening of 11/26 12/08 had increasing oxygen requirement, cxr looked slightly worse, procalcitonin was negative, now on prednisone long taper over 3 weeks, re ordered convalescent plasma for 12/1012/21/2019 she is breathing well on 9 L oxygen mask (2) Pneumonia due to COVID-19 virus: Patient has profound acute hypoxic respiratory failure clinical scenario consistent with COVID positive status bilateral infiltrates on CT chest today is down to 9 lliters oxymask restarted decadron 12/09/19 completed 10 days, concern for adrenal axis supression will have on 3 week prednisone taper Remdesivir daily x 5 days, completed convalescent plasma given evening of 11/26. ordered additional unit 12/09, given 12/10 D dimer has trended downward procalcitonin 12/09 also low does not appear c/w bacterial overgrowth pneumonia CTA chest on admission negative for PE, she has been on thromboembolic prevention anticoagulation since admission transition to Eliquis for atrial fibrillation thromboembolic prevention Elevated D dimer is still due to acute inflammation, does not represent thrombosis Repeat Covid testing on 12/17/2019 is still positive (3) Paroxysmal atrial fibrillation: went into afib on 12/14, intermittent, appeared to be irregular in the 90's today likely the increased stress from working to breathe contributed rate controlled on lopressor, only 12.5mg BID anticoagulated Eliquis 2.5mg BID (4) Diabetes: Novolog SS sugars overall showing acceptable control w insulin in spite of steroids. no hypoglycemia (5) Hyperlipidemia: In the distant past patient has been on statins these will be held at this current time (6) Ileus: resolved told mild distention and tympany will increase cathartic agents (7) Insomnia: continue Ativan 0.5mg PO HS PRN (8) Hypokalemia: resolved follow periodic BMP (9) DVT prophylaxis: anticoagulation with Eliquis 2.5mg BID, this is for atrial fibrillation anticipate her being here another week to slowly wean off oxygen repeat COVID test remains positive Admission and Anticipated Discharge Date Admission Date: November 26, 2019 Subjective Patient continues to do well, was OOB in her chair for several hours able to tolerate lowering oxygen levels HR is stable in 90's on monitor, appears irregular with the afib Started Eliquis for A. fib and now able to stop giving Lovenox injections patient remains strong and determined to beat COVID Review of Systems Review of Systems: Mild respiratory distress and persistent fatigue no headache, blurry or double vision no speech or swallowing issues no chest pain, pressure or palpitations continues with shortness of breath, no cough or wheezes no abdominal pain, nausea or vomiting, diarrhea or constipation no dysuria, hematuria or frequency no focal joint pain or swelling no back pain, CVA tenderness or radicular pain no bruising, bleeding or rashes no focal signs of weakness or numbness or altered sensation no complaints or anxiety or depression. Cardiovascular: + chest pain (sternal, tender to palpation, hurts to cough) Physical Exam Physical Exam: The patient appeared well nourished and normally developed. Vital signs as documented. Head exam is normocephalic atraumatic no scleral icterus Neck is without JVD, thyromegaly, or carotid bruits. Lungs continue with coarse rhonchi at bases bilaterally, clear at apex Cardiac exam, Rhythm is regular.. No murmurs, rubs or gallops. Abdominal exam reveals normal bowel sounds, soft non tender, no masses Extremities are nonedematous and both pedal pulses are normal. Neurologic exam is alert and oriented, no focal loss of strength or sensation Skin is without bruises or rashes Psychologically is without concerns for anxiety or depression. Results & Data Results & Data ([facility]) Vital Signs (Past 12 Hours) Vital Signs Temp Pulse Resp BP BP Pulse Ox 12/21/19 12:07 97.3 F L 82 16 99/52 L 97 12/21/19 07:58 97.9 F 81 16 108/60 92 PG Care Time/CCT Total # of Minutes Spent Total Time Spent with Patient: Total time spent is greater than 50% in coordination of care (as documented) at patient's floor/unit and/or counseling patient: Coding Level of Care Code 64931 Subseq Hosp Care Lvl 2 Diagnoses Acute respiratory failure with hypoxia J96.01 Pneumonia due to COVID-19 virus U07.1; J12.89 Paroxysmal atrial fibrillation I48.0 Diabetes E11.9 Hyperlipidemia E78.5 Ileus K56.7 Insomnia G47.00 Hypokalemia E87.6 DVT prophylaxis Z29.9
[2019-12-21] MEDS: LORazepam 0.5 MG TAB PO PRN (21:17)
[2019-12-21] MEDS: POLYETHYLENE (MIRALAX) 17 GM PACK PO SCH (21:30)
[2019-12-22] MEDS: INSULIN ASPART 100 UNITS/ML 3 ML PEN SC SCH ×4 (07:47→21:23)
[2019-12-22] MEDS: predniSONE 10 MG TABLET PO SCH (08:27)
[2019-12-22] MEDS: CEROVITE ADV FORMULA TAB PO SCH (08:27)
[2019-12-22] MEDS: DOCUSATE SODIUM/SENNA 50/8.6MG TAB PO SCH (08:28)
[2019-12-22] MEDS: METOPROLOL TARTRATE 25 MG TAB PO SCH ×2 (08:28→20:46)
[2019-12-22] MEDS: ASPIRIN 81 MG ECTAB PO SCH (08:28)
[2019-12-22] MEDS: ZINC SULFATE 220 MG CAPSULE PO SCH (08:28)
[2019-12-22] MEDS: APIXABAN 2.5 MG TAB PO SCH ×2 (08:29→20:46)
--- NOTE | 2019-12-22 09:18 | Pharmacy Report ---
Pharmacy Glycemic Short Note 2 - Date of Service December 22, 2019 - Glycemic Short BSG Results (Last 24 hours): 12/21/19 12/21/19 12/21/19 12:06 16:37 21:15 POC Glucose 155 H 156 H 190 H 12/22/19 08:22 POC Glucose 100 H OUTPATIENT ANTIDIABETIC REGIMEN: * Per outpatient pharmacy, no diabetic agents on record * RN confirmed with patient that she is diet controlled only ASSESSMENT: 12/21 * Prednisone 30 mg day 3 of anticipated 7 * AM fasting BSG in lower end of goal range - continue to hold basal insulin * HS BSG yesterday >180 mg/dL - possibly due to effects of prednisone administered in AM being more prominent at lunch and dinner but looser Novolog parameters at dinner as compared to lunch. Will tighten dinner parameters to be the same as lunch. Will continue to keep looser parameters for breakfast. Will continue very loose parameters at bedtime due to historical significant drop in BSG overnight from correctional insulin 12/20 * Prednisone 30 mg day 2 of anticipated 7. * Two BSG's >180 mg/dL yesterday - lunch elevation likely due to patient consumption of some CHO with breakfast (per RN) but no insulin admin. Dinner elevation likely 2nd insufficient CHO coverage at lunch when prednisone effect is most prominent. Will tighten lunch parameters today * AM fasting below goal range today, even with no basal insulin administered yesterday. Will continue to hold. 12/18: * BSG's ranged 84-169 mg/dL over the last 24 hours, with the exception of a BSG of 191 mg/dL prior to lunch today. However, this may be due to the patient consuming 25% of breakfast but no insulin administered. Uncertain how much CHO was consumed. * Due to steroids tapering from dexamethasone 6 mg IV to prednisone 30 mg po qAM starting tomorrow, will hold ongoing NPH as the doses have been low and the AM fasting BSG's have been persistently below goal despite reduction in NPH doses * Will loosen Novolog parameters starting tomorrow due to steroid taper * Steroid taper plan discussed w Dr. Krishnamurthy - will trial a slight reduction in steroid dose starting tomorrow and see if the patient tolerates clinically. At that point, if the patient tolerates the taper clinically, the taper can proceed. 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 Thus, this patient will require a minimum of 3 weeks of additional steroids, as prednisone 30 mg po daily x7 days, 20 mg po daily x7 days, then 10 mg po daily x7 days. Although a faster taper could be reasonable from a *disease improvement* standpoint, it should not be attempted for this patient due to likely HPA axis suppression and therefore increased risk of glucocorticoid withdrawal/adrenal insufficiency with a more rapid taper. If at any point concern for adrenal insufficiency arises or if disease worsens from the taper, a slower taper should be considered. 12/17: * Patient received 24 units of insulin over the last 24 hours, 9 of which were basal insulin. * AM fasting BSG again below goal (but not hypoglycemic) despite reduction in basal insulin yesterday. Will reduce further and add scale for BSG. * Dinner BSG yesterday >180 mg/dL and is consistently the highest BSG of the day, likely 2nd effects of dexamethasone administered in AM. Will tighten CHO ratio at lunch * Day 9 of *resumed* dexamethasone therapy. Per provider progress note, plan is to titrate off if/when she can tolerate oxymask 12/16: * Pt has received 28 units of insulin over the past 24hrs * 10 units of basal with Lantus * 18 units of prandial/correctional with NovoLog (low CHO intake at breakfast and lunch) * BSGs 50-20-381-144-88 mg/dl * AM fasting BSG is below goal range for inpatient targets. Will decrease NPH dosing. * Post-prandial BSGs are in goal range. No changes needed to CF/CR. Orders adjusted yesterday. 12/15: * Pt has received 20 units of insulin over the past 24hrs * 11 units of basal with Lantus * 9 units of prandial/correctional with NovoLog (low CHO intake at breakfast and lunch) * BSGs 44-49-982-101 mg/dl * AM fasting BSG is below goal range for inpatient targets. Will decrease NPH dosing. * Post-prandial BSGs were all in or below goal range with the exception of dinner. Will lower "low" end of goal range to prevent CHO coverage from being subtracted off when BSG is normal but below goal range. 12/13 * Mild hypoglycemia noted on PRP (GLU 67) whereas accuchek 85. This was after receiving 12 units NPH yesterday - will decrease dose slightly * Post-prandial BSGs mostly well controlled w/ current Novolog/NPH regimen. PO intake appears good. * Dexamethasone 6mg IV daily continues 12/09 * Fasting BSG 100 this AM with 12 units NPH given yesterday AM and 4 units correctional insulin at HS - will continue the same as this dose of NPH has performed well in the recent past * Post-prandial BSGs well controlled on current Novolog doses when on same steroid dose in the past - continue the same for now. 12/08 * Excellent BSG control yesterday with only 1 unit of Novolog administered * Dexamethasone 6 mg IV has been restarted due to decline in clinical status. I will resume the previous doses of NPH and Novolog that patient required while on IV steroids. 12/07 * BSGs at goal * Fasting BSG 92 this AM with no basal insulin on board * Post-prandial BSGs well controlled yesterday using reduced Novolog doses. Will trial removal of prandial insulin at this time, given pt's A1c 6% and no steroid administration in last 48 hrs. 12/06 * BSGs again well controlled * Fasting BSG 71 this AM. Received 12 units NPH yesterday, but mid-day rather than AM. 1 unit Novolog given at bedtime as well. * Dexamethasone has been d/c'd. Will stop NPH administration today. Novolog doses will be titrated down. Suspect patient may not need prandial insulin in the near future, but given low physiologic half-life of dexamethasone will continue a reduced prandial dose today before d/c completely. PLAN FOR INPATIENT GLYCEMIC CONTROL: * Basal insulin - continue to hold * Bolus insulin - tigthen dinner parameters * NovoLog per scale ACHS * Goal Range: Low 100 mg/dL - High 140 mg/dL Breakfast * Correction Factor: 30 mg/dL/unit * Nutritional / Prandial insulin: 8 g CHO/unit Lunch and Dinner * Correction Factor: 25 mg/dL/unit * Nutritional / Prandial insulin: 7 g CHO/unit Bedtime * Correction Factor: 100 mg/dL/unit to prevent overnight drop in BSGs observed in past * Nutritional / Prandial insulin: none
[2019-12-22] MEDS ORDERED: Nursing to Pharmacy Communication SCH (10:15)
[2019-12-22] MEDS: POLYETHYLENE (MIRALAX) 17 GM PACK PO SCH (11:58)
--- NOTE | 2019-12-22 15:16 | Hospitalist Progress Note ---
Date of Service December 22, 2019 Assessment & Plan (1) Acute respiratory failure with hypoxia: due to viral pneumonia with COVID 19 improved initially after plasma given evening of 11/26 Patient received convalescent plasma 11/26 and 12/10 She remains on long taper of steroids due to concern for adrenal suppression 12/21/2019 she is breathing well on 4L nc (2) Pneumonia due to COVID-19 virus: Patient has profound acute hypoxic respiratory failure clinical scenario consistent with COVID positive status bilateral infiltrates on CT chest today is down to 9 lliters oxymask restarted decadron 12/09/19 completed 10 days, concern for adrenal axis supression will have on 3 week prednisone taper Remdesivir daily x 5 days, completed convalescent plasma given evening of 11/26. ordered additional unit 12/09, given 12/10 D dimer has trended downward procalcitonin 12/09 also low does not appear c/w bacterial overgrowth pneumonia CTA chest on admission negative for PE, she has been on thromboembolic prevention anticoagulation since admission transition to Eliquis for atrial fibrillation thromboembolic prevention Elevated D dimer is still due to acute inflammation, does not represent thrombosis Repeat Covid testing on 12/17/2019 positive, testing on 12/21 is pending (3) Paroxysmal atrial fibrillation: went into afib on 12/14, intermittent, appeared to be irregular in the s today likely the increased stress from working to breathe contributed rate controlled on lopressor, only 12.5mg BID anticoagulated Eliquis 2.5mg BID (4) Diabetes: Novolog SS sugars overall showing acceptable control w insulin in spite of steroids. no hypoglycemia hopeful to reduce insulin need as patient comes off steroids (5) Hyperlipidemia: In the distant past patient has been on statins these will be held at this current time (6) Ileus: resolved with increased cathartic agents (7) Insomnia: continue Ativan 0.5mg PO HS PRN (8) Hypokalemia: resolved (9) DVT prophylaxis: anticoagulation with Eliquis 2.5mg BID, this is for atrial fibrillation anticipate her being here another week to slowly wean off oxygen repeat COVID test 12/21 patient was slated to go to a personal halfway prior to her illness she will likely need negative testing prior to transfer. Also once she is negative we will have more formal PT OT evaluations Admission and Anticipated Discharge Date Admission Date: November 26, 2019 Subjective Patient is a dramatic reduction in oxygen requirements now down to 4 L nasal cannula she is weak and deconditioned but overall in good spirits HR is stable in 90's on monitor, appears irregular with the afib Started Eliquis for A. fib patient remains strong and determined to beat COVID Review of Systems Review of Systems: Mild respiratory distress and persistent fatigue no headache, blurry or double vision no speech or swallowing issues no chest pain, pressure or palpitations Shortness of breath seems to be lessening, no cough or wheezes no abdominal pain, nausea or vomiting, diarrhea or constipation no dysuria, hematuria or frequency no focal joint pain or swelling no back pain, CVA tenderness or radicular pain no bruising, bleeding or rashes no focal signs of weakness or numbness or altered sensation no complaints or anxiety or depression. Musculoskeletal: + muscle weakness Physical Exam Physical Exam: The patient appeared well nourished and normally developed. Vital signs as documented. Head exam is normocephalic atraumatic no scleral icterus Neck is without JVD, thyromegaly, or carotid bruits. Lungs with reducing coarse rhonchi at bases bilaterally, remaining clear at apex Cardiac exam, Rhythm is regular.. No murmurs, rubs or gallops. Abdominal exam reveals normal bowel sounds, soft non tender, no masses Extremities are nonedematous and both pedal pulses are normal. Neurologic exam is alert and oriented, no focal loss of strength or sensation Skin is without bruises or rashes Psychologically is without concerns for anxiety or depression. Results & Data Results & Data ([facility]) Vital Signs (Past 12 Hours) Vital Signs Temp Pulse Resp BP Pulse Ox 12/22/19 12:00 97.9 F 79 18 103/61 96 12/22/19 08:25 97.9 F 90 18 99/49 L PG Care Time/CCT Total # of Minutes Spent Total Time Spent with Patient: Total time spent is greater than 50% in coordination of care (as documented) at patient's floor/unit and/or counseling patient: Coding Level of Care Code 44459 Subseq Hosp Care Lvl 2 Diagnoses Acute respiratory failure with hypoxia J96.01 Pneumonia due to COVID-19 virus U07.1; J12.89 Paroxysmal atrial fibrillation I48.0 Diabetes E11.9 Hyperlipidemia E78.5 Ileus K56.7 Insomnia G47.00 Hypokalemia E87.6 DVT prophylaxis Z29.9
[2019-12-22] MEDS: LORazepam 0.5 MG TAB PO PRN (20:44)
[2019-12-23] MEDS: INSULIN ASPART 100 UNITS/ML 3 ML PEN SC SCH ×4 (08:13→21:46)
[2019-12-23] MEDS: METOPROLOL TARTRATE 25 MG TAB PO SCH ×2 (09:19→20:14)
[2019-12-23] MEDS: CEROVITE ADV FORMULA TAB PO SCH (09:19)
[2019-12-23] MEDS: predniSONE 10 MG TABLET PO SCH (09:20)
[2019-12-23] MEDS: ZINC SULFATE 220 MG CAPSULE PO SCH (09:20)
[2019-12-23] MEDS: ASPIRIN 81 MG ECTAB PO SCH (09:20)
[2019-12-23] MEDS: DOCUSATE SODIUM/SENNA 50/8.6MG TAB PO SCH (09:20)
[2019-12-23] MEDS: APIXABAN 2.5 MG TAB PO SCH ×2 (09:21→20:14)
[2019-12-23] MEDS: POLYETHYLENE (MIRALAX) 17 GM PACK PO SCH (09:21)
--- NOTE | 2019-12-23 14:32 | Hospitalist Progress Note ---
Date of Service December 23, 2019 Assessment & Plan (1) Acute respiratory failure with hypoxia: due to viral pneumonia with COVID 19 improved initially after plasma given evening of 11/26 Patient received convalescent plasma 11/26 and 12/10 She remains on long taper of steroids due to concern for adrenal suppression she remains on 4 l nc covid test again positive 12/22/19 (2) Pneumonia due to COVID-19 virus: Patient has profound acute hypoxic respiratory failure clinical scenario consistent with COVID positive status bilateral infiltrates on CT chest now on 4 liters nc restarted decadron 12/09/19 completed 10 days, concern for adrenal axis supression will have on 3 week prednisone taper Remdesivir daily x 5 days, completed convalescent plasma given evening of 11/26. ordered additional unit 12/09, given 12/10 D dimer has trended downward procalcitonin 12/09 also low does not appear c/w bacterial overgrowth pneumonia CTA chest on admission negative for PE, she has been on thromboembolic prevention anticoagulation since admission transition to Eliquis for atrial fibrillation thromboembolic prevention Elevated D dimer is still due to acute inflammation, does not represent thrombosis Repeat Covid testing on 12/17/2019 positive, testing on 12/21 is pending (3) Paroxysmal atrial fibrillation: went into afib on 12/14, intermittent, appeared to be irregular in the s today likely the increased stress from working to breathe contributed rate controlled on lopressor, only 12.5mg BID anticoagulated Eliquis 2.5mg BID (4) Diabetes: Novolog SS sugars overall showing acceptable control w insulin in spite of steroids. no hypoglycemia hopeful to reduce insulin need as patient comes off steroids (5) Hyperlipidemia: In the distant past patient has been on statins these will be held at this current time (6) Ileus: resolved with increased cathartic agents (7) Insomnia: continue Ativan 0.5mg PO HS PRN (8) Hypokalemia: resolved (9) DVT prophylaxis: anticoagulation with Eliquis 2.5mg BID, this is for atrial fibrillation anticipate her being here another week to slowly wean off oxygen repeat COVID test 12/21 was positive for presence of covid 19, thepatient was slated to go to a personal detention prior to her illness she will likely need negative testing prior to transfer. PT OT evaluations daughter was updated on 12/22 and states she is fearful if her mom comes home while positive as she has a chronic pulmonary condition herself Admission and Anticipated Discharge Date Admission Date: November 26, 2019 Subjective Patient is a dramatic reduction in oxygen requirements now down to 4 L nasal cannula she is weak and deconditioned but overall in good spirits unfortunately her covid test was still positive on 12/21 HR is stable in 90's on monitor, appears irregular with the afib Started Eliquis for A. fib patient remains strong and determined to beat COVID Review of Systems Review of Systems: Mild respiratory distress and persistent fatigue no headache, blurry or double vision no speech or swallowing issues no chest pain, pressure or palpitations Shortness of breath seems to be lessening, no cough or wheezes no abdominal pain, nausea or vomiting, diarrhea or constipation no dysuria, hematuria or frequency no focal joint pain or swelling no back pain, CVA tenderness or radicular pain no bruising, bleeding or rashes no focal signs of weakness or numbness or altered sensation no complaints or anxiety or depression. Physical Exam Physical Exam: The patient appeared well nourished and normally developed. Vital signs as documented. Head exam is normocephalic atraumatic no scleral icterus Neck is without JVD, thyromegaly, or carotid bruits. Lungs with reducing coarse rhonchi at bases bilaterally, remaining clear at apex Cardiac exam, Rhythm is regular.. No murmurs, rubs or gallops. Abdominal exam reveals normal bowel sounds, soft non tender, no masses Extremities are nonedematous and both pedal pulses are normal. Neurologic exam is alert and oriented, no focal loss of strength or sensation Skin is without bruises or rashes Psychologically is without concerns for anxiety or depression. Results & Data Results & Data ([facility]) Vital Signs (Past 12 Hours) Vital Signs Temp Pulse Resp BP Pulse Ox 12/23/19 12:28 97.9 F 77 23 107/59 L 95 12/23/19 08:06 98.2 F 89 24 117/53 L 90 12/23/19 04:00 98.2 F 100 H 19 122/79 90 PG Care Time/CCT Total # of Minutes Spent Total Time Spent with Patient: Total time spent is greater than 50% in coordination of care (as documented) at patient's floor/unit and/or counseling patient: Coding Level of Care Code 03836 Subseq Hosp Care Lvl 2 Diagnoses Acute respiratory failure with hypoxia J96.01 Pneumonia due to COVID-19 virus U07.1; J12.89 Paroxysmal atrial fibrillation I48.0 Diabetes E11.9 Hyperlipidemia E78.5 Ileus K56.7 Insomnia G47.00 Hypokalemia E87.6 DVT prophylaxis Z29.9
[2019-12-23] MEDS: LORazepam 0.5 MG TAB PO PRN (20:14)
[2019-12-24 06:57] LABS: Basophils # (auto) 0.02 K/uL (0-0.2); Basophils % (auto) 0.2 %; Eosinophils % (auto) 3.3 %; Hematocrit (blood only) 37.4 % (37-47); Hemoglobin 11.8 g/dL (12.0-16.0); Immature Granulocytes # (auto) 0.14 K/uL (0.00-0.02); Immature Granulocytes % (auto) 1.1 %; Lymphocytes # (auto) 2.01 K/uL (1.2-3.4); Lymphocytes % (auto) 16.5 %; Mean Corpuscular Hemoglobin 30.3 pg (25-34); Mean Corpuscular Hgb Conc 31.6 g/dL (32-36); Mean Corpuscular Volume 95.9 fL (80-100); Mean Platelet Volume 9.2 fL (7.4-10.4); Monocytes # (auto) 1.12 K/uL (0.11-0.59); Monocytes % (auto) 9.2 %; Neutrophils # (auto) 8.51 K/uL (1.4-6.5); Neutrophils % (auto) 69.7 %; Platelet Count 428 K/uL (130-400); RDW Coefficient of Variation 15.4 % (11.5-14.5); RDW Standard Deviation 53.6 fL (36.4-46.3)
[2019-12-24 07:21] LABS: BUN Creatinine Ratio 54.9 (10-20); Calcium 8.7 mg/dl (8.5-10.1); Creatinine Clr Calc Pharmacy 56.6 ml/min; Est GFR (African American) 99.5; Est GFR (Non-African American) 85.8; Potassium 3.9 mmol/L (3.5-5.1)
[2019-12-24] MEDS: CEROVITE ADV FORMULA TAB PO SCH (09:40)
[2019-12-24] MEDS: ASPIRIN 81 MG ECTAB PO SCH (09:41)
[2019-12-24] MEDS: DOCUSATE SODIUM/SENNA 50/8.6MG TAB PO SCH (09:41)
[2019-12-24] MEDS: predniSONE 10 MG TABLET PO SCH (09:41)
[2019-12-24] MEDS: ZINC SULFATE 220 MG CAPSULE PO SCH (09:41)
[2019-12-24] MEDS: APIXABAN 2.5 MG TAB PO SCH ×2 (09:42→21:29)
[2019-12-24] MEDS: METOPROLOL TARTRATE 25 MG TAB PO SCH ×2 (09:42→21:30)
[2019-12-24] MEDS: POLYETHYLENE (MIRALAX) 17 GM PACK PO SCH (09:43)
--- NOTE | 2019-12-24 09:45 | Pharmacy Report ---
Glycemic Control Progress Note - Date of Service December 24, 2019 - Scope Glycemic Pharmacist consulted for glycemic control to write orders per [facility] inpatient glycemic control protocol. - Objective Accuchecks BSG(last 24 hours):: 12/23/19 12/23/19 12/23/19 12:26 16:48 20:06 Glucose POC Glucose 117 H 209 H 160 H 12/24/19 12/24/19 06:25 08:16 Glucose 84 POC Glucose 86 HbA1c:: Hemoglobin A1c 6.0 % (4.5-5.6) H 11/27/19 06:54 - Recent Pertinent Medications The patient is currently receiving: * Basal insulin: Lantus 0 units every 12 hours * Correctional Insulin: Novolog Correction per scale ACHS Goal Range: Low 100 mg/dL - High 140 mg/dL Correction Factor: 30 mg/dL/unit with breakfast and 25 mg/dL/unit with lunch and dinner * Prandial insulin: Per carb ratio of 1 unit per 8 grams CHO consumed with breakfast and 1 unit per 7 grams of CHO consumed with lunch and dinner - Outpatient Anti-Diabetic Meds diet-controlled - Assessment & Plan ASSESSMENT: * See progress note from 11/26/19 for more background info, in short: * Pt receiving SQ basal bolus insulin regimen for hyperglycemia secondary to baseline DM (outpatient regimen on hold) and steroids (currently on prednisone 30 mg daily) * Patient is currently receiving an average of 16 units of insulin per day * 0 units of basal insulin * 16 units of prandial/correctional insulin * BSGs ranging 89 - 209 mg/dl over the past 24hrs * Changes needed to insulin regimen: * AM Fasting BSG = 86 mg/dl. This is in goal range for patient based on inpatient targets and co-morbidities. Therefore Basal insulin will continue to be held. * Post-prandial BSGs are reasonable except for dinner BSG. Tighten carbohydrate ratio for lunch and dinner. * Total daily dose = ~20 units. Tightened Novolog. PLAN FOR INPATIENT GLYCEMIC CONTROL: * Continuing correction factor of 25 mg/dl/unit * Changing carb ratio to 1 unit per 6 grams CHO consumed * Continuing goal range of Low 100 mg/dL - High 140 mg/dL * Please note that the plan above was derived based on current level of insulin resistance and hospital stress. These recommendations are appropriate for inpatient admission only. Plan of care upon discharge will need to be reassessed to avoid potential outpatient hypo/hyperglycemia. Thank you.
[2019-12-24] MEDS: INSULIN ASPART 100 UNITS/ML 3 ML PEN SC SCH ×4 (10:05→22:11)
--- NOTE | 2019-12-24 14:19 | Hospitalist Progress Note ---
Date of Service December 24, 2019 Assessment & Plan (1) Acute respiratory failure with hypoxia: due to viral pneumonia with COVID 19 improved initially after plasma given evening of 11/26 Patient received convalescent plasma 11/26 and 12/10 She remains on long taper of steroids due to concern for adrenal suppression Pt has oxygen requirements reduced to 2 L, occasional desaturations with exertion pt has negative covid test 12/23, will need another before removing restrictions (2) Pneumonia due to COVID-19 virus: Patient had profound acute hypoxic respiratory failure clinical scenario consistent with COVID positive status bilateral infiltrates on initial CT chest now on 2 liters nc restarted decadron 12/09/19 completed 10 days, concern for adrenal axis supression will have on 3 week prednisone taper( 30 mg/d x 1 week, 20/day x 1 week, 10 a day) Remdesivir daily x 5 days, completed convalescent plasma given evening of 11/26. ordered additional unit 12/09, given 12/10 D dimer has trended downward procalcitonin 12/09 also low does not appear c/w bacterial overgrowth pneumonia CTA chest on admission negative for PE, she has been on thromboembolic prevention anticoagulation since admission transition to Eliquis for atrial fibrillation thromboembolic prevention Elevated D dimer is still due to acute inflammation, does not represent thrombosis (3) Paroxysmal atrial fibrillation: went into afib on 12/14, intermittent, appeared to be irregular in the s today likely the increased stress from working to breathe contributed rate controlled on lopressor, only 12.5mg BID anticoagulated Eliquis 2.5mg BID (4) Diabetes: Novolog SS sugars overall showing acceptable control w insulin in spite of steroids. no hypoglycemia hopeful to reduce insulin need as patient comes off steroids (5) Hyperlipidemia: In the distant past patient has been on statins these will be held at this current time (6) Ileus: resolved with increased cathartic agents (7) Insomnia: continue Ativan 0.5mg PO HS PRN (8) Hypokalemia: resolved (9) DVT prophylaxis: anticoagulation with Eliquis 2.5mg BID, this is for atrial fibrillation anticipate her being here another week to slowly wean off oxygen repeat COVID test 12/23 was negative PT OT evaluations Admission and Anticipated Discharge Date Admission Date: November 26, 2019 Subjective Patient continues with reduction in oxygen requirements now down to 2 L nasal cannula 12/24/19 pt has had her first negative covid test!!! she is weak and deconditioned but overall in good spirits will need PT/Ot for further evaluation HR is stable in 90's on monitor, appears irregular with the afib Started Eliquis for A. fib Review of Systems Review of Systems: Mild respiratory distress and persistent fatigue no headache, blurry or double vision no speech or swallowing issues no chest pain, pressure or palpitations Shortness of breath seems to be lessening, no cough or wheezes no abdominal pain, nausea or vomiting, diarrhea or constipation no dysuria, hematuria or frequency no focal joint pain or swelling no back pain, CVA tenderness or radicular pain no bruising, bleeding or rashes no focal signs of weakness or numbness or altered sensation no complaints or anxiety or depression. Physical Exam Physical Exam: The patient appeared well nourished and normally developed. Vital signs as documented. Head exam is normocephalic atraumatic no scleral icterus Neck is without JVD, thyromegaly, or carotid bruits. Lungs with reducing coarse rhonchi at bases bilaterally, remaining clear at apex Cardiac exam, Rhythm is regular.. No murmurs, rubs or gallops. Abdominal exam reveals normal bowel sounds, soft non tender, no masses Extremities are nonedematous and both pedal pulses are normal. Neurologic exam is alert and oriented, no focal loss of strength or sensation Skin is without bruises or rashes Psychologically is without concerns for anxiety or depression. Results & Data Results & Data ([facility]) Vital Signs (Past 12 Hours) Vital Signs Temp Pulse Pulse Pulse Resp BP BP 12/24/19 11:50 97.9 F 88 23 95/60 L 12/24/19 08:18 97.9 F 88 23 124/55 L 12/24/19 08:00 78 12/24/19 04:22 98.1 F 94 H 24 149/72 H Pulse Ox 12/24/19 11:50 94 12/24/19 08:18 93 12/24/19 08:00 12/24/19 04:22 94 PG Care Time/CCT Total # of Minutes Spent Total Time Spent with Patient: Total time spent is greater than 50% in coordination of care (as documented) at patient's floor/unit and/or counseling patient: Coding Level of Care Code 22813 Subseq Hosp Care Lvl 2 Diagnoses Acute respiratory failure with hypoxia J96.01 Pneumonia due to COVID-19 virus U07.1; J12.89 Paroxysmal atrial fibrillation I48.0 Diabetes E11.9 Hyperlipidemia E78.5 Ileus K56.7 Insomnia G47.00 Hypokalemia E87.6 DVT prophylaxis Z29.9
[2019-12-24] MEDS: LORazepam 0.5 MG TAB PO PRN (21:23)
[2019-12-25] MEDS: METOPROLOL TARTRATE 25 MG TAB PO SCH ×2 (08:18→20:52)
[2019-12-25] MEDS: APIXABAN 2.5 MG TAB PO SCH ×2 (08:20→20:52)
[2019-12-25] MEDS: DOCUSATE SODIUM/SENNA 50/8.6MG TAB PO SCH (08:21)
[2019-12-25] MEDS: CEROVITE ADV FORMULA TAB PO SCH (08:23)
[2019-12-25] MEDS: predniSONE 10 MG TABLET PO SCH (08:24)
[2019-12-25] MEDS: ZINC SULFATE 220 MG CAPSULE PO SCH (08:24)
[2019-12-25] MEDS: POLYETHYLENE (MIRALAX) 17 GM PACK PO SCH (08:24)
[2019-12-25] MEDS: ASPIRIN 81 MG ECTAB PO SCH (08:25)
--- NOTE | 2019-12-25 09:25 | Hospitalist Progress Note ---
Date of Service December 25, 2019 Assessment & Plan (1) Acute respiratory failure with hypoxia: due to viral pneumonia with COVID 19 improved initially after plasma given evening of 11/26 Patient received convalescent plasma 11/26 and 12/10 She remains on long taper of steroids due to concern for adrenal suppression Pt has oxygen requirements reduced to 2 L, occasional desaturations with exertion pt has negative covid test 12/23 and another negative covid on 12/24 will discontinue isolation precautions transfer off telemetry consult PT/OT might be ready for discharge as early as tomorrow will need a two step prior to discharge (2) Pneumonia due to COVID-19 virus: Patient had profound acute hypoxic respiratory failure clinical scenario consistent with COVID positive status bilateral infiltrates on initial CT chest now on 2 liters nc, desaturates with movement restarted decadron 12/09/19 completed 10 days, concern for adrenal axis supression will have on 3 week prednisone taper( 30 mg/d x 1 week, 20/day x 1 week, 10 a day) Remdesivir daily x 5 days, completed convalescent plasma given evening of 11/26. ordered additional unit 12/09, given 12/10 D dimer trended downward, peaked at 35,000 procalcitonin 12/09 also low does not appear c/w bacterial overgrowth pneumonia CTA chest on admission negative for PE, she has been on thromboembolic prevention anticoagulation since admission transition to Eliquis for atrial fibrillation thromboembolic prevention Elevated D dimer is still due to acute inflammation, does not represent thrombosis (3) Paroxysmal atrial fibrillation: went into afib on 12/14, intermittent, appeared to be irregular in the s today likely the increased stress from working to breathe contributed rate controlled on lopressor, only 12.5mg BID anticoagulated Eliquis 2.5mg BID rates stable, can downgrade to medical floor (4) Diabetes: Novolog SS sugars overall showing acceptable control w insulin in spite of steroids. no hypoglycemia hopeful to reduce insulin need as patient comes off steroids (5) Hyperlipidemia: In the distant past patient has been on statins these will be held at this current time (6) Ileus: resolved with increased cathartic agents (7) Insomnia: continue Ativan 0.5mg PO HS PRN (8) Hypokalemia: resolved (9) DVT prophylaxis: anticoagulation with Eliquis 2.5mg BID, this is for atrial fibrillation anticipate her being here 1-2 more days now with two negative COVID tests, can stop isolation PT OT evaluations pending, she lives independently with her daughter Admission and Anticipated Discharge Date Admission Date: November 26, 2019 Subjective patient doing well, sitting up in her chair, no distress with 2L NC eating well discussed therapy, she will do her best, assess her strength, prior to being hospitalized she was living independently at home with her daughter will get a two step tomorrow spoke with daughter, may be ready for discharge as early as tomorrow COVID 19 repeat test was negative this morning, this gives her two negative tests, will d/c isolation, patient very pleased about this Review of Systems Review of Systems: All systems reviewed & are unremarkable except as noted in Subjective Constitutional: + weakness; no fever and no fatigue Respiratory: + dyspnea on exertion; no cough and no dyspnea Cardiovascular: no chest pain Gastrointestinal: no abdominal pain, no nausea, no vomiting, no constipation and no diarrhea/loose stools Physical Exam Constitutional: well developed and well nourished; no acute distress Eyes: PERRL, conjunctivae normal, anicteric sclerae ENMT: external ear and nose normal, oropharynx normal Neck: trachea midline, no thyromegaly Respiratory: normal respiratory effort; no respiratory distress Auscultation: no crackles, no rales, no rhonchi and no wheezes Cardiovascular: Rate/Rhythm: + tachycardic and + irregularly irregular Heart Sounds: normal S1 and normal S2; no murmur Vessels: no JVD Extremities: normal capillary refill; no edema Gastrointestinal (Abdomen): normal bowel sounds, soft, nontender, no hepatosplenomegaly Musculoskeletal: no cyanosis or clubbing, extremities motor strength 5/5 Skin: no rashes, warm and dry Neurologic: patellar DTR's 2+ bilat, sensation intact and PERRL, EOMI, accommodation nl, no face palsy, no dysarthria Psychiatric: A+Ox3, euthymic affect Lymphatic: no cervical or axillary lymphadenopathy Results & Data Results & Data ([facility]) Vital Signs (Past 12 Hours) Vital Signs Temp Pulse Pulse Resp BP BP Pulse Ox 12/25/19 07:38 36.7 C 77 29 H 129/58 L 91 12/25/19 04:00 36.6 C 76 24 114/64 93 12/24/19 23:45 36.5 C 68 18 104/51 L 98 Laboratory Results Laboratory Results - last 24 hr 12/24/19 12/24/19 12/24/19 11:49 16:43 20:56 POC Glucose 139 H 203 H 197 H COVID-19 Eval Order SARS-CoV-2, RNA, NAAT 12/24/19 12/24/19 12/25/19 Unknown Unknown 07:36 POC Glucose 88 COVID-19 Eval Order Covid19 [facility] SARS-CoV-2, RNA, NAAT NEGATIVE 12/25/19 12/25/19 08:20 08:20 POC Glucose COVID-19 Eval Order Covid19 [facility] SARS-CoV-2, RNA, NAAT NEGATIVE Medications Administered Current Inpatient Medications Acetaminophen (Acetaminophen 325 Mg Tab) 650 mg PO Q4H PRN PRN Reason: Pain or Fever Stop: 12/26/19 18:03 Last Admin: 12/11/19 19:00 Dose: 650 mg Documented by: Al Hydrox/Mg Hydrox/Simethicone (Aluminum/Magnesium Susp 30 Ml Udc) 15 ml PO Q4H PRN PRN Reason: Dyspepsia Stop: 12/26/19 18:03 Apixaban (Apixaban 2.5 Mg Tab) 2.5 mg PO BID [facility] Stop: 01/16/20 20:59 Last Admin: 12/25/19 08:20 Dose: 2.5 mg Documented by: Aspirin (Aspirin 81 Mg Ectab) 81 mg PO DAILY [facility] Stop: 12/26/19 18:03 Last Admin: 12/25/19 08:25 Dose: 81 mg Documented by: Dextrose (Dextrose 50% 50 Ml Syringe) 25 - 50 ml IV UD PRN; Protocol PRN Reason: Hypoglycemia Protocol Stop: 12/26/19 18:03 Glucagon (Glucagon For Inj 1 Mg Vial) 1 mg SQ UD PRN; Protocol PRN Reason: Hypoglycemia Protocol Stop: 12/26/19 18:03 Glucose (Glucose 10 Tabs/Tube) 4 - 8 tabs PO UD PRN; Protocol PRN Reason: Hypoglycemia Protocol Stop: 12/26/19 18:03 Glucose (Glucose 40% Gel 15 Gm Tube) 15 - 30 gm PO UD PRN; Protocol PRN Reason: Hypoglycemia Protocol Stop: 12/26/19 18:03 Guaifenesin/Codeine Phosphate (Guaifenesin/Codeine 100mg/10mg 5ml Udc) 5 ml PO Q6H PRN PRN Reason: Cough Stop: 12/26/19 18:03 Insulin Aspart (Insulin Aspart 100 Units/Ml 3 Ml Pen) 0 units SC HS [facility] Stop: 01/10/20 20:59 Last Admin: 12/24/19 22:11 Dose: 1 units Documented by: Insulin Aspart (Insulin Aspart 100 Units/Ml 3 Ml Pen) 0 units SC DAILY@0730 [facility]; Protocol Stop: 01/22/20 07:29 Last Admin: 12/24/19 10:05 Dose: 6 units Documented by: Insulin Aspart (Insulin Aspart 100 Units/Ml 3 Ml Pen) 0 units SC BID@1130,1630 [facility] Stop: 01/21/20 11:29 Last Admin: 12/24/19 17:55 Dose: 10 units Documented by: Lorazepam (Lorazepam 0.5 Mg Tab) 0.5 mg PO HS PRN PRN Reason: Insomnia Stop: 12/29/19 16:59 Last Admin: 12/24/19 21:23 Dose: 0.5 mg Documented by: Metoprolol Tartrate (Metoprolol Tartrate 25 Mg Tab) 12.5 mg PO BID [facility] Stop: 01/15/20 08:59 Last Admin: 12/25/19 08:18 Dose: 12.5 mg Documented by: Miscellaneous (Carbohydrates For Hypoglycemia ) 15 - 30 gm PO UD PRN PRN Reason: Hypoglycemia Protocol Stop: 12/26/19 18:03 Miscellaneous Information (Pharmacy Glycemic Mgmt Consult) 1 ea N/A UD PRN; Protocol PRN Reason: Consult Stop: 12/26/19 18:38 Multivitamins/Minerals (Cerovite Adv Formula Tab) 1 tab PO QAM [facility] Stop: 01/15/20 08:59 Last Admin: 12/25/19 08:23 Dose: 1 tab Documented by: Ondansetron HCl (Ondansetron Inj 2 Mg/Ml 2 Ml Vial) 4 mg IV Q6H PRN PRN Reason: Nausea Stop: 12/26/19 18:03 Polyethylene Glycol (Polyethylene (Miralax) 17 Gm Pack) 17 gm PO DAILY@0800 [facility] Stop: 01/21/20 11:59 Last Admin: 12/25/19 08:24 Dose: 17 gm Documented by: Prednisone (Pred[facility]one 10 Mg Tablet) [facility] Stop: 01/10/20 08:59 Last Admin: 12/25/19 08:24 Dose: 30 mg Documented by: Senna/Docusate Sodium (Docusate Sodium/Senna 50/8.6mg Tab) 2 [facility] Stop: 12/27/19 08:59 Last Admin: 12/25/19 08:21 Dose: 2 tab Documented by: Zinc Sulfate (Zinc Sulfate 220 Mg Capsule) 220 [facility] Stop: 12/27/19 08:59 Last Admin: 12/25/19 08:24 Dose: 220 mg Documented by: PG Care Time/CCT Total # of Minutes Spent Total Time Spent with Patient: Total time spent is greater than 50% in coordination of care (as documented) at patient's floor/unit and/or counseling patient: Coding Level of Care Code 45155 Subseq Hosp Care Lvl 2 Diagnoses Acute respiratory failure with hypoxia J96.01 Pneumonia due to COVID-19 virus U07.1; J12.89 Paroxysmal atrial fibrillation I48.0 Diabetes E11.9 Hyperlipidemia E78.5 Ileus K56.7 Insomnia G47.00 Hypokalemia E87.6 DVT prophylaxis Z29.9
[2019-12-25] MEDS: INSULIN ASPART 100 UNITS/ML 3 ML PEN SC SCH ×4 (09:46→21:37)
[2019-12-25] MEDS: LORazepam 0.5 MG TAB PO PRN (21:54)
[2019-12-26] MEDS: METOPROLOL TARTRATE 25 MG TAB PO SCH ×2 (09:30→20:51)
[2019-12-26] MEDS: predniSONE 10 MG TABLET PO SCH (09:30)
[2019-12-26] MEDS: POLYETHYLENE (MIRALAX) 17 GM PACK PO SCH (09:30)
[2019-12-26] MEDS: CEROVITE ADV FORMULA TAB PO SCH (09:30)
[2019-12-26] MEDS: ZINC SULFATE 220 MG CAPSULE PO SCH (09:31)
[2019-12-26] MEDS: DOCUSATE SODIUM/SENNA 50/8.6MG TAB PO SCH (09:31)
[2019-12-26] MEDS: ASPIRIN 81 MG ECTAB PO SCH (09:31)
[2019-12-26] MEDS: INSULIN ASPART 100 UNITS/ML 3 ML PEN SC SCH ×4 (09:31→20:59)
[2019-12-26] MEDS: APIXABAN 2.5 MG TAB PO SCH ×2 (09:31→20:51)
--- NOTE | 2019-12-26 12:14 | Hospitalist Progress Note ---
Date of Service December 26, 2019 Assessment & Plan (1) Acute respiratory failure with hypoxia: due to viral pneumonia with COVID 19 improved initially after plasma given evening of 11/26 Patient received convalescent plasma 11/26 and 12/10 She remains on long taper of steroids due to concern for adrenal suppression Pt has oxygen requirements reduced to 2 L, significant desaturations with exertion pt has negative covid test 12/23 and another negative covid on 12/24 will discontinue isolation precautions transfer off telemetry consult PT/OT, clear to go home from strength and mobility perspective two step today did not go well, desaturated to the 70's on room air, took a very long time to recover was placed on 8L will try the two step again tomorrow patient will not do much once she goes home (2) Pneumonia due to COVID-19 virus: Patient had profound acute hypoxic respiratory failure clinical scenario consistent with COVID positive status bilateral infiltrates on initial CT chest now on 2 liters nc, desaturates with movement restarted decadron 12/09/19 completed 10 days, concern for adrenal axis supression will have on 3 week prednisone taper( 30 mg/d x 1 week, 20/day x 1 week, 10 a day) Remdesivir daily x 5 days, completed convalescent plasma given evening of 11/26. ordered additional unit 12/09, given 12/10 D dimer trended downward, peaked at 35,000 procalcitonin 12/09 also low does not appear c/w bacterial overgrowth pneumonia CTA chest on admission negative for PE, she has been on thromboembolic prevention anticoagulation since admission transition to Eliquis for atrial fibrillation thromboembolic prevention (3) Paroxysmal atrial fibrillation: went into afib on 12/14, intermittent, appeared to be irregular in the 's today likely the increased stress from working to breathe contributed rate controlled on lopressor, only 12.5mg BID anticoagulated Eliquis 2.5mg BID rates stable, can downgrade to medical floor (4) Diabetes: Novolog SS sugars overall showing acceptable control w insulin in spite of steroids. no hypoglycemia hopeful to reduce insulin need as patient comes off steroids (5) Hyperlipidemia: In the distant past patient has been on statins these will be held at this current time (6) Ileus: resolved with increased cathartic agents (7) Insomnia: continue Ativan 0.5mg PO HS PRN (8) Hypokalemia: resolved (9) DVT prophylaxis: anticoagulation with Eliquis 2.5mg BID, this is for atrial fibrillation anticipate her being here until tomorrow, repeat two step now with two negative COVID tests, can stop isolation PT OT evaluations, can go home with her daughter lives on one floor Admission and Anticipated Discharge Date Admission Date: November 26, 2019 Subjective patient sitting up in her chair most of the day discussed waiting another day to go home, she was not pleased had respiratory perform a two step, she desaturated quickly to the 70's, needed 8L and still not above 90% she recovered while sitting in her chair but it took some time will ask respiratory to perform two step again tomorrow, will get home oxygen patient did well with OT and PT, click scores 22 for each, okay to go home from strength standpoint she really wants to go home discussed with her daughter, patient is set up in the basement of her home, has full bath and bedroom and her daughter will provide 24 hour care she can drive patient right up to the entrance of the basement patio Review of Systems Review of Systems: All systems reviewed & are unremarkable except as noted in Subjective Physical Exam Constitutional: well developed and well nourished; no acute distress Eyes: PERRL, conjunctivae normal, anicteric sclerae ENMT: external ear and nose normal, oropharynx normal Neck: trachea midline, no thyromegaly Respiratory: normal respiratory effort; no respiratory distress Auscultation: no crackles, no rales, no rhonchi and no wheezes Cardiovascular: Rate/Rhythm: regular rate and + irregularly irregular Heart Sounds: normal S1 and normal S2; no murmur Vessels: no JVD Extremities: normal capillary refill; no edema Gastrointestinal (Abdomen): normal bowel sounds, soft, nontender, no hepatosplenomegaly Musculoskeletal: no cyanosis or clubbing, extremities motor strength 5/5 Skin: no rashes, warm and dry Neurologic: patellar DTR's 2+ bilat, sensation intact and PERRL, EOMI, accommodation nl, no face palsy, no dysarthria Psychiatric: A+Ox3, euthymic affect Lymphatic: no cervical or axillary lymphadenopathy Results & Data Results & Data ([facility]) Vital Signs (Past 12 Hours) Vital Signs Temp Pulse Resp BP Pulse Ox 12/26/19 07:23 36.9 C 76 18 102/68 92 Laboratory Results Laboratory Results - last 24 hr 12/25/19 12/26/19 12/26/19 20:47 08:28 12:27 POC Glucose 157 H 96 103 H 12/26/19 17:00 POC Glucose 185 H Medications Administered Current Inpatient Medications Apixaban (Apixaban 2.5 Mg Tab) 2.5 mg PO BID [facility] Stop: 01/16/20 20:59 Last Admin: 12/26/19 09:31 Dose: 2.5 mg Documented by: Insulin Aspart (Insulin Aspart 100 Units/Ml 3 Ml Pen) 0 units SC HS DARNELL Stop: 01/10/20 20:59 Last Admin: 12/25/19 21:37 Dose: Not Given Documented by: Insulin Aspart (Insulin Aspart 100 Units/Ml 3 Ml Pen) 0 units SC DAILY@0730 [facility]; Protocol Stop: 01/22/20 07:29 Last Admin: 12/26/19 09:31 Dose: 9 units Documented by: Insulin Aspart (Insulin Aspart 100 Units/Ml 3 Ml Pen) 0 units SC BID@1130,1630 [facility] Stop: 01/21/20 11:29 Last Admin: 12/26/19 18:23 Dose: 11 units Documented by: Lorazepam (Lorazepam 0.5 Mg Tab) 0.5 mg PO HS PRN PRN Reason: Insomnia Stop: 12/29/19 16:59 Last Admin: 12/25/19 21:54 Dose: 0.5 mg Documented by: Metoprolol Tartrate (Metoprolol Tartrate 25 Mg Tab) 12.5 mg PO BID [facility] Stop: 01/15/20 08:59 Last Admin: 12/26/19 09:30 Dose: 12.5 mg Documented by: Multivitamins/Minerals (Cerovite Adv Formula Tab) 1 tab PO QAM [facility] Stop: 01/15/20 08:59 Last Admin: 12/26/19 09:30 Dose: 1 tab Documented by: Polyethylene Glycol (Polyethylene (Miralax) 17 Gm Pack) 17 gm PO DAILY@0800 [facility] Stop: 01/21/20 11:59 Last Admin: 12/26/19 09:30 Dose: 17 gm Documented by: Prednisone (Prednisone 10 Mg Tablet) 30 mg PO QAM [facility]; Taper Stop: 01/10/20 08:59 Last Admin: 12/26/19 09:30 Dose: 30 mg Documented by: Senna/Docusate Sodium (Docusate Sodium/Senna 50/8.6mg Tab) 2 tab PO QAM [facility] Stop: 12/27/19 08:59 Last Admin: 12/26/19 09:31 Dose: 2 tab Documented by: Zinc Sulfate (Zinc Sulfate 220 Mg Capsule) 220 mg PO QAM [facility] Stop: 12/27/19 08:59 Last Admin: 12/26/19 09:31 Dose: 220 mg Documented by: PG Care Time/CCT Total # of Minutes Spent Total Time Spent with Patient: Total time spent is greater than 50% in coordination of care (as documented) at patient's floor/unit and/or counseling patient: Coding Level of Care Code 24158 Subseq Hosp Care Lvl 3 Diagnoses Acute respiratory failure with hypoxia J96.01 Pneumonia due to COVID-19 virus U07.1; J12.89 Paroxysmal atrial fibrillation I48.0 Diabetes E11.9 Hyperlipidemia E78.5 Ileus K56.7 Insomnia G47.00 Hypokalemia E87.6 DVT prophylaxis Z29.9
[2019-12-26] MEDS: LORazepam 0.5 MG TAB PO PRN (21:02)
[2019-12-27 06:35] LABS: Hematocrit (blood only) 36.9 % (37-47); Hemoglobin 11.3 g/dL (12.0-16.0); Mean Corpuscular Hemoglobin 29.7 pg (25-34); Mean Corpuscular Hgb Conc 30.6 g/dL (32-36); Mean Corpuscular Volume 97.1 fL (80-100); Mean Platelet Volume 9.3 fL (7.4-10.4); Platelet Count 415 K/uL (130-400); RDW Coefficient of Variation 15.5 % (11.5-14.5); RDW Standard Deviation 54.8 fL (36.4-46.3); White Blood Count 10.78 K/uL (4.8-10.8)
[2019-12-27 06:59] LABS: Est GFR (African American) 96.4; Est GFR (Non-African American) 83.2
[2019-12-27] MEDS: predniSONE 10 MG TABLET PO SCH (08:16)
[2019-12-27] MEDS: CEROVITE ADV FORMULA TAB PO SCH (08:16)
[2019-12-27] MEDS: APIXABAN 2.5 MG TAB PO SCH (08:16)
[2019-12-27] MEDS: POLYETHYLENE (MIRALAX) 17 GM PACK PO SCH (08:17)
[2019-12-27] MEDS: METOPROLOL TARTRATE 25 MG TAB PO SCH (08:17)
[2019-12-27] MEDS: INSULIN ASPART 100 UNITS/ML 3 ML PEN SC SCH ×2 (09:04→13:03)
--- NOTE | 2019-12-27 11:39 | Discharge Summary ---
Date of Service December 27, 2019 Admission HPI Per Admitting Provider 89-year-old female who presents the for upper respiratory symptoms. She notes that she has been fatigued and tired for a few days with a nonproductive cough. She denies any reported fevers. She denies any chest pain. She says she has felt more short of breath of late no belly pain nausea vomiting or diarrhea. No history of DVTs. No exposure to anyone with known COVID. 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 She does live with her daughter and the daughters boyfriend who is a contractor. She denies any dysuria urgency or frequency. In emergency department she is found be profoundly hypoxemic. She has bilateral groundglass densities seen on CT scan of her chest. She has positive COVID test negative bio fire she is not leukoropenic she is lymphopenic she is mild elevation of her troponin she is requiring nonrebreather oxygen I did discuss this case with Dr. Chandrakant Early Principal Diagnosis Acute hypoxic respiratory failure due to COVID 19 viral infection/pneumonia Discharge Exam Constitutional well developed and well nourished; no acute distress Eyes PERRL, conjunctivae normal, anicteric sclerae ENMT external ear and nose normal, oropharynx normal Neck trachea midline, no thyromegaly Respiratory normal respiratory effort; no respiratory distress Auscultation: no crackles, no rales, no rhonchi and no wheezes Cardiovascular RRR, no murmur, no edema Rate/Rhythm: regular rate and + irregularly irregular Heart Sounds: normal S1 and normal S2; no murmur Vessels: no JVD Extremities: normal capillary refill; no edema Gastrointestinal (Abdomen) normal bowel sounds, soft, nontender, no hepatosplenomegaly Musculoskeletal no cyanosis or clubbing, extremities motor strength 5/5 Skin no rashes, warm and dry Neurologic patellar DTR's 2+ bilat, sensation intact and PERRL, EOMI, accommodation nl, no face palsy, no dysarthria Psychiatric A+Ox3, euthymic affect Lymphatic no cervical or axillary lymphadenopathy Discharge Data Allergies Allergy/AdvReac Type Severity Reaction Status Date / Time Cipro Allergy Mild RASH Verified 03/24/12 22:42 Consultations 11/26/19 14:12 ED Decision to Admit Stat 11/26/19 18:04 Consult Case Management - Discharge Planning Routine Ordered Studies 11/26/19 12:41 CT angio chest PE protocol Stat 11/26/19 13:17 CT abd pelvis IV con only Stat Hospital Course (1) Acute respiratory failure with hypoxia: due to viral pneumonia with COVID 19 improved initially after plasma given evening of 11/26 Patient received convalescent plasma 11/26 and 12/10 She remains on long taper of steroids due to concern for adrenal suppression *discharge on Prednisone 20mg daily x 5 days then 10mg daily x 5 days then stop* Pt has oxygen requirements reduced to 3 L, significant desaturations with exertion pt has negative covid test 12/23 and another negative covid on 12/24 will discontinue isolation precautions transfer off telemetry consult PT/OT, clear to go home from strength and mobility perspective two step 12/26 she required 3L at rest, 6L on exertion due to desaturations, but she recovers quickly discharge to home today with her daughter she will live on one floor, no steps to enter house, lives with her daughter and other family members follow up with PCP in one week, can be over the phone (2) Pneumonia due to COVID-19 virus: Patient had profound acute hypoxic respiratory failure clinical scenario consistent with COVID positive status bilateral infiltrates on initial CT chest now on 3 liters nc, desaturates with movement restarted decadron 12/09/19 completed 10 days, concern for adrenal axis suppression, changed to Prednisone 30mg daily for a week, now 20mg daily x 5 days then 10mg daily x 5 days then stop Remdesivir daily x 5 days, completed convalescent plasma given evening of 11/26. ordered additional unit 12/09, given 12/10 D dimer trended downward, peaked at 35,000 procalcitonin 12/09 also low does not appear c/w bacterial overgrowth pneumonia CTA chest on admission negative for PE, she has been on thromboembolic prevention anticoagulation since admission transition to Eliquis for atrial fibrillation thromboembolic prevention (3) Paroxysmal atrial fibrillation: went into afib on 12/14, intermittent, irregular on exam on discharge likely the increased stress from working to breathe contributed rate controlled on lopressor, only 12.5mg BID anticoagulated Eliquis 2.5mg BID (4) Diabetes: Novolog SS sugars overall showing acceptable control w insulin in spite of steroids. no need for insulin on only Prednisone 20mg and 10mg follow low carbohydrate diet (5) Hyperlipidemia: In the distant past patient has been on statins these will be held at this current time (6) Ileus: resolved with increased cathartic agents (7) Insomnia: continue Ativan 0.5mg PO HS PRN (8) Hypokalemia: resolved (9) DVT prophylaxis: anticoagulation with Eliquis 2.5mg BID, this is for atrial fibrillation PT OT evaluations, can go home with her daughter lives on one floor Total Time Total Time Spent Total Time Spent (In Minutes): 35 minutes Discharge Plan Discharge Items Patient Disposition: Home - Home Health Services Reason For Visit: ACUTE RESPIRATORY FAILURE WITH HYPOXIA Discharge Diagnosis: Acute respiratory failure with hypoxia COVID 19 infection causing pneumonia Atrial fibrillation Condition on Discharge: Fair Goals: rest, stay well nourished and well hydrated Activity: Per Instructions section Bathing: No limitations Exercise/Sports: Gradually increase as tolerated Exercise Comment: will likely be short of breath on exertion for 2-3 weeks Weightbearing: Full weightbearing Non-emergency contact: Primary Care Provider Call non-emergency contact if: you have any medication questions, your symptoms worsen and you have a fever Follow-up/Referrals: Marcio Lindsay MD [Primary Care Provider] - 01/03/20 11:10 am () Diet: Carb Consistent or DM2 Addtl Attending Provider Instructions: Medications: - ELIQUIS: 2.5mg twice a day, this is blood thinner to protect against stroke with atrial fibrillation - LOPRESSOR: 12.5mg twice a day to help control heart rate with atrial fibrillation - PREDNISONE: finish prolonged taper, take 20mg daily (start tomorrow) for 5 days then reduce to 10mg daily for 5 days then stop Hypoxic respiratory failure: currently requiring 3L at rest, up to 6L with minimal exertion as we discussed, likely to remain very short of breath and desaturate with exertion for next 1-2 weeks please get rest, your recovery will continue to be slow but you got through the worst of it anticipate that you will come off oxygen but realistically it could be weeks, be patient Atrial fibrillation: you flipped into afib while in respiratory distress continue to have paroxysmal afib which means you go in and out of it treat with Eliquis and lopressor get rest, stay well nourished, well hydrated Pending Studies at Discharge: No Stand-Alone Forms: My [employer], Smoking Cessation Medications and DC Order Prescriptions: New metoprolol tartrate 25 mg Tablet 12.5 mg PO BID 30 Days Qty: 30 RF: 3 Eliquis 2.5 mg Tablet 2.5 mg PO BID 30 Days Qty: 60 RF: 3 prednisone 10 mg tablet 10 mg PO UD Qty: 15 RF: 0 No Action Unobtainable RF: 0 Discharge Orders: Discharge Order (Routine); Ordered 12/27/19 Ordered By: Mateo Pedraza/Other Patient Handouts: Managing Type 2 Diabetes Admission Data Admit Date/Time: 11/26/19 16:34 Attending Provider: Mateo Zhao Admit Provider: Pavel Krishnamurthy Primary Care Provider: Marcio Lindsay Other Providers: Mateo Zhao ; Pavel Krishnamurthy ; [facility] Other Interventions: Discharge Summary Assessment (RN) Last Done: 12/27/19 12:38 Coding Level of Care Code D/C Day Management >30 mins Diagnoses Acute respiratory failure with hypoxia J96.01 Pneumonia due to COVID-19 virus U07.1; J12.89 Paroxysmal atrial fibrillation I48.0 Diabetes E11.9 Hyperlipidemia E78.5 Ileus K56.7 Insomnia G47.00 Hypokalemia E87.6 DVT prophylaxis Z29.9
== END 2019-12-27 14:19 | disposition home health service (06) | DRG 177 ==
LOC: ED 12:20 → SUATTDRO 16:34 → 2E 16:34 → 3N 12-25 11:16

== ENCOUNTER 2020-09-15 14:45 | Inpatient (IN) ==
--- NOTE | 2020-09-15 15:46 | Emergency Department Note ---
Impression & Plan Sigmoid volvulus, Lower abdominal pain, On home oxygen therapy ED Provider Note NAME: SARAHY CARREON AGE: 89 SEX: F ARRIVES VIA: Walk-In INFORMANT: Patient, ED PROVIDER(S): Harvey Tom MD CHIEF COMPLAINT: Abdominal pain PLAN: Disposition: Home MEDICAL DECISION MAKING: The patient is a pleasant 89-year-old woman with a past medical history of paroxysmal atrial fibrillation previous Eliquis (discontinued due to epistaxis), history of respiratory failure with hypoxia on as needed and nocturnal O2, diabetes who presents to the emergency department company by her daughter for evaluation of lower abdominal pain that began today. She reports a history of diverticulitis 20 years ago but cannot recall if it feels similar. She reports a history of constipation. She denies any fevers, chills, cough, congestion, urinary symptoms. On arrival patient is no acute distress, afebrile with stable vital signs. She appears clinically dry. She has mild lower abdominal discomfort without discrete tenderness. WBC, H/H and platelets within normal limits. Chemistry without metabolic acidosis. Electrolytes and LFTs unremarkable. BUN/creatinine> 30 consistent with patient's clinically dry appearance. Electrolytes LFTs are unremarkable. Lipase not elevated. UA without convincing evidence of infection. COVID-[address] abdomen/pelvis was performed and demonstrated sigmoid volvulus. The patient continued to be hemodynamically stable with non-peritoneal exam. Case was discussed with GI on-call, Dr. Womack, who will take the patient for endoscopic detorsion and recommended stat Fleet enemas to help clear stool within the rectum for procedure. Additionally recommends general surgery consultation for likely definitive procedure following detorsion. Case was discussed with Dr. Broderick, General surgery on-call, and agrees with plan and they will be available for inpatient team consultation following detorsion. R ecommends admission to medicine service. Case was discussed with Dr. Condon, [facility] [place] [place] hospitalist, who will evaluate the patient for admission. Triage Nursing notes reviewed and agree them. Prior medical records reviewed Vital Signs: reviewed and remarkable for no significant abnormalities Differential diagnosis: Appendicitis, ovarian cyst, ovarian torsion, ectopic , TOA, PID, infections, diverticulitis, UTI, obstruction, mesenteric ischemia, aortic pathology, inflammatory bowel disease, renal colic, PUD, pancreatitis, biliary pathology, hernia, volvulus, constipation, as well as other pathologies. ER treatment provided: See below. Diagnostics interpreted by me: ECG: Sinus rhythm, 86 bpm, no ectopy, no overt ST elevation or depression. Cardiac Monitoring: An order for continuous cardiac monitoring was placed and demonstrated Sinus rhythm, 86 bpm, no ectopy. Laboratory studies: See below Imaging studies: See below Consultation(s): Dr. Womack, GI on-call. Dr. Broderick, General surgery on-call. Case was discussed with Dr. Condon, [facility] [place] [place] hospitalist, who will evaluate the patient for admission. HPI: The patient is a pleasant 89-year-old woman with a past medical history of paroxysmal atrial fibrillation previous Eliquis (discontinued due to epistaxis), history of respiratory failure with hypoxia on as needed and nocturnal O2, diabetes who presents to the emergency department company by her daughter for evaluation of lower abdominal pain that began today. She reports a history of diverticulitis 20 years ago but cannot recall if it feels similar. She reports a history of constipation. She denies any fevers, chills, cough, congestion, urinary symptoms. ROS: See above HPI for pertinent positives & negatives. A total of 10 systems reviewed and were otherwise negative. PAST MEDICAL HISTORY:See Below PAST SURGICAL HISTORY:See Below FAMILY HISTORY:See Below SOCIAL HISTORY:See Below HOME MEDICATIONS:See Below ALLERGIES:See Below VITALS:See Below PHYSICAL EXAMINATION: GENERAL: Awake, alert, well-appearing, in no distress HENT: Normocephalic, atraumatic. Oropharynx with dry mucous membranes and otherwise unremarkable. EYES: Normal conjunctiva. Sclera non-icteric. NECK: Supple. No nuchal rigidity. FROM. No JVD. RESPIRATORY: Clear to auscultation. CARDIAC: Regular rate, normal rhythm. Extremities warm and well perfused. Pulses equal. ABDOMEN: Soft, non-distended. Mild lower abdominal discomfort without discrete tenderness to palpation. No rebound or guarding. No masses. RECTAL: Deferred. MUSCULOSKELETAL: Chest examination reveals no tenderness. The back is symmetrical on inspection without obvious abnormality. There is no CVA tendernes s to palpation. No joint edema. LOWER EXTREMITIES: Calves are equal size bilaterally and non-tender. No edema. No discoloration. NEURO: Normal sensorium. No sensory or motor deficits noted. SKIN: No rash or jaundice noted. ED COURSE: Critical Care: I have personally spent greater than 35 minutes of critical care time in the direct management of this patient. This includes bedside care, interpretation of diagnostic studies, and testing, discussion with consultants, patient, and family members, and other required patient management activities. This 35 minutes is in excess of all separately billable procedures. Harvey Tom MD Past Med/Surg History Medical History Constipation Elevated troponin Ileus On home oxygen therapy since Covid 19 in November 2019 Pneumonia due to COVID-19 virus Surgical History H/O lumpectomy H/O: hysterectomy History of appendectomy Family History Other No pertinent family history Social History Smoking Status: Never smoker Second Hand Exposure: Yes (Daughter and Sister smoke.); Do You Dip or Chew Tobacco: No; Tobacco Cessation Education Requested by Patient: No Hx Alcohol Use: No Hx Substance Use: No Preferred Language: Albanian Communication Ability: Effective Knapsack Sprayer Required: No Beliefs That Will Affect Care: None marital status: / Current Living Situation: Alone Current Living Situation Comment: [facility]. Other Information That Helps Us Care for You: No Feels Safe at Home: Yes Safety Concerns: Feels Safe At This Time Assistive Devices: Cane, Denture - Upper, Denture - Lower and Glasses Allergies Allergies Allergy/AdvReac Type Severity Reaction Status Date / Time ciprofloxacin [Cipro] Allergy Mild RASH Verified 09/15/20 15:50 Home Meds Home Medications Medication Instructions Recorded Confirmed docusate sodium [Colace] 100 mg PO BID 09/15/20 09/15/20 linaclotide [Linzess] 290 mcg PO DAILY 09/15/20 09/15/20 Results & Data (ED) Vital Signs Vital Signs - 24 hr 09/15/20 15:08 09/15/20 15:48 09/15/20 15:49 Temperature 36.6 C Temperature Source Temporal Artery Scan Pulse Rate 106 H 85 Pulse Rate [Finger] 91 H Pulse Rate from SpO2 Sensor 83 Pulse Rhythm Regular Pulse Strength Normal Respiratory Rate 16 18 27 H Respiratory Effort / Characteristics Non-Labored Respiratory Depth Normal Respiratory Pattern Regular Blood Pressure 144/86 H 141/86 H Blood Pressure [Right Arm] 141/86 H Blood Pressure Mean 105 104 Blood Pressure Mean [Right Arm] 104 Blood Pressure Position Sitting Pulse Oximetry 92 92 94 Oxygen Delivery Method Room Air Room Air Sepsis Recent Fever Within 48 Hours No Sepsis New/Unexplained Change in Mental Status N/A Sepsis Action Taken by Nursing No Action Required 09/15/20 15:57 09/15/20 16:00 09/15/20 16:30 Temperature Temperature Source Pulse Rate 83 84 73 Pulse Rate [Finger] Pulse Rate from SpO2 Sensor 84 86 75 Pulse Rhythm Pulse Strength Respiratory Rate 20 17 25 H Respiratory Effort / Characteristics Respiratory Depth Respiratory Pattern Blood Pressure 122/77 136/66 Blood Pressure [Right Arm] Blood Pressure Mean 92 89 Blood Pressure Mean [Right Arm] Blood Pressure Position Pulse Oximetry 95 95 97 Oxygen Delivery Method Sepsis Recent Fever Within 48 Hours Sepsis New/Unexplained Change in Mental Status Sepsis Action Taken by Nursing 09/15/20 17:00 09/15/20 17:30 09/15/20 18:00 Temperature Temperature Source Pulse Rate 80 96 H 70 Pulse Rate [Finger] Pulse Rate from SpO2 Sensor 72 95 H 69 Pulse Rhythm Pulse Strength Respiratory Rate 17 12 8 L Respiratory Effort / Characteristics Respiratory Depth Respiratory Pattern Blood Pressure 137/76 154/65 H 133/78 Blood Pressure [Right Arm] Blood Pressure Mean 96 94 96 Blood Pressure Mean [Right Arm] Blood Pressure Position Pulse Oximetry 97 97 94 Oxygen Delivery Method Sepsis Recent Fever Within 48 Hours Sepsis New/Unexplained Change in Mental Status Sepsis Action Taken by Nursing 09/15/20 18:30 09/15/20 19:36 09/15/20 20:00 Temperature Temperature Source Pulse Rate 78 98 H 81 Pulse Rate [Finger] Pulse Rate from SpO2 Sensor 77 98 H 81 Pulse Rhythm Pulse Strength Respiratory Rate 22 24 23 Respiratory Effort / Characteristics Respiratory Depth Respiratory Pattern Blood Pressure 141/68 H 167/82 H 167/80 H Blood Pressure [Right Arm] Blood Pressure Mean 92 110 109 Blood Pressure Mean [Right Arm] Blood Pressure Position Pulse Oximetry 94 93 95 Oxygen Delivery Method Room Air Room Air Sepsis Recent Fever Within 48 Hours Sepsis New/Unexplained Change in Mental Status Sepsis Action Taken by Nursing 09/15/20 20:10 Temperature Temperature Source Pulse Rate Pulse Rate [Finger] 68 Pulse Rate from SpO2 Sensor Pulse Rhythm Pulse Strength Respiratory Rate 22 Respiratory Effort / Characteristics Non-Labored Spontaneous Respiratory Depth Respiratory Pattern Blood Pressure Blood Pressure [Right Arm] Blood Pressure Mean Blood Pressure Mean [Right Arm] Blood Pressure Position Pulse Oximetry 94 Oxygen Delivery Method Room Air Sepsis Recent Fever Within 48 Hours Sepsis New/Unexplained Change in Mental Status Sepsis Action Taken by Nursing Laboratory Data Attestation: I reviewed the patient's lab results. Result diagrams: 09/15/20 15:51 09/15/20 15:51 Lab Results 09/15/20 09/15/20 09/15/20 Range/Units 15:51 15:51 15:51 WBC 8.85 (4.8-10.8) K/uL RBC 4.70 (4.2-5.4) M/uL Hgb 14.4 (12.0-16.0) g/dL Hct 43.2 (37-47) % MCV 91.9 (80-100) fL MCH 30.6 (25-34) pg MCHC 33.3 (32-36) g/dL RDW Std Deviation 44.1 (36.4-46.3) fL RDW Coeff of Ange 13.1 (11.5-14.5) % Plt Count 267 (130-400) K/uL MPV 9.6 (7.4-10.4) fL Immature Gran % (Auto) 0.2 % Neut % (Auto) 77.8 % Lymph % (Auto) 14.7 % Blaine % (Auto) 6.4 % Eos % (Auto) 0.8 % Baso % (Auto) 0.1 % Neut # (Auto) 6.88 H (1.4-6.5) K/uL Lymph # (Auto) 1.30 (1.2-3.4) K/uL Blaine # (Auto) 0.57 (0.11-0.59) K/uL Eos # (Auto) 0.07 (0-0.5) K/uL Baso # (Auto) 0.01 (0-0.2) K/uL Immature Gran # (Auto) 0.02 (0.00-0.02) K/uL Sodium 140 (136-145) mmol/L Potassium 4.1 (3.5-5.1) mmol/L Chloride 106 (98-107) mmol/L Carbon Dioxide 25 (21-32) mmol/L Anion Gap 9.0 (3-11) BUN 21 H (7-18) mg/dl Creatinine 0.66 (0.6-1.2) mg/dl Est Cr Clr Drug Dosing 41.4 ml/min Est GFR ( Amer) 90.8 ml/min Est GFR (Non-Af Amer) 78.3 ml/min BUN/Creatinine Ratio 32.5 H (10-20) Glucose 111 H (70-99) mg/dl Calcium 8.8 (8.5-10.1) mg/dl Total Bilirubin 0.4 (0.2-1) mg/dl AST 17 (15-37) U/L ALT 16 (12-78) U/L Alkaline Phosphatase 68 (45-117) U/L Total Protein 7.2 (6.4-8.2) gm/dl Albumin 4.0 (3.4-5.0) gm/dl Globulin 3.2 (2.5-4.0) gm/dl Albumin/Globulin Ratio 1.3 (0.9-2) Lipase 62 L (73-393) U/L Specimen Hemolysis Urine Color Urine Appearance (Clear) Urine pH (4.5-7.5) Ur Specific Midway (1.000-1.030) Urine Protein (Negative) Urine Glucose (UA) (Negative) Urine Ketones (Negative) Urine Blood (Negative) Urine Nitrite (Negative) Urine Bilirubin (Negative) Urine Urobilinogen (Negative) Ur Leukocyte Esterase (Negative) Urine WBC (Auto) (0-5) /hpf Urine RBC (Auto) (0-4) /hpf U Hyaline Cast (Auto) (0-5) /lpf U Epithel Cells (Auto) (0-5) /lpf Urine Bacteria (Auto) (Negative) Ur Renal Epithelial Cell SMALL ENGINE TECHNICIAN Urine Crystals SMALL ENGINE TECHNICIAN Calcium Oxalate Crystal SMALL ENGINE TECHNICIAN Uric Acid Crystals SMALL ENGINE TECHNICIAN Triple Phos Crystals SMALL ENGINE TECHNICIAN Other Crystals SMALL ENGINE TECHNICIAN Amorphous Sediment SMALL ENGINE TECHNICIAN Granular Casts SMALL ENGINE TECHNICIAN Waxy Casts SMALL ENGINE TECHNICIAN RBC Casts SMALL ENGINE TECHNICIAN WBC Casts SMALL ENGINE TECHNICIAN Other Casts SMALL ENGINE TECHNICIAN Urine Mucus SMALL ENGINE TECHNICIAN Urine Other SMALL ENGINE TECHNICIAN Urine Trichomonas SMALL ENGINE TECHNICIAN Urine Yeast SMALL ENGINE TECHNICIAN Urine Sperm SMALL ENGINE TECHNICIAN Ur Oval Fat Bodies SMALL ENGINE TECHNICIAN COVID-19 Eval Order SARS-CoV-2 (PCR) (Negative) 09/15/20 09/15/20 09/15/20 Range/Units 17:26 18:44 18:44 WBC (4.8-10.8) K/uL RBC (4.2-5.4) M/uL Hgb (12.0-16.0) g/dL Hct (37-47) % MCV (80-100) fL MCH (25-34) pg MCHC (32-36) g/dL RDW Std Deviation (36.4-46.3) fL RDW Coeff of Ange (11.5-14.5) % Plt Count (130-400) K/uL MPV (7.4-10.4) fL Immature Gran % (Auto) % Neut % (Auto) % Lymph % (Auto) % Blaine % (Auto) % Eos % (Auto) % Baso % (Auto) % Neut # (Auto) (1.4-6.5) K/uL Lymph # (Auto) (1.2-3.4) K/uL Blaine # (Auto) (0.11-0.59) K/uL Eos # (Auto) (0-0.5) K/uL Baso # (Auto) (0-0.2) K/uL Immature Gran # (Auto) (0.00-0.02) K/uL Sodium (136-145) mmol/L Potassium (3.5-5.1) mmol/L Chloride (98-107) mmol/L Carbon Dioxide (21-32) mmol/L Anion Gap (3-11) BUN (7-18) mg/dl Creatinine (0.6-1.2) mg/dl Est Cr Clr Drug Dosing ml/min Est GFR ( Amer) ml/min Est GFR (Non-Af Amer) ml/min BUN/Creatinine Ratio (10-20) Glucose (70-99) mg/dl Calcium (8.5-10.1) mg/dl Total Bilirubin (0.2-1) mg/dl AST (15-37) U/L ALT (12-78) U/L Alkaline Phosphatase (45-117) U/L Total Protein (6.4-8.2) gm/dl Albumin (3.4-5.0) gm/dl Globulin (2.5-4.0) gm/dl Albumin/Globulin Ratio (0.9-2) Lipase (73-393) U/L Specimen Hemolysis Urine Color Yellow Urine Appearance Clear (Clear) Urine pH 6.5 (4.5-7.5) Ur Specific Midway 1.030 (1.000-1.030) Urine Protein Negative (Negative) Urine Glucose (UA) Negative (Negative) Urine Ketones 1+ H (Negative) Urine Blood Trace H (Negative) Urine Nitrite Negative (Negative) Urine Bilirubin Negative (Negative) Urine Urobilinogen Negative (Negative) Ur Leukocyte Esterase Negative (Negative) Urine WBC (Auto) 1-5 (0-5) /hpf Urine RBC (Auto) 0-4 (0-4) /hpf U Hyaline Cast (Auto) 0 (0-5) /lpf U Epithel Cells (Auto) 10-20 H (0-5) /lpf Urine Bacteria (Auto) Negative (Negative) Ur Renal Epithelial Cell Urine Crystals Calcium Oxalate Crystal Uric Acid Crystals Triple Phos Crystals Other Crystals Amorphous Sediment Granular Casts Waxy Casts RBC Casts WBC Casts Other Casts Urine Mucus Urine Other Urine Trichomonas Urine Yeast Urine Sperm Ur Oval Fat Bodies COVID-19 Eval Order Covid19 at [facility] SARS-CoV-2 (PCR) NEGATIVE (Negative) Administered Medications Lactated Ringer's (Lr) 1,000 mls @ 80 mls/hr IV .[id number] Stop: 10/15/20 19:29 Last Admin: 09/15/20 19:57 Dose: 80 mls/hr Documented by: [id number] Discontinued Medications Albuterol (Albuterol 0.083% Nebu Soln 3 Ml Vial) 2.5 mg NEB NOW ONE Stop: 09/15/20 19:37 Last Admin: 09/15/20 20:08 Dose: 2.5 mg Documented by: [id number] Ioversol (Optiray 320 100ml) 94 ml IV ONCE ONE Stop: 09/15/20 17:10 Last Admin: 09/15/20 17:10 Dose: 1 ml Documented by: [id number] Mineral Oil (Mineral Oil 30 Ml Udc) Confirm Administered Dose 30 ml .ROUTE .STK- MED ONE Stop: 09/15/20 20:27 Last Admin: 09/15/20 22:21 Dose: Not Given Documented by: [id number] Sodium Biphosphate/Sodium Phosphate (Sod Phosphate/Sod Biphosphate Enema 132 Ml Btl) 132 ml OR NOW STA Stop: 09/15/20 18:29 Last Admin: 06/20/21 19:12 Dose: 132 ml Documented by: [id number] Sodium Biphosphate/Sodium Phosphate (Sod Phosphate/Sod Biphosphate Enema 132 Ml Btl) 132 ml OR NOW STA Stop: 09/15/20 18:30 Last Admin: 09/15/20 19:12 Dose: 132 ml Documented by: [id number] Imaging Data Radiologist's Impression: Abdomen/Pelvis CT 09/15/20 15:[address] WITH IV CONTRAST CT DOSE: 245.51 mGy.cm HISTORY: lower abd pain, h/o diverticulitis TECHNIQUE: Multiaxial CT images of the abdomen and pelvis were performed following the use of intravenous contrast. A dose lowering technique was utilized adhering to the principles of ALARA. COMPARISON STUDY: Abdomen and pelvis CT 11/26/2019. FINDINGS: Fibrotic change at the lung bases is again noted. No pneumoperitoneum. No pneumatosis. The heart is mildly enlarged. There are dense mitral annulus calcifications. A few prominent right hilar lymph nodes which measure up to 7 mm in short axis diameter. These are similar to the prior study. The liver, gallbladder, pancreas, adrenal glands, and spleen are unremarkable. The kidneys enhance normally. No hydronephrosis. Moderate calcified plaque within the mildly ectatic abdominal aorta. The bladder is underdistended but appears unremarkable. The uterus is surgically absent. There is mild pelvic floor collapse. Best seen on images 192 through 261 there is twisting of the sigmoid colon and mesentery within the left lower quadrant. The colon proximal to this area is distended with gas and stool. Therefore, these findings are consistent with a sigmoid volvulus resulting in the large bowel obstruction. The colon is distended up to 7.5 cm. There are few borderline gas-filled loops of distal small bowel identified. Questionable mild rectal wall thickening. This is similar to the prior study. No retroperitoneal lymphadenopathy. IMPRESSION: 1. There is twisting of the mesentery and sigmoid colon within the left lower quadrant as described above. Therefore, this is consistent with a sigmoid v olvulus. Proximal to this area there is a distended gas-filled colon consistent with a large bowel obstruction. 2. Borderline rectal wall thickening, unchanged. 3. Additional findings as described above. ACT 112: Negative or not required by law. Electronically signed by: Geremias Abraham M.D. 09/15/2020 5:28 PM Discharge Plan Visit Data Chief Complaint: Abdominal Pain Stated Complaint: AB PAIN ED Provider: Harvey Tom Discharge Problem: Sigmoid volvulus, Lower abdominal pain, On home oxygen therapy Patient Disposition: Admitted As Inpatient Discharge Instructions Interventions: ED Discharge Assessment Last Done: 09/15/20 20:51
[2020-09-15 16:01] LABS: Basophils # (auto) 0.01 K/uL (0-0.2); Basophils % (auto) 0.1 %; Eosinophils # (auto) 0.07 K/uL (0-0.5); Eosinophils % (auto) 0.8 %; Hematocrit (blood only) 43.2 % (37-47); Hemoglobin 14.4 g/dL (12.0-16.0); Immature Granulocytes # (auto) 0.02 K/uL (0.00-0.02); Immature Granulocytes % (auto) 0.2 %; Lymphocytes % (auto) 14.7 %; Mean Corpuscular Hemoglobin 30.6 pg (25-34); Mean Corpuscular Hgb Conc 33.3 g/dL (32-36); Mean Corpuscular Volume 91.9 fL (80-100); Mean Platelet Volume 9.6 fL (7.4-10.4); Monocytes # (auto) 0.57 K/uL (0.11-0.59); Monocytes % (auto) 6.4 %; Neutrophils # (auto) 6.88 K/uL (1.4-6.5); Neutrophils % (auto) 77.8 %; Platelet Count 267 K/uL (130-400); RDW Coefficient of Variation 13.1 % (11.5-14.5); RDW Standard Deviation 44.1 fL (36.4-46.3); White Blood Count 8.85 K/uL (4.8-10.8)
[2020-09-15 16:25] LABS: Albumin Globulin Ratio 1.3 (0.9-2); BUN Creatinine Ratio 32.5 (10-20); Bilirubin,Total 0.4 mg/dl (0.2-1); Calcium 8.8 mg/dl (8.5-10.1); Creatinine Clr Calc Pharmacy 41.4 ml/min; Est GFR (African American) 90.8 ml/min; Est GFR (Non-African American) 78.3 ml/min; Globulin 3.2 gm/dl (2.5-4.0); Potassium 4.1 mmol/L (3.5-5.1); Total Protein 7.2 gm/dl (6.4-8.2)
[2020-09-15] MEDS ORDERED: OPTIRAY 320 100ml IV ONE (17:09)
--- NOTE | 2020-09-15 17:30 | CT Scan Report ---
ABDOMEN AND PELVIS CT WITH IV CONTRAST CT DOSE: 245.51 mGy.cm HISTORY: lower abd pain, h/o diverticulitis TECHNIQUE: Multiaxial CT images of the abdomen and pelvis were performed following the use of intrave nous contrast. A dose lowering technique was utilized adhering to the principles of ALARA. COMPARISON STUDY: Abdomen and pelvis CT 11/26/2019. FINDINGS: Fibrotic change at the lung bases is again noted. No pneumoperitoneum. No pneumatosis. The heart is mildly enlarged. There are dense mitral annulus calcifications. A few prominent right hilar lymph nodes which measure up to 7 mm in short axis diameter. These are similar to the prior study. Th e liver, gallbladder, pancreas, adrenal glands, and spleen are unremarkable. The kidneys enhance norm ally. No hydronephrosis. Moderate calcified plaque within the mildly ectatic abdominal aorta. The suad dder is underdistended but appears unremarkable. The uterus is surgically absent. There is mild pelvi c floor collapse. Best seen on images 192 through 261 there is twisting of the sigmoid colon and mese ntery within the left lower quadrant. The colon proximal to this area is distended with gas and stool . Therefore, these findings are consistent with a sigmoid volvulus resulting in the large bowel obstr uction. The colon is distended up to 7.5 cm. There are few borderline gas-filled loops of distal smal l bowel identified. Questionable mild rectal wall thickening. This is similar to the prior study. No retroperitoneal lymphadenopathy. IMPRESSION: 1. There is twisting of the mesentery and sigmoid colon within the left lower quadrant as described a elpidio. Therefore, this is consistent with a sigmoid volvulus. Proximal to this area there is a distend ed gas-filled colon consistent with a large bowel obstruction. 2. Borderline rectal wall thickening, unchanged. 3. Additional findings as described above. ACT 112: Negative or not required by law. Electronically signed by: Geremias Abraham M.D. 09/15/2020 5:28 PM
[2020-09-15] MEDS ORDERED: SOD PHOSPHATE/SOD BIPHOSPHATE ENEMA 132 ML BTL PR STA ×2 (18:28→18:29)
[2020-09-15 18:59] LABS: Appearance Urine Clear (Clear); Bacteria Urine Automated Negative (Negative); Bilirubin Urine Negative (Negative); Blood Urine Trace (Negative); Cast Urine Automated 0 /lpf (0-5); Color Urine Yellow; Glucose Urine UA Negative (Negative); Ketones Urine 1+ (Negative); Leukocyte Esterase Urine Negative (Negative); Nitrite Urine Negative (Negative); Protein Urine Negative (Negative); RBC Urine Automated 0-4 /hpf (0-4); Urobilinogen Urine Negative (Negative); pH Urine 6.5 (4.5-7.5)
[2020-09-15] MEDS ORDERED: SUCCINYLCHOLINE CHLORIDE 20 MG/ML 10 ML VIAL IV ONE (19:15)
--- NOTE | 2020-09-15 19:20 | History & Physical Report ---
Date of Service September 15, 2020 Assessment & Plan (1) Sigmoid volvulus: As per HPI- - Decompression per Gastroenterology - Primary cause of volvulus per General Surgery - NPO - LR at 80 ml/hr - ECG no acute changes - CXR pending (2) Paroxysmal atrial fibrillation: Currently NSR with PAC - Not on any BB or other rate control agents - Not on chronic anticoagulation (3) Acute respiratory failure with hypoxia: Post COVID oxygen requirement - Patient with inflammation/scarring noted on what was caught of her lungs on the CT scan of her abdomen and pelvis - Fine inspiratory crackles bilaterally throughout with expiratory wheeze - Albuterol now and then PRN nebs following her procedure - She would benefit with some pursed lip breathing exercises and techniques- she pants following sitting up or getting winded - Consider referral for PFT and pulmonary work-up following her admission (4) Diabetes: Listed as history not on any agents- HGB A1c in NOV 5.2 - repeat in the AM (5) Hyperlipidemia: Lipids in am- not on statin (6) Constipation: Patient with stool softeners and Linzess as outpatient - Continue following surgical intervention- currently on hold History of Present Illness Primary Care Provider: Marcio Lindsay MD 89 YOF with past medical history of HTN, Afib(not on anticoagulation) currently in NSR, HLD, Diverticulitis, IBS, COVID-19 (Nov 15) on home oxygen. Patient comes to the emergency room today following acute onset of lower abdominal pain that started this morning. The pain was located on her left lower quadrant and then got progressively worse. The pain now is located in bilateral lower quadrants and is a cramping stabbing pain, that comes in waves. She reports towards the end of yesterday she was having some liquid brown yellow stool and this morning was just mucous. She had a CT scan performed in the E[facility] that revealed a twisting of the mesentery and sigmoid colon within the left lower quadrant, consistent with a sigmoid volvulus. Proximal to this area there is a distended gas-filled colon consistent with a large bowel obstruction. Dr. Tom has spoken to Gastroenterology- Dr. Womack as well as General Surgery- Dr. Broderick. Patient will be kept NPO, CXR ordered, ECG cardiac catheterization technician. Patient has been on oxygen 2LNC since her COVID 19 in the fall. She has not followed up with her dyspnea or oxygen requirements. She does get dyspneic when she is up and moving, she reports that she uses her oxygen majority of the day. She has never smoked. She denies any chest pain or heart events other than her atrial fibrillation. Patient has a estimated risk probability for perioperative myocardial infarction or cardiac event of 0.35% Geriatric sensitive risk 0.2% Allergies Allergy/AdvReac Type Severity Reaction Status Date / Time ciprofloxacin [Cipro] Allergy Mild RASH Verified 09/15/20 15:50 Home Medications Medication Instructions Recorded Confirmed Type docusate sodium [Colace] 100 mg PO BID 09/15/20 09/15/20 History linaclotide [Linzess] 290 mcg PO DAILY 09/15/20 09/15/20 History Past Med/Surg History Medical History Constipation Elevated troponin Ileus On home oxygen therapy since Covid 19 in November 2019 Pneumonia due to COVID-19 virus Surgical History H/O lumpectomy H/O: hysterectomy History of appendectomy Family History Other No pertinent family history Social History Smoking Status: Never smoker Second Hand Exposure: Yes (Daughter and Sister smoke.); Do You Dip or Chew Tobacco: No; Tobacco Cessation Education Requested by Patient: No Hx Alcohol Use: No Hx Substance Use: No Preferred Language: Jamaican Communication Ability: Effective Cracking And Fanning Machine Operator Required: No Beliefs That Will Affect Care: None marital status: / Current Living Situation: Alone Current Living Situation Comment: [facility] living facility. Other Information That Helps Us Care for You: No Feels Safe at Home: Yes Safety Concerns: Feels Safe At This Time Assistive Devices: Cane, Denture - Upper, Denture - Lower and Glasses Review of Systems Review of Systems: REVIEW OF SYSTEMS: Constitutional: No fever, sweats or chills Eyes: No diplopia, no worsening or blurred vision ENT: normal hearing, no trouble swallowing Respiratory: (+) dyspnea at rest or on exertion on home oxygen, No cough, sputum, Cardiovascular:(+) edema to lower bilateral extremities, No chest pain, tightness or palpitations Abdomen: (+) pain, diarrhea, nausea, NO vomiting, Musculoskeletal: No joint pain, calf pain, swelling Neurologic: (+) walks with cane, No weakness, numbness/tingling, Psychiatric: No anxiety or depression Skin: No rash or itch Physical Exam Physical Exam: PHYSICAL EXAM: General: awake, alert, no apparent distress Head: Normocephalic, atraumatic ENT: PERRL, EOMI, no pharyngeal exudate, mucous membranes moist Neuro: AAO x 3, speech clear and appropriate, strength intact bilaterally 5/5, sensation intact and equal all extremities and dermatomes, no pronator drift Chest: equal rise and fall of the chest, no accessory muscle use, no heaves or thrills, expiratory crackles with expiratory wheeze, on room air Cardiac: Regular rate and rhythm, telemetry reviewed- NSR, skin warm dry, cap refill <3 seconds, peripheral pulses +2 no JVD, no murmur, bilateral lower extremity 1+ to mid slater edema- patient says this goes back to normal in the morning. GI: hypoactive throughout all quadrants, softly distended, tympanic, tender to palpation, no rebound, guarding : Spontaneously voiding, no pain, no CVA tenderness, Extremities: Normal inspection, no peripheral edema or erythema, calfs nontender to palpation Psych: Normal mood and affect Skin: no rash or erythema Results & Data Results & Data ([facility]) Vital Signs (Past 12 Hours) Vital Signs Temp Pulse Pulse Resp BP BP Pulse Ox 09/15/20 18:30 78 22 141/68 H 94 09/15/20 18:00 70 8 L 133/78 94 09/15/20 17:30 96 H 12 154/65 H 97 09/15/20 17:00 80 17 137/76 97 09/15/20 16:30 73 25 H 136/66 97 09/15/20 16:00 84 17 122/77 95 09/15/20 15:57 83 20 95 09/15/20 15:49 85 27 H 141/86 H 94 09/15/20 15:48 91 H 18 141/86 H 92 09/15/20 15:08 36.6 C 106 H 16 144/86 H 92 Laboratory Results Abnormal lab results 09/15/20 09/15/20 09/15/20 Range/Units 15:51 15:51 17:26 Neut # (Auto) 6.88 H (1.4-6.5) K/uL BUN 21 H (7-18) mg/dl BUN/Creatinine Ratio 32.5 H (10-20) Glucose 111 H (70-99) mg/dl Lipase 62 L (73-393) U/L Urine Ketones 1+ H (Negative) Urine Blood Trace H (Negative) U Epithel Cells (Auto) 10-20 H (0-5) /lpf Diagnostic Findings Abdomen/Pelvis CT 09/15/20 15:[address] WITH IV CONTRAST CT DOSE: 245.51 mGy.cm HISTORY: lower abd pain, h/o diverticulitis TECHNIQUE: Multiaxial CT images of the abdomen and pelvis were performed following the use of intravenous contrast. A dose lowering technique was utilized adhering to the principles of ALARA. COMPARISON STUDY: Abdomen and pelvis CT 11/26/2019. FINDINGS: Fibrotic change at the lung bases is again noted. No pneumoperitoneum. No pneumatosis. The heart is mildly enlarged. There are dense mitral annulus calcifications. A few prominent right hilar lymph nodes which measure up to 7 mm in short axis diameter. These are similar to the prior study. The liver, gallbladder, pancreas, adrenal glands, and spleen are unremarkable. The kidneys enhance normally. No hydronephrosis. Moderate calcified plaque within the mildly ectatic abdominal aorta. The bladder is underdistended but appears unremarkable. The uterus is surgically absent. There is mild pelvic floor collapse. Best seen on images 192 through 261 there is twisting of the sigmoid colon and mesentery within the left lower quadrant. The colon proximal to this area is distended with gas and stool. Therefore, these findings are consistent with a sigmoid volvulus resulting in the large bowel obstruction. The colon is distended up to 7.5 cm. There are few borderline gas-filled loops of distal small bowel identified. Questionable mild rectal wall thickening. This is similar to the prior study. No retroperitoneal lymphadenopathy. IMPRESSION: 1. There is twisting of the mesentery and sigmoid colon within the left lower quadrant as described above. Therefore, this is consistent with a sigmoid volvulus. Proximal to this area there is a distended gas-filled colon consistent with a large bowel obstruction. 2. Borderline rectal wall thickening, unchanged. 3. Additional findings as described above. Electronically signed by: Geremias Abraham M.D. 09/15/2020 5:28 PM CXR pending Medications Administered Discontinued Medications Ioversol (Optiray 320 100ml) 94 ml IV ONCE ONE Stop: 09/15/20 17:10 Last Admin: 09/15/20 17:10 Dose: 1 ml Documented by: [id number] Sodium Biphosphate/Sodium Phosphate (Sod Phosphate/Sod Biphosphate Enema 132 Ml Btl) 132 ml [place] NOW STA Stop: 09/15/20 18:29 Last Admin: 09/15/20 19:12 Dose: 132 ml Documented by: [id number] Sodium Biphosphate/Sodium Phosphate (Sod Phosphate/Sod Biphosphate Enema 132 Ml Btl) 132 ml [place] NOW STA Stop: 09/15/20 18:30 Last Admin: 09/15/20 19:12 Dose: 132 ml Documented by: [id number] ECG Additional Comments: Sinus rhythm with marked sinus arrhythmia Possible Left atrial enlargement, age undetermined Abnormal ECG When compared with ECG of 19-FEB-2020 12:51, Premature ventricular complexes are no longer Present Premature atrial complexes are no longer Present Code Status & VTE Plan Code Status CODE: Limited- NO CPR - Yes to intubation, mechanical ventilation, vasopressor/dilator support VTE: SCD's for now- chemoprophylaxis after surgery evalaution/treatment VTE Prophylaxis Plan VTE Prophylaxis will be ordered: Yes Supervising Physician Co-Signing Physician Notes Attending Attestation & Admit Note: Pt seen/examined, chart reviewed, care plan d/w LINH Zaldivar. I agree w/ the garcía components of his documentation. 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 CT a/p at presentation today c/w sigmoid volvulus. Patient reports chronic HOYOS since her dx of COVID last year. Was hospitalized 30 days for such. PMH/PSH/allergies/meds/sochx - reviewed VSS, afebrile gen - NAD neck - JVD nearly to the jaw heart - irregular, s1 s2, 2/6 systolic murmur LSB lungs - fine, velcro-like rales b/l bases abd - marked distension, BS+, tender LLQ ext - <1+ edema b/l labs, EKG reviewed CT a/p - fibrosis b/l lung bases; sigmoid volvulus A/P: 1. acute sigmoid volvulus -- [facility] has been STAT consulted for emergent decompression and placement of rectal tube. Following such will need gen surg consultation for resection to prevent reoccur rence. 2. 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 JVD on physical exam -- 2nd to pulmonary HTN? prior to any sigmoid resection advise echo to check RV systolic function and pulmonary pressures. this would impact perioperative fluid management, etc. agree w/ pulmonary consultation post-discharge. 3. h/o PAF -- once patient has sigmoid resection would advise placing her on telemetry due to high risk of perioperative CHF, PAF, etc. Wander Condon MD PG Care Time/CCT Total # of Minutes Spent Total Time Spent with Patient: Total time spent is greater than 50% in coordination of care (as documented) at patient's floor/unit and/or counseling patient: Coding Level of Care Code 71492 Initial Inpt Care Lvl 3 Diagnoses Sigmoid volvulus K56.2 Paroxysmal atrial fibrillation I48.0 Acute respiratory failure with hypoxia J96.01 Diabetes E11.69 Diabetes mellitus complication status: with other specified complication Diabetes mellitus terminal operator insulin use: without terminal operator use Diabetes mellitus type: type 2 Hyperlipidemia E78.5 Hyperlipidemia type: unspecified Constipation K59.09 Constipation type: other constipation type (1) Diabetes Diabetes mellitus complication status: with other specified complication Diabetes mellitus usp insulin use: without terminal operator use Diabetes mellitus type: type 2 Qualified Code(s): E11.69 - Type 2 diabetes mellitus with other specified complication (2) Hyperlipidemia Hyperlipidemia type: unspecified Qualified Code(s): E78.5 - Hyperlipidemia, unspecified (3) Constipation Constipation type: other constipation type Qualified Code(s): K59.09 - Other constipation
[2020-09-15] MEDS ORDERED: ALBUTEROL 0.083% NEBU SOLN 3 ML VIAL NEB PRN (19:35)
[2020-09-15] MEDS ORDERED: ALBUTEROL 0.083% NEBU SOLN 3 ML VIAL NEB ONE (19:36)
[2020-09-15] MEDS: LACTATED RINGER'S 1,000 ML IV SCH (19:57)
--- NOTE | 2020-09-15 20:02 | Gastrointestinal Consultation ---
Date of Consultation September 15, 2020 Assessment & Plan (1) Sigmoid volvulus: Urgent Flex sig with decompression today. Surgery consult as patient will eventually need a resection. Patient was explained in detail regarding risks, benefits, limitations and alternatives of the above endoscopic procedure. Risks of intravenous sedation used for procedure were also explained. Risks include, but not limited to perforation, bleeding, infection, respiratory distress, cardiac arrest and . Patient is also aware about the possibility of missed lesion. Patient's questions were answered. The patient verbalized understanding the information and agreed to undergo the procedure. History of Present Illness Reason for Consultation: Sigmoid Volvulus Requesting Physician: History of Present Illness 89 years old female patient presented to the hospital with abdominal pain, found to have acute sigmoid volvulus on CT scan hence GI consulted. Denies any nausea or vomiting. Last colonoscopy in 2012 was normal. Reports chronic constipation, no diarrhea, no fever or chills. Allergies Allergy/AdvReac Type Severity Reaction Status Date / Time ciprofloxacin [Cipro] Allergy Mild RASH Verified 09/15/20 15:50 Home Medications Medication Instructions Recorded Confirmed Type docusate sodium [Colace] 100 mg PO BID 09/15/20 09/15/20 History linaclotide [Linzess] 290 mcg PO DAILY 09/15/20 09/15/20 History Patient History Medical History Constipation Elevated troponin Ileus Pneumonia due to COVID-19 virus Social History Smoking Status: Never smoker Second Hand Exposure: No; Hx Alcohol Use: No Hx Substance Use: No Preferred Language: French Communication Ability: Effective Senior Health Consultant Required: No Beliefs That Will Affect Care: None marital status: / Current Living Situation: Family Current Living Situation Comment: With daughter and son in law, states she is planning 2 move 2 [place] 2 Feels Safe at Home: Yes Assistive Devices: Walker Review of Systems Constitutional: no fever, no chills, no fatigue and no weight loss Eyes: no eye pain and no worsening vision Ear, Nose, Mouth, Throat: no tinnitus, no dizziness, no nasal discharge and no epistaxis Respiratory: no cough, no dyspnea, no dyspnea on exertion and no wheezing Cardiovascular: no chest pain, no orthopnea, no palpitations and no edema Gastrointestinal: as per Subjective / HPI Genitourinary: no dysuria, no urinary frequency, no urinary incontinence and no hematuria Musculoskeletal: no stiffness and no myalgia Neurologic: no localized weakness, no paralysis, no tremor(s) and no headache(s) Endocrine: no polydipsia and no polyuria Hematologic / Lymphatic: no easy bleeding and no night sweats Physical Exam Constitutional: + well hydrated, cooperative and comfortable Eyes: PERRL, conjunctivae normal, anicteric sclerae ENMT: external ear and nose normal, oropharynx normal Neck: normal visual inspection and trachea midline Respiratory: normal respiratory effort, lungs clear to auscultation Auscultation: no wheezes Cardiovascular: RRR, no murmur, no edema Gastrointestinal (Abdomen): normal bowel sounds, soft, nontender, no hepatosplenomegaly Musculoskeletal: no cyanosis or clubbing, extremities motor strength 5/5 Skin: no rashes, warm and dry Neurologic: awake; no focal motor deficits Motor/Sensory: no tremor Results & Data ([facility]) Vital Signs (Past 12 Hours) Vital Signs Temp Pulse Pulse Resp BP BP Pulse Ox 09/15/20 18:30 78 22 141/68 H 94 09/15/20 18:00 70 8 L 133/78 94 09/15/20 17:30 96 H 12 154/65 H 97 09/15/20 17:00 80 17 137/76 97 09/15/20 16:30 73 25 H 136/66 97 09/15/20 16:00 84 17 122/77 95 09/15/20 15:57 83 20 95 09/15/20 15:49 85 27 H 141/86 H 94 09/15/20 15:48 91 H 18 141/86 H 92 09/15/20 15:08 36.6 C 106 H 16 144/86 H 92 Laboratory Results Laboratory Results - last 24 hr 09/15/20 09/15/20 09/15/20 15:51 15:51 15:51 WBC 8.85 RBC 4.70 Hgb 14.4 Hct 43.2 MCV 91.9 MCH 30.6 MCHC 33.3 RDW Std Deviation 44.1 RDW Coeff of Ange 13.1 Plt Count 267 MPV 9.6 Immature Gran % (Auto) 0.2 Neut % (Auto) 77.8 Lymph % (Auto) 14.7 [place] % (Auto) 6.4 Eos % (Auto) 0.8 Baso % (Auto) 0.1 Neut # (Auto) 6.88 H Lymph # (Auto) 1.30 [place] # (Auto) 0.57 Eos # (Auto) 0.07 Baso # (Auto) 0.01 Immature Gran # (Auto) 0.02 Sodium 140 Potassium 4.1 Chloride 106 Carbon Dioxide 25 Anion Gap 9.0 BUN 21 H Creatinine 0.66 Est Cr Clr Drug Dosing 41.4 Est GFR ( Amer) 90.8 Est GFR (Non-Af Amer) 78.3 BUN/Creatinine Ratio 32.5 H Glucose 111 H Calcium 8.8 Total Bilirubin 0.4 AST 17 ALT 16 Alkaline Phosphatase 68 Total Protein 7.2 Albumin 4.0 Globulin 3.2 Albumin/Globulin Ratio 1.3 Lipase 62 L Specimen Hemolysis Urine Color Urine Appearance Urine pH Ur Specific [place] Urine Protein Urine Glucose (UA) Urine Ketones Urine Blood Urine Nitrite Urine Bilirubin Urine Urobilinogen Ur Leukocyte Esterase Urine WBC (Auto) Urine RBC (Auto) U Hyaline Cast (Auto) U Epithel Cells (Auto) Urine Bacteria (Auto) Ur Renal Epithelial Cell PRESS READER Urine Crystals PRESS READER Calcium Oxalate Crystal PRESS READER Uric Acid Crystals PRESS READER Triple Phos Crystals PRESS READER Other Crystals PRESS READER Amorphous Sediment PRESS READER Granular Casts PRESS READER Waxy Casts PRESS READER RBC Casts PRESS READER WBC Casts PRESS READER Other Casts PRESS READER Urine Mucus PRESS READER Urine Other PRESS READER Urine Trichomonas PRESS READER Urine Yeast PRESS READER Urine Sperm PRESS READER Ur Oval Fat Bodies PRESS READER COVID-19 Eval Order SARS-CoV-2 (PCR) 09/15/20 09/15/20 09/15/20 17:26 18:44 18:44 WBC RBC Hgb Hct MCV MCH MCHC RDW Std Deviation RDW Coeff of Ange Plt Count MPV Immature Gran % (Auto) Neut % (Auto) Lymph % (Auto) [place] % (Auto) Eos % (Auto) Baso % (Auto) Neut # (Auto) Lymph # (Auto) [place] # (Auto) Eos # (Auto) Baso # (Auto) Immature Gran # (Auto) Sodium Potassium Chloride Carbon Dioxide Anion Gap BUN Creatinine Est Cr Clr Drug Dosing Est GFR ( Amer) Est GFR (Non-Af Amer) BUN/Creatinine Ratio Glucose Calcium Total Bilirubin AST ALT Alkaline Phosphatase Total Protein Albumin Globulin Albumin/Globulin Ratio Lipase Specimen Hemolysis Urine Color Yellow Urine Appearance Clear Urine pH 6.5 Ur Specific [place] 1.030 Urine Protein Negative Urine Glucose (UA) Negative Urine Ketones 1+ H Urine Blood Trace H Urine Nitrite Negative Urine Bilirubin Negative Urine Urobilinogen Negative Ur Leukocyte Esterase Negative Urine WBC (Auto) 1-5 Urine RBC (Auto) 0-4 U Hyaline Cast (Auto) 0 U Epithel Cells (Auto) 10-20 H Urine Bacteria (Auto) Negative Ur Renal Epithelial Cell Urine Crystals Calcium Oxalate Crystal Uric Acid Crystals Triple Phos Crystals Other Crystals Amorphous Sediment Granular Casts Waxy Casts RBC Casts WBC Casts Other Casts Urine Mucus Urine Other Urine Trichomonas Urine Yeast Urine Sperm Ur Oval Fat Bodies COVID-19 Eval Order Covid19 at [facility] SARS-CoV-2 (PCR) NEGATIVE
[2020-09-15] MEDS ORDERED: MINERAL OIL 30 ML UDC ONE (20:26)
--- NOTE | 2020-09-15 20:33 | Anesthesiology Consultation ---
Date of Service September 15, 2020 Assessment & Plan Chart Review Chart Review: Acceptable Risk for Surgery (necessary procedure) and Patient NOT seen in Pre Admission Testing Consults Requested none History Surgery Operation Date: 09/15/20 19:15 Proposed Procedures p Flexible Sigmoidoscopy - Debora Womack MD Height/Weight Height: 4 ft 10 in Weight: 52.1 kg Allergies Allergy/AdvReac Type Severity Reaction Status Date / Time ciprofloxacin [Cipro] Allergy Mild RASH Verified 09/15/20 15:50 Medications Home Medications Medication Instructions Recorded Confirmed Last Taken docusate sodium [Colace] 100 mg PO BID 09/15/20 09/15/20 Unknown linaclotide [Linzess] 290 mcg PO DAILY 09/15/20 09/15/20 Unknown Active Medications Generic Name Dose Route Start Last Admin Trade Name Freq PRN Reason Stop Dose Admin Lactated Ringer's 1,000 mls @ 80 mls/hr 09/15/20 19:30 09/15/20 19:57 Lr IV 10/15/20 19:29 80 mls/hr .[id number] DARNELL Administration NPO Date Last Intake of Fluids: 09/15/20 Time Last Intake of Fluids: 09:00 Date Last Intake of Solids: 09/15/20 Time Last Intake of Solids: 09:00 Past Medical History Medical History (Updated 09/15/20 @ 20:39 by Geremias Cheng MD) Constipation Elevated troponin Ileus On home oxygen therapy since Covid 19 in November 2019 Pneumonia due to COVID-19 virus Past Surgical History Surgical History (Updated 09/15/20 @ 20:40 by Geremias Cheng MD) H/O lumpectomy H/O: hysterectomy History of appendectomy Social History Smoking Status: Never smoker Hx Alcohol Use: No Hx Substance Use: No Physical Exam Vital Signs Last Vital Signs Temp 36.6 C 09/15/20 15:08 Pulse 68 09/15/20 20:10 Resp 22 09/15/20 20:10 BP 167/80 H 09/15/20 20:00 Pulse Ox 94 09/15/20 20:10 Testing Laboratory Results 09/15/20 15:51 09/15/20 15:51 Urine Color Yellow 09/15/20 17:26 Urine Appearance Clear (Clear) 09/15/20 17:26 Urine pH 6.5 (4.5-7.5) 09/15/20 17:26 Ur Specific [place] 1.030 (1.000-1.030) 09/15/20 17:26 Urine Protein Negative (Negative) 09/15/20 17:26 Urine Glucose (UA) Negative (Negative) 09/15/20 17:26 Urine Ketones 1+ (Negative) H 09/15/20 17:26 Urine Nitrite Negative (Negative) 09/15/20 17:26 Ur Leukocyte Esterase Negative (Negative) 09/15/20 17:26 Urine WBC (Auto) 1-5 /hpf (0-5) 09/15/20 17:26 Urine RBC (Auto) 0-4 /hpf (0-4) 09/15/20 17:26 U Hyaline Cast (Auto) 0 /lpf (0-5) 09/15/20 17:26 U Epithel Cells (Auto) 10-20 /lpf (0-5) H 09/15/20 17:26 Urine Bacteria (Auto) Negative (Negative) 09/15/20 17:26 Electrocardiogram Date: 09/15/20 SR with sinus arrhythmia, rate 86, inferior infarct
[2020-09-15] MEDS ORDERED: PHENYLEPHRINE 100MCG/ML 5ML SYR IV PRN (20:41)
[2020-09-15] MEDS ORDERED: fentaNYL citrate 100 MCG/2 ML VIAL IV PRN (20:41)
[2020-09-15] MEDS ORDERED: ePHEDrine sulfate 50 MG/ML AMP IV PRN (20:41)
[2020-09-15] MEDS ORDERED: LABETALOL HCL IV 5 MG/ML 20ML IV PRN (20:41)
[2020-09-15] MEDS ORDERED: ONDANSETRON INJ 2 MG/ML 2 ML VIAL IV PRN (20:41)
[2020-09-15] MEDS ORDERED: ATROPINE SULFATE 0.1 MG/ML 10ML SYR IV PRN (20:41)
[2020-09-15] MEDS ORDERED: PROPOFOL IV EMULSION 10 MG/ML 20 ML VIAL IV ONE (20:47)
[2020-09-15] MEDS ORDERED: LIDOCAINE 2% 2 ML VIAL/AMP(20MG/ML) INFIL ONE (20:48)
--- NOTE | 2020-09-15 21:08 | Operative Report ---
Post Operative Report Pre & Post Diagnosis Operation Date: 09/15/20 19:15 <No data on this case meets the specified criteria> I identified the patient and participated in the time-out.: Yes Procedure Operation Date: 09/15/20 19:15 <No data on this case meets the specified criteria> Surgeon Debora Womack MD Enrichment Assistant None Estimated Blood Loss 0 Findings See Below (Sigmoid volvulus , decompressed. ) Specimens None Description of Procedure Colonoscopy I attest to the content of the Intraoperative Record and any orders documented therein. Any exceptions are noted below.
--- NOTE | 2020-09-15 21:19 | GI REPORT ---
Patient Name: Briana Liu Procedure Date: 09/15/2020 8:39 PM Date of : 1930 Admit Type: Emergency Department Age: 89 Gender: Female Attending MD: Debora Womack MD Procedure: Colonoscopy Providers: Debora Womack MD Referring MD: Harvey Tom M.d. Indications: Therapeutic procedure, For therapy of volvulus Medicines: Propofol per Anesthesia Complications: No immediate complications. Estimated Blood Loss: Estimated blood loss: none. Procedure: Pre-Anesthesia Assessment: - Prior to the procedure, a History and Physical was performed, and patient medications, allergies and sensitivities were reviewed. The patient's tolerance of previous anesthesia was reviewed. - The risks and benefits of the procedure and the sedation options and risks were discussed with the patient. All questions were answered and informed consent was obtained. - Patient identification and proposed procedure were verified prior to the procedure by the physician and the nurse. The procedure was verified in the procedure room. - Pre-procedure physical examination revealed no contraindications to sedation. After I obtained informed consent, the scope was passed under direct vision. Throughout the procedure, the patient's blood pressure, pulse, and oxygen saturations were monitored continuously. The Colonoscope was introduced through the anus and advanced to the cecum, identified by appendiceal orifice and ileocecal valve. After I obtained informed consent, the scope was passed under direct vision. Throughout the procedure, the patient's blood pressure, pulse, and oxygen saturations were monitored continuously.The colonoscopy was performed without difficulty. The patient tolerated the procedure well. The quality of the bowel preparation was fair. Findings: The perianal and digital rectal examinations were normal. A volvulus with viable appearing mucosa was found in the sigmoid colon. Decompression of the volvulus was attempted and was successful, with complete decompression achieved. Following the maneuver, a tube was placed to maintain the decompression. Impression: - Sigmoid Volvulus. Successful complete decompression achieved. Tube placed. Recommendation: - Return patient to hospital [facility] for ongoing care. - Refer to a surgeon. - Flush the rectal tube with Miralax or Saline every 6 hours. Debora Womack MD 09/15/2020 9:18:48 PM This report has been signed electronically. Note Initiated On: 09/15/2020 8:39 PM Number of Addenda: 0 I attest to the content of the Intraoperative Record and orders documented therein, exceptions below {[id number]}
--- NOTE | 2020-09-15 21:31 | Anesthesiology Progress Note ---
Date of Service September 15, 2020 Anesthesia Post Procedure Vital Signs Vital Signs: Temp Pulse Pulse Resp BP BP Pulse Ox 09/15/20 20:10 68 22 94 09/15/20 20:00 81 23 167/80 H 95 09/15/20 19:36 98 H 24 167/82 H 93 09/15/20 18:30 78 22 141/68 H 94 09/15/20 18:00 70 8 L 133/78 94 09/15/20 17:30 96 H 12 154/65 H 97 09/15/20 17:00 80 17 137/76 97 09/15/20 16:30 73 25 H 136/66 97 09/15/20 16:00 84 17 122/77 95 09/15/20 15:57 83 20 95 09/15/20 15:49 85 27 H 141/86 H 94 09/15/20 15:48 91 H 18 141/86 H 92 09/15/20 15:08 36.6 C 106 H 16 144/86 H 92 Pain Intensity Abdomen: Pain Intensity: 2 Transfer of Care Handoff Completed per policy Notes Mental Status: alert / awake / arousable Patient Amnestic to Procedure: Yes Nausea / Vomiting: adequately controlled Pain: adequately controlled Airway Patency, RR, SpO2: stable & adequate BP & HR: stable & adequate Hydration State: stable & adequate Anesthetic Complications: no major complications apparent and Pt Satisfied with anesthetic care Notes: The patient is awake and comfortable.
[2020-09-15] MEDS ORDERED: HYDROmorphone INJ 0.5 MG/0.5 ML SYR IV PRN (22:10)
--- NOTE | 2020-09-16 04:59 | Surgery Consultation ---
Date of Consultation September 16, 2020 Assessment & Plan (1) Sigmoid volvulus: Patient has been admitted to the hospitalist service. Gastroenterology was consulted urgently and patient has already undergone an endoscopic decompression with placement of rectal tube. Dr. Broderick will meet with patient later today to discuss possible sigmoid resection in order to prevent volvulus from recurring. Prior to undergoing any surgery patient will need an appropriate bowel prep. At the present time the patient is stable and asymptomatic and her abdominal exam is benign as above. doing much better since decompression. discussed options with her and her son Ez. both agree to proceed with surgery which would be a sigmoid colon resection. discussed risks ( bleeding/infection/injury to another structure such as ureter/bowel/bladder etc... anastomotic leak or stricture, dvt/pe/mi/cva etc....) will discussed reasonable post operative expectations as well. both agree with plan. will prep today for sigmoid colectomy tomorrow. Further recommendations to follow History of Present Illness Reason for Consultation: Sigmoid volvulus Attending Physician: Mateo Zhao, History of Present Illness This is an 89-year-old female who presented to the emergency department secondary abdominal pain. Patient notes that she has had worsening abdominal pain over the past 2 to 3 days. She has also noted increasing abdominal distention and inability to move her bowels or passed any flatus. She denies any nausea vomiting. She denies any fevers, shakes, chills. She denied any radiation to of her pain and denied any modifying factors. She notes that she has never had this before. Concerning prior abdominal surgeries the patient notes that she has had an appendectomy as well as a hysterectomy. In the emergency department patient did have labs and imaging which independently reviewed. CBC revealed her white blood cell count, hemoglobin, hematocrit, platelet count were all within normal range. Chemistry profile showed her sodium, potassium, and creatinine were within normal range. Her BUN was slightly elevated at 21. There is no elevation of her LFTs or lipase. Urinalysis was not indicative of infection. Patient had a Covid test performed that was negative. CT scan of her abdomen and pelvis showed twisting of the mesentery at the sigmoid colon which was consistent with a sigmoid volvulus. A chest x-ray was performed that showed bilateral interstitial opacities that appeared stable from prior chest x-rays. Patient notes that she lives independently in apartment. With her activities of daily living she does not get chest pain but does note that she did have a previous COVID-19 infection in November 2019 and as a result of that she does have some shortness of breath with activity but this has been stable for her. At the time of my interview patient was status post endoscopy with sigmoid decompression. She was resting comfortably in bed and noted her abdominal pain markedly improved. Allergies Allergy/AdvReac Type Severity Reaction Status Date / Time ciprofloxacin [Cipro] Allergy Mild RASH Verified 09/15/20 15:50 Home Medications Medication Instructions Recorded Confirmed Type docusate sodium [Colace] 100 mg PO BID 09/15/20 09/15/20 History linaclotide [Linzess] 290 mcg PO DAILY 09/15/20 09/15/20 History Patient History Medical History Constipation Elevated troponin Ileus On home oxygen therapy since Covid 19 in November 2019 Pneumonia due to COVID-19 virus Surgical History H/O lumpectomy H/O: hysterectomy History of appendectomy Family History Other No pertinent family history Social History Smoking Status: Never smoker Second Hand Exposure: Yes (Daughter and Sister smoke.); Do You Dip or Chew Tobacco: No; Tobacco Cessation Education Requested by Patient: No Hx Alcohol Use: No Hx Substance Use: No Preferred Language: Serbian Communication Ability: Effective Top Cutter Required: No Beliefs That Will Affect Care: None marital status: / Current Living Situation: Alone Current Living Situation Comment: [facility]. Other Information That Helps Us Care for You: No Feels Safe at Home: Yes Safety Concerns: Feels Safe At This Time Assistive Devices: Cane, Denture - Upper, Denture - Lower and Glasses Review of Systems Constitutional: no fever and no chills Eyes: no diplopia Ear, Nose, Mouth, Throat: no ear pain Respiratory: no cough and no dyspnea Cardiovascular: no chest pain Gastrointestinal: + abdominal pain and + constipation; no nausea and no vomiting Genitourinary: no dysuria Musculoskeletal: no back pain Integumentary: no rash Neurologic: no localized weakness Physical Exam Constitutional: well developed and well nourished; no acute distress Eyes: no conjunctival abnormality ENMT: Ears: no hearing impairment Neck: trachea midline Respiratory: normal respiratory effort, lungs clear to auscultation Cardiovascular: Rate/Rhythm: regular rate and regular rhythm Gastrointestinal (Abdomen): Abdomen is soft, nontender, nondistended. There is no pain with palpation Musculoskeletal: No calf tenderness Skin: no rashes, warm and dry Neurologic: moves all extremities Psychiatric: A+Ox3, euthymic affect Results & Data ([facility]) Vital Signs (Past 12 Hours) Vital Signs Temp Pulse Pulse Pulse Resp BP BP 09/16/20 04:16 37 C 76 16 134/61 09/16/20 01:04 36.8 C 68 18 124/68 09/16/20 00:00 36.7 C 72 16 108/64 09/15/20 23:00 37 C 62 20 151/71 H 09/15/20 22:30 36.9 C 83 18 136/65 09/15/20 22:00 36.8 C 12 152/79 H 09/15/20 21:45 36.5 C 76 20 136/95 09/15/20 21:30 36.5 C 77 20 157/72 H 09/15/20 21:20 75 20 160/73 H 09/15/20 21:11 36.6 C 88 88 16 133/89 09/15/20 20:10 68 22 09/15/20 20:00 81 23 167/80 H 09/15/20 19:36 98 H 24 167/82 H 09/15/20 18:30 78 22 141/68 H 09/15/20 18:00 70 8 L 133/78 09/15/20 17:30 96 H 12 154/65 H 09/15/20 17:00 80 17 137/76 Pulse Ox 09/16/20 04:16 92 09/16/20 01:04 93 09/16/20 00:00 93 09/15/20 23:00 94 09/15/20 22:30 94 09/15/20 22:00 93 09/15/20 21:45 94 09/15/20 21:30 95 09/15/20 21:20 98 09/15/20 21:11 98 06/20/21 20:10 94 09/15/20 20:00 95 09/15/20 19:36 93 09/15/20 18:30 94 09/15/20 18:00 94 09/15/20 17:30 97 09/15/20 17:00 97 PG Care Time/CCT Total # of Minutes Spent Total Time Spent with Patient: Total time spent is greater than 50% in coordination of care (as documented) at patient's floor/unit and/or counseling patient: Coding Level of Care Code 57800 Inpt Consult Level 5 Diagnoses Sigmoid volvulus K56.2
[2020-09-16 06:21] LABS: Basophils # (auto) 0.01 K/uL (0-0.2); Basophils % (auto) 0.1 %; Eosinophils # (auto) 0.17 K/uL (0-0.5); Eosinophils % (auto) 2.4 %; Hematocrit (blood only) 39.8 % (37-47); Hemoglobin 13.2 g/dL (12.0-16.0); Immature Granulocytes # (auto) 0.01 K/uL (0.00-0.02); Immature Granulocytes % (auto) 0.1 %; Lymphocytes # (auto) 1.92 K/uL (1.2-3.4); Lymphocytes % (auto) 27.2 %; Mean Corpuscular Hemoglobin 30.1 pg (25-34); Mean Corpuscular Hgb Conc 33.2 g/dL (32-36); Mean Corpuscular Volume 90.9 fL (80-100); Mean Platelet Volume 9.5 fL (7.4-10.4); Monocytes # (auto) 0.76 K/uL (0.11-0.59); Monocytes % (auto) 10.8 %; Neutrophils # (auto) 4.18 K/uL (1.4-6.5); Neutrophils % (auto) 59.4 %; Platelet Count 245 K/uL (130-400); RDW Standard Deviation 43.4 fL (36.4-46.3); Red Blood Count 4.38 M/uL (4.2-5.4); White Blood Count 7.05 K/uL (4.8-10.8)
[2020-09-16 07:04] LABS: BUN Creatinine Ratio 32.5 (10-20); Calcium 8.7 mg/dl (8.5-10.1); Est GFR (African American) 99.5 ml/min; Est GFR (Non-African American) 85.8 ml/min
[2020-09-16 07:15] LABS: Estimated Average Glucose 117 mg/dl; Hemoglobin A1C 5.7 % (4.5-5.6)
[2020-09-16 08:09] LABS: Magnesium 2.2 mg/dl (1.8-2.4)
[2020-09-16 08:12] LABS: Potassium 3.4 mmol/L (3.5-5.1)
[2020-09-16] MEDS: LACTATED RINGER'S 1,000 ML IV SCH ×2 (08:22→20:58)
--- NOTE | 2020-09-16 08:52 | XRay Report ---
XR chest 1V portable CLINICAL HISTORY: pre-admission/preoperative COMPARISON STUDY: February 19, 2020 FINDINGS: No pneumothorax. No pleural effusion. No large infiltrates or consolidative lesions are seen. Elevated left hemidiaphragm with mild atelect asis at the left base is unchanged since prior. Also diffuse reticular prominence of pulmonary inters titium appear to be chronic. Cardiac silhouette is prominent. Aorta is calcified. Heavy calcifications of the mitral annulus are a gain seen. No significant pulmonary vascular congestion.. Osseous structures: Osteopenia. Thoracolumbar scoliosis. Degenerative changes of the spine. Gas-filled loops of bowel are seen within upper abdomen and distal aspect of the looping catheter. IMPRESSION: 1. No large infiltrates or consolidative lesions. Stable small atelectasis at the left base. 2. Stable prominence of cardiomediastinal silhouette. 3. Atherosclerosis. ACT 112: Negative or not required by law. The above report was generated using voice recognition software. It may contain grammatical, syntax o r spelling errors. Electronically signed by: Merry Wilde DO 09/16/2020 8:51 AM
--- NOTE | 2020-09-16 08:57 | XRay Report ---
XR KUB/Abdomen 1 view CLINICAL HISTORY: post rectal tube placement COMPARISON STUDY: October 06, 2013 FINDINGS: Multiple gas-filled slightly dilated loops of small and large bowel are seen throughout the abdomen. Large tube is seen loping within abdomen and appear to be extending from the pelvic region. Distal as pect of the tube is seen within the anatomical region of the distal small bowel Thoracolumbar scoliosis is seen with degenerative changes of the spine. Contrast-filled urinary bladder is demonstrated. IMPRESSION: 1. Rectal tube is seen with distal aspect and anatomical region of the distal small bowel. 2. Additional findings as above. ACT 112: Negative or not required by law. The above report was generated using voice recognition software. It may contain grammatical, syntax o r spelling errors. Electronically signed by: Merry Wilde DO 09/16/2020 8:56 AM
[2020-09-16] MEDS ORDERED: POLYETHYLENE (MIRALAX) 17 GM PACK PO ONE ×2 (09:04→18:00)
[2020-09-16] MEDS ORDERED: POLYETHYLENE (MIRALAX) 17 GM PACK PO SCH (09:30)
[2020-09-16] MEDS: POTASSIUM CHLORIDE / WTR 10 MEQ/100 ML PLCT IV SCH ×3 (11:15→13:13)
--- NOTE | 2020-09-16 11:42 | Gastroenterology Progress Note ---
Date of Service September 16, 2020 Assessment & Plan (1) Sigmoid volvulus: 89 year old female s/p colonoscopy w/ decompression for sigmoid volvulus, clinically resolved, following with surgery and plan for colectomy tomorrow Recall GI as needed. Thank you for allowing us to participate in the care of this patient. Please call with any acute changes, questions or concerns. Please see addendum below with additional recommendation from my supervising physician. Admission and Anticipated Discharge Date Admission Date: September 15, 2020 Supervising Physician Co-Signing Physician Notes Attg add: I interviewed and examined pt, reviewed chart and labs. Pt has no complaints and is tolerating PO. Pt with rectal tube in place, with small amount of output. Her abdomen is non tender and nondistended. Further management per surgery. Subjective Feeling well s/p decompression No abd pain, nausea, vomiting Plan for resection tomorrow per patient Review of Systems Review of Systems: All systems reviewed & are unremarkable except as noted in HPI & below Physical Exam Constitutional: WD/WN, vitals as above well developed and well nourished; no acute distress and not ill appearing Neck: trachea midline, no thyromegaly Respiratory: normal respiratory effort, lungs clear to auscultation Cardiovascular: RRR, no murmur, no edema Results & Data ([facility]) Vital Signs (Past 12 Hours) Vital Signs Temp Pulse Resp BP Pulse Ox 09/16/20 08:00 36.8 C 77 18 154/74 H 92 09/16/20 04:16 37 C 76 16 134/61 92 09/16/20 01:04 36.8 C 68 18 124/68 93 09/16/20 00:00 36.7 C 72 16 108/64 93 Laboratory Results 09/16/20 09/16/20 09/16/20 Range/Units 08:03 07:21 05:46 WBC (4.8-10.8) K/uL RBC (4.2-5.4) M/uL Hgb (12.0-16.0) g/dL Hct (37-47) % MCV (80-100) fL MCH (25-34) pg MCHC (32-36) g/dL RDW Std Deviation (36.4-46.3) fL RDW Coeff of Ange (11.5-14.5) % Plt Count (130-400) K/uL MPV (7.4-10.4) fL Immature Gran % (Auto) % Neut % (Auto) % Lymph % (Auto) % [place] % (Auto) % Eos % (Auto) % Baso % (Auto) % Neut # (Auto) (1.4-6.5) K/uL Lymph # (Auto) (1.2-3.4) K/uL [place] # (Auto) (0.11-0.59) K/uL Eos # (Auto) (0-0.5) K/uL Baso # (Auto) (0-0.2) K/uL Immature Gran # (Auto) (0.00-0.02) K/uL Sodium (136-145) mmol/L Potassium 3.4 L D (3.5-5.1) mmol/L Chloride (98-107) mmol/L Carbon Dioxide (21-32) mmol/L Anion Gap (3-11) BUN (7-18) mg/dl Creatinine (0.6-1.2) mg/dl Est Cr Clr Drug Dosing ml/min Est GFR ( Amer) ml/min Est GFR (Non-Af Amer) ml/min BUN/Creatinine Ratio (10-20) Glucose (70-99) mg/dl POC Glucose 80 (70-99) mg/dl Estimat Average Glucose 117 mg/dl Hemoglobin A1c 5.7 H (4.5-5.6) % Calcium (8.5-10.1) mg/dl Magnesium 2.2 (1.8-2.4) mg/dl Total Bilirubin (0.2-1) mg/dl AST (15-37) U/L ALT (12-78) U/L Alkaline Phosphatase (45-117) U/L Total Protein (6.4-8.2) gm/dl Albumin (3.4-5.0) gm/dl Globulin (2.5-4.0) gm/dl Albumin/Globulin Ratio (0.9-2) Lipase (73-393) U/L Specimen Hemolysis Urine Color Urine Appearance (Clear) Urine pH (4.5-7.5) Ur Specific [place] (1.000-1.030) Urine Protein (Negative) Urine Glucose (UA) (Negative) Urine Ketones (Negative) Urine Blood (Negative) Urine Nitrite (Negative) Urine Bilirubin (Negative) Urine Urobilinogen (Negative) Ur Leukocyte Esterase (Negative) Urine WBC (Auto) (0-5) /hpf Urine RBC (Auto) (0-4) /hpf U Hyaline Cast (Auto) (0-5) /lpf U Epithel Cells (Auto) (0-5) /lpf Urine Bacteria (Auto) (Negative) Ur Renal Epithelial Cell Urine Crystals Calcium Oxalate Crystal Uric Acid Crystals Triple Phos Crystals Other Crystals Amorphous Sediment Granular Casts Waxy Casts RBC Casts WBC Casts Other Casts Urine Mucus Urine Other Urine Trichomonas Urine Yeast Urine Sperm Ur Oval Fat Bodies COVID-19 Eval Order SARS-CoV-2 (PCR) (Negative) 09/16/20 09/16/20 09/15/20 Range/Units 05:46 05:46 18:44 WBC 7.05 (4.8-10.8) K/uL RBC 4.38 (4.2-5.4) M/uL Hgb 13.2 (12.0-16.0) g/dL Hct 39.8 (37-47) % MCV 90.9 (80-100) fL MCH 30.1 (25-34) pg MCHC 33.2 (32-36) g/dL RDW Std Deviation 43.4 (36.4-46.3) fL RDW Coeff of Ange 13.0 (11.5-14.5) % Plt Count 245 (130-400) K/uL MPV 9.5 (7.4-10.4) fL Immature Gran % (Auto) 0.1 % Neut % (Auto) 59.4 % Lymph % (Auto) 27.2 % [place]he % (Auto) 10.8 % Eos % (Auto) 2.4 % Baso % (Auto) 0.1 % Neut # (Auto) 4.18 (1.4-6.5) K/uL Lymph # (Auto) 1.92 (1.2-3.4) K/uL [place] # (Auto) 0.76 H (0.11-0.59) K/uL Eos # (Auto) 0.17 (0-0.5) K/uL Baso # (Auto) 0.01 (0-0.2) K/uL Immature Gran # (Auto) 0.01 (0.00-0.02) K/uL Sodium 142 (136-145) mmol/L Potassium (3.5-5.1) mmol/L Chloride 109 H (98-107) mmol/L Carbon Dioxide 28 (21-32) mmol/L Anion Gap 5.0 (3-11) BUN 16 (7-18) mg/dl Creatinine 0.50 L (0.6-1.2) mg/dl Est Cr Clr Drug Dosing 54.0 ml/min Est GFR ( Amer) 99.5 ml/min Est GFR (Non-Af Amer) 85.8 ml/min BUN/Creatinine Ratio 32.5 H (10-20) Glucose 74 (70-99) mg/dl POC Glucose (70-99) mg/dl Estimat Average Glucose mg/dl Hemoglobin A1c (4.5-5.6) % Calcium 8.7 (8.5-10.1) mg/dl Magnesium (1.8-2.4) mg/dl Total Bilirubin (0.2-1) mg/dl AST (15-37) U/L ALT (12-78) U/L Alkaline Phosphatase (45-117) U/L Total Protein (6.4-8.2) gm/dl Albumin (3.4-5.0) gm/dl Globulin (2.5-4.0) gm/dl Albumin/Globulin Ratio (0.9-2) Lipase (73-393) U/L Specimen Hemolysis Urine Color Urine Appearance (Clear) Urine pH (4.5-7.5) Ur Specific [place] (1.000-1.030) Urine Protein (Negative) Urine Glucose (UA) (Negative) Urine Ketones (Negative) Urine Blood (Negative) Urine Nitrite (Negative) Urine Bilirubin (Negative) Urine Urobilinogen (Negative) Ur Leukocyte Esterase (Negative) Urine WBC (Auto) (0-5) /hpf Urine RBC (Auto) (0-4) /hpf U Hyaline Cast (Auto) (0-5) /lpf U Epithel Cells (Auto) (0-5) /lpf Urine Bacteria (Auto) (Negative) Ur Renal Epithelial Cell Urine Crystals Calcium Oxalate Crystal Uric Acid Crystals Triple Phos Crystals Other Crystals Amorphous Sediment Granular Casts Waxy Casts RBC Casts WBC Casts Other Casts Urine Mucus Urine Other Urine Trichomonas Urine Yeast Urine Sperm Ur Oval Fat Bodies COVID-19 Eval Order SARS-CoV-2 (PCR) NEGATIVE (Negative) 09/15/20 09/15/20 09/15/20 Range/Units 18:44 17:26 15:51 WBC (4.8-10.8) K/uL RBC (4.2-5.4) M/uL Hgb (12.0-16.0) g/dL Hct (37-47) % MCV (80-100) fL MCH (25-34) pg MCHC (32-36) g/dL RDW Std Deviation (36.4-46.3) fL RDW Coeff of Ange (11.5-14.5) % Plt Count (130-400) K/uL MPV (7.4-10.4) fL Immature Gran % (Auto) % Neut % (Auto) % Lymph % (Auto) % [place] % (Auto) % Eos % (Auto) % Baso % (Auto) % Neut # (Auto) (1.4-6.5) K/uL Lymph # (Auto) (1.2-3.4) K/uL [place] # (Auto) (0.11-0.59) K/uL Eos # (Auto) (0-0.5) K/uL Baso # (Auto) (0-0.2) K/uL Immature Gran # (Auto) (0.00-0.02) K/uL Sodium (136-145) mmol/L Potassium (3.5-5.1) mmol/L Chloride (98-107) mmol/L Carbon Dioxide (21-32) mmol/L Anion Gap (3-11) BUN (7-18) mg/dl Creatinine (0.6-1.2) mg/dl Est Cr Clr Drug Dosing ml/min Est GFR ( Amer) ml/min Est GFR (Non-Af Amer) ml/min BUN/Creatinine Ratio (10-20) Glucose (70-99) mg/dl POC Glucose (70-99) mg/dl Estimat Average Glucose mg/dl Hemoglobin A1c (4.5-5.6) % Calcium (8.5-10.1) mg/dl Magnesium (1.8-2.4) mg/dl Total Bilirubin (0.2-1) mg/dl AST (15-37) U/L ALT (12-78) U/L Alkaline Phosphatase (45-117) U/L Total Protein (6.4-8.2) gm/dl Albumin (3.4-5.0) gm/dl Globulin (2.5-4.0) gm/dl Albumin/Globulin Ratio (0.9-2) Lipase (73-393) U/L Specimen Hemolysis Urine Color Yellow Urine Appearance Clear (Clear) Urine pH 6.5 (4.5-7.5) Ur Specific [place] 1.030 (1.000-1.030) Urine Protein Negative (Negative) Urine Glucose (UA) Negative (Negative) Urine Ketones 1+ H (Negative) Urine Blood Trace H (Negative) Urine Nitrite Negative (Negative) Urine Bilirubin Negative (Negative) Urine Urobilinogen Negative (Negative) Ur Leukocyte Esterase Negative (Negative) Urine WBC (Auto) 1-5 (0-5) /hpf Urine RBC (Auto) 0-4 (0-4) /hpf U Hyaline Cast (Auto) 0 (0-5) /lpf U Epithel Cells (Auto) 10-20 H (0-5) /lpf Urine Bacteria (Auto) Negative (Negative) Ur Renal Epithelial Cell [employer]PER[employer] Urine Crystals [employer]PER[employer] Calcium Oxalate Crystal [employer]PER[employer] Uric Acid Crystals [employer]PER[employer]OR Triple Phos Crystals [employer] SUPERVISOR Other Crystals [employer] SUPERVISOR Amorphous Sediment [employer] SUPERVISOR Granular Casts [employer] SUPERVISOR Waxy Casts [employer] SUPERVISOR RBC Casts [employer] SUPERVISOR WBC Casts [employer] SUPERVISOR Other Casts [employer] SUPERVISOR Urine Mucus [employer] SUPERVISOR Urine Other [employer] SUPERVISOR Urine Trichomonas [employer] SUPERVISOR Urine Yeast [employer] SUPERVISOR Urine Sperm [employer] SUPERVISOR Ur Oval Fat Bodies [employer] SUPERVISOR COVID-19 Eval Order Covid19 at [facility] SARS-CoV-2 (PCR) (Negative) 09/15/20 09/15/20 Range/Units 15:51 15:51 WBC 8.85 (4.8-10.8) K/uL RBC 4.70 (4.2-5.4) M/uL Hgb 14.4 (12.0-16.0) g/dL Hct 43.2 (37-47) % MCV 91.9 (80-100) fL MCH 30.6 (25-34) pg MCHC 33.3 (32-36) g/dL RDW Std Deviation 44.1 (36.4-46.3) fL RDW Coeff of Ange 13.1 (11.5-14.5) % Plt Count 267 (130-400) K/uL MPV 9.6 (7.4-10.4) fL Immature Gran % (Auto) 0.2 % Neut % (Auto) 77.8 % Lymph % (Auto) 14.7 % [place] % (Auto) 6.4 % Eos % (Auto) 0.8 % Baso % (Auto) 0.1 % Neut # (Auto) 6.88 H (1.4-6.5) K/uL Lymph # (Auto) 1.30 (1.2-3.4) K/uL [place] # (Auto) 0.57 (0.11-0.59) K/uL Eos # (Auto) 0.07 (0-0.5) K/uL Baso # (Auto) 0.01 (0-0.2) K/uL Immature Gran # (Auto) 0.02 (0.00-0.02) K/uL Sodium 140 (136-145) mmol/L Potassium 4.1 (3.5-5.1) mmol/L Chloride 106 (98-107) mmol/L Carbon Dioxide 25 (21-32) mmol/L Anion Gap 9.0 (3-11) BUN 21 H (7-18) mg/dl Creatinine 0.66 (0.6-1.2) mg/dl Est Cr Clr Drug Dosing 41.4 ml/min Est GFR ( Amer) 90.8 ml/min Est GFR (Non-Af Amer) 78.3 ml/min BUN/Creatinine Ratio 32.5 H (10-20) Glucose 111 H (70-99) mg/dl POC Glucose (70-99) mg/dl Estimat Average Glucose mg/dl Hemoglobin A1c (4.5-5.6) % Calcium 8.8 (8.5-10.1) mg/dl Magnesium (1.8-2.4) mg/dl Total Bilirubin 0.4 (0.2-1) mg/dl AST 17 (15-37) U/L ALT 16 (12-78) U/L Alkaline Phosphatase 68 (45-117) U/L Total Protein 7.2 (6.4-8.2) gm/dl Albumin 4.0 (3.4-5.0) gm/dl Globulin 3.2 (2.5-4.0) gm/dl Albumin/Globulin Ratio 1.3 (0.9-2) Lipase 62 L (73-393) U/L Specimen Hemolysis Urine Color Urine Appearance (Clear) Urine pH (4.5-7.5) Ur Specific [place] (1.000-1.030) Urine Protein (Negative) Urine Glucose (UA) (Negative) Urine Ketones (Negative) Urine Blood (Negative) Urine Nitrite (Negative) Urine Bilirubin (Negative) Urine Urobilinogen (Negative) Ur Leukocyte Esterase (Negative) Urine WBC (Auto) (0-5) /hpf Urine RBC (Auto) (0-4) /hpf U Hyaline Cast (Auto) (0-5) /lpf U Epithel Cells (Auto) (0-5) /lpf Urine Bacteria (Auto) (Negative) Ur Renal Epithelial Cell Urine Crystals Calcium Oxalate Crystal Uric Acid Crystals Triple Phos Crystals Other Crystals Amorphous Sediment Granular Casts Waxy Casts RBC Casts WBC Casts Other Casts Urine Mucus Urine Other Urine Trichomonas Urine Yeast Urine Sperm Ur Oval Fat Bodies COVID-19 Eval Order SARS-CoV-2 (PCR) (Negative)
--- NOTE | 2020-09-16 14:13 | Electrocardiogram Report ---
Test Reason : Blood Pressure : / mmHG Vent. Rate : 086 BPM Atrial Rate : 086 BPM P-R Int : 136 ms QRS Dur : 080 ms QT Int : 378 ms P-R-T Axes : 050 -04 017 degrees QTc Int : 452 ms Sinus rhythm with marked sinus arrhythmia Possible Left atrial enlargement Inferior infarct , age undetermined Abnormal ECG When compared with ECG of 19-FEB-2020 12:51, Premature ventricular complexes are no longer Present Premature atrial complexes are no longer Present Confirmed by Marcio Alegre ([id number]) on 09/16/2020 2:13:06 PM Referred By: REFERRED SELF Confirmed By:Marcio Alegre
--- NOTE | 2020-09-16 18:05 | Hospitalist Progress Note ---
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 Agree with patient and her assessment of risks and benefits that it is likely better to proceed. (2) Paroxysmal atrial fibrillation: Currently NSR with PAC - Not on any BB or other rate control agents - Not on chronic anticoagulation -Continue current care and monitoring (3) Acute respiratory failure with hypoxia: Post COVID oxygen requirement - Patient with inflammation/scarring noted on what was caught of her lungs on the CT scan of her abdomen and pelvis -Off oxygen at the time of my assessment (4) Diabetes: Not upfrmnjyZ1a 5.7 (5) Hyperlipidemia: Not on statin, seems okay with this given age and general lack of risks (6) Constipation: Manage as part of volvulus (7) DVT prophylaxis: SCDs for nowsurgery in a.m. Likely start pharmacologic DVT prophylaxis postop (8) Discharge planning issues: Postop, anticipate a need for PT/OT eval and treat, discussed with patient because of her age, there is a reasonable likelihood of needing some form of her rehab stay after discharge, she is aware of this, but also feels she will likely do well enough to be able to go home. Admission and Anticipated Discharge Date Admission Date: September 15, 2020 Subjective Feeling okay. Expresses a good understanding of what is going on, and is thinking about risks and benefits, but feels that she would rather proceed with surgery then have a recurrent volvulus lumen over her as a possible problem at any moment. Review of Systems Review of Systems: All systems reviewed & are unremarkable except as noted in HPI & below Physical Exam Physical Exam: General she is awake and alert pleasant no distress. HEENT normocephalic atraumatic mucous membranes moist. Breathing unlabored no accessory muscle use good effort. Skin shows no rashes no pallor or icterus. Neuro shows no focal deficits. Results & Data Results & Data ([facility]) Vital Signs (Past 12 Hours) Vital Signs Temp Pulse Resp BP Pulse Ox 09/16/20 16:41 97.3 F L 91 H 18 173/73 H 92 09/16/20 08:00 98.2 F 77 18 154/74 H 92 PG Care Time/CCT Total # of Minutes Spent Total Time Spent with Patient: Total time spent is greater than 50% in coordination of care (as documented) at patient's floor/unit and/or counseling patient: Coding Level of Care Code 77387 Subseq Hosp Care Lvl 3 Diagnoses Sigmoid volvulus K56.2 Paroxysmal atrial fibrillation I48.0 Acute respiratory failure with hypoxia J96.01 Diabetes E11.69 Diabetes mellitus type: type 2 Diabetes mellitus long term care pharmacist insulin use: without skilled nursing use Diabetes mellitus complication status: with other specified complication Hyperlipidemia E78.5 Hyperlipidemia type: unspecified Constipation K59.09 Constipation type: other constipation type DVT prophylaxis Z29.9 Discharge planning issues Z02.9 (1) Diabetes Diabetes mellitus type: type 2 Diabetes mellitus long term care pharmacist insulin use: without long term care pharmacist use Diabetes mellitus complication status: with other specified complication Qualified Code(s): E11.69 - Type 2 diabetes mellitus w ith other specified complication (2) Hyperlipidemia Hyperlipidemia type: unspecified Qualified Code(s): E78.5 - Hyperlipidemia, unspecified (3) Constipation Constipation type: other constipation type Qualified Code(s): K59.09 - Other constipation
[2020-09-17 05:58] LABS: Basophils # (auto) 0.01 K/uL (0-0.2); Basophils % (auto) 0.1 %; Eosinophils % (auto) 4.8 %; Hematocrit (blood only) 44.5 % (37-47); Hemoglobin 14.9 g/dL (12.0-16.0); Immature Granulocytes # (auto) 0.01 K/uL (0.00-0.02); Immature Granulocytes % (auto) 0.1 %; Lymphocytes # (auto) 2.38 K/uL (1.2-3.4); Lymphocytes % (auto) 28.5 %; Mean Corpuscular Hemoglobin 31.1 pg (25-34); Mean Corpuscular Hgb Conc 33.5 g/dL (32-36); Mean Corpuscular Volume 92.9 fL (80-100); Mean Platelet Volume 9.7 fL (7.4-10.4); Monocytes # (auto) 0.85 K/uL (0.11-0.59); Monocytes % (auto) 10.2 %; Neutrophils # (auto) 4.71 K/uL (1.4-6.5); Neutrophils % (auto) 56.3 %; Platelet Count 278 K/uL (130-400); RDW Coefficient of Variation 13.1 % (11.5-14.5); RDW Standard Deviation 45.3 fL (36.4-46.3); Red Blood Count 4.79 M/uL (4.2-5.4); White Blood Count 8.36 K/uL (4.8-10.8)
[2020-09-17 06:13] LABS: BUN Creatinine Ratio 10.5 (10-20); Calcium 8.7 mg/dl (8.5-10.1); Creatinine Clr Calc Pharmacy 45.8 ml/min; Est GFR (African American) 94.2 ml/min; Est GFR (Non-African American) 81.3 ml/min
[2020-09-17 09:03] LABS: Potassium 3.4 mmol/L (3.5-5.1)
[2020-09-17 09:04] LABS: Magnesium 2.1 mg/dl (1.8-2.4)
[2020-09-17] MEDS: LACTATED RINGER'S 1,000 ML IV SCH (09:32)
[2020-09-17] MEDS ORDERED: SUGAMMADEX SODIUM 200 MG/2 ML VIAL IV ONE (15:04)
[2020-09-17] MEDS ORDERED: fentaNYL citrate 100 MCG/2 ML VIAL ONE ×2 (15:06)
--- NOTE | 2020-09-17 15:07 | Anesthesiology Consultation ---
Date of Service September 17, 2020 Assessment & Plan (1) Encounter for pre-operative examination: Chart Review Chart Review: Acceptable Risk for Surgery Consults Requested none ASA ASA3 Proposed Anesthesia Anesthesia Type: General Risk / Benefits Reviewed With: PT / POA / Parent / Guardian, Accepts Plan and Informed Consent Obtained History Surgery Operation Date: 09/15/20 19:15 Proposed Procedures p Flexible Sigmoidoscopy - Debora Womack MD Operation Date: 09/17/20 07:00 Proposed Procedures p Open Sigmoid Colon Resection - Ugo Broderick DO Height/Weight Height: 4 ft 10 in Weight: 50.8 kg Allergies Allergy/AdvReac Type Severity Reaction Status Date / Time ciprofloxacin [Cipro] Allergy Mild RASH Verified 09/15/20 15:50 Medications Home Medications Medication Instructions Recorded Confirmed Last Taken docusate sodium [Colace] 100 mg PO BID 09/15/20 09/15/20 Unknown linaclotide [Linzess] 290 mcg PO DAILY 09/15/20 09/15/20 Unknown Active Medications Generic Name Dose Route Start Last Admin Trade Name Freq PRN Reason Stop Dose Admin Lactated Ringer's 1,000 mls @ 80 mls/hr 09/15/20 19:30 09/17/20 14:17 Lr IV 10/15/20 19:29 Infused .[id number] DARNELL Infusion NPO Date Last Intake of Fluids: 09/16/20 Time Last Intake of Fluids: 23:59 Date Last Intake of Solids: 09/15/20 Time Last Intake of Solids: 09:00 Past Medical History Medical History Constipation Elevated troponin Ileus On home oxygen therapy since Covid 19 in November 2019 Pneumonia due to COVID-19 virus Exercise / Class Metabolic Activity III < 4 Walking/Shop/Light housework Past Family History Family History Other No pertinent family history Past Surgical History Surgical History H/O lumpectomy H/O: hysterectomy History of appendectomy Past Anesthesia History No Hx of Anesthesia Complications and No Family Hx of Anesthesia Complications History of PONV No Hx of PONV and No Hx of Motion Sickness Social History Smoking Status: Never smoker Do You Dip or Chew Tobacco: No Hx Alcohol Use: No Hx Substance Use: No Physical Exam Vital Signs Last Vital Signs Temp 98.2 F 09/17/20 06:35 Pulse 85 09/17/20 14:05 Resp 18 09/17/20 14:05 BP 166/81 H 09/17/20 14:05 Pulse Ox 93 09/17/20 14:05 ENMT Mouth: + edentulous Thyromental Distance: > or= 3.5 Finger Breadths Mallampati Class: II Neck normal visual inspection Respiratory normal respiratory effort Auscultation: lungs clear to auscultation bilaterally Cardiovascular Rate/Rhythm: regular rate and regular rhythm Testing Laboratory Results 09/17/20 05:30 09/17/20 08:11 Hemoglobin A1c 5.7 % (4.5-5.6) H 09/16/20 05:46 Urine Color Yellow 09/15/20 17:26 Urine Appearance Clear (Clear) 09/15/20 17:26 Urine pH 6.5 (4.5-7.5) 09/15/20 17:26 Ur Specific [place] 1.030 (1.000-1.030) 09/15/20 17:26 Urine Protein Negative (Negative) 09/15/20 17:26 Urine Glucose (UA) Negative (Negative) 09/15/20 17:26 Urine Ketones 1+ (Negative) H 09/15/20 17:26 Urine Nitrite Negative (Negative) 09/15/20 17:26 Ur Leukocyte Esterase Negative (Negative) 09/15/20 17:26 Urine WBC (Auto) 1-5 /hpf (0-5) 09/15/20 17:26 Urine RBC (Auto) 0-4 /hpf (0-4) 09/15/20 17:26 U Hyaline Cast (Auto) 0 /lpf (0-5) 09/15/20 17:26 U Epithel Cells (Auto) 10-20 /lpf (0-5) H 09/15/20 17:26 Urine Bacteria (Auto) Negative (Negative) 09/15/20 17:26 Blood Type O Negative 09/16/20 15:02 Antibody Screen NEGATIVE 09/16/20 15:02 09/17/20 09/17/20 12:08 07:50 POC Glucose 100 H 93 Electrocardiogram Date: 09/15/20 Sinus rhythm with marked sinus arrhythmia, rate 86 bpm Possible Left atrial enlargement Inferior infarct , age undetermined Abnormal ECG When compared with ECG of 19-FEB-2020 12:51, Premature ventricular complexes are no longer Present Premature atrial complexes are no longer Present Confirmed by Marcio Alegre ([id number]) on 09/16/2020 2:13:06 PM Chest X-Ray Date: 09/15/20 IMPRESSION: 1. No large infiltrates or consolidative lesions. Stable small atelectasis at the left base. 2. Stable prominence of cardiomediastinal silhouette. 3. Atherosclerosis.
[2020-09-17] MEDS ORDERED: ePHEDrine sulfate 50 MG/ML AMP IV PRN (15:11)
[2020-09-17] MEDS ORDERED: ONDANSETRON INJ 2 MG/ML 2 ML VIAL IV PRN (15:11)
[2020-09-17] MEDS ORDERED: ATROPINE SULFATE 0.1 MG/ML 10ML SYR IV PRN (15:11)
[2020-09-17] MEDS ORDERED: ceFAZolin 2,000 MG/15 ML IV PUSH IV ONE (16:03)
--- NOTE | 2020-09-17 16:03 | History & Physical Bridge Note ---
Date of Service September 17, 2020 History & Physical Bridge Note I have examined the patient, reviewed the History & Physical and in the interval since the performance of the History & Physical I have noted the following changes of clinical significance: no changes noted No changes from yesterday. Her volvulus continues to be decompressed. She tolerated the prep. I spoken her and her family multiple times and discussed the risks of today's procedure which would include bleeding, infection, anastomotic leak or stricture, injury to other organs such as bowel ureter or bladder, DVT, PE, [place], CVA etc. Following our discussion I answered all the questions. Today we will proceed with an open sigmoid colectomy.
[2020-09-17] MEDS ORDERED: ceFAZolin 2000MG 2,000 MG/15 ML SYR IV ONE (16:05)
[2020-09-17] MEDS ORDERED: BUPIVACAINE/EPINEPHRINE 0.5% MPF 1:200,000 30 ML VIAL ONE (16:30)
[2020-09-17] MEDS ORDERED: ePHEDrine sulfate 50 MG/ML SYR ONE (17:01)
[2020-09-17] MEDS ORDERED: ROCURONIUM BROMIDE 10 MG/ML 5 ML VIAL IV ONE (17:01)
[2020-09-17] MEDS ORDERED: PROPOFOL IV EMULSION 10 MG/ML 20 ML VIAL IV ONE (17:01)
[2020-09-17] MEDS ORDERED: DEXAMETHASONE SOD INJ 4 MG/ML VIAL ONE (17:01)
[2020-09-17] MEDS ORDERED: ONDANSETRON INJ 2 MG/ML 2 ML VIAL ONE (17:01)
[2020-09-17] MEDS: fentaNYL citrate 100 MCG/2 ML VIAL IV PRN ×4 (17:55→18:10)
--- NOTE | 2020-09-17 18:03 | Operative Report ---
PG Post Operative Report Pre & Post Diagnosis Operation Date: 09/15/20 19:15 Pre-Op Diagnosis: Sigmoid Volvulus Post-Op Diagnosis: Sigmoid Volvulus Operation Date: 09/17/20 07:00 Pre-Op Diagnosis: SIGMOID VOLVUS Post-Op Diagnosis: SIGMOID VOLVUS I identified the patient and participated in the time-out.: Yes Procedure Operation Date: 09/15/20 19:15 Actual Procedures p Flexible Sigmoidoscopy - Debora Womack MD Operation Date: 09/17/20 07:00 Actual Procedures p Open Sigmoid Colon Resection - Ugo Broderick DO Surgeon Ugo Broderick DO Roof Tiler None Estimated Blood Loss 10 Findings See Below (Sigmoid volvulus , decompressed. ) Specimens sigmoid colon Description of Procedure After informed consent was obtained the patient was taken to the operating room and placed in supine position. After successful intubation the patient was placed into a low lithotomy position, a Roberts catheter was placed and the abdomen was sterilely prepped and draped in usual fashion. I began with a midline incision from just above the umbilicus down around to the suprapubic region with a 10 blade scalpel. This was carried down through the soft tissue using cautery. The anterior fascia was opened using cautery. Peritoneum was elevated with hemostats and incised under direct vision using a Metzenbaum scissor. The incision was opened to both poles using cautery. We explored all 4 quadrants once in the abdomen. There was a very large floppy redundant sigmoid colon. No other gross abnormalities were identified. Because of the chronic nature of her floppy sigmoid colon there was not much dissection needed. I transected the rectosigmoid distal to the dilated portion of colon using a NIKOLAS brown cartridge linear stapler. We then picked a portion proximal to the dilated portion of bowel and transected this using a brown cartridge linear stapler as well. We then took down the mesentery using a LigaSure device and passed off the specimen. The remaining left colon and rectum were still floppy enough that we could perform a side to side anastomosis. On the tinea an enterotomy was made in the left colon and an enterotomy was made on the remaining rectosigmoid colon. They were laid [id number] and a NIKOLAS brown cartridge linear stapler was used to make a qzix-[id number] anastomosis. The common enterotomy was closed using a TA 60 device. 3-0 [address] was used to place a crotch stitch as well as to oversew the staple lines in Lembert fashion. The mesenteric defect was closed using 2-0 Vicryl in a running fashion. Anastomosis laid nice and tension-free. There was no evidence of ischemia. We had no spillage whatsoever. We thoroughly irrigated the pelvis as well as the abdomen. There was adequate hemostasis. A 10 flat Sai-Petit drain was brought in through a separate stab incision and placed into the pelvis. It was secured to skin using 2-0 silk. The fascia was closed using 0- looped PDS in a running fashion. Soft tissue was irrigated and closed using skin ashley. A silver dr essing gauze and tape were applied. The patient was awakened placed back into a supine position extubated and transferred to recovery in stable condition. My physician diploma medical assistant was present for the entire case. He was instrumental in retraction throughout my dissection. He assisted with the anastomosis as well as with wound closure and dressing placement. I attest to the content of the Intraoperative Record and any orders documented therein. Any exceptions are noted below.
--- NOTE | 2020-09-17 18:23 | Anesthesiology Progress Note ---
Date of Service September 17, 2020 Anesthesia Post Procedure Vital Signs Vital Signs: Temp Pulse Pulse Resp BP BP Pulse Ox 09/17/20 18:20 98.1 F 82 16 156/78 H 95 09/17/20 18:10 76 18 156/68 H 99 09/17/20 18:00 75 22 167/99 H 100 09/17/20 17:50 97.7 F 83 16 176/82 H 99 09/17/20 14:05 85 18 166/81 H 93 09/17/20 06:35 98.2 F 78 18 145/73 H 91 09/16/20 23:05 98.2 F 87 20 110/75 90 Pain Intensity Abdomen: Pain Intensity: 4 Transfer of Care Handoff Completed per policy Notes Mental Status: alert / awake / arousable and participated in evaluation Patient Amnestic to Procedure: Yes Nausea / Vomiting: adequately controlled Pain: adequately controlled Airway Patency, RR, SpO2: stable & adequate BP & HR: stable & adequate Hydration State: stable & adequate Anesthetic Complications: no major complications apparent and Pt Satisfied with anesthetic care
[2020-09-17] MEDS ORDERED: HYDROmorphone INJ 0.5 MG/0.5 ML SYR IV PRN (18:44)
--- NOTE | 2020-09-17 18:47 | Hospitalist Progress Note ---
Date of Service September 17, 2020 Assessment & Plan (1) Sigmoid volvulus: Male postop from sigmoid resection. Appears to be doing well. Supportive care/postop care. (2) Paroxysmal atrial fibrillation: Currently NSR with PAC - Not on any BB or other rate control agents - Not on chronic anticoagulation -Continue current care and monitoring, appears to have done well through surgery (3) Acute respiratory failure with hypoxia: Seems to be doing better overallis on 2 L postop, but has been off of oxygen quite a bit (4) Diabetes: Not wabwictzH6t 5.7 (5) Hyperlipidemia: Not on statin, seems okay with this given age and general lack of risks (6) Constipation: Manage as part of volvulus (7) DVT prophylaxis: SCDs for nowlikely start pharmacologic DVT prophylaxis tomorrow if okay with surgery (8) Discharge planning issues: Postop, anticipate a need for PT/OT eval and treat, previously discussed with patient because of her age, there is a reasonable likelihood of needing some form of her rehab stay after discharge, she is aware of this, but also feels she will likely do well enough to be able to go home. Admission and Anticipated Discharge Date Admission Date: September 15, 2020 Subjective Patient seen in [facility] to have done quite well in chart review and discussion with PACU staff. Essentially no HPI or review of systems at this time given that she is still groggy from anesthesia. Review of Systems Review of Systems: Unobtainable due to cognitive status Physical Exam Physical Exam: In general she is still somewhat sedate from anesthesia she does open her eyes and make a little bit of eye contact and may be even smiled faintly but then starts to fall back to sleep. HEENT normocephalic atraumatic mucous membranes are moist. Cardio is regular without rubs murmurs gallops. Lungs clear to auscultation bilaterally no rales rhonchi or wheezes with good spontaneous effort. Skin shows no rashes no pallor or icterus. Neuro shows no focal deficits. Results & Data Results & Data ([facility]) Vital Signs (Past 12 Hours) Vital Signs Temp Pulse Pulse Resp BP Pulse Ox 09/17/20 18:30 65 16 142/78 H 96 09/17/20 18:20 98.1 F 82 16 156/78 H 95 09/17/20 18:10 76 18 156/68 H 99 09/17/20 18:00 75 22 167/99 H 100 09/17/20 17:50 97.7 F 83 16 176/82 H 99 09/17/20 14:05 85 18 166/81 H 93 PG Care Time/CCT Total # of Minutes Spent Total Time Spent with Patient: Total time spent is greater than 50% in coordination of care (as documented) at patient's floor/unit and/or counseling patient: Coding Level of Care Code 86635 Subseq Hosp Care Lvl 2 Diagnoses Sigmoid volvulus K56.2 Paroxysmal atrial fibrillation I48.0 Acute respiratory failure with hypoxia J96.01 Diabetes E11.69 Diabetes mellitus type: type 2 Diabetes mellitus assisted insulin use: without assisted use Diabetes mellitus complication status: with other specified complication Hyperlipidemia E78.5 Hyperlipidemia type: unspecified Constipation K59.09 Constipation type: other constipation type DVT prophylaxis Z29.9 Discharge planning issues Z02.9 (1) Diabetes Diabetes mellitus type: type 2 Diabetes mellitus assisted insulin use: without longshore equipment operator use Diabetes mellitus complication status: with other specified complication Qualified Code(s): E11.69 - Type 2 diabetes mellitus with other specified complication (2) Hyperlipidemia Hyperlipidemia type: unspecified Qualified Code(s): E78.5 - Hyperlipidemia, unspecified (3) Constipation Constipation type: other constipation type Qualified Code(s): K59.09 - Other constipation
[2020-09-17] MEDS: ACETAMINOPHEN 1,000 MG/100 ML VIAL IV SCH (20:39)
[2020-09-18] MEDS: LACTATED RINGER'S 1,000 ML IV SCH ×2 (04:09→16:45)
[2020-09-18] MEDS: ACETAMINOPHEN 1,000 MG/100 ML VIAL IV SCH ×3 (05:24→21:20)
[2020-09-18 05:52] LABS: Basophils # (auto) 0.01 K/uL (0-0.2); Basophils % (auto) 0.1 %; Eosinophils # (auto) 0.02 K/uL (0-0.5); Eosinophils % (auto) 0.1 %; Hematocrit (blood only) 40.4 % (37-47); Hemoglobin 13.2 g/dL (12.0-16.0); Immature Granulocytes # (auto) 0.03 K/uL (0.00-0.02); Immature Granulocytes % (auto) 0.2 %; Lymphocytes # (auto) 1.72 K/uL (1.2-3.4); Lymphocytes % (auto) 11.1 %; Mean Corpuscular Hemoglobin 30.1 pg (25-34); Mean Corpuscular Hgb Conc 32.7 g/dL (32-36); Mean Platelet Volume 9.2 fL (7.4-10.4); Monocytes # (auto) 1.09 K/uL (0.11-0.59); Monocytes % (auto) 7.1 %; Neutrophils # (auto) 12.57 K/uL (1.4-6.5); Neutrophils % (auto) 81.4 %; Platelet Count 237 K/uL (130-400); RDW Standard Deviation 43.7 fL (36.4-46.3); Red Blood Count 4.39 M/uL (4.2-5.4); White Blood Count 15.44 K/uL (4.8-10.8)
[2020-09-18 06:38] LABS: BUN Creatinine Ratio 16.2 (10-20); Calcium 8.1 mg/dl (8.5-10.1); Creatinine Clr Calc Pharmacy 48.2 ml/min; Est GFR (African American) 95.8 ml/min; Est GFR (Non-African American) 82.7 ml/min
--- NOTE | 2020-09-18 07:56 | Surgery Progress Note ---
Date of Service September 18, 2020 Assessment & Plan (1) Sigmoid volvulus: POD 1 sigmoid rsxn can start on clears keep song for now H&H stable doing great. minimal discomfort. ENA looks good. can have some clears. Admission and Anticipated Discharge Date Admission Date: September 15, 2020 Subjective she is surprised at well she feels, Ofirmev only for pain, no nausea Physical Exam Gastrointestinal (Abdomen): Inspection/Auscultation: + abdominal surgical drain present (10 cc overnight); abdomen not distended Percussion/Palpation: abdomen soft UOP 200 overnight Results & Data ([facility]) Vital Signs (Past 12 Hours) Vital Signs Temp Pulse Resp BP Pulse Ox 09/18/20 06:35 36.5 C 70 16 103/60 91 09/18/20 04:03 36.5 C 81 16 121/67 98 09/17/20 23:25 36.7 C 82 16 118/71 96 09/17/20 21:45 36.5 C 79 16 128/75 96 PG Care Time/CCT Total # of Minutes Spent Total Time Spent with Patient: Total time spent is greater than 50% in coordination of care (as documented) at patient's floor/unit and/or counseling patient: Coding Level of Care Code None Diagnoses Sigmoid volvulus K56.2
--- NOTE | 2020-09-18 19:36 | Hospitalist Progress Note ---
Date of Service September 18, 2020 Assessment & Plan (1) Sigmoid volvulus: Now postop day 1 from sigmoid resection. Appears to be doing well. Supportive care/postop care. (2) Paroxysmal atrial fibrillation: Currently NSR with PAC - Not on any BB or other rate control agents - Not on chronic anticoagulation -Continue current care and monitoring, continues to do well (3) Acute respiratory failure with hypoxia: Now really overall seems to have improved/resolvedis on room air (4) Diabetes: Not lvzaefekR1a 5.7 (5) Hyperlipidemia: Not on statin, seems okay with this given age and general lack of risks (6) Constipation: Manage as part of volvulus (7) DVT prophylaxis: SCDs for nowwe will continue to hold off pharmacologicgiven the late in the day today her blood pressure is a little bit lower. She has no compensatory tachycardia, so it is not likely to be blood loss, but will want to make sure we have absolute hemodynamic stability first. (8) Discharge planning issues: Postop, anticipate a need for PT/OT eval and treat, previously discussed with patient because of her age, there is a reasonable likelihood of needing some form of her rehab stay after discharge, she is aware of this, but also feels she will likely do well enough to be able to go home. Admission and Anticipated Discharge Date Admission Date: September 15, 2020 Subjective Feels really good overall. Minimal pain. Tolerated clears wellbasically cleared her whole tray. Notes that she expected to do as well as she is doing. Review of Systems Review of Systems: All systems reviewed & are unremarkable except as noted in HPI & below Physical Exam Physical Exam: In general she is awake and alert pleasant no distress. HEENT normocephalic atraumatic mucous membranes moist. Breathing unlabored no accessory muscle use good effort. Skin shows no rashes no pallor or icterus. Neuro without focal deficits. Results & Data Results & Data ([facility]) Vital Signs (Past 12 Hours) Vital Signs Temp Pulse Resp BP Pulse Ox 09/18/20 15:40 98.4 F 84 18 95/58 L 93 PG Care Time/CCT Total # of Minutes Spent Total Time Spent with Patient: Total time spent is greater than 50% in coordination of care (as documented) at patient's floor/unit and/or counseling patient: Coding Level of Care Code 08892 Subseq Hosp Care Lvl 2 Diagnoses Sigmoid volvulus K56.2 Paroxysmal atrial fibrillation I48.0 Acute respiratory failure with hypoxia J96.01 Diabetes E11.69 Diabetes mellitus type: type 2 Diabetes mellitus salvage determiner insulin use: without halfway use Diabetes mellitus complication status: with other specified complication Hyperlipidemia E78.5 Hyperlipidemia type: unspecified Constipation K59.09 Constipation type: other constipation type DVT prophylaxis Z29.9 Discharge planning issues Z02.9 (1) Diabetes Diabetes mellitus type: type 2 Diabetes mellitus salvage determiner insulin use: without salvage determiner use Diabetes mellitus complication status: with other specified complication Qualified Code(s): E11.69 - Type 2 diabetes mellitus with other specified complication (2) Hyperlipidemia Hyperlipidemia type: unspecified Qualified Code(s): E78.5 - Hyperlipidemia, unspecified (3) Constipation Constipation type: other constipation type Qualified Code(s): K59.09 - Other constipation
[2020-09-19] MEDS: ONDANSETRON INJ 2 MG/ML 2 ML VIAL IV PRN ×2 (01:57→12:58)
[2020-09-19] MEDS: LACTATED RINGER'S 1,000 ML IV SCH ×3 (05:34→20:29)
[2020-09-19] MEDS: ACETAMINOPHEN 1,000 MG/100 ML VIAL IV SCH ×3 (05:35→22:14)
[2020-09-19 06:13] LABS: Basophils # (auto) 0.01 K/uL (0-0.2); Basophils % (auto) 0.1 %; Eosinophils # (auto) 0.09 K/uL (0-0.5); Eosinophils % (auto) 0.6 %; Hematocrit (blood only) 42.6 % (37-47); Hemoglobin 14.2 g/dL (12.0-16.0); Immature Granulocytes # (auto) 0.03 K/uL (0.00-0.02); Immature Granulocytes % (auto) 0.2 %; Lymphocytes # (auto) 1.38 K/uL (1.2-3.4); Lymphocytes % (auto) 9.8 %; Mean Corpuscular Hemoglobin 30.8 pg (25-34); Mean Corpuscular Hgb Conc 33.3 g/dL (32-36); Mean Corpuscular Volume 92.4 fL (80-100); Mean Platelet Volume 10.3 fL (7.4-10.4); Monocytes # (auto) 0.89 K/uL (0.11-0.59); Monocytes % (auto) 6.3 %; Neutrophils # (auto) 11.73 K/uL (1.4-6.5); Platelet Count 249 K/uL (130-400); RDW Coefficient of Variation 13.3 % (11.5-14.5); RDW Standard Deviation 44.3 fL (36.4-46.3); Red Blood Count 4.61 M/uL (4.2-5.4); White Blood Count 14.13 K/uL (4.8-10.8)
[2020-09-19 06:40] LABS: BUN Creatinine Ratio 18.3 (10-20); Calcium 7.9 mg/dl (8.5-10.1); Creatinine Clr Calc Pharmacy 45.8 ml/min; Est GFR (African American) 94.2 ml/min; Est GFR (Non-African American) 81.3 ml/min; Potassium 3.5 mmol/L (3.5-5.1)
--- NOTE | 2020-09-19 12:05 | Surgery Progress Note ---
Date of Service September 19, 2020 Assessment & Plan (1) Sigmoid volvulus: Postoperative day #2 status post sigmoid colectomy. Awaiting full return of bowel function. Keep her on sips of clears for now. Try and increase activity as tolerated Admission and Anticipated Discharge Date Admission Date: September 15, 2020 Subjective Patient seen. Denies pain. Nausea improved now but she did have some anesthesiologist attending nausea with emesis. She also sit states that she had a bowel movement x2. Physical Exam Physical Exam: Alert. No acute distress Abdomen is soft. Mildly more distended than yesterday. Expected incisional tenderness. ENA is serous Results & Data ([facility]) Vital Signs (Past 12 Hours) Vital Signs Temp Pulse Resp BP Pulse Ox 09/19/20 06:59 36.9 C 72 16 121/69 91 PG Care Time/CCT Total # of Minutes Spent Total Time Spent with Patient: Total time spent is greater than 50% in coordination of care (as documented) at patient's floor/unit and/or counseling patient: Coding Level of Care Code None Diagnoses Sigmoid volvulus K56.2
[2020-09-19] MEDS ORDERED: PROCHLORPERAZINE 5 MG in SYRINGE 4 ML IV ONE (15:05)
[2020-09-19] MEDS: ENOXAPARIN INJ 30 MG/0.3 ML SYR SQ SCH (18:13)
--- NOTE | 2020-09-19 20:00 | Hospitalist Progress Note ---
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 Appears to have a little bit of an ileuscontinue supportive care. Rib raising as below. (2) Paroxysmal atrial fibrillation: Currently NSR with PAC - Not on any BB or other rate control agents - Not on chronic anticoagulation Not really an issue currently (3) Acute respiratory failure with hypoxia: Now really overall seems to have improved/resolvedis on room air more or less as often as she is requiring only 2 L. (4) Diabetes: Not [id number] 5.7 (5) Hyperlipidemia: Not on statin, seems okay with this given age and general lack of risks (6) Constipation: Manage as part of volvulus (7) DVT prophylaxis: SCDs for now (8) Discharge planning issues: Doing well with PT/OT, probably able to go home once she has improved (9) Somatic dysfunction of thoracic region: OMT as above Admission and Anticipated Discharge Date Admission Date: September 15, 2020 Subjective Now forFeeling more nauseated somewhat bloated. Case discussed with surgery at the bedside. No other complaints, but is a bit nauseated. Review of Systems Review of Systems: All systems reviewed & are unremarkable except as noted in HPI & below Physical Exam Physical Exam: In general she is awake and alert pleasant no distress. HEENT normocephalic atraumatic mucous membranes moist. Breathing unlabored no accessory muscle use good effort. Abdomen visibly mildly distended. Osteopathic/musculoskeletal shows right greater than left bilateral mid to lower thoracic paraspinal musculature high in tone, decreased range of motioninhibitory pressure/"rib raising" done with improvement in tissue texturepatient tolerated well. Results & Data Results & Data ([facility]) Vital Signs (Past 12 Hours) Vital Signs Temp Pulse Resp BP Pulse Ox 09/19/20 14:45 98.4 F 86 16 137/82 95 09/19/20 14:42 81 L PG Care Time/CCT Total # of Minutes Spent Total Time Spent with Patient: Total time spent is greater than 50% in coordination of care (as documented) at patient's floor/unit and/or counseling patient: Coding Level of Care Code 25514 Subseq Hosp Care Lvl 2 Diagnoses Sigmoid volvulus K56.2 Paroxysmal atrial fibrillation I48.0 Acute respiratory failure with hypoxia J96.01 Diabetes E11.69 Diabetes mellitus type: type 2 Diabetes mellitus terminal makeup operator insulin use: without terminal makeup operator use Diabetes mellitus complication status: with other specified complication Hyperlipidemia E78.5 Hyperlipidemia type: unspecified Constipation K59.09 Constipation type: other constipation type DVT prophylaxis Z29.9 Discharge planning issues Z02.9 Somatic dysfunction of thoracic region M99.02 CPT Codes Musculoskeletal - Musculoskeletal: [address] 1-2 Body regions ([id number]) (1) Diabetes Diabetes mellitus type: type 2 Diabetes mellitus care home insulin use: without care home use Diabetes mellitus complication status: with other specified complication Qualified Code(s): E11.69 - Type 2 diabetes mellitus with other specified complication (2) Hyperlipidemia Hyperlipidemia type: unspecified Qualified Code(s): E78.5 - Hyperlipidemia, unspecified (3) Constipation Constipation type: other constipation type Qualified Code(s): K59.09 - Other constipation
[2020-09-20] MEDS: ACETAMINOPHEN 1,000 MG/100 ML VIAL IV SCH ×2 (06:08→14:21)
[2020-09-20 06:20] LABS: Basophils # (auto) 0.01 K/uL (0-0.2); Basophils % (auto) 0.1 %; Eosinophils # (auto) 0.15 K/uL (0-0.5); Eosinophils % (auto) 1.3 %; Hematocrit (blood only) 41.2 % (37-47); Hemoglobin 13.5 g/dL (12.0-16.0); Immature Granulocytes # (auto) 0.02 K/uL (0.00-0.02); Immature Granulocytes % (auto) 0.2 %; Lymphocytes # (auto) 1.62 K/uL (1.2-3.4); Lymphocytes % (auto) 13.9 %; Mean Corpuscular Hemoglobin 30.3 pg (25-34); Mean Corpuscular Hgb Conc 32.8 g/dL (32-36); Mean Corpuscular Volume 92.6 fL (80-100); Mean Platelet Volume 9.7 fL (7.4-10.4); Monocytes # (auto) 0.86 K/uL (0.11-0.59); Monocytes % (auto) 7.4 %; Neutrophils # (auto) 8.99 K/uL (1.4-6.5); Neutrophils % (auto) 77.1 %; Platelet Count 267 K/uL (130-400); RDW Coefficient of Variation 13.3 % (11.5-14.5); RDW Standard Deviation 45.3 fL (36.4-46.3); Red Blood Count 4.45 M/uL (4.2-5.4); White Blood Count 11.65 K/uL (4.8-10.8)
[2020-09-20 07:00] LABS: Calcium 7.9 mg/dl (8.5-10.1); Creatinine Clr Calc Pharmacy 61.4 ml/min; Est GFR (African American) 103.7 ml/min; Est GFR (Non-African American) 89.5 ml/min
[2020-09-20] MEDS: LACTATED RINGER'S 1,000 ML IV SCH ×2 (07:42→19:32)
--- NOTE | 2020-09-20 08:31 | Surgery Progress Note ---
Date of Service September 20, 2020 Assessment & Plan (1) Sigmoid volvulus: Postoperative day #3. Clinically doing well. Will stay on clear liquids until she has a better return of bowel function [facility] covering for the weekend if any questions or concerns. Admission and Anticipated Discharge Date Admission Date: September 15, 2020 Subjective Patient seen. Feeling better today. No further nausea or vomiting. Denies pain. She had 2 bowel movements postoperative day #1 but none in the last 24 hours. Physical Exam Physical Exam: Alert. No acute distress Abdomen is soft. Much less distention/almost back to baseline today. Incision is clean dry intact and looks good with no drainage or sign of infection. ENA serous Results & Data ([facility]) Vital Signs (Past 12 Hours) Vital Signs Temp Pulse Resp BP Pulse Ox 09/20/20 07:15 36.5 C 79 16 132/53 L 95 09/19/20 23:06 36.7 C 75 15 131/63 99 PG Care Time/CCT Total # of Minutes Spent Total Time Spent with Patient: Total time spent is greater than 50% in coordination of care (as documented) at patient's floor/unit and/or counseling patient: Coding Level of Care Code None Diagnoses Sigmoid volvulus K56.2
[2020-09-20] MEDS: ENOXAPARIN INJ 30 MG/0.3 ML SYR SQ SCH (09:49)
[2020-09-20] MEDS: ONDANSETRON INJ 2 MG/ML 2 ML VIAL IV PRN (14:13)
[2020-09-20] MEDS: PROCHLORPERAZINE 5 MG in SYRINGE 4 ML IV PRN (16:23)
--- NOTE | 2020-09-20 18:54 | Hospitalist Progress Note ---
Date of Service September 20, 2020 Assessment & Plan (1) Sigmoid volvulus: Now postop day 2 from sigmoid resection. Appears to have a little bit of an ileuscontinue supportive care. Given that she is much more bloated and distended, we discussed the possibility of placing an NG tube, she would like to hold off at this timewe discussed that for symptomatic relief if she decides that she could use 1, we can order it at any time. Otherwise rib raising done yet again, continue as needed pain/nausea, anticipate spontaneous resolution with time.. (2) Paroxysmal atrial fibrillation: Still appears to be sinus - Not on any BB or other rate control agents - Not on chronic anticoagulation Not really an issue currently (3) Acute respiratory failure with hypoxia: Now really overall seems to have improved/resolvedis on room air more or less as often as she is requiring only 2 L. I suspect right now her oxygen requirement is more due to immobility and impingement from her belly. (4) Diabetes: Not [id number] 5.7 (5) Hyperlipidemia: Not on statin, seems okay with this given age and general lack of risks (6) Constipation: Manage as part of volvulus (7) DVT prophylaxis: SCDs for now (8) Discharge planning issues: Doing well with PT/OT, probably able to go home once she has improved (9) Somatic dysfunction of thoracic region: OMT done again today Admission and Anticipated Discharge Date Admission Date: September 15, 2020 Subjective Feeling worse, belly more bloated. A bit more nauseated. Not a whole lot as far as pain now. Review of Systems Review of Systems: All systems reviewed & are unremarkable except as noted in HPI & below Physical Exam Physical Exam: In general she is awake and alert pleasant appears a bit more fatigued and is holding a vomit bag. HEENT normocephalic atraumatic mucous membranes moist. Abdomen is soft but moderately distended not firm, no guarding, no rigidity no rebound. Actually examined surprisingly similar to the night before surgery whenever I was called to examine when she was bloated during her bowel prep. Right greater than left mid to lower thoracic paraspinals high tone, decreased range of motioninhibitory pressure done yet again. Neuro without any focal deficits. Results & Data Results & Data ([facility]) Vital Signs (Past 12 Hours) Vital Signs Temp Pulse Resp BP BP Pulse Ox 09/20/20 16:00 98.2 F 83 16 161/75 H 100 09/20/20 07:15 97.7 F 79 16 132/53 L 95 PG Care Time/CCT Total # of Minutes Spent Total Time Spent with Patient: Total time spent is greater than 50% in coordination of care (as documented) at patient's floor/unit and/or counseling patient: Coding Level of Care Code 18648 Subseq Hosp Care Lvl 2 Diagnoses Sigmoid volvulus K56.2 Paroxysmal atrial fibrillation I48.0 Acute respiratory failure with hypoxia J96.01 Diabetes E11.69 Diabetes mellitus type: type 2 Diabetes mellitus fpc insulin use: without fpc use Diabetes mellitus complication status: with other specified complication Hyperlipidemia E78.5 Hyperlipidemia type: unspecified Constipation K59.09 Constipation type: other constipation type DVT prophylaxis Z29.9 Discharge planning issues Z02.9 Somatic dysfunction of thoracic region M99.02 (1) Diabetes Diabetes mellitus type: type 2 Diabetes mellitus wheat washer insulin use: without fpc use Diabetes mellitus complication status: with other specified complication Qualified Code(s): E11.69 - Type 2 diabetes mellitus with other specified complication (2) Hyperlipidemia Hyperlipidemia type: unspecified Qualified Code(s): E78.5 - Hyperlipidemia, unspecified (3) Constipation Constipation type: other constipation type Qualified Code(s): K59.09 - Other constipation
[2020-09-21] MEDS: ONDANSETRON INJ 2 MG/ML 2 ML VIAL IV PRN (04:39)
[2020-09-21] MEDS: PROCHLORPERAZINE 5 MG in SYRINGE 4 ML IV PRN (06:44)
[2020-09-21] MEDS: LACTATED RINGER'S 1,000 ML IV SCH ×2 (07:41→20:26)
[2020-09-21] MEDS: ENOXAPARIN INJ 30 MG/0.3 ML SYR SQ SCH (08:07)
--- NOTE | 2020-09-21 11:37 | Surgery Progress Note ---
Date of Service F/U S/P Sigmoid Colon Resection, POD 4, pt is doing fine, no abdominal pain, passed BM today, no fever, September 21, 2020 Assessment & Plan Admission and Anticipated Discharge Date Admission Date: September 15, 2020 09/21/2020 11:36 AM F/U S/P Sigmoid Colon Resection, POD 4, pt is doing fine, passed BM this morning, sit chair, keep clear diet today, continue treatment, will F/U Supervising Physician Co-Signing Physician Notes Attg add: I interviewed and examined pt, reviewed chart and labs. Pt has no complaints and is tolerating PO. Pt with rectal tube in place, with small amount of output. Her abdomen is non tender and nondistended. Further management per surgery. Subjective Feeling worse, belly more bloated. A bit more nauseated. Not a whole lot as far as pain now. Physical Exam Constitutional: WD/WN, vitals as above well developed and well nourished Eyes: PERRL, conjunctivae normal, anicteric sclerae Neck: trachea midline, no thyromegaly Respiratory: normal respiratory effort, lungs clear to auscultation normal respiratory effort Cardiovascular: RRR, no murmur, no edema Gastrointestinal (Abdomen): normal bowel sounds, soft, nontender, no hepatosplenomegaly Percussion/Palpation: abdomen soft the incision intact, no redness, Musculoskeletal: no cyanosis or clubbing, extremities motor strength 5/5 Neurologic: awake Psychiatric: Orientation: alert and oriented x 3 Results & Data ([facility]) Vital Signs (Past 12 Hours) Vital Signs Temp Pulse Resp BP Pulse Ox 09/21/20 07:05 37 C 74 16 135/85 96
--- NOTE | 2020-09-21 15:38 | Hospitalist Progress Note ---
Date of Service September 21, 2020 Assessment & Plan (1) Sigmoid volvulus: Slowly recovering from sigmoid resection. Ileus probably slowly improving. Continue supportive care and liquid dietgiven that patient feels some degree of appetite for liquids like chocolate boost, will allow this. (2) Paroxysmal atrial fibrillation: Sinus throughout the stay. (3) Acute respiratory failure with hypoxia: No seems to have essentially resolved. Is on room air. (4) Diabetes: Not pxtixuvgA2b 5.7 (5) Hyperlipidemia: Not on statin, seems okay with this given age and general lack of risks (6) Constipation: Manage as part of volvulus (7) DVT prophylaxis: SCDs for now (8) Discharge planning issues: Doing well with PT/OT, probably able to go home once she has improved (9) Somatic dysfunction of thoracic region: OMT done for few days to try to help hasten resolution of ileus. Admission and Anticipated Discharge Date Admission Date: September 15, 2020 Subjective Pain and nausea still persist, but seem to be better than yesterday. Has a hard time deciding if she cannot really tolerate a clear liquid diet or if she is just very tired of clear liquids. "I have had so much liquid during this hospital stay I can just feel it sloshing around" asks for chocolate boost. Vitals noted, in general she is awake and alert pleasant no distress. HEENT normocephalic atraumatic mucous membranes moist. Abdomen is soft mildly distended but may be a little bit less than yesterday, mild tenderness mostly incisional, no guarding no rebound no rigidity. Extremities show no cyanosis clubbing. Skin shows no rashes, no pallor, no icterus. Physical Exam Physical Exam: See above Results & Data Results & Data ([facility]) Vital Signs (Past 12 Hours) Vital Signs Temp Pulse Resp BP Pulse Ox 09/21/20 15:10 98.1 F 89 18 145/80 H 99 09/21/20 07:05 98.6 F 74 16 135/85 96 PG Care Time/CCT Total # of Minutes Spent Total Time Spent with Patient: Total time spent is greater than 50% in coordination of care (as documented) at patient's floor/unit and/or counseling patient: Coding Level of Care Code 09214 Subseq Hosp Care Lvl 2 Diagnoses Sigmoid volvulus K56.2 Paroxysmal atrial fibrillation I48.0 Acute respiratory failure with hypoxia J96.01 Diabetes E11.69 Diabetes mellitus type: type 2 Diabetes mellitus superintendent container terminal insulin use: without long-term use Diabetes mellitus complication status: with other specified complication Hyperlipidemia E78.5 Hyperlipidemia type: unspecified Constipation K59.09 Constipation type: other constipation type DVT prophylaxis Z29.9 Discharge planning issues Z02.9 Somatic dysfunction of thoracic region M99.02 (1) Diabetes Diabetes mellitus type: type 2 Diabetes mellitus superintendent container terminal insulin use: without superintendent container terminal use Diabetes mellitus complication status: with other specified complication Qualified Code(s): E11.69 - Type 2 diabetes mellitus with other specified complication (2) Hyperlipidemia Hyperlipidemia type: unspecified Qualified Code(s): E78.5 - Hyperlipidemia, unspecified (3) Constipation Constipation type: other constipation type Qualified Code(s): K59.09 - Other constipation
[2020-09-22 06:13] LABS: Basophils # (auto) 0.01 K/uL (0-0.2); Basophils % (auto) 0.1 %; Eosinophils # (auto) 0.16 K/uL (0-0.5); Eosinophils % (auto) 1.5 %; Hemoglobin 12.9 g/dL (12.0-16.0); Immature Granulocytes # (auto) 0.03 K/uL (0.00-0.02); Immature Granulocytes % (auto) 0.3 %; Lymphocytes # (auto) 2.17 K/uL (1.2-3.4); Lymphocytes % (auto) 20.3 %; Mean Corpuscular Hemoglobin 30.4 pg (25-34); Mean Corpuscular Hgb Conc 33.1 g/dL (32-36); Mean Corpuscular Volume 91.8 fL (80-100); Mean Platelet Volume 9.2 fL (7.4-10.4); Monocytes # (auto) 1.17 K/uL (0.11-0.59); Monocytes % (auto) 10.9 %; Neutrophils # (auto) 7.17 K/uL (1.4-6.5); Neutrophils % (auto) 66.9 %; Platelet Count 272 K/uL (130-400); RDW Coefficient of Variation 13.2 % (11.5-14.5); RDW Standard Deviation 44.1 fL (36.4-46.3); Red Blood Count 4.25 M/uL (4.2-5.4); White Blood Count 10.71 K/uL (4.8-10.8)
[2020-09-22 06:40] LABS: BUN Creatinine Ratio 38.9 (10-20); Creatinine Clr Calc Pharmacy 87.1 ml/min; Est GFR (African American) 116.4 ml/min; Est GFR (Non-African American) 100.4 ml/min; Potassium 3.1 mmol/L (3.5-5.1)
[2020-09-22] MEDS: ENOXAPARIN INJ 30 MG/0.3 ML SYR SQ SCH (08:09)
[2020-09-22] MEDS: LACTATED RINGER'S 1,000 ML IV SCH ×2 (09:07→21:17)
[2020-09-22] MEDS: POTASSIUM CHLORIDE CRTAB 20 MEQ TABCR PO SCH ×3 (09:07→21:16)
--- NOTE | 2020-09-22 12:40 | Surgery Progress Note ---
Date of Service pt is stable, no nausea, no vomiting, no fever, September 22, 2020 Assessment & Plan Admission and Anticipated Discharge Date Admission Date: September 15, 2020 09/22/2020 12:40 PM F/U S/P Sigmoid Colon Resection, POD 5, pt is doing fine, passed BM , sit chair, advance diet today, continue treatment, will F/U Supervising Physician Co-Signing Physician Notes Attg add: I interviewed and examined pt, reviewed chart and labs. Pt has no complaints and is tolerating PO. Pt with rectal tube in place, with small amount of output. Her abdomen is non tender and nondistended. Further management per surgery. Subjective Pain and nausea still persist, but seem to be better than yesterday. Has a hard time deciding if she cannot really tolerate a clear liquid diet or if she is just very tired of clear liquids. "I have had so much liquid during this hospital stay I can just feel it sloshing around" asks for chocolate boost. Vitals noted, in general she is awake and alert pleasant no distress. HEENT normocephalic atraumatic mucous membranes moist. Abdomen is soft mildly distended but may be a little bit less than yesterday, mild tenderness mostly incisional, no guarding no rebound no rigidity. Extremities show no cyanosis clubbing. Skin shows no rashes, no pallor, no icterus. Physical Exam Constitutional: WD/WN, vitals as above well developed and well nourished Eyes: PERRL, conjunctivae normal, anicteric sclerae Neck: trachea midline, no thyromegaly Respiratory: normal respiratory effort, lungs clear to auscultation normal respiratory effort Cardiovascular: RRR, no murmur, no edema Gastrointestinal (Abdomen): normal bowel sounds, soft, nontender, no hepatosplenomegaly Percussion/Palpation: abdomen soft all incisions intact, no redness, BS + Musculoskeletal: no cyanosis or clubbing, extremities motor strength 5/5 Neurologic: awake Psychiatric: Orientation: alert and oriented x 3 Results & Data ([facility]) Vital Signs (Past 12 Hours) Vital Signs Temp Pulse Resp BP Pulse Ox 09/22/20 07:05 37 C 75 16 135/76 98 Laboratory Results Abnormal lab results 09/22/20 09/22/20 Range/Units 05:56 05:56 Neut # (Auto) 7.17 H (1.4-6.5) K/uL [place] # (Auto) 1.17 H (0.11-0.59) K/uL Immature Gran # (Auto) 0.03 H (0.00-0.02) K/uL Potassium 3.1 L (3.5-5.1) mmol/L Carbon Dioxide 34 H (21-32) mmol/L Anion Gap 1.0 L (3-11) Creatinine 0.31 L (0.6-1.2) mg/dl BUN/Creatinine Ratio 38.9 H (10-20) Calcium 8.0 L (8.5-10.1) mg/dl
--- NOTE | 2020-09-22 15:47 | Hospitalist Progress Note ---
Date of Service September 22, 2020 Assessment & Plan (1) Sigmoid volvulus: Postop ileus now seems to be improving. Give trial of regular diet. Hopefully home soon. (2) Paroxysmal atrial fibrillation: Has essentially been a nonissue this hospital stay. (3) Acute respiratory failure with hypoxia: Overall a minimal issuefrequently on room air, 2 L occasionally as well. (4) Diabetes: Not digvkjevH2a 5.7 (5) Hyperlipidemia: Not on statin, seems okay with this given age and general lack of risks (6) Constipation: Manage as part of volvulus (7) DVT prophylaxis: SCDs for now (8) Discharge planning issues: Doing well with PT/OT, probably able to go home rather than needing a facility. (9) Somatic dysfunction of thoracic region: OMT done for few days to try to help hasten resolution of ileus. Admission and Anticipated Discharge Date Admission Date: September 15, 2020 Subjective Feeling much better. Would like to eat real food. Has moved flatus. Belly is far less tender. Belly far less bloated. Review of Systems Review of Systems: All systems reviewed & are unremarkable except as noted in HPI & below Physical Exam Physical Exam: In general she is awake and alert, no distress. HEENT normocephalic atraumatic mucous membranes are moist. Breathing unlabored no accessory muscle use good effort. Abdomen is soft only mildly distendedfar down from before. Nontender may be minimal vague mid abdominal tenderness, no guarding no rebound no rigidity. No focal neuro deficits. Skin without rashes, pallor, icterus. Results & Data Results & Data ([facility]) Vital Signs (Past 12 Hours) Vital Signs Temp Pulse Resp BP Pulse Ox 09/22/20 14:00 98.4 F 97 H 16 122/65 95 09/22/20 07:05 98.6 F 75 16 135/76 98 PG Care Time/CCT Total # of Minutes Spent Total Time Spent with Patient: Total time spent is greater than 50% in coord ination of care (as documented) at patient's floor/unit and/or counseling patient: Coding Level of Care Code 26720 Subseq Hosp Care Lvl 2 Diagnoses Sigmoid volvulus K56.2 Paroxysmal atrial fibrillation I48.0 Acute respiratory failure with hypoxia J96.01 Diabetes E11.69 Diabetes mellitus type: type 2 Diabetes mellitus exterminator helper termite insulin use: without exterminator helper termite use Diabetes mellitus complication status: with other specified complication Hyperlipidemia E78.5 Hyperlipidemia type: unspecified Constipation K59.09 Constipation type: other constipation type DVT prophylaxis Z29.9 Discharge planning issues Z02.9 Somatic dysfunction of thoracic region M99.02 (1) Diabetes Diabetes mellitus type: type 2 Diabetes mellitus chcf insulin use: without exterminator helper termite use Diabetes mellitus complication status: with other specified complication Qualified Code(s): E11.69 - Type 2 diabetes mellitus with other specified complication (2) Hyperlipidemia Hyperlipidemia type: unspecified Qualified Code(s): E78.5 - Hyperlipidemia, unspecified (3) Constipation Constipation type: other constipation type Qualified Code(s): K59.09 - Other constipation
--- NOTE | 2020-09-23 07:08 | Hospitalist Progress Note ---
Date of Service September 23, 2020 Assessment & Plan (1) Sigmoid volvulus: 89F w/ hx of DM and pAF who is s/p surgical repair for sigmoid volvulus, POD6. Pain is controlled, w/o need of narcotic medications. Sigmoid volvulus: - No concern of Postop ileus. Recovering well. - radha drain removed today per surgery - ok for dispo per surgery - check BMP and CBC in AM Chronic respiratory failure with hypoxia, stable: - on home O2 2L qhs and as needed during day. satting well on RA daytime of 09/23/20 - crackles on lung exam and LE edema suggests fluid overload. no echocardiogram per chart review - Is/Os 24 hrs: 1.7L in 1.8L out. cumulative 18L in 9L out - patient's symptoms and O2 dependence started after COVID infection in Nov 2019; may have component of restrictive lung disease - can pursue additional workup as outpatient Paroxysmal atrial fibrillation: - stable, since transferred off of telemetry - rediscuss anticoagulation as outpatient Diabetes, diet-controlled A1c 5.7 Hyperlipidemia: - Not on statin, age/risks/benefits considered FEN/GI: regular diet. IV fluids discontinued code: conditional (no cpr/defib) dispo: med/surg. possibly home dispo 09/24 ppx: lovenox 30 qam (2) Paroxysmal atrial fibrillation: (3) Acute respiratory failure with hypoxia: (4) Diabetes: (5) Hyperlipidemia: (6) Constipation: (7) DVT prophylaxis: (8) Discharge planning issues: Admission and Anticipated Discharge Date Admission Date: September 15, 2020 Supervising Physician Co-Signing Physician Notes Resident Physician Supervision Note: I independently interviewed and examined the patient and verified the garcía history and physical, reviewed labs and image studies and agree with resident Dr. Brown findings and care plan. Subjective Patient lives at home alone. She feels like she is deconditioned and not ready for home. She states that she will see after PT today and may feel ready for home tomorrow. Her children, who occasionally visit her, are out of town this weekend. Denies pain. No current N/V. Tolerating regular diet. Small BM. States she had been on Eliquis in Jan 2021, but could not tolerate it because of severe nosebleeds. Not on current blood thinners. Review of Systems Review of Systems: Constitutional: Denies fever, chills Eyes: Denies blurry vision, vision changes Cardiovascular: Denies chest pain, palpitations Respiratory: chronic SOB, not new. on nighttime 2L O2 at home Gastrointestinal: Denies abdominal pain, nausea, vomiting, constipation, diarrhea Genitourinary: Denies urinary symptoms including dysuria Musculoskeletal: Denies weakness, muscle aches/pain, joint aches/pain Neurological: Denies headache, numbness, tingling, focal weakness Physical Exam Physical Exam: General: Grossly A&O. NAD. Cooperative. HEENT: Atraumatic, normocephalic. Pulm: Bilat diffuse inspiratory crackles. No respiratory distress. Cardiac: RRR, -mrg. 2+ LE edema. Abdominal: Midline ashley. Wound appears intact, nonerythematous. Has RADHA drain w/ yellow drainage. Results & Data Results & Data ([facility]) Vital Signs (Past 12 Hours) Vital Signs Temp Pulse Resp BP Pulse Ox 09/22/20 22:10 36.9 C 85 18 135/67 98 Resident Activity Tracking Resident Involvement: Resident Care Provided Care Provided: Adult Hospital Medicine (1) Diabetes Diabetes mellitus complication status: with other specified complication Diabetes mellitus termite technician insulin use: without termite technician use Diabetes mellitus type: type 2 Qualified Code(s): E11.69 - Type 2 diabetes mellitus with other specified complication (2) Hyperlipidemia Hyperlipidemia type: unspecified Qualified Code(s): E78.5 - Hyperlipidemia, unspecified (3) Constipation Constipation type: other constipation type Qualified Code(s): K59.09 - Other constipation
[2020-09-23] MEDS: ENOXAPARIN INJ 30 MG/0.3 ML SYR SQ SCH (07:19)
[2020-09-23] MEDS ORDERED: POTASSIUM CHLORIDE CRTAB 20 MEQ TABCR PO STA (07:39)
[2020-09-23 08:27] LABS: BUN Creatinine Ratio 24.5 (10-20); Calcium 8.8 mg/dl (8.5-10.1); Creatinine Clr Calc Pharmacy 67.5 ml/min; Est GFR (Non-African American) 92.3 ml/min; Potassium 3.7 mmol/L (3.5-5.1)
[2020-09-23] MEDS ORDERED: ALPRAZolam 0.5 MG TABLET PO STA (09:04)
--- NOTE | 2020-09-23 11:44 | Surgery Progress Note ---
Date of Service September 23, 2020 Assessment & Plan (1) Sigmoid volvulus: doing well samantha diet. bowels functioning ENA removed today d/c planning.... surgically ready for d/c when ok with primary service. Admission and Anticipated Discharge Date Admission Date: September 15, 2020 Subjective pt seen. no new complaints. samantha diet. +bm's. no pain Physical Exam Physical Exam: alert. nad abd: soft. nt. wound looks good. ENA serous. removed today Results & Data ([facility]) Vital Signs (Past 12 Hours) Vital Signs Temp Pulse Resp BP Pulse Ox 09/23/20 07:45 36.8 C 85 16 132/79 100 PG Care Time/CCT Total # of Minutes Spent Total Time Spent with Patient: Total time spent is greater than 50% in coordination of care (as documented) at patient's floor/unit and/or counseling patient: Coding Level of Care Code None Diagnoses Sigmoid volvulus K56.2
[2020-09-24 07:15] LABS: Basophils # (auto) 0.01 K/uL (0-0.2); Basophils % (auto) 0.1 %; Eosinophils # (auto) 0.19 K/uL (0-0.5); Eosinophils % (auto) 2.3 %; Hematocrit (blood only) 38.4 % (37-47); Hemoglobin 12.3 g/dL (12.0-16.0); Immature Granulocytes # (auto) 0.03 K/uL (0.00-0.02); Immature Granulocytes % (auto) 0.4 %; Lymphocytes # (auto) 1.78 K/uL (1.2-3.4); Mean Corpuscular Hemoglobin 30.8 pg (25-34); Mean Platelet Volume 9.4 fL (7.4-10.4); Monocytes # (auto) 0.92 K/uL (0.11-0.59); Monocytes % (auto) 11.4 %; Neutrophils # (auto) 5.16 K/uL (1.4-6.5); Neutrophils % (auto) 63.8 %; Platelet Count 280 K/uL (130-400); RDW Coefficient of Variation 13.5 % (11.5-14.5); RDW Standard Deviation 46.9 fL (36.4-46.3); White Blood Count 8.09 K/uL (4.8-10.8)
[2020-09-24 07:47] LABS: BUN Creatinine Ratio 34.5 (10-20); Calcium 8.3 mg/dl (8.5-10.1); Creatinine Clr Calc Pharmacy 77.2 ml/min; Est GFR (African American) 111.8 ml/min; Est GFR (Non-African American) 96.5 ml/min; Potassium 3.7 mmol/L (3.5-5.1)
--- NOTE | 2020-09-24 07:49 | Surgery Progress Note ---
Date of Service September 24, 2020 Assessment & Plan (1) Sigmoid volvulus: POD 7 sigmoid resection d/c planning remove ashley next week Admission and Anticipated Discharge Date Admission Date: September 15, 2020 Subjective tolerating diet, bowels moving Physical Exam Gastrointestinal (Abdomen): Inspection/Auscultation: + abdominal surgical incision (clean, dry) Percussion/Palpation: abdomen soft Results & Data ([facility]) Vital Signs (Past 12 Hours) Vital Signs Temp Pulse Resp BP Pulse Ox 09/23/20 22:27 36.6 C 78 17 119/74 92 PG Care Time/CCT Total # of Minutes Spent Total Time Spent with Patient: Total time spent is greater than 50% in coordination of care (as documented) at patient's floor/unit and/or counseling patient: Coding Level of Care Code None Diagnoses Sigmoid volvulus K56.2
--- NOTE | 2020-09-24 08:20 | Hospitalist Progress Note ---
Date of Service September 24, 2020 Assessment & Plan (1) Sigmoid volvulus: 89F w/ hx of DM and pAF who is s/p surgical repair for sigmoid volvulus, POD6. Pain is controlled, w/o need of narcotic medications. Sigmoid volvulus: - No concern of Postop ileus. Recovering well. - radha drain removed today per surgery - ok for dispo per surgery - check BMP and CBC in AM Chronic respiratory failure with hypoxia, stable: - on home O2 2L qhs and as needed during day. satting well on RA daytime of 09/23/20 - crackles on lung exam and LE edema suggests fluid overload. no echocardiogram per chart review - Is/Os 24 hrs: 1.7L in 1.8L out. cumulative 18L in 9L out - patient's symptoms and O2 dependence started after COVID infection in Nov 2019; may have component of restrictive lung disease - can pursue additional workup as outpatient Paroxysmal atrial fibrillation: - stable, since transferred off of telemetry - rediscuss anticoagulation as outpatient Diabetes, diet-controlled A1c 5.7 Hyperlipidemia: - Not on statin, age/risks/benefits considered FEN/GI: regular diet. IV fluids discontinued code: conditional (no cpr/defib) dispo: med/surg. possibly home dispo 09/24 ppx: lovenox 30 qam (2) Paroxysmal atrial fibrillation: (3) Acute respiratory failure with hypoxia: (4) Diabetes: (5) Hyperlipidemia: (6) Constipation: (7) DVT prophylaxis: (8) Discharge planning issues: Admission and Anticipated Discharge Date Admission Date: September 15, 2020 Subjective +flatus, bloated. No abd pain, N/V Eating normally. Feels ready for home. . Review of Systems Review of Systems: Constitutional: Denies fever, chills, Eyes: Denies blurry vision, vision changes ENT: Denies sore throat Cardiovascular: Denies chest pain, palpitations Respiratory: SOB, chronic Gastrointestinal: Denies abdominal pain, nausea, vomiting, diarrhea Genitourinary: Denies urinary symptoms including dysuria Musculoskeletal: Denies weakness, muscle aches/pain, joint aches/pain Neurological: Denies headache, numbness, tingling, focal weakness Physical Exam Physical Exam: General: Grossly A&O. NAD. Cooperative. HEENT: Atraumatic, normocephalic. Pulm: CTAB. -wheezes, -rales, -rhonchi. No respiratory distress. Cardiac: IIR, -mrg. Radial pulses intact and symmetrical. 1 to 2+ BLE Abdominal: Nontender, nondistended, soft. Hodan at midline, no erythema or leakage. Bandage over where RADHA drain was removed; bandage clean/dry/intact. Results & Data Results & Data ([facility]) Vital Signs (Past 12 Hours) Vital Signs Temp Pulse Resp BP Pulse Ox 09/23/20 22:27 36.6 C 78 17 119/74 92 (1) Diabetes Diabetes mellitus complication status: with other specified complication Diabetes mellitus correction insulin use: without correction use Diabetes mellitus type: type 2 Qualified Code(s): E11.69 - Type 2 diabetes mellitus with other specified complication (2) Hyperlipidemia Hyperlipidemia type: unspecified Qualified Code(s): E78.5 - Hyperlipidemia, unspecified (3) Constipation Constipation type: other constipation type Qualified Code(s): K59.09 - Other constipation
[2020-09-24] MEDS: ENOXAPARIN INJ 30 MG/0.3 ML SYR SQ SCH (09:49)
--- NOTE | 2020-09-24 16:28 | Discharge Summary ---
Date of Service September 24, 2020 Admission HPI Per Admitting Provider 89 YOF with past medical history of HTN, Afib(not on anticoagulation) currently in NSR, HLD, Diverticulitis, IBS, COVID-19 (Nov 15) on home oxygen. Patient comes to the emergency room today following acute onset of lower abdominal pain that started this morning. The pain was located on her left lower quadrant and then got progressively worse. The pain now is located in bilateral lower quadrants and is a cramping stabbing pain, that comes in waves. She reports towards the end of yesterday she was having some liquid brown yellow stool and this morning was just mucous. She had a CT scan performed in the EMD that revealed a twisting of the mesentery and sigmoid colon within the left lower quadrant, consistent with a sigmoid volvulus. Proximal to this area there is a distended gas-filled colon consistent with a large bowel obstruction. Dr. Tom has spoken to Gastroenterology- Dr. Womack as well as General Surgery- Dr. Broderick. Patient will be kept NPO, CXR ordered, ECG occupational therapy program director. Patient has been on oxygen 2LNC since her COVID 19 in the fall of 2019. She has not followed up with her dyspnea or oxygen requirements. She does get dyspneic when she is up and moving, she reports that she uses her oxygen majority of the day. She has never smoked. She denies any chest pain or heart events other than her atrial fibrillation. Patient has a estimated risk probability for perioperative myocardial infarction or cardiac event of 0.35% Geriatric sensitive risk 0.2% Admission Exam Per Admitting Provider General: awake, alert, no apparent distress Head: Normocephalic, atraumatic ENT: PERRL, EOMI, no pharyngeal exudate, mucous membranes moist Neuro: AAO x 3, speech clear and appropriate, strength intact bilaterally 5/5, sensation intact and equal all extremities and dermatomes, no pronator drift Chest: equal rise and fall of the chest, no accessory muscle use, no heaves or thrills, expiratory crackles with expiratory wheeze, on room air Cardiac: Regular rate and rhythm, telemetry reviewed- NSR, skin warm dry, cap refill <3 seconds, peripheral pulses +2 no JVD, no murmur, bilateral lower extremity 1+ to mid slater edema- patient says this goes back to normal in the morning. GI: hypoactive throughout all quadrants, softly distended, tympanic, tender to palpation, no rebound, guarding : Spontaneously voiding, no pain, no CVA tenderness, Extremities: Normal inspection, no peripheral edema or erythema, calfs nontender to palpation Psych: Normal mood and affect Skin: no rash or erythema Principal Diagnosis sigmoid volvulus Discharge Exam General: Grossly A&O. NAD. Cooperative. HEENT: Atraumatic, normocephalic. Pulm: CTAB. -wheezes, -rales, -rhonchi. No respiratory distress. Cardiac: IIR, -mrg. Radial pulses intact and symmetrical. 1 to 2+ BLE Abdominal: Nontender, nondistended, soft. Hodan at midline, no erythema or leakage. Bandage over where ENA drain was removed; bandage clean/dry/intact. PM update: mild distention. Discharge Data Allergies Allergy/AdvReac Type Severity Reaction Status Date / Time ciprofloxacin [Cipro] Allergy Mild RASH Verified 09/15/20 15:50 Consultations 09/15/20 18:34 Consult Gastroenterology Stat Consult General Surgery Stat 09/15/20 18:36 ED Decision to Admit Stat Procedures Performed Operation Date: 09/15/20 19:15 Actual Procedures p Flexible Sigmoidoscopy - Debora Womack MD Operation Date: 09/17/20 07:00 Actual Procedures p Sigmoid Colon Resection - Ugo Broderick DO Ordered Studies 09/15/20 CT abd pelvis IV con IMPRESSION: 1. There is twisting of the mesentery and sigmoid colon within the left lower quadrant as described above. Therefore, this is consistent with a sigmoid volvulus. Proximal to this area there is a distended gas-filled colon consistent with a large bowel obstruction. 2. Borderline rectal wall thickening, unchanged. 3. Additional findings as described above. Hospital Course (1) Sigmoid volvulus: Briana Liu is an 89 y/o F w/ PMHx of diverticulitis, IBS, HTN, and pAF who is s/p surgical repair for sigmoid volvulus, discharged home on 09/24/20, POD7. Pain is controlled, w/o need of narcotic medications. Sigmoid volvulus: Patient presented on 09/15/20 w/ worsening LLQ abd pain and was dx'd w/ sigmoid volvulus per CT. GI performed decompression via colonoscopy and NG tube the same day. Open sigmoid resection was performed by gen surg on 09/17/20. Patient recovered well and there was no concern for postop ileus. ENA drain removed on 09/23. - 1 wk gen surg f/u for staple removal - 1 wk f/u w/ PCP Chronic respiratory failure with hypoxia, stable: - on home O2 2L qhs and as needed during day - no echocardiogram per chart review - patient's symptoms and O2 dependence started after COVID infection in Nov 2019; may have component of restrictive lung disease - can pursue additional workup as outpatient Paroxysmal atrial fibrillation: - stable, since transferred off of telemetry - rediscuss anticoagulation as outpatient; patient states she has been off of anticoagulation for months because of severe epistaxis. H/H stable, 12.3/38.4%. Diabetes, diet-controlled A1c 5.7 Hyperlipidemia: - Not on statin, age/risks/benefits considered code status during this admission: conditional (no cpr/defib) (2) Paroxysmal atrial fibrillation: (3) Acute respiratory failure with hypoxia: (4) Diabetes: (5) Hyperlipidemia: (6) Constipation: (7) DVT prophylaxis: (8) Discharge planning issues: Total Time Total Time Spent Total Time Spent (In Minutes): Please see attending documentation. Discharge Plan Discharge Items Patient Disposition: Home - Home Health Services Reason For Visit: SIGMOID VOLVUS Discharge Diagnosis: sigmoid volvulus Activity: Per Instructions section Lifting: No more than 10 pounds Bathing Comment: may shower; no soaking in tubs/pools Exercise/Sports: Wait until after follow-up appointment Driving/Machine Use: no driving while taking narcotics for pain Non-emergency contact: Primary Care Provider and Surgeon Call non-emergency contact if: you have any medication questions, your symptoms worsen, your pain is not controlled, your pain is worsening, your pain is concerning for you, you have a fever, your temperature is above 101.5, your wound has increased redness, your wound has increased drainage and your wound pain has increased Follow-up/Referrals: Ugo Broderick DO [Surgeon] - 10/01/20 9:45 am (Please call to schedule follow up in clinic within 1 week for staple removal) Marcio Lindsay MD [Primary Care Provider] - 09/30/20 1:10 pm (Dr. Sidhu) Diet: Low Fiber Diet Comment: low fiber diet Addtl Attending Provider Instructions: Hi Ms. Liu. You were admitted to [facility] for abdominal pain caused by twisting of your large intestines. You received a surgery to repair this condition (sigmoid volvulus). Regarding your previous bowel medications, please avoid using the Lincess because you had abdominal surgery. Please follow up with general surgery (Dr. Broderick) for staple removal and follow up in 1 week. If your abdominal bloating symptoms continue, please let your surgeon know. Please also follow up with your primary care doctor in 1 week. Because you have had history of atrial fibrillation, you are at increased historyof stroke. It is recommended that you rediscuss anticoagulation with your primary care doctor. Return precautions-contact your doctor (or ED if emergency) if you develop concerning symptoms, specifically those that suggest infection or GI dysfunction. For example, redness, foul drainage from your abdominal incision or fevers. If you develop any new or worsening symptoms including fever, chills, sweats, chest pain, chest pressure, difficulty breathing, uncontrolled nausea/vomiting, rash, wheezing, passing out or nearly passing out, bleeding, black/bloody bowel movements, or other new or concerning symptoms please call your primary care physician, or call 911 for re-evaluation in the emergency department if you are very concerned. Pending Studies at Discharge: Yes Studies:: surgical pathology Stand-Alone Forms: My [facility], Smoking Cessation Medications and DC Order Prescriptions: Discontinued Linzess 290 mcg capsule 290 mcg PO DAILY RF: 0 docusate sodium [Colace] 100 mg Capsule 100 mg PO BID RF: 0 No Action No Known Home Medications RF: 0 Discharge Orders: Discharge Order (Routine); Ordered 09/24/20 Ordered By: Steve Pedraza/Other Patient Handouts: DVT Post Op Prevention Admission Data Admit Date/Time: 09/15/20 20:17 Attending Provider: Jenny Spencer Admit Provider: Wander Condon Primary Care Provider: Marcio Lindsay Other Providers: Mateo Zhao ; Debora Womack ; Ugo Broderick ; Wander Condon ; [employer] ; [employer] Other Interventions: Discharge Summary Assessment (RN) Last Done: 09/24/20 15:11 Supervising Physician Co-Signing Physician Notes Resident Physician Supervision Note: I independently interviewed and examined the patient and verified the garcía history and physical, reviewed labs and image studies and agree with resident Dr. Brown findings and care plan. Home Health Attestation I certify that this patient is under my care and that I, or a physicians virtual office assistant working with me, had a face to-face encounter that meets the home health [id number] encounter requirements with this patient. The encounter with the patient was in whole, or in part, for the following medical condition, which is the primary reason for home health care (list medical condition): I certify that, based on my findings, the following services are medically necessary home health services: My clinical findings support the need for the above services because: OT Assess ADL Status and Restore Function w ADLs PT Assessment for Endurance / Balance / Strength PT Eval for Safety and Mobility PT Eval for Safety, Gait Training, Assistive Devices PT Gait and Balance Training, Strengthening and Safety Skilled Nsg Assessment Skilled Nsg Assessment Surgical Incision / Wound Further, I certify that my clinical findings support that this patient is homebound (i.e. absences from home require considerable and taxing effort and are for medical reasons or sikh services or infrequently or of short duration when for other reasons) because: Assistance of 1 Person for Ambulation/Activities Supportive Aid - Walker Certification for Home Health Services: Based on the above findings, I certify that this patient is confined to the home and needs intermittent jail care, physical therapy and/or speech therapy or continues to need occupational therapy. The patient is under my care, and I have initiated the establishment of the plan of care. This patient will be followed by a physician who will periodically review the plan of care. Resident Activity Tracking Resident Involvement: Resident Care Provided Care Provided: Adult [facility]
== END 2020-09-24 17:07 | disposition home health service (06) | DRG 329 ==
LOC: ED 14:45 → SUATTDRO 20:17 → OR 20:51 → SUATTDRO 20:52 → 3W 20:52